=== PATIENT | male | born 1940 | race African-American/Black ===

== ENCOUNTER 2017-12-13 19:56 | Inpatient (IN) | payer OTHER ==
--- NOTE | 2017-12-13 20:29 | PDOC ---
History of Present Illness - General Chief Complaint: Chest Pain Stated Complaint: CHEST PAIN Time Seen by Provider: 12/13/17 20:29 - History of Present Illness Initial Comments: 76 year old male BIBVINNY with PMH of HTN and HLD with very poor medical compliance presenting with substernal chest pressure for the past 18 hours. States that he had sudden onset chest pressure at 4:00 AM today that he describes as a maximum of 9/10, constant, waxing/ waning intensity, worse with exertion, non-pleuritic, and positional. He took two baby aspirin on the way here and EMS gave him an SL nitro tab. He last took his BP and HLD meds one year prior. Denies history of cardiac interventions or cath. He had a stress test in the 1980s. Denies fevers, chills, nausea, vomiting, diarrhea, SOB, constipation, recent illness, travel, extended immobility, or other symptoms. Of note, he admits he had a brain mass removed 12/13/17 21:46 Past History - Past Medical History Allergies/Adverse Reactions: Allergies Allergy/AdvReac Type Severity Reaction Status Date / Time No Known Allergies Allergy Verified 11/17/15 13:03 Home Medications: Ambulatory Orders NK [No Known Home Medication] 12/13/17 HTN: Yes Hypercholesterolemia: Yes - Suicide/Smoking/Psychosocial Hx Smoking History: Former smoker Have you smoked in the past 12 months: No Hx Alcohol Use: No Drug/Substance Use Hx: No Substance Use Type: None Review of Systems - Review of Systems Constitutional: No: Chills, Diaphoresis, Fever, Loss of Appetite HEENTM: No: Blurred Vision, Tearing, Cataracts Respiratory: No: Cough, Orthopnea, Shortness of Breath, SOB with Exertion, SOB at Rest, Wheezing Cardiac (ROS): Yes: Chest Pain, Lightheadedness. No: Edema, Irregular Heart Rate, Syncope, Chest Tightness ABD/GI: No: Diarrhea, Nausea, Vomiting : No: Dysuria, Discharge, Frequency Integumentary: No: Lesions, Lumps, Pallor Neurological: No: Headache, Numbness, Tingling, Tremors, Weakness Psychiatric: No: Anxiety, Depression Hematologic/Lymphatic: No: Anemia, Blood Clots, Easy Bleeding *Physical Exam - Physical Exam General Appearance: Yes: Nourished, Appropriately Dressed. No: Apparent Distress HEENT: positive: EOMI, PRABHU, Normal ENT Inspection, Normal Voice Neck: positive: Trachea midline, Normal Thyroid, Supple. negative: Tender, Rigid Respiratory/Chest: positive: Lungs Clear, Normal Breath Sounds. negative: Chest Tender, Respiratory Distress Cardiovascular: positive: Regular Rhythm, Regular Rate Gastrointestinal/Abdominal: positive: Normal Bowel Sounds, Flat, Soft. negative : Tender Musculoskeletal: positive: Normal Inspection. negative: CVA Tenderness Extremity: positive: Normal Capillary Refill, Normal Inspection, Normal Range of Motion. negative: Tender Integumentary: positive: Normal Color, Dry, Warm Neurologic: positive: Fully Oriented, Alert, Normal Mood/Affect, Normal Response , Motor Strength 10/18 ED Treatment Course - LABORATORY CBC & Chemistry Diagram: 12/13/17 20:44 12/13/17 21:08 Medical Decision Making - Medical Decision Making 76 year old medically non-compliant hypertensive/ hyperlipidemic presenting with chest pressure. Trop + 0.44 with T-wave inversions V1-V6, AVl, !, II and flattening in AVF + III. Also elevation in AVR. Remaing labs WNL. Patient given asa (162 to complete 2x 81 dose given earlier), plavix 600, metop 25, and started on heparin drip. Patient signed out to Dr. Mojica and Maria Alejandra. 12/13/17 22:28 *DC/Admit/Observation/Transfer Diagnosis at time of Disposition: NSTEMI (non-ST elevated myocardial infarction) - Discharge Dispostion Condition at time of disposition: Fair Decision to Admit order: Yes - Referrals Referrals: Mariano Wallace MD [Primary Care Provider] - - Patient Instructions - Post Discharge Activity
--- NOTE | 2017-12-13 20:43 | PDOC ---
Attending Attestation - Resident Resident Name: [email or web address] - ED Attending Attestation I have performed the following: I have examined & evaluated the patient, The case was reviewed & discussed with the resident, I agree w/resident's findings & plan - HPI HPI: 12/13/17 22:41 Pt experienced chest pain yesterday morning as he was eating all the left over BBQ wings from his daughter's BBQ. He decided not to come to the ER yesterday as he hadn't had a pedicure recently. Today the pain continued, so his and daughter forced him to come to the ER. Pt is overweight. PMD Kamla. 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 Pt has minimal MSCP at this time. - Physicial Exam PE: 12/13/17 22:43 Agree with resident exam. - Medical Decision Making 12/13/17 22:43 Pt has a positive troponin; he has flipped Ts on EKG; NSTEMI; he was started on heparin and given beta blockers and nitro. Pt will be admitted to telelmetry unit Heart Score/ECG Review - History History: Highly suspicious - Electrocardiogram EKG: Significant ST-depression - Age Age: >/= 65 - Risk Factors Risk Factors Heart Score: Yes Hx Hypertension, Yes Hx Obesity Based on the list above the patient has:: 1-2 risk factors - Troponin Troponin: 1-3x normal limit - Score Heart Score - Total: 8 - ECG Intrepretation Rhythm: Regular Rhythm - P and AR Delta Wave(s) Present: No WPW: No
[2017-12-13 20:53] LABS: EOS % 1.6 % (0-4.5); HEMATOCRIT 39.5 % (35.4-49); HEMOGLOBIN 13.1 GM/dL (11.7-16.9); LYMPH % 27.9 % (8-40); MCHC 33.2 g/dl (32.0-35.9); MEAN CELL VOLUME 87.4 fl (80-96); MEAN PLT VOLUME 8.6 fl (7.5-11.1); MONO % 5.3 % (3.8-10.2); NEUT % 64.2 % (42.8-82.8); PLATELET COUNT 375 K/MM3 (134-434); RBC 4.51 M/mm3 (4.00-5.60); RDW 14.2 % (11.9-15.9); WHITE BLOOD COUNT 9.8 K/mm3 (4.0-10.0)
[2017-12-13 20:56] LABS: PLATELET ESTIMATE ADEQUATE
[2017-12-13 21:16] LABS: INR 1.05 (0.82-1.09); PROTHROMBIN TIME (PATIENT) 11.9 SEC (9.7-13.0)
[2017-12-13 21:40] LABS: ALBUMIN 3.4 g/dl (3.4-5.0); ALK PHOS 51 U/L (45-117); ANION GAP 6 (8-16); BILIRUBIN,TOTAL 0.3 mg/dL (0.2-1.0); BLOOD UREA NITROGEN 11 mg/dL (7-18); CHLORIDE 109 mmol/L (98-107); CO2 31 mmol/L (21-32); CREATININE 1.1 mg/dL (0.7-1.3); GLUCOSE,RANDOM 92 mg/dL (74-106); POTASSIUM 3.8 mmol/L (3.5-5.1); SGOT/AST 15 U/L (15-37); SGPT/ALT 11 U/L (12-78); SODIUM 146 mmol/L (136-145); TOT PROT 6.9 g/dl (6.4-8.2)
[2017-12-13] MEDS ORDERED: ASPIRIN 81 MG CHEWABLE TABLETS PO ONE (21:49)
[2017-12-13] MEDS ORDERED: CLOPIDOGREL BISULFATE 300 MG TABLET PO ONE ×2 (21:50→22:22)
[2017-12-13] MEDS ORDERED: METOPROLOL TARTRATE 25 MG TABLET (FP) PO ONE (21:57)
[2017-12-13] MEDS ORDERED: HEPARIN NA (PORCINE) 5,000 UNITS/ML 1ML VIAL IVPUSH PRN ×2 (22:01)
[2017-12-13] MEDS ORDERED: HEPARIN INFUSION - 25,000 UNITS/500 ML INFUS.BAG IVPB SCH (22:15)
[2017-12-13] MEDS ORDERED: ASPIRIN 81 MG CHEWABLE TABLETS ONE (22:16)
[2017-12-13] MEDS ORDERED: CLOPIDOGREL BISULFATE 300 MG TABLET ONE ×2 (22:16→22:29)
[2017-12-13] MEDS ORDERED: METOPROLOL TARTRATE 25 MG TABLET (FP) ONE (22:17)
[2017-12-13] MEDS ORDERED: HEPARIN INFUSION - 25,000 UNITS/500 ML INFUS.BAG IVPB ONE (22:17)
[2017-12-13] MEDS ORDERED: HEPARIN NA (PORCINE) 5,000 UNITS/ML 1ML VIAL ONE (22:36)
[2017-12-13] MEDS ORDERED: NITROGLYCERIN 2% OINTMENT - 1GM PACKET TD ONE ×2 (22:38→23:06)
[2017-12-13] MEDS ORDERED: METOPROLOL TARTRATE 5 MG/5 ML VIAL IVPUSH ONE (22:39)
[2017-12-13] MEDS ORDERED: METOPROLOL TARTRATE 5 MG/5 ML VIAL ONE (23:06)
[2017-12-14 00:32] LABS: URINE APPEARANCE CLEAR; URINE BILIRUBIN NEGATIVE (<2.0 mg/dL); URINE COLOR LTYELLOW; URINE GLUCOSE (UA) NEGATIVE (NEGATIVE); URINE KETONE NEGATIVE (NEGATIVE); URINE LEUK ESTERASE NEGATIVE (NEGATIVE); URINE NITRITE NEGATIVE (NEGATIVE); URINE PROTEIN NEGATIVE (NEGATIVE); URINE UROBILINOGEN 4.0 E.U/dl mg/dL (0.2-1.0)
[2017-12-14 04:22] VITALS: BP 157/70; PULSE 59; BMI 38.0
[2017-12-14 04:37] VITALS: TEMP 98.2
[2017-12-14] MEDS ORDERED: METOPROLOL TARTRATE 25 MG TABLET (FP) PO SCH (06:15)
[2017-12-14] MEDS ORDERED: ATORVASTATIN CA 80 MG TABLET (FP) PO ONE (08:07)
--- NOTE | 2017-12-14 08:09 | CON.CARD ---
Cardiology Consult (text) - Consultation Consultation Note: Consult Dictated IMP: NSTEMI REC: Given ASA, Plavix load, Heparin gtts, high dose statin Plan to tx to [facility] for cath.
--- NOTE | 2017-12-14 09:21 | CONS ---
DATE OF CONSULTATION: 11/14/2017 The patient is a 76-year-old male who presented to the emergency department with 1 day of exertional, substernal chest pressure and approximately 2 days of exertional dyspnea. He describes his chest pain as centralized, pressure with some radiation to the left shoulder. He denies nausea, vomiting, or diaphoresis. He denies palpitations, lower extremity edema, syncope, PND, orthopnea. He has no pleuritic chest pain. 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 He has no known drug allergies. HOME MEDICATIONS: These could not be reconciled; he does not know them and they need to be reviewed from his outpatient record. FAMILY HISTORY: Noncontributory for early coronary disease. SOCIAL HISTORY: He lives with his . He is a former smoker. PHYSICAL EXAMINATION: General: He is alert, oriented, in no distress, currently chest pain free. Vital Signs: Temperature 98.2, pulse 59, sinus rhythm, blood pressure 157/70, oxygenating 96% on room air. Neck: No JVD, no carotid bruits. Heart: Regular without murmurs. No aortic stenosis murmur. Chest: Clear. Abdomen: Obese, but soft, nontender. No rebound or guarding. Extremities: Warm with no edema. His ECG showed normal sinus rhythm with T-wave inversions across the precordium. There is no prior for comparison. CBC was normal. INR 1.05, last PTT 115; heparin protocol being followed. Sodium 146, potassium 3.8, BUN 11, creatinine 1.1. CK and troponin trend as follows: 117, 388 CPK; troponin initial 0.44, second set 13.2 with an index of 11 and an MB of 42.2. Urinalysis was negative. Chest x-ray showed no clear infiltrates or effusions. IMPRESSION: A 76-year-old male with 2 days of dyspnea on exertion and 1 day of substernal, exertional chest pressure; EKG changes and cardiac enzyme trend consistent with [id number] elevation myocardial infarction. PLAN: 1. Patient has received full-dose aspirin 325 mg as well as a 600 mg Plavix load in the emergency department. He is currently on an unfractionated heparin drip, which we will continue. High-dose statin, Lipitor 80 mg daily, will be initiated. Given his resting pulse of 55 to 60, beta blockers are ordered, but with hold parameters. 2. His condition was discussed in detail with him and his . I have recommended transfer to a tertiary care center for cardiac catheterization and possible PCI. Patient was agreeable to transfer. Patient is accepted to [facility] for transfer and, at the time of this dictation, ambulance is set to pick him up from [facility] in 1 hour. Thank you for the consultation. MYLES BURGER M.D. JORGE [id number]
--- NOTE | 2017-12-14 09:25 | EKG ---
Test Reason : Blood Pressure : / mmHG Vent. Rate : 089 BPM Atrial Rate : 089 BPM P-R Int : 184 ms QRS Dur : 080 ms QT Int : 400 ms P-R-T Axes : 030 -03 180 degrees QTc Int : 486 ms SINUS RHYTHM WITH OCCASIONAL PREMATURE VENTRICULAR COMPLEXES T WAVE ABNORMALITY, CONSIDER ANTEROLATERAL ISCHEMIA PROLONGED QT ABNORMAL ECG NO PREVIOUS ECGS AVAILABLE Confirmed by MYLES BURGER MD ([id number]) on 12/14/2017 9:25:34 AM Referred By: Confirmed By:MYLES BURGER MD
[2017-12-14] MEDS ORDERED: ASPIRIN COATED 81 MG TABLET.EC PO SCH (10:00)
[2017-12-14] MEDS ORDERED: CLOPIDOGREL BISULFATE 75 MG TABLET (FP) PO SCH (10:00)
--- NOTE | 2017-12-14 15:28 | HP ---
Admitting History and Physical - Smoking History Smoking history: Former smoker Have you smoked in the past 12 months: No - Alcohol/Substance Use Hx Alcohol Use: No Home Medications - Allergies Allergies/Adverse Reactions: Allergies Allergy/AdvReac Type Severity Reaction Status Date / Time No Known Allergies Allergy Verified 11/17/15 13:03 - Home Medications Home Medications: Ambulatory Orders NK [No Known Home Medication] 12/13/17 Physical Examination Vital Signs: Vital Signs Temperature 98.2 F 12/14/17 04:00 Pulse Rate 59 L 12/14/17 04:00 Respiratory Rate 20 12/14/17 04:00 Blood Pressure 157/70 12/14/17 04:00 O2 Sat by Pulse Oximetry (%) 98 12/14/17 09:00 Labs: CBC, BMP 12/13/17 20:44 12/13/17 21:08
--- NOTE | 2017-12-14 15:28 | DS ---
Physical Examination Vital Signs: Vital Signs Temperature 98.2 F 12/14/17 04:00 Pulse Rate 59 L 12/14/17 04:00 Respiratory Rate 20 12/14/17 04:00 Blood Pressure 157/70 12/14/17 04:00 O2 Sat by Pulse Oximetry (%) 98 12/14/17 09:00 Labs: CBC, BMP 12/13/17 20:44 12/13/17 21:08 Discharge Summary Reason For Visit: NON-ST ELEVAYION (NSTEMI) MYOCARDIAL INFARCTION Condition: Fair - Instructions Referrals: Mariano Wallace MD [Primary Care Provider] - Disposition: HOME - Home Medications Comprehensive Discharge Medication List: Ambulatory Orders NK [No Known Home Medication] 12/13/17
== END 2017-12-14 10:45 | disposition home or self-care (01) | DRG 282 ==
LOC: JER 19:56 → JERBED 22:11 → J4W 12-14 02:31
PROVIDERS: ADMIT Internal Medicine; ATTEND Internal Medicine
DX: I21.4 Non-ST elevation (NSTEMI) myocardial infarction (principal); I45.81 Long QT syndrome; I10 Essential (primary) hypertension; E66.9 Obesity, unspecified; Z68.38 Body mass index [BMI] 38.0-38.9, adult; E78.5 Hyperlipidemia, unspecified; Z87.891 Personal history of nicotine dependence; Z91.14 Patient's other noncompliance with medication regimen
CPT/HCPCS: 36415; 71045-TC-FY; 80053; 80061; 81003; 82550; 82553; 83721; 84484; 85025; 85610; 85730; 93005; 93010; 99284-25; J1644

== ENCOUNTER 2019-03-24 15:29 | Inpatient (IN) | payer OTHER ==
--- NOTE | 2019-03-24 16:04 | PDOC ---
History of Present Illness - General Chief Complaint: Blood Pressure Problem Stated Complaint: Chest Pain Time Seen by Provider: 03/24/19 16:03 History Source: Patient, Family, Spouse Exam Limitations: Clinical Condition (Not oriented, inaccurate recall) - History of Present Illness Initial Comments: 03/24/19 16:04 Doug Galindo is a 78M with PMH NSTEMI, HTN, HLD, and distant brain lesion removal presenting with multiple complaints, including one day of chest pain, urinary/fecal incontinence, and lower extremity weakness. Patient is a very poor historian, history given by both patient and family at bedside. Per family, confusion and memory issues is a chronic issue. Has been refusing to see a doctor for a while, but brought in today by for chest pain. Patient himself reports that he was sitting in a chair yesterday and suddenly started having a pain with palpitations in the middle of his chest, describes as pressure that went away eventually but unsure of how long he had it. Comes and goes multiple times over the night into the next day, but unable to describe when or if there was a trigger. Pain was non-radiating and caused some shortness of breath. At this time patient denies chest pain, as it resolved while in the waiting room. Family reports that patient has been having 5 months of lower extremity weakness that has been worsening, formerly able to walk but now cannot get up from seated position, family has to transfer to chair or carry to bathroom, is no longer able to do this anymore. Had an NSTEMI last year but has not had any chest pain complaints since then or other medical problems. Has been having one week of urinary/fecal incontinence that is new. On multiple medications after NSTEMI last year, says she is giving them but is unclear of what they are. Past History - Past Medical History Allergies/Adverse Reactions: Allergies Allergy/AdvReac Type Severity Reaction Status Date / Time No Known Allergies Allergy Verified 03/25/19 03:03 Home Medications: Ambulatory Orders Atorvastatin Ca [Lipitor] 80 mg PO HS 03/25/19 Clopidogrel Bisulfate [Plavix] 75 mg PO DAILY 03/25/19 Furosemide [Lasix -] 20 mg PO TID 03/25/19 Lisinopril 5 mg PO DAILY 03/25/19 Metoprolol Tartrate [Lopressor -] 25 mg PO BID 03/25/19 Sertraline HCl [Zoloft -] 25 mg PO DAILY 03/25/19 Tamsulosin HCl [Flomax] 0.4 mg PO DAILY 03/25/19 COPD: No HTN: Yes Hypercholesterolemia: Yes - Psycho Social/Smoking Cessation Hx Smoking History: Former smoker Have you smoked in the past 12 months: No If you are a former smoker, when did you quit?: 1992 Information on smoking cessation initiated: No Hx Alcohol Use: No Drug/Substance Use Hx: No Substance Use Type: None Review of Systems - Review of Systems Able to Perform ROS?: Yes Comments:: 03/25/19 19:14 conflicting answers for most of his medical history, i.e. has history of NSTEMI and brain surgery but says no when asked about them Constitutional: Yes: Weakness. No: Chills, Fever HEENTM: No: Symptoms Reported Respiratory: Yes: Shortness of Breath, SOB at Rest. No: Cough Cardiac (ROS): Yes: Chest Pain, Palpitations, Chest Tightness. No: Edema, Syncope ABD/GI: Yes: Diarrhea. No: Constipated, Nausea, Vomiting : No: Burning, Dysuria, Discharge, Frequency, Flank Pain, Hematuria Musculoskeletal: Yes: Muscle Weakness. No: Muscle Pain Integumentary: Yes: Lumps (bump to back of head) Neurological: Yes: Headache. No: Numbness, Paresthesia, Tingling, Tremors, Weakness Endocrine: No: Symptoms Reported Hematologic/Lymphatic: No: Symptoms Reported All Other Systems: Reviewed and Negative *Physical Exam - Vital Signs Last Vital Signs Temp Pulse Resp BP Pulse Ox 98.6 F 70 20 79/53 L 100 03/24/19 15:40 03/24/19 15:40 03/24/19 15:40 03/24/19 15:40 03/24/19 15:40 - Physical Exam General Appearance: Yes: Nourished, Appropriately Dressed. No: Apparent Distress, Intoxicated HEENT: positive: EOMI, PRABHU, Normal Voice, Symmetrical, Pharynx Normal, Hearing Grossly Normal, Other (large lump to back of head). negative: Normal ENT Inspection, Scleral Icterus (R), Scleral Icterus (L), Muffled/Hoarse voice, Pharyngeal Erythema, Tonsillar Exudate, Tonsillar Erythema Neck: positive: Normal Thyroid, Supple. negative: Tender, Rigid, Decreased range of motion, Lymphadenopathy (R), Lymphadenopathy (L) Respiratory/Chest: positive: Lungs Clear, Normal Breath Sounds. negative: Respiratory Distress, Accessory Muscle Use, Crackles, Rales, Rhonchi Cardiovascular: positive: Regular Rhythm, Regular Rate Vascular Pulses: Dorsalis-Pedis (R): 2+, Doralis-Pedis (L): 2+ Gastrointestinal/Abdominal: positive: Normal Bowel Sounds, Flat, Soft. negative : Tender, Guarding, Rebound Musculoskeletal: positive: Normal Inspection. negative: CVA Tenderness Extremity: positive: Normal Capillary Refill, Normal Inspection, Normal Range of Motion, Other (Lower extremities 3/5 motor strength at the hips, full ROM, non-tender, pulses present, no evidence of deformity or rash. BUE exam normal.) . negative: Tender Integumentary: positive: Normal Color, Dry, Warm Neurologic: positive: Alert, Normal Mood/Affect, Confused, Disoriented. negative: Fully Oriented (oriented to person, general location as hospital, thinks it is June), Normal Response (short phrase responses, gives answers that directly contradict medical history), Motor Strength 5/5, Facial Droop, Numbness ED Treatment Course - LABORATORY CBC & Chemistry Diagram: 03/25/19 06:50 03/25/19 06:00 - RADIOLOGY Radiology Studies Ordered: Category Date Time Status CHEST X-RAY PORTABLE* [RAD] Stat Radiology 03/24/19 16:04 Ordered Medical Decision Making - Medical Decision Making 03/24/19 16:04 Doug Galindo is a 78M with PMH NSTEMI, HTN, HLD, and distant brain lesion removal presenting with multiple complaints, including one day of chest pain, urinary/fecal incontinence, and lower extremity weakness. Patient is a very poor historian, gives conflicting answers compared with family and known history. Alert, but oriented only to self, location in hospital , and reason for being in hospital, but does not know the date/time and believes he is at [facility]. Altered mental status concerning for electrolyte abnormality, brain injury/lesion given abnormal lump on the back of his head, dementia, drug intoxication. Has multiple issues at this time, including chest pain, weakness, incontinence, unclear how they are related at this time. Will evaluate via: ECG CXR CMP CBC CP UA/UC CT head for abnormal lump to back of head Bedside US shows no evidence of tamponade or pericardial effusions ECG shows sinus bradycardia without ST elevations or ischemic changes, HR 58, SD 184, QTc 390. 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 Mojica service for PMD Dr. Mariano Wallace Called Dr. Mojica's office. 03/24/19 19:[address] Mojica. 03/24/19 19:21 Discussed admission to telemetry under Dr. Mojica. Patient requires inpatient admission for an elevation in creatinine from his baseline and evaluation of kidney injury and underlying etiology as cause of his weakness, in the setting of concerning finding of chest pain in light of his cardiac history and inability to fully articulate his symptoms. The patient needs further inpatient cardiac evaluation including troponin trending, echocardiogram. Patient is known to have poor physician follow-up and is unable to perform ADLs at home, further necessitating inpatient admission. Discharge - Discharge Information Problems reviewed: Yes Clinical Impression/Diagnosis: Chest pain at rest, Palpitations, Acute kidney injury Lower extremity weakness Qualifiers: Laterality: bilateral Qualified Code(s): R29.898 - Other symptoms and signs involving the musculoskeletal system Condition: Stable - Admission Yes - Follow up/Referral - Patient Discharge Instructions - Post Discharge Activity
[2019-03-24] MEDS ORDERED: SODIUM CHLORIDE 1,000 ML IV STA (16:07)
[2019-03-24 16:34] LABS: BASO % 0.8 % (0-2.0); EOS % 1.9 % (0-4.5); HEMATOCRIT 32.4 % (35.4-49); HEMOGLOBIN 10.8 GM/dL (11.7-16.9); LYMPH % 14.6 % (8-40); MCH 29.1 pg (25.7-33.7); MCHC 33.3 g/dl (32.0-35.9); MEAN CELL VOLUME 87.5 fl (80-96); MEAN PLT VOLUME 7.6 fl (7.5-11.1); MONO % 5.9 % (3.8-10.2); NEUT % 76.8 % (42.8-82.8); PLATELET COUNT 392 K/MM3 (134-434); RDW 13.9 % (11.9-15.9); WHITE BLOOD COUNT 9.4 K/mm3 (4.0-10.0)
--- NOTE | 2019-03-24 16:44 | PDOC ---
Attending Attestation - Resident Resident Name: Ajit Funk - ED Attending Attestation I have performed the following: I have examined & evaluated the patient, The case was reviewed & discussed with the resident, I agree w/resident's findings & plan, Exceptions are as noted - HPI HPI: 03/24/19 16:38 Right 78-year-old male with history of hypertension, hyperlipidemia, CAD, questionable dementia, history of brain tumor with possible resection presents to the ER planing of several days of intermittent chest pain and decreased p.o. intake of solids and liquids. Patient is also been noted to develop incontinence of bowel and bladder as per family members. - Physicial Exam PE: 03/24/19 16:39 Patient is awake and alert, oriented to self only. Patient believes that he is at [facility] currently. Patient is well-nourished atraumatic, a palpable ridge and deformity is noted to the calvarium at the occiput EOMI Mucous membranes are dry CTA RRR - Medical Decision Making Patient is a frail-appearing 78-year-old male with multiple comorbidities who presents with atraumatic chest pain, decreased p.o. intake of solids and liquids and failure to thrive with incontinence of bowel and bladder. In the ER , Patient is afebrile; patient with no focal neurological deficits noted initial evaluation. Lungs are clear, bedside ultrasound shows no evidence of pericardial effusion or significant wall motion abnormalities. Intracranial hemorrhage or recurrence of the previously mentioned brain tumor. Will obtain CBC/CMP/UA/cardiac profile/EKG. Will obtain head CT to rule out hemorrhage vs mass. likely admission.
[2019-03-24 17:00] LABS: ALBUMIN 3.2 g/dl (3.4-5.0); BILIRUBIN,TOTAL 0.4 mg/dL (0.2-1); BLOOD UREA NITROGEN 42.9 mg/dL (7-18); CALCIUM 9.3 mg/dL (8.5-10.1); CREATININE 2.3 mg/dL (0.55-1.3); POTASSIUM 4.1 mmol/L (3.5-5.1); TOT PROT 6.3 g/dl (6.4-8.2)
[2019-03-24 19:33] LABS: PH,URINE 5.5 (5.0-8.0); URINE APPEARANCE CLEAR; URINE BILIRUBIN NEGATIVE (NEGATIVE); URINE COLOR YELLOW; URINE GLUCOSE (UA) NEGATIVE (NEGATIVE); URINE KETONE NEGATIVE (NEGATIVE); URINE LEUK ESTERASE NEGATIVE (NEGATIVE); URINE NITRITE NEGATIVE (NEGATIVE); URINE PROTEIN NEGATIVE (NEGATIVE); URINE UROBILINOGEN 0.2 mg/dL (0.2-1.0)
--- NOTE | 2019-03-25 04:36 | HP ---
Admitting History and Physical - Admission History of Present Illness: Pt is a 78 y/o male with PMH significant for NC, HTN, HLD, and distant brain lesion removal presenting with multiple complaints, including one day of chest pain, urinary/fecal incontinence, and lower extremity weakness. Patient is a very poor historian, history was given by both patient and family at bedside. Pt has been having confusion and memory loss. Pt has been having intermittent memory loss over the past few months but as per has been more consistent in the past 48 hrs. Patient complains of sitting in a chair and suddenly started having chest pain with palpitations in the middle of his chest, describes as pressure that went away eventually but unsure of how long he had it. Comes and goes multiple times over the night into the next day. Patient has been few months of lower extremity weakness that has been worsening, formerly able to walk but now cannot get up from seated position, family has to transfer to chair or carry to bathroom, is no longer able to do this anymore. Pt also has been having one week of urinary/fecal incontinence that is new. 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) Cardiovascular: Yes: HTN, Hyperlipdemia, NC - Smoking History Smoking history: Former smoker Have you smoked in the past 12 months: No If you are a former smoker, when did you quit?: 1992 - Alcohol/Substance Use Hx Alcohol Use: No Home Medications - Allergies Allergies/Adverse Reactions: Allergies Allergy/AdvReac Type Severity Reaction Status Date / Time No Known Allergies Allergy Verified 03/25/19 03:03 - Home Medications Home Medications: Ambulatory Orders Atorvastatin Ca [Lipitor] 80 mg PO HS 03/25/19 Clopidogrel Bisulfate [Plavix] 75 mg PO DAILY 03/25/19 Sertraline HCl [Zoloft -] 25 mg PO DAILY 03/25/19 Tamsulosin HCl [Flomax] 0.4 mg PO DAILY 03/25/19 Aspirin [ASA -] 81 mg PO DAILY tab.chew 04/07/19 Cyanocobalamin [Vitamin B12 -] 1,000 mcg PO DAILY tablet 04/07/19 Metoprolol Tartrate [Lopressor -] 12.5 mg PO BID tablet 04/07/19 levoFLOXacin [Levaquin -] 500 mg PO DAILY@0600 tablet 04/07/19 Family Medical History Family History: Unable to Obtain Review of Systems - Review of Systems Constitutional: reports: Weakness, Other (Memory loss) HENT: reports: No Symptoms Neck: reports: No Symptoms Cardiovascular: reports: Chest Pain Gastrointestinal: reports: No Symptoms Genitourinary: reports: Other (Urinary/fecal incontinence) Physical Examination Vital Signs: Vital Signs Temperature 98.1 F 03/24/19 21:50 Pulse Rate 68 03/25/19 03:01 Respiratory Rate 18 03/25/19 03:01 Blood Pressure 110/59 L 03/25/19 03:01 O2 Sat by Pulse Oximetry (%) 96 03/25/19 03:01 Constitutional: Yes: Well Nourished Eyes: Yes: WNL HENT: Yes: WNL Neck: Yes: WNL, Supple Cardiovascular: Yes: WNL, Regular Rate and Rhythm Respiratory: Yes: WNL, Regular, CTA Bilaterally Gastrointestinal: Yes: WNL, Normal Bowel Sounds, Soft Musculoskeletal: Yes: WNL Extremities: Yes: WNL Edema: No ...Motor Strength: WNL Labs: CBC, BMP 03/24/19 16:12 03/24/19 16:12 Problem List - Problems (1) Chest pain at rest Assessment/Plan: Tele monitoring Serial cpk/troponin Code(s): R07.9 - CHEST PAIN, UNSPECIFIED (2) Altered mental status Assessment/Plan: CT scan head showed osteoma Neuro consult Will need MRI brain ?Dementia Check labs Code(s): R41.82 - ALTERED MENTAL STATUS, UNSPECIFIED (3) Weakness Assessment/Plan: Will need PT eval Code(s): R53.1 - WEAKNESS (4) Acute kidney injury Assessment/Plan: Check Renal US Renal consult IV hydration ?Dehydration Code(s): N17.9 - ACUTE KIDNEY FAILURE, UNSPECIFIED (5) HTN (hypertension) Assessment/Plan: Hold antihypertensives and monitor BP IV hydration Code(s): I10 - ESSENTIAL (PRIMARY) HYPERTENSION (6) HLD (hyperlipidemia) Code(s): E78.5 - HYPERLIPIDEMIA, UNSPECIFIED
[2019-03-25] MEDS ORDERED: DEXTROSE 5%-0.45% SALINE 1,000 ML IV SCH (04:45)
[2019-03-25 07:24] LABS: EOS % 2.8 % (0-4.5); HEMOGLOBIN 10.4 GM/dL (11.7-16.9); LYMPH % 23.7 % (8-40); MCH 29.3 pg (25.7-33.7); MCHC 33.7 g/dl (32.0-35.9); MEAN CELL VOLUME 86.9 fl (80-96); MEAN PLT VOLUME 7.5 fl (7.5-11.1); MONO % 6.5 % (3.8-10.2); PLATELET COUNT 381 K/MM3 (134-434); RBC 3.56 M/mm3 (4.00-5.60); RDW 14.3 % (11.9-15.9); WHITE BLOOD COUNT 8.3 K/mm3 (4.0-10.0)
[2019-03-25 07:47] LABS: ALBUMIN 3.1 g/dl (3.4-5.0); BILIRUBIN,TOTAL 0.6 mg/dL (0.2-1); BLOOD UREA NITROGEN 43.1 mg/dL (7-18); CALCIUM 8.7 mg/dL (8.5-10.1); POTASSIUM 3.3 mmol/L (3.5-5.1)
[2019-03-25] MEDS: HEPARIN NA (PORCINE) 5,000 UNITS/ML 1ML VIAL SQ SCH ×2 (10:21→22:58)
--- NOTE | 2019-03-25 10:38 | CONSULT ---
Consult - text type - Consultation Consultation Note: NEUROLOGY CONSULT GREATLY APPRECIATED: This 78 yo LH man is a retired [employer] with memory loss "for a while." His lives with his and requires assistance in all ADL's. Pt.has cane at home, but essentially bed/chair bound for at least the past month. PMHX: NSTEMI, HTN, HLD. Home medications uncertain but may include metoprolol, flomax, furosemide. Here due to persistent B/B incontinence which patient attributes to lower extremity weakness and inability to walk to the bathroom. Also describes "burning" under soles of feet. Head CT (reviewed): moderate diffuse cerebral atrophy with ex vacuo dilation of ventricles. Scattered, diffuse chronic ischemic changes. Posterior osteoma. EKG sinus consuelo BP on admission 79/53. WBC= 8.3 K, BUN/CR 42.9/2.3; UA neg. Low total protein and albumin SILVIA: Cor reg. No bruit. Neck supple. Hard, nontender lump middle occiput. Neg SLR. Unkempt. Scabs to shoulders. Wearing diaper. Neuro: Awake, alert, responsive. Follows most commands. "[facility]" June 1918. Trump. Recalls 1 of 3.. + glabella, snout, suck, palmomentals CNII-CNXII: EOM's full with full stephens. No facial. Gag ok. Motor: No drift or tremor. Rigid tone legs > arms. Normal ankle dorsiflexion, B/L. Min cogwheeling. Decreased EVANGELINA's B/L. Reflexes brisk in arms, present KJ's, but reduced AJ's. Toes downgoing Coordination: No FTN dystaxia. Sensation: Feels vibration in toes. Gait: unable to stand with assist. Impression: Moderately Severe, B/L, cerebral dysfunction (OMS, chronic). Probably Alzheimers disease (possible microvascular contribution) LSSS +/- peripheral neuropathy (small fibre-nutritional?) Admission labs and BP suggest dehydration and that nutritional factors may play a role in recent worsening. Consider Wernicke's Encephalopathy. Suggest: Await further history from family and interview with about home care situation. Check medication list and when patient last had medical care MRI of brain (C-) Check TSH, B12, RPR, Urine Culture Add thiamine 250 mg IVP q8H x 3 days Follow BP Cr/BUN with aggressive hydration. Advance diet. Bedside PT. Mobilize OO Bed to chair. 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 Thank you very much, Edward Garcia MD
--- NOTE | 2019-03-25 12:21 | EKG ---
Test Reason : Blood Pressure : / mmHG Vent. Rate : 058 BPM Atrial Rate : 058 BPM P-R Int : 184 ms QRS Dur : 082 ms QT Int : 398 ms P-R-T Axes : 082 006 026 degrees QTc Int : 390 ms POOR DATA QUALITY, INTERPRETATION MAY BE ADVERSELY AFFECTED SINUS BRADYCARDIA NONSPECIFIC ST ABNORMALITY ABNORMAL ECG WHEN COMPARED WITH ECG OF 13-DEC-2017 21:51, SIGNIFICANT CHANGES HAVE OCCURRED Confirmed by KATE ANDRES, JOCELINE ([id number]) on 03/25/2019 12:21:09 PM Referred By: Confirmed By:JOCELINE LOVE MD
[2019-03-25] MEDS ORDERED: THIAMINE HCL 200 MG/2 ML VIAL ONE (15:31)
--- NOTE | 2019-03-25 15:39 | CONSULT ---
Consult Consult Specialty:: Nephrology Reason for Consultation:: JESSE - History of Present Illness Chief Complaint: chest pain History of Present Illness: Pt is a 78 year old male with pmhx of htn, hld, cad, dementia and brain tumor who presented to the ER with chest pain. He says that he has had chest pain for the last few days. He currently denies chest pain. He is a poor historian. Pa was called to evaluate him for elevated creatinine. He is not sure if he has history of kidney disease. His last creatinine in out computer system was normal. He has also had decreased PO intake. 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 Cardio/Vascular: Yes: HTN, Hyperlipdemia - Alcohol/Substance Use Hx Alcohol Use: No - Smoking History Smoking history: Former smoker Have you smoked in the past 12 months: No If you are a former smoker, when did you quit?: 1992 Home Medications - Allergies Allergies/Adverse Reactions: Allergies Allergy/AdvReac Type Severity Reaction Status Date / Time No Known Allergies Allergy Verified 03/25/19 03:03 - Home Medications Home Medications: Ambulatory Orders Atorvastatin Ca [Lipitor] 80 mg PO HS 03/25/19 Clopidogrel Bisulfate [Plavix] 75 mg PO DAILY 03/25/19 Furosemide [Lasix -] 20 mg PO TID 03/25/19 Lisinopril 5 mg PO DAILY 03/25/19 Metoprolol Tartrate [Lopressor -] 25 mg PO BID 03/25/19 Sertraline HCl [Zoloft -] 25 mg PO DAILY 03/25/19 Tamsulosin HCl [Flomax] 0.4 mg PO DAILY 03/25/19 Family Medical History Family History: Denies Review of Systems - Review of Systems Constitutional: reports: Loss of Appetite, Malaise Eyes: reports: No Symptoms HENT: reports: No Symptoms Neck: reports: No Symptoms Cardiovascular: reports: No Symptoms Respiratory: reports: No Symptoms Gastrointestinal: reports: No Symptoms Genitourinary: reports: Incontinence Musculoskeletal: reports: No Symptoms Integumentary: reports: No Symptoms Neurological: reports: No Symptoms Endocrine: reports: No Symptoms Hematology/Lymphatic: reports: No Symptoms Psychiatric: reports: No Symptoms Physical Exam Vital Signs: Vital Signs Temperature 98.3 F 03/25/19 15:28 Pulse Rate 72 03/25/19 15:28 Respiratory Rate 16 03/25/19 15:28 Blood Pressure 104/55 L 03/25/19 15:28 O2 Sat by Pulse Oximetry (%) 99 03/25/19 15:28 Constitutional: Yes: Calm Eyes: Yes: Conjunctiva Clear HENT: Yes: Atraumatic Cardiovascular: Yes: S1, S2 Respiratory: Yes: CTA Bilaterally Gastrointestinal: Yes: Soft Renal/: Yes: Incontinence Musculoskeletal: Yes: WNL Edema: No Neurological: Yes: Oriented Psychiatric: Yes: Oriented Labs: CBC, BMP 03/25/19 06:50 03/25/19 06:00 Laboratory Tests 12/13/17 03/24/19 03/24/19 21:08 16:12 16:12 WBC 9.4 Hgb 10.8 L Plt Count 392 Sodium Potassium Creatinine 1.1 2.3 H Urine Protein Urine Blood 03/24/19 03/25/19 03/25/19 19:25 06:00 06:50 WBC Hgb 10.4 L Plt Count 381 Sodium 139 Potassium 3.3 L Creatinine 2.0 H Urine Protein Negative Urine Blood Negative Imaging - Results Ultrasound: Report Reviewed Problem List - Problems (1) Acute kidney injury Code(s): N17.9 - ACUTE KIDNEY FAILURE, UNSPECIFIED (2) Chest pain at rest Code(s): R07.9 - CHEST PAIN, UNSPECIFIED (3) HTN (hypertension) Code(s): I10 - ESSENTIAL (PRIMARY) HYPERTENSION Assessment/Plan Current Medications Generic Name Dose Route Start Last Admin Trade Name Freq PRN Reason Stop Dose Admin Heparin Sodium (Porcine) 5,000 unit 03/25/19 10:00 03/25/19 10:21 Heparin - SQ 5,000 unit BID MELA Administration Dextrose/Sodium Chloride 1,000 mls @ 75 mls/hr 03/25/19 04:45 03/25/19 05:50 D5-1/2ns - IV 75 mls/hr ASDIR MELA Administration Thiamine HCl 250 mg 03/25/19 14:00 Vitamin B1 Injection - IVPB 03/28/19 13:59 TID [facility] Impression 1. JESSE 2. chest pain 3. htn 4. hld 5. brain lesion 6. 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
[2019-03-25] MEDS: THIAMINE HCL 200 MG/2 ML VIAL IVPB SCH ×2 (15:40→22:58)
[2019-03-25] MEDS ORDERED: POTASSIUM CHLORIDE TABS 20 MEQ TABLET.ER (FP) PO ONE (15:49)
--- NOTE | 2019-03-25 15:59 | ECHO ---
Name: FRANK GRACE Exam:Adult Echocardiogram Study Date: 03/25/2019 02:18 PM Age: 78 yrs Reason For Study: CHEST PAIN HYPOTENSION Height: 69 in Weight: 240 lb BSA: 2.2 m2 MMode/2D Measurements & Calculations IVSd: 1.2 cm Ao root diam: 3.4 cm LVIDd: 3.5 cm LA dimension: 3.2 cm LVIDs: 2.5 cm LVPWd: 1.3 cm LVPWs: 1.2 cm EDV(Teich): 50.2 ml ESV(Teich): 21.8 ml LVOT diam: 2.5 cm RV S Darrius: 16.6 cm/sec Doppler Measurements & Calculations MV E max darrius: 79.1 cm/sec Ao V2 max: 94.4 cm/sec MV A max darrius: 96.5 cm/sec Ao max P.6 mmHg MV E/A: 0.82 MV dec time: 0.12 sec HILARIO(V,D): 5.5 cm2 LV V1 max P.3 mmHg PA V2 max: 108.6 cm/sec LV V1 max: 103.8 cm/sec PA max P.7 mmHg Lat Peak E' Darrius: 8.4 cm/sec Lat E/e': 9.4 Tech Comments . . Procedure A complete two-dimensional transthoracic echocardiogram was performed (2D, M-mode, Doppler and color flow Doppler). The study was technically difficult with many images being suboptimal in quality. Left Ventricle The left ventricular size, thickness and function are normal. The left ventricular ejection fraction is normal. Ejection Fraction = 60-65%. No regional wall motion abnormalities noted. Right Ventricle The right ventricle is normal in size and function. Atria Normal left and right atrial size and function. Mitral Valve There is no mitral regurgitation noted. Tricuspid Valve There is trace tricuspid regurgitation. There was insufficient TR detected to calculate RV systolic p ressure. Aortic Valve No hemodynamically significant valvular aortic stenosis. No aortic regurgitation is present. Pulmonic Valve The pulmonic valve is not well visualized. Great Vessels The aortic root is normal size. Pericardium/Pleura There is no pericardial effusion. Interpretation Summary The study was technically difficult with many images being suboptimal in quality. The left ventricular size, thickness and function are normal The right ventricle is normal in size and function. There is trace tricuspid regurgitation. MD Kun Daniels 03/25/2019 03:58 PM
[2019-03-25 18:13] VITALS: BMI 30.2
[2019-03-25] MEDS: DEXTROSE 5%-0.45% SALINE 1,000 ML with POTASSIUM CHLORIDE 10 MEQ IVPB SCH (19:54)
--- NOTE | 2019-03-25 23:51 | PN ---
Progress Note, Physician History of Present Illness: Pt hypotensive today - Current Medication List Current Medications: Active Medications Heparin Sodium (Porcine) (Heparin -) 5,000 unit SQ BID [facility] Last Admin: 03/25/19 22:58 Dose: 5,000 unit Potassium Chloride 10 meq/ (Dextrose/Sodium Chloride) 1,005 mls @ 75 mls/hr IVPB ASDIR [facility] Last Admin: 03/25/19 19:54 Dose: 75 mls/hr Thiamine HCl (Vitamin B1 Injection -) 250 mg IVPB TID [facility] Stop: 03/28/19 13:59 Last Admin: 03/25/19 22:58 Dose: 250 mg - Objective Vital Signs: Vital Signs Temperature 98.3 F 03/25/19 17:53 Pulse Rate 76 03/25/19 17:53 Respiratory Rate 18 03/25/19 17:53 Blood Pressure 106/53 L 03/25/19 17:53 O2 Sat by Pulse Oximetry (%) 100 03/25/19 17:53 Neck: Yes: WNL, Supple Cardiovascular: Yes: WNL, Regular Rate and Rhythm Respiratory: Yes: WNL, Regular, CTA Bilaterally Gastrointestinal: Yes: WNL, Normal Bowel Sounds, Soft Labs: CBC, BMP 03/25/19 06:50 03/25/19 06:00 Problem List - Problems (1) Hypotension Assessment/Plan: Pt given IVF Cardio consult Echo noted unremarkable Code(s): I95.9 - HYPOTENSION, UNSPECIFIED (2) Dehydration Assessment/Plan: Cont IVF Code(s): E86.0 - DEHYDRATION (3) Acute kidney injury Assessment/Plan: Renal US showed complex cyst vs mass Check ct scan abd/pelvis Will get uro consult Code(s): N17.9 - ACUTE KIDNEY FAILURE, UNSPECIFIED (4) HTN (hypertension) Assessment/Plan: Hold antihypertensives and monitor BP Code(s): I10 - ESSENTIAL (PRIMARY) HYPERTENSION (5) Dementia Code(s): F03.90 - UNSPECIFIED DEMENTIA WITHOUT BEHAVIORAL DISTURBANCE
[2019-03-26] MEDS: DEXTROSE 5%-0.45% SALINE 1,000 ML with POTASSIUM CHLORIDE 10 MEQ IVPB SCH (02:05)
[2019-03-26] MEDS: THIAMINE HCL 200 MG/2 ML VIAL IVPB SCH ×4 (06:30→21:22)
--- NOTE | 2019-03-26 07:07 | CON.CARD ---
Consult Consult Specialty:: Cardiology Referred by:: Dr. Mojica Reason for Consultation:: Hx CAD - History of Present Illness Chief Complaint: Altered MS History of Present Illness: Right 78-year-old male with history of hypertension, hyperlipidemia, CAD, questionable dementia, history of brain tumor with possible resection presents to the ER planing of several days of intermittent chest pain and decreased p.o. intake of solids and liquids. Patient is also been noted to develop incontinence of bowel and bladder as per family members. He is a poor historian: he states he had chest pain, but is unable to characterize it further, endorses SOB, but appears comfortable. + Chills + abdominal pain + Dizziness + palps He is essentially answering "yes" to almost all questions on ROS. 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 Cardio/Vascular: Yes: CAD (NSTEMI 11/2017 s/p DREAD at [facility]), HTN, Hyperlipdemia Gastrointestinal: No: Ascites, Cancer, Constipation, Crohn's Disease, Diverticulitis, Diverticulosis, Esophageal Varices, Gastritis, GERD, GI Bleed, Hemorrhoids, Hiatal Hernia, Inflamatory Bowel Disease, Irritable Bowel Disease, Pancreatitis, Peptic Ulcer Disease, Ulcerative Colitis, Other Renal/: Yes: Renal Inusuff Heme/Onc: No: Anemia, B12 Deficiency, Bleeding Disorder, Cancer, Current Chemotherapy, Current Radiation Therapy, Hemochromatosis, Hypercoaguable State, Myeloproliferative Synd, Sickle Cell Disease, Sickle Cell Trait, Thrombocytopenia, Other Infectious Disease: No: AIDS, C-Diff, Herpes Zoster, HIV, MRSA, STD's, Tuberculosis, VREF, Other Psych: No: Addictions, Anxiety, Bipolar, Depression, Panic, Psychosis, Schizophrenia, Other Musculoskeletal: No: Bursitis, Chronic low back pain, Hemiparesis, Hemiplegia, Osteoarthritis, Paraplegia, Other Rheumatology: No: Fibromyalgia, Gout, Lupus, Rheumatoid Arthritis, Sarcoidosis, Vasculitis, Other - Alcohol/Substance Use Hx Alcohol Use: No - Smoking History Smoking history: Former smoker Have you smoked in the past 12 months: No If you are a former smoker, when did you quit?: 1992 - Social History Usual Living Arrangement: With Spouse History of Recent Travel: No Home Medications - Allergies Allergies/Adverse Reactions: Allergies Allergy/AdvReac Type Severity Reaction Status Date / Time No Known Allergies Allergy Verified 03/25/19 03:03 - Home Medications Home Medications: Ambulatory Orders Atorvastatin Ca [Lipitor] 80 mg PO HS 03/25/19 Clopidogrel Bisulfate [Plavix] 75 mg PO DAILY 03/25/19 Furosemide [Lasix -] 20 mg PO TID 03/25/19 Lisinopril 5 mg PO DAILY 03/25/19 Metoprolol Tartrate [Lopressor -] 25 mg PO BID 03/25/19 Sertraline HCl [Zoloft -] 25 mg PO DAILY 03/25/19 Tamsulosin HCl [Flomax] 0.4 mg PO DAILY 03/25/19 Family Medical History Family History: Unremarkable Review of Systems - Review of Systems Constitutional: reports: Weakness Neck: reports: No Symptoms Cardiovascular: reports: Chest Pain Respiratory: reports: SOB on Exertion Gastrointestinal: reports: No Symptoms Genitourinary: reports: No Symptoms Musculoskeletal: reports: No Symptoms Integumentary: reports: No Symptoms Neurological: reports: Dizziness Endocrine: denies: No Symptoms, Excessive Sweating, Flushing, Increased Hunger, Increased Thirst, Intolerance to Cold, Intolerance to Heat, Unexplained Weight Gain, Unexplained Weight Loss, Other Hematology/Lymphatic: denies: No Symptoms, Easily Bruised, Excessive Bleeding, Swollen Glands, Other Psychiatric: denies: No Symptoms, Altered Sleep Pattern, Anxiety, Depression, Hallucinations, Panic, Paranoia, Suicidal, Other - Risk Factors Known Risk Factors: Yes: Other (known CAD) Vital Signs: Vital Signs Temperature 98.1 F 03/26/19 02:00 Pulse Rate 78 03/26/19 06:00 Respiratory Rate 18 03/26/19 06:00 Blood Pressure 128/57 L 03/26/19 06:00 O2 Sat by Pulse Oximetry (%) 100 03/25/19 21:00 Constitutional: Yes: No Distress, Calm Eyes: Yes: Conjunctiva Clear Neck: Yes: Trachea Midline Respiratory: Yes: CTA Bilaterally (no wheezing or rales) Gastrointestinal: Yes: Soft Cardiovascular: Yes: Regular Rate and Rhythm JVD: No Carotid Bruit: No Heart Sounds: Yes: S1, S2 Edema: No Neurological: Yes: Alert, Oriented ...Motor Strength: WNL - Other Data Labs, Other Data: CBC, BMP 03/25/19 06:50 03/25/19 06:00 Troponin, BNP 03/25/19 04:45 Troponin I < 0.02 Troponin, BNP 03/25/19 04:45 Troponin I < 0.02 Laboratory Tests 03/24/19 03/25/19 03/25/19 19:25 04:31 04:45 WBC Hgb Plt Count Sodium Potassium BUN Creatinine Calcium Magnesium Total Bilirubin ALT Alkaline Phosphatase Troponin I < 0.02 < 0.02 Urine Color Yellow Urine Appearance Clear Urine pH 5.5 D Ur Specific [place] 1.012 Urine Protein Negative Urine Glucose (UA) Negative Urine Ketones Negative Urine Blood Negative Urine Nitrite Negative Urine Bilirubin Negative Urine Urobilinogen 0.2 Ur Leukocyte Esterase Negative RPR Titer 03/26/19 03/26/19 03/26/19 06:22 06:22 06:22 WBC Hgb Plt Count Sodium 141 Potassium 4.2 BUN 38.5 H Creatinine 1.7 H Calcium 8.9 Magnesium 1.8 Total Bilirubin 0.5 ALT 13 Alkaline Phosphatase 51 Troponin I < 0.02 Urine Color Urine Appearance Urine pH Ur Specific [place] Urine Protein Urine Glucose (UA) Urine Ketones Urine Blood Urine Nitrite Urine Bilirubin Urine Urobilinogen Ur Leukocyte Esterase RPR Titer Pending 03/26/19 06:22 WBC 6.9 Hgb 9.5 L Plt Count 338 Sodium Potassium BUN Creatinine Calcium Magnesium Total Bilirubin ALT Alkaline Phosphatase Troponin I Urine Color Urine Appearance Urine pH Ur Specific [place] Urine Protein Urine Glucose (UA) Urine Ketones Urine Blood Urine Nitrite Urine Bilirubin Urine Urobilinogen Ur Leukocyte Esterase RPR Titer NSR 70bpm; low Voltage QRS, old inferior NC- no acute ST QT 421ms Echo: Pending Prior Cardiac Procedures: PTCA with Stent Imaging - Results Chest X-ray: Image Reviewed (no I/E) Cat Scan: Report Reviewed (osteoma, o/w neg) EKG: Image Reviewed (see above;) Assessment/Plan IMP: 78M w/ h/o NSTEMI 11/2017 with PCI Deyvi Hernandez (report not available) admitted with vague chest pain, altered sensorium, acute on chronic renal failure. Poor historian limits precise symptom characterization. Cardiac enzymes neg x [address] changes/ low voltage noted. REC: 1. Echo to r/o effusion, assess LVEF 2. ARF- renal following. 3. Altered MS, possible dementia; MRI brain pending as per Neuro 4. Resume ASA 81mg daily/ does not require DAPT now > one year post PCI; resume statin. 5. Hold GILLES in setting of elevated creatinine. Will follow.
[2019-03-26 07:23] LABS: BASO % 0.9 % (0-2.0); EOS % 3.6 % (0-4.5); HEMOGLOBIN 9.5 GM/dL (11.7-16.9); LYMPH % 29.7 % (8-40); MCH 29.6 pg (25.7-33.7); MCHC 33.9 g/dl (32.0-35.9); MEAN CELL VOLUME 87.3 fl (80-96); MEAN PLT VOLUME 7.6 fl (7.5-11.1); NEUT % 59.8 % (42.8-82.8); PLATELET COUNT 338 K/MM3 (134-434); RDW 14.2 % (11.9-15.9); WHITE BLOOD COUNT 6.9 K/mm3 (4.0-10.0)
[2019-03-26 08:22] LABS: BILIRUBIN,TOTAL 0.5 mg/dL (0.2-1); BLOOD UREA NITROGEN 38.5 mg/dL (7-18); CALCIUM 8.9 mg/dL (8.5-10.1); CREATININE 1.7 mg/dL (0.55-1.3); MAGNESIUM 1.8 mg/dL (1.8-2.4); POTASSIUM 4.2 mmol/L (3.5-5.1); TOT PROT 5.9 g/dl (6.4-8.2)
[2019-03-26] MEDS ORDERED: CYANOCOBALAMIN (VITAMIN B-12) 1000 MCG/1 ML VIAL IM ONE (09:00)
[2019-03-26] MEDS: ASPIRIN 81 MG CHEWABLE TABLETS PO SCH (10:24)
[2019-03-26] MEDS: HEPARIN NA (PORCINE) 5,000 UNITS/ML 1ML VIAL SQ SCH ×2 (10:24→21:19)
--- NOTE | 2019-03-26 10:50 | PN ---
Progress Note (short form) - Note Progress Note: NEUROLOGY PROGRESS: Events reviewed and discussed with RN. Was assisted in eating breakfast this AM. Remains on thiamine 250 mg IVP q8H. Asking for H20. OMS studies reveal TSH= 1.66 BUT B12= 181 pg% ! NEURO: Awake, alert, responsive. Remembers me. Ox "Radha Hernandez." 1989. Nikos. No recall. + glabella, snout, suck. Tolerating sips of H20 and drank 2 8 oz cups without difficultly. Exam otherwise unchanged. Impression: Mod-Severe B/L Cerebral dysfunction Worsened by Toxic-metabolic encephalopathy Combined systems degeneration (B12 deficiency) Suggest: Assist with feeds and PO hydration. If necessary, add IV fluids. Continue thiamine 250 mg IVP Q8H B12 1,000 mcg IM injection, then transition to PO B12 supplementation (1000 ug daily). Await RPR. Mobilize OOB to chair PT for gait assessment and Rx. Thank you very much, Edward Garcia MD
--- NOTE | 2019-03-26 14:44 | PN ---
Progress Note, Physician History of Present Illness: Pt seen and examined at bedside. He is awake and alert. He denies shortness of breath. - Current Medication List Current Medications: Active Medications Aspirin (Asa -) 81 mg PO DAILY MELA Last Admin: 03/26/19 10:24 Dose: 81 mg Heparin Sodium (Porcine) (Heparin -) 5,000 unit SQ BID [facility] Last Admin: 03/26/19 10:24 Dose: 5,000 unit Potassium Chloride 10 meq/ (Dextrose/Sodium Chloride) 1,005 mls @ 75 mls/hr IVPB ASDIR [facility] Last Admin: 03/25/19 19:54 Dose: 75 mls/hr Thiamine HCl (Vitamin B1 Injection -) 250 mg IVPB TID [facility]ELA Stop: 03/28/19 13:59 Last Admin: 03/26/19 14:33 Dose: 250 mg - Objective Vital Signs: Vital Signs Temperature 98 F 03/26/19 10:00 Pulse Rate 88 03/26/19 10:00 Respiratory Rate 18 03/26/19 10:00 Blood Pressure 112/65 03/26/19 10:00 O2 Sat by Pulse Oximetry (%) 100 03/25/19 21:00 Constitutional: Yes: Calm Eyes: Yes: Conjunctiva Clear HENT: Yes: Atraumatic Neck: Yes: Supple Cardiovascular: Yes: S1, S2 Respiratory: Yes: CTA Bilaterally Gastrointestinal: Yes: Soft Genitourinary: Yes: Incontinence Musculoskeletal: Yes: Muscle Weakness Edema: No Neurological: Yes: Confusion Psychiatric: Yes: Oriented Labs: CBC, BMP 03/26/19 06:22 03/26/19 06:22 Problem List - Problems (1) Acute kidney injury Code(s): N17.9 - ACUTE KIDNEY FAILURE, UNSPECIFIED (2) Chest pain at rest Code(s): R07.9 - CHEST PAIN, UNSPECIFIED (3) HTN (hypertension) Code(s): I10 - ESSENTIAL (PRIMARY) HYPERTENSION Assessment/Plan Current Medications Generic Name Dose Route Start Last Admin Trade Name Freq PRN Reason Stop Dose Admin Aspirin 81 mg 03/26/19 10:00 03/26/19 10:24 Asa - PO 81 mg DAILY MELA Administration Heparin Sodium (Porcine) 5,000 unit 03/25/19 10:00 03/26/19 10:24 Heparin - SQ 5,000 unit BID MELA Administration Potassium Chloride 10 meq/ 1,005 mls @ 75 mls/hr 03/25/19 15:51 03/25/19 19: 54 Dextrose/Sodium Chloride IVPB 75 mls/hr ASDIR MELA Administration Thiamine HCl 250 mg 03/25/19 14:00 03/26/19 14:33 Vitamin B1 Injection - IVPB 03/28/19 13:59 250 mg TID MELA Administration Laboratory Tests 03/24/19 19:25 Urine Protein Negative Urine Blood Negative Impression 1. JESSE 2. chest pain 3. htn 4. hld 5. brain lesion 6. right renal density Plan - renal function is improving - repeat labs in am - urology eval pending - follow ct scan non contrast - ua negative for blood or protein
--- NOTE | 2019-03-26 17:22 | CON.GU ---
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 Cardio/Vascular: Yes: CAD (NSTEMI 11/2017 s/p DREAD at [facility]), HTN, Hyperlipdemia Gastrointestinal: No: Ascites, Cancer, Constipation, Crohn's Disease, Diverticulitis, Diverticulosis, Esophageal Varices, Gastritis, GERD, GI Bleed, Hemorrhoids, Hiatal Hernia, Inflamatory Bowel Disease, Irritable Bowel Disease, Pancreatitis, Peptic Ulcer Disease, Ulcerative Colitis, Other Renal/: Yes: Renal Inusuff Infectious Disease: No: AIDS, C-Diff, Herpes Zoster, HIV, MRSA, STD's, Tuberculosis, VREF, Other Psych: No: Addictions, Anxiety, Bipolar, Depression, Panic, Psychosis, Schizophrenia, Other Musculoskeletal: No: Bursitis, Chronic low back pain, Hemiparesis, Hemiplegia, Osteoarthritis, Paraplegia, Other Rheumatology: No: Fibromyalgia, Gout, Lupus, Rheumatoid Arthritis, Sarcoidosis, Vasculitis, Other - Alcohol/Substance Use Hx Alcohol Use: No - Smoking History Smoking history: Former smoker Have you smoked in the past 12 months: No If you are a former smoker, when did you quit?: 1992 - Social History Usual Living Arrangement: With Spouse History of Recent Travel: No Home Medications - Allergies Allergies/Adverse Reactions: Allergies Allergy/AdvReac Type Severity Reaction Status Date / Time No Known Allergies Allergy Verified 03/25/19 03:03 - Home Medications Home Medications: Ambulatory Orders Atorvastatin Ca [Lipitor] 80 mg PO HS 03/25/19 Clopidogrel Bisulfate [Plavix] 75 mg PO DAILY 03/25/19 Furosemide [Lasix -] 20 mg PO TID 03/25/19 Lisinopril 5 mg PO DAILY 03/25/19 Metoprolol Tartrate [Lopressor -] 25 mg PO BID 03/25/19 Sertraline HCl [Zoloft -] 25 mg PO DAILY 03/25/19 Tamsulosin HCl [Flomax] 0.4 mg PO DAILY 03/25/19 Physical Exam- Vital Signs: Vital Signs Temperature 98.2 F 03/26/19 14:35 Pulse Rate 56 L 03/26/19 14:35 Respiratory Rate 16 03/26/19 14:35 Blood Pressure 97/56 L 03/26/19 14:35 O2 Sat by Pulse Oximetry (%) 96 03/26/19 09:00 Labs: CBC, BMP 03/26/19 06:22 03/26/19 06:22 Assessment/Plan This is a 78 y/o M PMH NSTEMI, HTN, HLD s/p resection of brain tumor. Pt with h/ o prostatism found with incidental complex R mid pole renal mass on U/S. Will get CTAP to assess details of mass. Will follow.
--- NOTE | 2019-03-26 20:17 | PN ---
Progress Note, Physician History of Present Illness: No new complaints - Current Medication List Current Medications: Active Medications Aspirin (Asa -) 81 mg PO DAILY [facility] Last Admin: 03/26/19 10:24 Dose: 81 mg Heparin Sodium (Porcine) (Heparin -) 5,000 unit SQ BID [facility] Last Admin: 03/26/19 10:24 Dose: 5,000 unit Potassium Chloride 10 meq/ (Dextrose/Sodium Chloride) 1,005 mls @ 75 mls/hr IVPB ASDIR [facility] Last Admin: 03/25/19 19:54 Dose: 75 mls/hr Thiamine HCl (Vitamin B1 Injection -) 250 mg IVPB TID [facility] Stop: 03/28/19 13:59 Last Admin: 03/26/19 14:33 Dose: 250 mg - Objective Vital Signs: Vital Signs Temperature 98.2 F 03/26/19 14:35 Pulse Rate 56 L 03/26/19 14:35 Respiratory Rate 16 03/26/19 14:35 Blood Pressure 97/56 L 03/26/19 14:35 O2 Sat by Pulse Oximetry (%) 96 03/26/19 09:00 Neck: Yes: WNL, Supple Cardiovascular: Yes: WNL, Regular Rate and Rhythm Respiratory: Yes: WNL, Regular, CTA Bilaterally Gastrointestinal: Yes: WNL, Normal Bowel Sounds, Soft Extremities: Yes: WNL Labs: CBC, BMP 03/26/19 06:22 03/26/19 06:22 Problem List - Problems (1) Hypotension Assessment/Plan: Now resolved ARB on hold due to CKD Echo noted unremarkable Code(s): I95.9 - HYPOTENSION, UNSPECIFIED (2) Dehydration Assessment/Plan: DC IVF PT eval DC planning to STR Code(s): E86.0 - DEHYDRATION (3) Acute kidney injury Assessment/Plan: Renal US showed ? complex cyst As per renal CT scan abd/pelvis showed renal cyst Code(s): N17.9 - ACUTE KIDNEY FAILURE, UNSPECIFIED (4) HTN (hypertension) Assessment/Plan: Hold antihypertensives and monitor BP IV hydration Code(s): I10 - ESSENTIAL (PRIMARY) HYPERTENSION (5) Dementia Code(s): F03.90 - UNSPECIFIED DEMENTIA WITHOUT BEHAVIORAL DISTURBANCE
[2019-03-27] MEDS: THIAMINE HCL 200 MG/2 ML VIAL IVPB SCH ×3 (05:30→21:02)
[2019-03-27] MEDS: HEPARIN NA (PORCINE) 5,000 UNITS/ML 1ML VIAL SQ SCH ×2 (10:10→21:03)
[2019-03-27] MEDS: ASPIRIN 81 MG CHEWABLE TABLETS PO SCH (10:10)
--- NOTE | 2019-03-27 13:31 | PN ---
Progress Note (short form) - Note Progress Note: s: no chest pain, palps, dizziness, appears comfortable Current Medications Aspirin (Asa -) 81 mg PO DAILY [facility] Last Admin: 03/27/19 10:10 Dose: 81 mg Heparin Sodium (Porcine) (Heparin -) 5,000 unit SQ BID [facility] Last Admin: 03/27/19 10:10 Dose: 5,000 unit Potassium Chloride 10 meq/ (Dextrose/Sodium Chloride) 1,005 mls @ 75 mls/hr IVPB ASDIR [facility] Last Admin: 03/26/19 02:05 Dose: 75 mls/hr Thiamine HCl (Vitamin B1 Injection -) 250 mg IVPB TID [facility] Stop: 03/28/19 13:59 Last Admin: 03/27/19 05:30 Dose: 250 mg Vital Signs Period Temp Pulse Resp BP Sys/Knutson Pulse Ox Last 24 Hr 97.6 F-98.5 F 56-92 16-22 97-127/56-65 96-98 Constitutional: Yes: No Distress, Calm Eyes: Yes: Conjunctiva Clear Neck: Yes: Trachea Midline Respiratory: Yes: CTA Bilaterally (no wheezing or rales) Gastrointestinal: Yes: Soft Cardiovascular: Yes: Regular Rate and Rhythm JVD: No Carotid Bruit: No Heart Sounds: Yes: S1, S2 Edema: No Neurological: Yes: Alert no jaundice, diaphoresis not agitated NSR 70bpm; low Voltage QRS, old inferior NE- no acute ST QT 421ms Prior Cardiac Procedures: PTCA with Stent Imaging - Results Chest X-ray: Image Reviewed (no I/E) Cat Scan: Report Reviewed (osteoma, o/w neg) EKG: Image Reviewed (see above;) tele: sinus Assessment/Plan IMP: 78M w/ h/o NSTEMI 11/2017 with PCI Deyvi Hernandez (report not available) admitted with vague chest pain, altered sensorium, acute on chronic renal failure. Poor historian limits precise symptom characterization. Cardiac enzymes neg x [address] changes/ low voltage noted. REC: 1. Echo nl LV function, no effusion 2. ARF- renal following. 3. Altered MS, possible dementia;manage per neuro 4. Resume ASA 81mg daily/ does not require DAPT now > one year post PCI; resume statin. 5. Hold GILLES in setting of elevated creatinine.
[2019-03-27 14:06] LABS: ALBUMIN 2.8 g/dl (3.4-5.0); ALK PHOS 53 U/L (45-117); ANION GAP 7 MMOL/L (8-16); BILIRUBIN,TOTAL 0.3 mg/dL (0.2-1); BLOOD UREA NITROGEN 24.1 mg/dL (7-18); CALCIUM 8.5 mg/dL (8.5-10.1); CHLORIDE 110 mmol/L (98-107); CO2 24 mmol/L (21-32); CREATININE 1.3 mg/dL (0.55-1.3); GLUCOSE,RANDOM 104 mg/dL (74-106); POTASSIUM 3.9 mmol/L (3.5-5.1); SGOT/AST 13 U/L (15-37); SGPT/ALT 12 U/L (13-61); SODIUM 141 mmol/L (136-145); TOT PROT 5.6 g/dl (6.4-8.2)
--- NOTE | 2019-03-27 19:45 | PN ---
Progress Note (short form) - Note Progress Note: 1. JESSE 2. chest pain 3. htn 4. hld 5. brain lesion 6. right renal density Current Medications Aspirin (Asa -) 81 mg PO DAILY [facility] Last Admin: 03/27/19 10:10 Dose: 81 mg Heparin Sodium (Porcine) (Heparin -) 5,000 unit SQ BID [facility] Last Admin: 03/27/19 10:10 Dose: 5,000 unit Potassium Chloride 10 meq/ (Dextrose/Sodium Chloride) 1,005 mls @ 75 mls/hr IVPB ASDIR [facility] Last Admin: 03/26/19 02:05 Dose: 75 mls/hr Thiamine HCl (Vitamin B1 Injection -) 250 mg IVPB TID [facility] Stop: 03/28/19 13:59 Last Admin: 03/27/19 13:54 Dose: 250 mg Last Vital Signs Temp Pulse Resp BP Pulse Ox 98.5 F 85 22 H 131/61 98 03/27/19 18:00 03/27/19 18:00 03/27/19 18:00 03/27/19 18:00 03/27/19 09:00 CBC, BMP 03/26/19 06:22 03/27/19 13:15 IMP- jesse improved Plan- same rx
--- NOTE | 2019-03-27 23:01 | PN ---
Progress Note, Physician History of Present Illness: No new complaints - Current Medication List Current Medications: Active Medications Aspirin (Asa -) 81 mg PO DAILY [facility] Last Admin: 03/27/19 10:10 Dose: 81 mg Heparin Sodium (Porcine) (Heparin -) 5,000 unit SQ BID [facility] Last Admin: 03/27/19 21:03 Dose: 5,000 unit Potassium Chloride 10 meq/ (Dextrose/Sodium Chloride) 1,005 mls @ 75 mls/hr IVPB ASDIR [facility] Last Admin: 03/26/19 02:05 Dose: 75 mls/hr Thiamine HCl (Vitamin B1 Injection -) 250 mg IVPB TID [facility] Stop: 03/28/19 13:59 Last Admin: 03/27/19 21:02 Dose: 250 mg - Objective Vital Signs: Vital Signs Temperature 99.9 F H 03/27/19 22:00 Pulse Rate 95 H 03/27/19 22:00 Respiratory Rate 20 03/27/19 22:00 Blood Pressure 132/74 03/27/19 22:00 O2 Sat by Pulse Oximetry (%) 98 03/27/19 21:00 Neck: Yes: WNL, Supple Cardiovascular: Yes: WNL, Regular Rate and Rhythm Respiratory: Yes: WNL, Regular, CTA Bilaterally Gastrointestinal: Yes: WNL, Normal Bowel Sounds, Soft Labs: CBC, BMP 03/26/19 06:22 03/27/19 13:15 Problem List - Problems (1) Altered mental status Assessment/Plan: Carotid doppler did not show acute stenosis MRI showed chronic cerebral infarcts Will need PT and probable STR Code(s): R41.82 - ALTERED MENTAL STATUS, UNSPECIFIED (2) Hypotension Assessment/Plan: Now resolved ARB on hold due to CKD Echo noted unremarkable Code(s): I95.9 - HYPOTENSION, UNSPECIFIED (3) Dehydration Assessment/Plan: DC IVF PT eval DC planning to STR Code(s): E86.0 - DEHYDRATION (4) Acute kidney injury Assessment/Plan: Renal US showed ? complex cyst As per renal URO consult noted CT scan abd/pelvis showed renal cyst Code(s): N17.9 - ACUTE KIDNEY FAILURE, UNSPECIFIED (5) HTN (hypertension) Assessment/Plan: Hold antihypertensives and monitor BP IV hydration Code(s): I10 - ESSENTIAL (PRIMARY) HYPERTENSION (6) Dementia Code(s): F03.90 - UNSPECIFIED DEMENTIA WITHOUT BEHAVIORAL DISTURBANCE
[2019-03-28] MEDS: THIAMINE HCL 200 MG/2 ML VIAL IVPB SCH ×2 (08:13→08:30)
[2019-03-28] MEDS: ASPIRIN 81 MG CHEWABLE TABLETS PO SCH (09:42)
[2019-03-28] MEDS: HEPARIN NA (PORCINE) 5,000 UNITS/ML 1ML VIAL SQ SCH ×2 (09:42→21:55)
--- NOTE | 2019-03-28 11:41 | PN ---
Progress Note (short form) - Note Progress Note: s: no chest pain, palps, dizziness, appears comfortable Current Medications Aspirin (Asa -) 81 mg PO DAILY [facility] Last Admin: 03/28/19 09:42 Dose: 81 mg Heparin Sodium (Porcine) (Heparin -) 5,000 unit SQ BID [facility] Last Admin: 03/28/19 09:42 Dose: 5,000 unit Potassium Chloride 10 meq/ (Dextrose/Sodium Chloride) 1,005 mls @ 75 mls/hr IVPB ASDIR [facility] Last Admin: 03/26/19 02:05 Dose: 75 mls/hr Thiamine HCl (Vitamin B1 Injection -) 250 mg IVPB TID [facility] Stop: 03/28/19 13:59 Last Admin: 03/28/19 08:30 Dose: Not Given Vital Signs Period Temp Pulse Resp BP Sys/Knutson Pulse Ox Last 24 Hr 98.2 F-99.9 F 76-95 18-22 102-152/55-75 97-98 Constitutional: Yes: No Distress, Calm Eyes: Yes: Conjunctiva Clear Neck: Yes: Trachea Midline Respiratory: Yes: CTA Bilaterally (no wheezing or rales) Gastrointestinal: Yes: Soft Cardiovascular: Yes: Regular Rate and Rhythm JVD: No Carotid Bruit: No Heart Sounds: Yes: S1, S2 Edema: No Neurological: Yes: Alert no jaundice, diaphoresis not agitated NSR 70bpm; low Voltage QRS, old inferior [place]- no acute ST QT 421ms Prior Cardiac Procedures: PTCA with Stent Imaging - Results Chest X-ray: Image Reviewed (no I/E) Cat Scan: Report Reviewed (osteoma, o/w neg) EKG: Image Reviewed (see above;) tele: sinus Assessment/Plan IMP: 78M w/ h/o NSTEMI 11/2017 with PCI Deyvi Hernandez (report not available) admitted with vague chest pain, altered sensorium, acute on chronic renal failure. Poor historian limits precise symptom characterization. Cardiac enzymes neg x [address] changes/ low voltage noted. REC: 1. Echo nl LV function, no effusion 2. ARF- renal following, Cr improving 3. Altered MS, possible dementia;manage per neuro 4. Resume ASA 81mg daily/ does not require DAPT now > one year post PCI; resume statin. 5. Hold GILLES in setting of elevated creatinine. dc tele
--- NOTE | 2019-03-28 15:53 | PN ---
Progress Note (short form) - Note Progress Note: 1. JESSE 2. chest pain 3. htn 4. hld 5. brain lesion 6. right renal density Current Medications Aspirin (Asa -) 81 mg PO DAILY [facility] Last Admin: 03/28/19 09:42 Dose: 81 mg Heparin Sodium (Porcine) (Heparin -) 5,000 unit SQ BID [facility] Last Admin: 03/28/19 09:42 Dose: 5,000 unit Potassium Chloride 10 meq/ (Dextrose/Sodium Chloride) 1,005 mls @ 75 mls/hr IVPB ASDIR [facility] Last Admin: 03/26/19 02:05 Dose: 75 mls/hr Last Vital Signs Temp Pulse Resp BP Pulse Ox 99.5 F 85 18 137/65 97 03/28/19 14:00 03/28/19 14:00 03/28/19 10:00 03/28/19 14:00 03/28/19 08:57 Lungs clear Heart reg Abd soft Ext no edema CBC, BMP 03/26/19 06:22 03/27/19 13:15 IMP- jesse improved ischemic cardiomyopathy Plan- same rx
--- NOTE | 2019-03-28 19:45 | PN ---
Progress Note, Physician History of Present Illness: No new change - Current Medication List Current Medications: Active Medications Aspirin (Asa -) 81 mg PO DAILY [facility] Last Admin: 03/28/19 09:42 Dose: 81 mg Heparin Sodium (Porcine) (Heparin -) 5,000 unit SQ BID [facility] Last Admin: 03/28/19 09:42 Dose: 5,000 unit Potassium Chloride 10 meq/ (Dextrose/Sodium Chloride) 1,005 mls @ 75 mls/hr IVPB ASDIR [facility] Last Admin: 03/26/19 02:05 Dose: 75 mls/hr - Objective Vital Signs: Vital Signs Temperature 99.5 F 03/28/19 14:00 Pulse Rate 85 03/28/19 14:00 Respiratory Rate 18 03/28/19 10:00 Blood Pressure 137/65 03/28/19 14:00 O2 Sat by Pulse Oximetry (%) 97 03/28/19 08:57 Neck: Yes: WNL, Supple Cardiovascular: Yes: WNL, Regular Rate and Rhythm Respiratory: Yes: WNL, Regular, CTA Bilaterally Gastrointestinal: Yes: WNL, Normal Bowel Sounds, Soft Labs: CBC, BMP 03/26/19 06:22 03/27/19 13:15 Problem List - Problems (1) Acute kidney injury Assessment/Plan: Renal US showed complex cyst vs mass Awiating results of ct scan abd/pelvis Uro consult ntoed Code(s): N17.9 - ACUTE KIDNEY FAILURE, UNSPECIFIED (2) Hypotension Assessment/Plan: No resolved ARB on hold due to CKD Echo noted unremarkable Code(s): I95.9 - HYPOTENSION, UNSPECIFIED (3) Dehydration Assessment/Plan: DC IVF PT eval DC planning to STR Code(s): E86.0 - DEHYDRATION (4) HTN (hypertension) Assessment/Plan: Hold antihypertensives and monitor BP Code(s): I10 - ESSENTIAL (PRIMARY) HYPERTENSION (5) Dementia Code(s): F03.90 - UNSPECIFIED DEMENTIA WITHOUT BEHAVIORAL DISTURBANCE
[2019-03-28] MEDS: DEXTROSE 5%-0.45% SALINE 1,000 ML with POTASSIUM CHLORIDE 10 MEQ IVPB SCH ×2 (20:31→21:55)
[2019-03-28] MEDS ORDERED: ACETAMINOPHEN 325 MG TABLET (FP) PO ONE (22:00)
[2019-03-29 03:02] LABS: EPI CELLS 1.3 /HPF (0-5/HPF); HYALINE CASTS 150 /lpf (0-8); URINE APPEARANCE CLOUDY; URINE BILIRUBIN NEGATIVE (NEGATIVE); URINE COLOR YELLOW; URINE GLUCOSE (UA) NEGATIVE (NEGATIVE); URINE KETONE NEGATIVE (NEGATIVE); URINE LEUK ESTERASE 3+ (NEGATIVE); URINE NITRITE POSITIVE (NEGATIVE); URINE PROTEIN 1+ (NEGATIVE); URINE RBC 20 /hpf (0-4); URINE WBC 164 /hpf (0-5)
[2019-03-29 06:32] LABS: BASO % 0.5 % (0-2.0); EOS % 0.4 % (0-4.5); HEMATOCRIT 29.4 % (35.4-49); HEMOGLOBIN 9.7 GM/dL (11.7-16.9); LYMPH % 12.3 % (8-40); MCH 28.8 pg (25.7-33.7); MEAN CELL VOLUME 87.4 fl (80-96); MEAN PLT VOLUME 8.2 fl (7.5-11.1); MONO % 6.2 % (3.8-10.2); NEUT % 80.6 % (42.8-82.8); PLATELET COUNT 300 K/MM3 (134-434); RBC 3.36 M/mm3 (4.00-5.60); WHITE BLOOD COUNT 13.4 K/mm3 (4.0-10.0)
[2019-03-29 06:47] LABS: ALBUMIN 2.5 g/dl (3.4-5.0); BILIRUBIN,TOTAL 0.5 mg/dL (0.2-1); BLOOD UREA NITROGEN 13.6 mg/dL (7-18); CALCIUM 8.5 mg/dL (8.5-10.1); CREATININE 1.3 mg/dL (0.55-1.3); TOT PROT 5.4 g/dl (6.4-8.2)
[2019-03-29] MEDS: CYANOCOBALAMIN 1,000 MCG TABLET (FP) PO SCH (10:02)
[2019-03-29] MEDS: HEPARIN NA (PORCINE) 5,000 UNITS/ML 1ML VIAL SQ SCH ×2 (10:02→22:32)
[2019-03-29] MEDS: ASPIRIN 81 MG CHEWABLE TABLETS PO SCH (10:02)
--- NOTE | 2019-03-29 11:32 | PN ---
Progress Note (short form) - Note Progress Note: s: no chest pain, palps, dizziness, sob Current Medications Generic Name Dose Route Start Last Admin Trade Name Iza PRN Reason Stop Dose Admin Aspirin 81 mg 03/26/19 10:00 03/29/19 10:02 Asa - PO 81 mg DAILY [facility] Administration Cyanocobalamin 1,000 mcg 03/29/19 10:00 03/29/19 10:02 Vitamin B12 - PO 1,000 mcg DAILY [facility] Administration Heparin Sodium (Porcine) 5,000 unit 03/25/19 10:00 03/29/19 10:02 Heparin - SQ 5,000 unit BID [facility] Administration Potassium Chloride 10 meq/ 1,005 mls @ 75 mls/hr 03/25/19 15:51 03/28/19 21: 55 Dextrose/Sodium Chloride IVPB 75 mls/hr [facility] Administration Vital Signs Period Temp Pulse Resp BP Sys/Knutson Pulse Ox Last 24 Hr 99.5 F-101.6 F 85-106 20-20 119-154/65-87 95 Constitutional: Yes: No Distress, Calm Eyes: Yes: Conjunctiva Clear Neck: Yes: Trachea Midline Respiratory: Yes: CTA Bilaterally (no wheezing or rales) Gastrointestinal: Yes: Soft Cardiovascular: Yes: Regular Rate and Rhythm JVD: No Carotid Bruit: No Heart Sounds: Yes: S1, S2 Edema: No Neurological: Yes: Alert no jaundice, diaphoresis not agitated CBC, BMP 03/29/19 05:40 03/29/19 05:40 NSR 70bpm; low Voltage QRS, old inferior [place]- no acute ST QT 421ms Prior Cardiac Procedures: PTCA with Stent Imaging - Results Chest X-ray: Image Reviewed (no I/E) Cat Scan: Report Reviewed (osteoma, o/w neg) EKG: Image Reviewed (see above;) Assessment/Plan IMP: 78M w/ h/o NSTEMI 11/2017 with PCI Deyvi Hernandez (report not available) admitted with vague chest pain, altered sensorium, acute on chronic renal failure. Poor historian limits precise symptom characterization. Cardiac enzymes neg x [address] changes/ low voltage noted. REC: 1. Echo nl LV function, no effusion 2. ARF- renal following, Cr improved 3. Altered MS, possible dementia;manage per neuro 4. Resume ASA 81mg daily/ does not require DAPT now > one year post PCI; resume statin. 5. Hold GILLES in setting of elevated creatinine.
[2019-03-29] MEDS ORDERED: DEXTROSE 5%-0.45% SALINE 1,000 ML with POTASSIUM CHLORIDE 10 MEQ IVPB SCH (12:26)
--- NOTE | 2019-03-29 12:26 | PN ---
Progress Note, Physician History of Present Illness: Pt seen and examined at bedside. He is awake and alert. He denies shortness of breath. He has poor PO intake. - Current Medication List Current Medications: Active Medications Aspirin (Asa -) 81 mg PO DAILY [facility] Last Admin: 03/29/19 10:02 Dose: 81 mg Cyanocobalamin (Vitamin B12 -) 1,000 mcg PO DAILY [facility] Last Admin: 03/29/19 10:02 Dose: 1,000 mcg Heparin Sodium (Porcine) (Heparin -) 5,000 unit SQ BID [facility] Last Admin: 03/29/19 10:02 Dose: 5,000 unit Potassium Chloride 10 meq/ (Dextrose/Sodium Chloride) 1,005 mls @ 75 mls/hr IVPB [facility] Last Admin: 03/28/19 21:55 Dose: 75 mls/hr - Objective Vital Signs: Vital Signs Temperature 101.4 F H 03/29/19 06:00 Pulse Rate 92 H 03/29/19 08:03 Respiratory Rate 20 03/29/19 08:03 Blood Pressure 143/78 03/29/19 08:03 O2 Sat by Pulse Oximetry (%) 95 03/28/19 21:00 Constitutional: Yes: Calm Eyes: Yes: Conjunctiva Clear HENT: Yes: Atraumatic Neck: Yes: Supple Cardiovascular: Yes: S1, S2 Respiratory: Yes: CTA Bilaterally Gastrointestinal: Yes: Normal Bowel Sounds, Soft Genitourinary: Yes: Incontinence Musculoskeletal: Yes: WNL Edema: No Neurological: Yes: Confusion Labs: CBC, BMP 03/29/19 05:40 03/29/19 05:40 Problem List - Problems (1) Acute kidney injury Code(s): N17.9 - ACUTE KIDNEY FAILURE, UNSPECIFIED (2) Chest pain at rest Code(s): R07.9 - CHEST PAIN, UNSPECIFIED (3) HTN (hypertension) Code(s): I10 - ESSENTIAL (PRIMARY) HYPERTENSION Assessment/Plan Current Medications Generic Name Dose Route Start Last Admin Trade Name Freq PRN Reason Stop Dose Admin Aspirin 81 mg 03/26/19 10:00 03/29/19 10:02 Asa - PO 81 mg DAILY [facility] Administration Cyanocobalamin 1,000 mcg 03/29/19 10:00 03/29/19 10:02 Vitamin B12 - PO 1,000 mcg DAILY [facility] Administration Heparin Sodium (Porcine) 5,000 unit 03/25/19 10:00 03/29/19 10:02 Heparin - SQ 5,000 unit BID [facility] Administration Potassium Chloride 10 meq/ 1,005 mls @ 75 mls/hr 03/25/19 15:51 03/28/19 21: 55 Dextrose/Sodium Chloride IVPB 75 mls/hr [facility] Administration Impression 1. JESSE 2. chest pain 3. htn 4. hld 5. brain lesion 6. right renal density Plan - decrease rate of fluids - repeat labs in am - encourage PO intake - urology input appreciated, will need follow up - ct scan report reviewed - ua negative for blood or protein
--- NOTE | 2019-03-29 12:33 | CON.ID ---
Consult Consult Specialty:: infectious diseases Referred by:: Reason for Consultation:: leukocytosis - History of Present Illness Chief Complaint: burning in urine History of Present Illness: 78 year old male with pmhx of htn, hld, cad, dementia and brain tumor who presented to the ER with chest pain. He currently denies chest pain. He is a poor historian. 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 Cardio/Vascular: Yes: CAD (NSTEMI 11/2017 s/p DREAD at [facility]), HTN, Hyperlipdemia Gastrointestinal: No: Ascites, Cancer, Constipation, Crohn's Disease, Diverticulitis, Diverticulosis, Esophageal Varices, Gastritis, GERD, GI Bleed, Hemorrhoids, Hiatal Hernia, Inflamatory Bowel Disease, Irritable Bowel Disease, Pancreatitis, Peptic Ulcer Disease, Ulcerative Colitis, Other Renal/: Yes: Renal Inusuff Infectious Disease: No: AIDS, C-Diff, Herpes Zoster, HIV, MRSA, STD's, Tuberculosis, VREF, Other Psych: No: Addictions, Anxiety, Bipolar, Depression, Panic, Psychosis, Schizophrenia, Other Musculoskeletal: No: Bursitis, Chronic low back pain, Hemiparesis, Hemiplegia, Osteoarthritis, Paraplegia, Other Rheumatology: No: Fibromyalgia, Gout, Lupus, Rheumatoid Arthritis, Sarcoidosis, Vasculitis, Other - Alcohol/Substance Use Hx Alcohol Use: No - Smoking History Smoking history: Former smoker Have you smoked in the past 12 months: No If you are a former smoker, when did you quit?: 1992 - Social History Usual Living Arrangement: With Spouse History of Recent Travel: No Home Medications - Allergies Allergies/Adverse Reactions: Allergies Allergy/AdvReac Type Severity Reaction Status Date / Time No Known Allergies Allergy Verified 03/25/19 03:03 - Home Medications Home Medications: Ambulatory Orders Atorvastatin Ca [Lipitor] 80 mg PO HS 03/25/19 Clopidogrel Bisulfate [Plavix] 75 mg PO DAILY 03/25/19 Metoprolol Tartrate [Lopressor -] 25 mg PO BID 03/25/19 RX: Furosemide [Lasix -] 20 mg PO TID 03/25/19 RX: Lisinopril 5 mg PO DAILY 03/25/19 Sertraline HCl [Zoloft -] 25 mg PO DAILY 03/25/19 Tamsulosin HCl [Flomax] 0.4 mg PO DAILY 03/25/19 Review of Systems - Review of Systems Constitutional: reports: No Symptoms Eyes: reports: No Symptoms HENT: reports: No Symptoms Neck: reports: No Symptoms Cardiovascular: reports: No Symptoms Respiratory: reports: No Symptoms Gastrointestinal: reports: No Symptoms Genitourinary: reports: Burning, Other Musculoskeletal: reports: No Symptoms Integumentary: reports: No Symptoms Neurological: reports: No Symptoms Endocrine: reports: No Symptoms Hematology/Lymphatic: reports: No Symptoms Psychiatric: reports: No Symptoms Physical Exam Vital Signs: Vital Signs Temperature 101.4 F H 03/29/19 06:00 Pulse Rate 92 H 03/29/19 08:03 Respiratory Rate 20 03/29/19 08:03 Blood Pressure 143/78 03/29/19 08:03 O2 Sat by Pulse Oximetry (%) 95 03/28/19 21:00 Constitutional: Yes: Well Nourished, Calm, Mild Distress Neck: Yes: Supple, Trachea Midline Cardiovascular: Yes: Regular Rate and Rhythm Respiratory: Yes: Regular, CTA Bilaterally Gastrointestinal: Yes: Normal Bowel Sounds, Soft Renal/: Yes: Other Musculoskeletal: Yes: WNL Extremities: Yes: WNL Neurological: Yes: Alert, Oriented Psychiatric: Yes: Alert, Oriented Labs: CBC, BMP 03/29/19 05:40 03/29/19 05:40 Imaging - Results Chest X-ray: Report Reviewed, Image Reviewed Cat Scan: Report Reviewed, Image Reviewed MRI: Report Reviewed, Image Reviewed Assessment/Plan Problem List - Problems (1) Acute kidney injury Code(s): N17.9 - ACUTE KIDNEY FAILURE, UNSPECIFIED (2) Chest pain at rest Code(s): R07.9 - CHEST PAIN, UNSPECIFIED (3) HTN (hypertension) Code(s): I10 - ESSENTIAL (PRIMARY) HYPERTENSION 4 uti chest pain plan will start patient on abx urine cx send await for those results rest as per the team
--- NOTE | 2019-03-29 20:41 | PN ---
Progress Note (short form) - Note Progress Note: hUROLOGY NOTE. PT. FOUND WITH INCIDENTAL RT. RENAL LESION 1.5 CM.. LESION NOT SEEN ON CT. WILL REC. CT. WITH CONTRAST IN 4-6 MONTHS.
[2019-03-29] MEDS: CEFTRIAXONE 1 GM in DEXTROSE 5%-WATER - 50 ML IVPB SCH (22:31)
--- NOTE | 2019-03-29 23:31 | PN ---
Progress Note, Physician History of Present Illness: No new complaints - Current Medication List Current Medications: Active Medications Aspirin (Asa -) 81 mg PO DAILY [facility]S [facility] Last Admin: 03/29/19 10:02 Dose: 81 mg Cyanocobalamin (Vitamin B12 -) 1,000 mcg PO DAILY [facility] Last Admin: 03/29/19 10:02 Dose: 1,000 mcg Heparin Sodium (Porcine) (Heparin -) 5,000 unit SQ BID [facility]S [facility] Last Admin: 03/29/19 22:32 Dose: 5,000 unit Potassium Chloride 10 meq/ (Dextrose/Sodium Chloride) 1,005 mls @ 40 mls/hr IVPB [facility] Last Admin: 03/29/19 22:32 Dose: Not Given Ceftriaxone Sodium 1 gm/ (Dextrose) 50 mls @ 200 mls/hr IVPB DAILY [facility] 234 BEDS [facility]; Protocol Last Admin: 03/29/19 22:31 Dose: 200 mls/hr - Objective Vital Signs: Vital Signs Temperature 101.4 F H 03/29/19 17:00 Pulse Rate 107 H 03/29/19 17:00 Respiratory Rate 20 03/29/19 17:00 Blood Pressure 134/63 03/29/19 17:00 O2 Sat by Pulse Oximetry (%) 95 03/28/19 21:00 Neck: Yes: WNL, Supple Cardiovascular: Yes: WNL, Regular Rate and Rhythm Respiratory: Yes: WNL, Regular, CTA Bilaterally Gastrointestinal: Yes: WNL, Normal Bowel Sounds, Soft Labs: CBC, BMP 03/29/19 05:40 03/29/19 05:40 Problem List - Problems (1) Fever Assessment/Plan: Pt spiking temp to 101 Urine culture negative Cont IV antibxs WBC elevated CXR was normal ID consult noted Code(s): R50.9 - FEVER, UNSPECIFIED (2) Acute kidney injury Assessment/Plan: Renal US showed complex cyst vs mass CT scan abd/pelvis showed rt renal focus Repeat imagining in 3 months as per uro Code(s): N17.9 - ACUTE KIDNEY FAILURE, UNSPECIFIED (3) Hypotension Assessment/Plan: No resolved ARB on hold due to CKD Echo noted unremarkable Code(s): I95.9 - HYPOTENSION, UNSPECIFIED (4) Dehydration Assessment/Plan: DC IVF PT eval DC planning to STR Code(s): E86.0 - DEHYDRATION (5) HTN (hypertension) Assessment/Plan: Hold antihypertensives and monitor BP Code(s): I10 - ESSENTIAL (PRIMARY) HYPERTENSION (6) Dementia Code(s): F03.90 - UNSPECIFIED DEMENTIA WITHOUT BEHAVIORAL DISTURBANCE
[2019-03-30 06:46] LABS: BASO % 0.8 % (0-2.0); HEMATOCRIT 25.7 % (35.4-49); HEMOGLOBIN 8.8 GM/dL (11.7-16.9); LYMPH % 18.2 % (8-40); MCH 29.4 pg (25.7-33.7); MCHC 34.2 g/dl (32.0-35.9); MEAN CELL VOLUME 85.9 fl (80-96); MEAN PLT VOLUME 7.3 fl (7.5-11.1); MONO % 8.6 % (3.8-10.2); NEUT % 70.4 % (42.8-82.8); PLATELET COUNT 300 K/MM3 (134-434); RBC 2.99 M/mm3 (4.00-5.60); RDW 14.2 % (11.9-15.9)
[2019-03-30 07:22] LABS: ALBUMIN 2.2 g/dl (3.4-5.0); BILIRUBIN,TOTAL 0.4 mg/dL (0.2-1); BLOOD UREA NITROGEN 8.8 mg/dL (7-18); CALCIUM 8.2 mg/dL (8.5-10.1); CREATININE 1.1 mg/dL (0.55-1.3); POTASSIUM 3.9 mmol/L (3.5-5.1); TOT PROT 5.2 g/dl (6.4-8.2)
[2019-03-30] MEDS ORDERED: DEXTROSE 5%-WATER - 50 ML IVPB ONE (09:43)
[2019-03-30] MEDS ORDERED: cefTRIAXone SODIUM 1 GM VIAL ONE (09:43)
[2019-03-30] MEDS: ASPIRIN 81 MG CHEWABLE TABLETS PO SCH (09:47)
[2019-03-30] MEDS: CYANOCOBALAMIN 1,000 MCG TABLET (FP) PO SCH (09:47)
[2019-03-30] MEDS: CEFTRIAXONE 1 GM in DEXTROSE 5%-WATER - 50 ML IVPB SCH (09:47)
[2019-03-30] MEDS: HEPARIN NA (PORCINE) 5,000 UNITS/ML 1ML VIAL SQ SCH ×2 (09:47→21:02)
--- NOTE | 2019-03-30 10:50 | PN ---
Progress Note (short form) - Note Progress Note: NEUROLOGY PROGRESS: Events reviewed. Pt examined. S/P thiamine IVP and now on B12 supplementation 1000 ug daily. C/O bladder pain and repeat UA/C/S revealed urine WBC= 164 and + UTI, now on IV rocephin. Has not been assisted out of bed. MRI of brain (C-) reviewed: Diffuse cerebral atrophy. Several chronic scattered ischemic changes in perventricular region. WBC 13.4-> 10 H/H 9.7/29.4-> 8.8/25.7 RPR nonreactive NEURO: Awake, alert, responsive. Flat affect. Remembers me. Ox "Radha Hernandez." . TRUMP. No recall. + glabella, snout, suck. Poor eye contact. Symmetric grasps. Rigid tone legs. Decreased vibration in toes. Impression: Mod-Severe B/L Cerebral dysfunction (OMS) Worsened by Toxic-metabolic encephalopathy - UTI Combined systems degeneration (B12 deficiency) Suggest: Assist with feeds and PO hydration. If necessary, add IV fluids. Continue IV antibiotics. PO B12 supplementation (1000 ug daily). Repeat B12 prior to D/C or transfer. Mobilize OOB to chair PT for gait assessment and Rx. May require SNF level of care. Thank you very much, Edward Garcia MD
--- NOTE | 2019-03-30 11:57 | PN ---
Progress Note (short form) - Note Progress Note: s: no chest pain, palps, dizziness, sob Current Medications Aspirin (Asa -) 81 mg PO DAILY [facility] Last Admin: 03/30/19 09:47 Dose: 81 mg Cyanocobalamin (Vitamin B12 -) 1,000 mcg PO DAILY [facility] Last Admin: 03/30/19 09:47 Dose: 1,000 mcg Heparin Sodium (Porcine) (Heparin -) 5,000 unit SQ BID [facility] Last Admin: 03/30/19 09:47 Dose: 5,000 unit Potassium Chloride 10 meq/ (Dextrose/Sodium Chloride) 1,005 mls @ 40 mls/hr IVPB [facility] Last Admin: 03/29/19 22:32 Dose: Not Given Ceftriaxone Sodium 1 gm/ (Dextrose) 50 mls @ 200 mls/hr IVPB DAILY [facility]; Protocol Last Admin: 03/30/19 09:47 Dose: 200 mls/hr Vital Signs Period Temp Pulse Resp BP Sys/Knutson Pulse Ox Last 24 Hr 99.4 F-101.4 F 92-107 20-20 106-142/63-76 94 Constitutional: Yes: No Distress, Calm Eyes: Yes: Conjunctiva Clear Neck: Yes: Trachea Midline Respiratory: Yes: CTA Bilaterally (no wheezing or rales) Gastrointestinal: Yes: Soft Cardiovascular: Yes: Regular Rate and Rhythm JVD: No Carotid Bruit: No Heart Sounds: Yes: S1, S2 Edema: No Neurological: Yes: Alert no jaundice, diaphoresis not agitated NSR 70bpm; low Voltage QRS, old inferior [place]- no acute ST QT 421ms Prior Cardiac Procedures: PTCA with Stent Imaging - Results Chest X-ray: Image Reviewed (no I/E) Cat Scan: Report Reviewed (osteoma, o/w neg) EKG: Image Reviewed (see above;) Assessment/Plan IMP: 78M w/ h/o NSTEMI 11/2017 with PCI Deyvi Hernandez (report not available) admitted with vague chest pain, altered sensorium, acute on chronic renal failure. Poor historian limits precise symptom characterization. Cardiac enzymes neg x [address] changes/ low voltage noted. REC: 1. Echo nl LV function, no effusion 2. ARF- renal following, Cr improved 3. Altered MS, possible dementia;manage per neuro 4. cont aspirin, statin 5. GILLES held in setting of elevated creatinine, restart when stable
--- NOTE | 2019-03-30 12:46 | PN ---
Progress Note, Physician History of Present Illness: Pt seen and examined at bedside. He is awake and appears comfortable. He denies shortness of breath. - Current Medication List Current Medications: Active Medications Aspirin (Asa -) 81 mg PO DAILY [facility] Last Admin: 03/30/19 09:47 Dose: 81 mg Cyanocobalamin (Vitamin B12 -) 1,000 mcg PO DAILY [facility] Last Admin: 03/30/19 09:47 Dose: 1,000 mcg Heparin Sodium (Porcine) (Heparin -) 5,000 unit SQ BID [facility] Last Admin: 03/30/19 09:47 Dose: 5,000 unit Potassium Chloride 10 meq/ (Dextrose/Sodium Chloride) 1,005 mls @ 40 mls/hr IVPB [facility] Last Admin: 03/29/19 22:32 Dose: Not Given Ceftriaxone Sodium 1 gm/ (Dextrose) 50 mls @ 200 mls/hr IVPB DAILY [facility]; Protocol Last Admin: 03/30/19 09:47 Dose: 200 mls/hr - Objective Vital Signs: Vital Signs Temperature 98.8 F 03/30/19 10:00 Pulse Rate 95 H 03/30/19 10:00 Respiratory Rate 20 03/30/19 10:00 Blood Pressure 125/68 03/30/19 10:00 O2 Sat by Pulse Oximetry (%) 94 L 03/30/19 09:00 Constitutional: Yes: Calm Eyes: Yes: Conjunctiva Clear HENT: Yes: Atraumatic Neck: Yes: Supple Cardiovascular: Yes: S1, S2 Respiratory: Yes: CTA Bilaterally Gastrointestinal: Yes: Normal Bowel Sounds, Soft Genitourinary: Yes: WNL Musculoskeletal: Yes: WNL Edema: No Neurological: Yes: Oriented Psychiatric: Yes: Oriented Labs: CBC, BMP 03/30/19 05:42 03/30/19 05:42 Problem List - Problems (1) Acute kidney injury Code(s): N17.9 - ACUTE KIDNEY FAILURE, UNSPECIFIED (2) Chest pain at rest Code(s): R07.9 - CHEST PAIN, UNSPECIFIED (3) HTN (hypertension) Code(s): I10 - ESSENTIAL (PRIMARY) HYPERTENSION Assessment/Plan Current Medications Generic Name Dose Route Start Last Admin Trade Name Freq PRN Reason Stop Dose Admin Aspirin 81 mg 03/26/19 10:00 03/30/19 09:47 Asa - PO 81 mg DAILY [facility] Administration Cyanocobalamin 1,000 mcg 03/29/19 10:00 03/30/19 09:47 Vitamin B12 - PO 1,000 mcg DAILY [facility] Administration Heparin Sodium (Porcine) 5,000 unit 03/25/19 10:00 03/30/19 09:47 Heparin - SQ 5,000 unit BID [facility] Administration Potassium Chloride 10 meq/ 1,005 mls @ 40 mls/hr 03/29/19 12:26 03/29/19 22: 32 Dextrose/Sodium Chloride IVPB Not Given ASDIR [facility] Ceftriaxone Sodium 1 gm/ 50 mls @ 200 mls/hr 03/29/19 12:45 03/30/19 09:47 Dextrose IVPB 200 mls/hr DAILY [facility] Administration Protocol Impression 1. JESSE 2. chest pain 3. htn 4. hld 5. brain lesion 6. right renal density Plan - can d/c fluids - encourage PO intake - follow cultures - abx per primary team - urology input appreciated, will need follow up as outpt for renal lesion
--- NOTE | 2019-03-30 12:57 | PN ---
Progress Note, Physician History of Present Illness: stable no new issues - Current Medication List Current Medications: Active Medications Aspirin (Asa -) 81 mg PO DAILY [facility] Last Admin: 03/30/19 09:47 Dose: 81 mg Cyanocobalamin (Vitamin B12 -) 1,000 mcg PO DAILY [facility] Last Admin: 03/30/19 09:47 Dose: 1,000 mcg Heparin Sodium (Porcine) (Heparin -) 5,000 unit SQ BID [facility] Last Admin: 03/30/19 09:47 Dose: 5,000 unit Ceftriaxone Sodium 1 gm/ (Dextrose) 50 mls @ 200 mls/hr IVPB DAILY [facility]; Protocol Last Admin: 03/30/19 09:47 Dose: 200 mls/hr - Objective Vital Signs: Vital Signs Temperature 98.8 F 03/30/19 10:00 Pulse Rate 95 H 03/30/19 10:00 Respiratory Rate 20 03/30/19 10:00 Blood Pressure 125/68 03/30/19 10:00 O2 Sat by Pulse Oximetry (%) 94 L 03/30/19 09:00 Constitutional: Yes: No Distress, Calm Cardiovascular: Yes: S1, S2 Respiratory: Yes: Regular, CTA Bilaterally Gastrointestinal: Yes: Normal Bowel Sounds, Soft Musculoskeletal: Yes: WNL Extremities: Yes: WNL Neurological: Yes: Alert, Oriented Psychiatric: Yes: Alert, Oriented Labs: CBC, BMP 03/30/19 05:42 03/30/19 05:42 Assessment/Plan Problem List - Problems (1) Acute kidney injury Code(s): N17.9 - ACUTE KIDNEY FAILURE, UNSPECIFIED (2) Chest pain at rest Code(s): R07.9 - CHEST PAIN, UNSPECIFIED (3) HTN (hypertension) Code(s): I10 - ESSENTIAL (PRIMARY) HYPERTENSION 4 uti chest pain plan continue ceftriaxone await for identification of the organisms might have to change to zosyn rest as per the team
--- NOTE | 2019-03-30 20:31 | PN ---
Progress Note, Physician History of Present Illness: No new complaints - Current Medication List Current Medications: Active Medications Aspirin (Asa -) 81 mg PO DAILY [facility] Last Admin: 03/30/19 09:47 Dose: 81 mg Cyanocobalamin (Vitamin B12 -) 1,000 mcg PO DAILY [facility] Last Admin: 03/30/19 09:47 Dose: 1,000 mcg Heparin Sodium (Porcine) (Heparin -) 5,000 unit SQ BID [facility] Last Admin: 03/30/19 09:47 Dose: 5,000 unit Ceftriaxone Sodium 1 gm/ (Dextrose) 50 mls @ 200 mls/hr IVPB DAILY [facility]; Protocol Last Admin: 03/30/19 09:47 Dose: 200 mls/hr - Objective Vital Signs: Vital Signs Temperature 99.2 F 03/30/19 17:00 Pulse Rate 101 H 03/30/19 17:00 Respiratory Rate 20 03/30/19 17:00 Blood Pressure 132/72 03/30/19 17:00 O2 Sat by Pulse Oximetry (%) 94 L 03/30/19 09:00 Neck: Yes: WNL, Supple Cardiovascular: Yes: WNL, Regular Rate and Rhythm Respiratory: Yes: WNL, Regular, CTA Bilaterally Gastrointestinal: Yes: WNL, Normal Bowel Sounds, Soft Labs: CBC, BMP 03/30/19 05:42 03/30/19 05:42 Problem List - Problems (1) Fever Assessment/Plan: UTI IV levaquin Follow cultures ID consult Code(s): R50.9 - FEVER, UNSPECIFIED (2) Acute kidney injury Assessment/Plan: Renal US showed ? complex cyst As per renal URO consult noted CT scan abd/pelvis showed renal cyst Code(s): N17.9 - ACUTE KIDNEY FAILURE, UNSPECIFIED (3) Hypotension Assessment/Plan: Now resolved ARB on hold due to CKD Echo noted unremarkable Code(s): I95.9 - HYPOTENSION, UNSPECIFIED (4) Dehydration Assessment/Plan: DC IVF PT eval DC planning to STR Code(s): E86.0 - DEHYDRATION (5) HTN (hypertension) Assessment/Plan: Hold antihypertensives and monitor BP IV hydration Code(s): I10 - ESSENTIAL (PRIMARY) HYPERTENSION (6) Dementia Code(s): F03.90 - UNSPECIFIED DEMENTIA WITHOUT BEHAVIORAL DISTURBANCE (7) Altered mental status Assessment/Plan: CT scan head showed osteoma MRI brain showed chronic cerebral infarcts ?Dementia vs dehydration vs UTI ?Metabolic encephalopathy Code(s): R41.82 - ALTERED MENTAL STATUS, UNSPECIFIED
[2019-03-31 07:19] LABS: BASO % 1.3 % (0-2.0); EOS % 4.3 % (0-4.5); HEMATOCRIT 27.1 % (35.4-49); HEMOGLOBIN 9.2 GM/dL (11.7-16.9); LYMPH % 30.4 % (8-40); MCH 29.4 pg (25.7-33.7); MCHC 33.9 g/dl (32.0-35.9); MEAN CELL VOLUME 86.7 fl (80-96); MEAN PLT VOLUME 7.8 fl (7.5-11.1); MONO % 8.5 % (3.8-10.2); NEUT % 55.5 % (42.8-82.8); PLATELET COUNT 333 K/MM3 (134-434); RBC 3.12 M/mm3 (4.00-5.60); RDW 14.2 % (11.9-15.9); WHITE BLOOD COUNT 8.4 K/mm3 (4.0-10.0)
[2019-03-31 07:40] LABS: BLOOD UREA NITROGEN 7.9 mg/dL (7-18); CALCIUM 8.5 mg/dL (8.5-10.1); CREATININE 1.1 mg/dL (0.55-1.3)
[2019-03-31] MEDS ORDERED: cefTRIAXone SODIUM 1 GM VIAL ONE (10:52)
[2019-03-31] MEDS ORDERED: DEXTROSE 5%-WATER - 50 ML IVPB ONE ×3 (10:52→18:16)
[2019-03-31] MEDS: CEFTRIAXONE 1 GM in DEXTROSE 5%-WATER - 50 ML IVPB SCH (10:59)
[2019-03-31] MEDS: ASPIRIN 81 MG CHEWABLE TABLETS PO SCH (10:59)
[2019-03-31] MEDS: CYANOCOBALAMIN 1,000 MCG TABLET (FP) PO SCH (10:59)
[2019-03-31] MEDS: HEPARIN NA (PORCINE) 5,000 UNITS/ML 1ML VIAL SQ SCH ×2 (10:59→21:37)
--- NOTE | 2019-03-31 12:06 | PN ---
Progress Note (short form) - Note Progress Note: s: no chest pain, palps, dizziness, sob Current Medications Aspirin (Asa -) 81 mg PO DAILY [facility] Last Admin: 03/31/19 10:59 Dose: 81 mg Cyanocobalamin (Vitamin B12 -) 1,000 mcg PO DAILY [facility] Last Admin: 03/31/19 10:59 Dose: 1,000 mcg Heparin Sodium (Porcine) (Heparin -) 5,000 unit SQ BID [facility] Last Admin: 03/31/19 10:59 Dose: 5,000 unit Ceftriaxone Sodium 1 gm/ (Dextrose) 50 mls @ 200 mls/hr IVPB DAILY [facility]; Protocol Last Admin: 03/31/19 10:59 Dose: 200 mls/hr Vital Signs Period Temp Pulse Resp BP Sys/Knutson Pulse Ox Last 24 Hr 98 F-99.6 F 74-101 20-20 115-133/65-75 95-95 Constitutional: Yes: No Distress, Calm Eyes: Yes: Conjunctiva Clear Neck: Yes: Trachea Midline Respiratory: Yes: CTA Bilaterally (no wheezing or rales) Gastrointestinal: Yes: Soft Cardiovascular: Yes: Regular Rate and Rhythm JVD: No Carotid Bruit: No Heart Sounds: Yes: S1, S2 Edema: No Neurological: Yes: Alert no jaundice, diaphoresis not agitated NSR 70bpm; low Voltage QRS, old inferior [place]- no acute ST QT 421ms Prior Cardiac Procedures: PTCA with Stent Imaging - Results Chest X-ray: Image Reviewed (no I/E) Cat Scan: Report Reviewed (osteoma, o/w neg) EKG: Image Reviewed (see above;) Assessment/Plan IMP: 78M w/ h/o NSTEMI 11/2017 with PCI Deyvi Hernandez (report not available) admitted with vague chest pain, altered sensorium, acute on chronic renal failure. Poor historian limits precise symptom characterization. Cardiac enzymes neg x [address] changes/ low voltage noted. REC: 1. Echo nl LV function, no effusion 2. ARF- renal following, Cr improved 3. Altered MS, possible dementia;manage per neuro 4. cont aspirin, statin 5. GILLES held in setting of elevated creatinine, restart when stable
--- NOTE | 2019-03-31 12:42 | PN ---
Progress Note, Physician History of Present Illness: improving no new issues - Current Medication List Current Medications: Active Medications Aspirin (Asa -) 81 mg PO DAILY [facility] Last Admin: 03/31/19 10:59 Dose: 81 mg Cyanocobalamin (Vitamin B12 -) 1,000 mcg PO DAILY [facility] Last Admin: 03/31/19 10:59 Dose: 1,000 mcg Heparin Sodium (Porcine) (Heparin -) 5,000 unit SQ BID [facility] Last Admin: 03/31/19 10:59 Dose: 5,000 unit - Objective Vital Signs: Vital Signs Temperature 98.3 F 03/31/19 09:00 Pulse Rate 83 03/31/19 09:00 Respiratory Rate 20 03/31/19 09:00 Blood Pressure 133/75 03/31/19 09:00 O2 Sat by Pulse Oximetry (%) 95 03/31/19 09:00 Constitutional: Yes: No Distress, Calm Cardiovascular: Yes: S1, S2 Respiratory: Yes: Regular, CTA Bilaterally Gastrointestinal: Yes: Normal Bowel Sounds, Soft Musculoskeletal: Yes: WNL Extremities: Yes: WNL Neurological: Yes: Alert, Oriented Psychiatric: Yes: Alert, Oriented Labs: CBC, BMP 03/31/19 06:19 03/31/19 06:19 Assessment/Plan Problem List - Problems (1) Acute kidney injury Code(s): N17.9 - ACUTE KIDNEY FAILURE, UNSPECIFIED (2) Chest pain at rest Code(s): R07.9 - CHEST PAIN, UNSPECIFIED (3) HTN (hypertension) Code(s): I10 - ESSENTIAL (PRIMARY) HYPERTENSION 4 uti chest pain plan cx results noted will change abx to zosyn rest as per the team
--- NOTE | 2019-03-31 13:03 | PN ---
Progress Note, Physician History of Present Illness: Pt seen and examined at bedside. He is awake and alert. He denies shortness of breath. - Current Medication List Current Medications: Active Medications Aspirin (Asa -) 81 mg PO DAILY [facility] Last Admin: 03/31/19 10:59 Dose: 81 mg Cyanocobalamin (Vitamin B12 -) 1,000 mcg PO DAILY [facility] Last Admin: 03/31/19 10:59 Dose: 1,000 mcg Heparin Sodium (Porcine) (Heparin -) 5,000 unit SQ BID [facility] Last Admin: 03/31/19 10:59 Dose: 5,000 unit Piperacillin Sod/Tazobactam (Sod 3.375 gm/ Dextrose) 50 mls @ 100 mls/hr IVPB Q8H-IV [facility]; Protocol - Objective Vital Signs: Vital Signs Temperature 98.3 F 03/31/19 09:00 Pulse Rate 83 03/31/19 09:00 Respiratory Rate 20 03/31/19 09:00 Blood Pressure 133/75 03/31/19 09:00 O2 Sat by Pulse Oximetry (%) 95 03/31/19 09:00 Constitutional: Yes: Calm Eyes: Yes: Conjunctiva Clear HENT: Yes: Atraumatic Neck: Yes: Supple Cardiovascular: Yes: S1, S2 Respiratory: Yes: CTA Bilaterally Gastrointestinal: Yes: Soft Genitourinary: Yes: WNL Musculoskeletal: Yes: WNL Extremities: Yes: WNL Edema: No Neurological: Yes: Oriented Psychiatric: Yes: Oriented Labs: CBC, BMP 03/31/19 06:19 03/31/19 06:19 Problem List - Problems (1) Acute kidney injury Code(s): N17.9 - ACUTE KIDNEY FAILURE, UNSPECIFIED (2) Chest pain at rest Code(s): R07.9 - CHEST PAIN, UNSPECIFIED (3) HTN (hypertension) Code(s): I10 - ESSENTIAL (PRIMARY) HYPERTENSION Assessment/Plan Current Medications Generic Name Dose Route Start Last Admin Trade Name Freq PRN Reason Stop Dose Admin Aspirin 81 mg 03/26/19 10:00 03/31/19 10:59 Asa - PO 81 mg DAILY [facility] Administration Cyanocobalamin 1,000 mcg 03/29/19 10:00 03/31/19 10:59 Vitamin B12 - PO 1,000 mcg DAILY [facility] Administration Heparin Sodium (Porcine) 5,000 unit 03/25/19 10:00 03/31/19 10:59 Heparin - SQ 5,000 unit BID [facility] Administration Piperacillin Sod/Tazobactam 50 mls @ 100 mls/hr 03/31/19 12:45 Sod 3.375 gm/ Dextrose IVPB Q8H-IV [facility] Protocol Impression 1. JESSE 2. chest pain 3. htn 4. hld 5. brain lesion 6. right renal density Plan - monitor renal function - encourage po intake - abx per primary team - will need follow up for renal lesion
[2019-03-31] MEDS ORDERED: PIPERACILLIN/TAZOBACTAM 3.375 GM VIAL IVPB ONE ×2 (14:26→18:16)
[2019-03-31] MEDS: PIPERACILLIN/TAZOB 3.375 GM 3.375 GM in DEXTROSE 5%-WATER - 50 ML IVPB SCH ×2 (14:34→18:22)
--- NOTE | 2019-04-01 00:28 | PN ---
Progress Note, Physician History of Present Illness: No new complaints Pt seen and examined 03/31/19 however note is being entered now - Current Medication List Current Medications: Active Medications Aspirin (Asa -) 81 mg PO DAILY [facility] Last Admin: 03/31/19 10:59 Dose: 81 mg Cyanocobalamin (Vitamin B12 -) 1,000 mcg PO DAILY [facility] Last Admin: 03/31/19 10:59 Dose: 1,000 mcg Heparin Sodium (Porcine) (Heparin -) 5,000 unit SQ BID [facility] Last Admin: 03/31/19 21:37 Dose: 5,000 unit Piperacillin Sod/Tazobactam (Sod 3.375 gm/ Dextrose) 50 mls @ 100 mls/hr IVPB Q8H-IV [facility]; Protocol Last Admin: 03/31/19 18:22 Dose: 100 mls/hr - Objective Vital Signs: Vital Signs Temperature 98.8 F 03/31/19 17:10 Pulse Rate 89 03/31/19 17:10 Respiratory Rate 20 03/31/19 17:10 Blood Pressure 141/84 03/31/19 17:10 O2 Sat by Pulse Oximetry (%) 95 03/31/19 21:00 Cardiovascular: Yes: WNL, Regular Rate and Rhythm Respiratory: Yes: WNL, Regular, CTA Bilaterally Gastrointestinal: Yes: WNL, Normal Bowel Sounds, Soft Labs: CBC, BMP 03/31/19 06:19 03/31/19 06:19 Problem List - Problems (1) Fever Assessment/Plan: Pt afebrile Urine culture (+) for pseudomonas/proteus BC remain negative Cont IV antibxs WBC normal CXR was normal Code(s): R50.9 - FEVER, UNSPECIFIED (2) Acute kidney injury Assessment/Plan: Renal US showed complex cyst vs mass CT scan abd/pelvis showed rt renal focus Repeat imagining in 3 months as per uro Code(s): N17.9 - ACUTE KIDNEY FAILURE, UNSPECIFIED (3) Hypotension Assessment/Plan: No resolved ARB on hold due to CKD Echo noted unremarkable Code(s): I95.9 - HYPOTENSION, UNSPECIFIED (4) Dehydration Assessment/Plan: DC IVF PT eval DC planning to STR Code(s): E86.0 - DEHYDRATION (5) HTN (hypertension) Assessment/Plan: Hold antihypertensives and monitor BP Code(s): I10 - ESSENTIAL (PRIMARY) HYPERTENSION (6) Dementia Code(s): F03.90 - UNSPECIFIED DEMENTIA WITHOUT BEHAVIORAL DISTURBANCE
[2019-04-01] MEDS ORDERED: PIPERACILLIN/TAZOBACTAM 3.375 GM VIAL IVPB ONE ×3 (01:37→17:45)
[2019-04-01] MEDS ORDERED: DEXTROSE 5%-WATER - 50 ML IVPB ONE ×3 (01:37→17:46)
[2019-04-01] MEDS: PIPERACILLIN/TAZOB 3.375 GM 3.375 GM in DEXTROSE 5%-WATER - 50 ML IVPB SCH ×3 (01:39→17:47)
[2019-04-01] MEDS ORDERED: PT OWN MED DRAWER 7, Y5N ONE (09:51)
[2019-04-01] MEDS: ASPIRIN 81 MG CHEWABLE TABLETS PO SCH (09:53)
[2019-04-01] MEDS: CYANOCOBALAMIN 1,000 MCG TABLET (FP) PO SCH (09:53)
--- NOTE | 2019-04-01 12:30 | PN ---
Progress Note, Physician History of Present Illness: patient stable no new issues - Current Medication List Current Medications: Active Medications Aspirin (Asa -) 81 mg PO DAILY [facility] Last Admin: 04/01/19 09:53 Dose: 81 mg Cyanocobalamin (Vitamin B12 -) 1,000 mcg PO DAILY [facility] Last Admin: 04/01/19 09:53 Dose: 1,000 mcg Piperacillin Sod/Tazobactam (Sod 3.375 gm/ Dextrose) 50 mls @ 100 mls/hr IVPB Q8H-IV [facility]; Protocol Last Admin: 04/01/19 09:53 Dose: 100 mls/hr - Objective Vital Signs: Vital Signs Temperature 97.9 F 04/01/19 05:56 Pulse Rate 80 04/01/19 05:56 Respiratory Rate 20 04/01/19 05:56 Blood Pressure 131/72 04/01/19 05:56 O2 Sat by Pulse Oximetry (%) 95 03/31/19 21:00 Constitutional: Yes: No Distress, Calm Cardiovascular: Yes: S1, S2 Respiratory: Yes: Regular, CTA Bilaterally Gastrointestinal: Yes: Normal Bowel Sounds, Soft Musculoskeletal: Yes: WNL Extremities: Yes: WNL Neurological: Yes: Alert, Oriented Psychiatric: Yes: Alert, Oriented Labs: CBC, BMP 03/31/19 06:19 03/31/19 06:19 Assessment/Plan Problem List - Problems (1) Acute kidney injury Code(s): N17.9 - ACUTE KIDNEY FAILURE, UNSPECIFIED (2) Chest pain at rest Code(s): R07.9 - CHEST PAIN, UNSPECIFIED (3) HTN (hypertension) Code(s): I10 - ESSENTIAL (PRIMARY) HYPERTENSION 4 uti chest pain plan continue current abx rest as per the team
--- NOTE | 2019-04-01 14:43 | PN ---
Progress Note, Physician History of Present Illness: Pt seen and examined at bedside. He has no complaints. - Current Medication List Current Medications: Active Medications Aspirin (Asa -) 81 mg PO DAILY [facility] Last Admin: 04/01/19 09:53 Dose: 81 mg Cyanocobalamin (Vitamin B12 -) 1,000 mcg PO DAILY [facility] Last Admin: 04/01/19 09:53 Dose: 1,000 mcg Piperacillin Sod/Tazobactam (Sod 3.375 gm/ Dextrose) 50 mls @ 100 mls/hr IVPB Q8H-IV [facility]; Protocol Last Admin: 04/01/19 09:53 Dose: 100 mls/hr - Objective Vital Signs: Vital Signs Temperature 97.6 F 04/01/19 08:35 Pulse Rate 71 04/01/19 08:35 Respiratory Rate 20 04/01/19 08:35 Blood Pressure 137/76 04/01/19 08:35 O2 Sat by Pulse Oximetry (%) 95 03/31/19 21:00 Constitutional: Yes: Calm Eyes: Yes: Conjunctiva Clear HENT: Yes: Atraumatic Neck: Yes: Supple Cardiovascular: Yes: S1, S2 Respiratory: Yes: CTA Bilaterally Gastrointestinal: Yes: Normal Bowel Sounds, Soft Genitourinary: Yes: Incontinence Musculoskeletal: Yes: WNL Edema: No Neurological: Yes: Confusion Labs: CBC, BMP 03/31/19 06:19 03/31/19 06:19 Problem List - Problems (1) Acute kidney injury Code(s): N17.9 - ACUTE KIDNEY FAILURE, UNSPECIFIED (2) Chest pain at rest Code(s): R07.9 - CHEST PAIN, UNSPECIFIED (3) HTN (hypertension) Code(s): I10 - ESSENTIAL (PRIMARY) HYPERTENSION Assessment/Plan Current Medications Generic Name Dose Route Start Last Admin Trade Name Freq PRN Reason Stop Dose Admin Aspirin 81 mg 03/26/19 10:00 04/01/19 09:53 Asa - PO 81 mg DAILY [facility] Administration Cyanocobalamin 1,000 mcg 03/29/19 10:00 04/01/19 09:53 Vitamin B12 - PO 1,000 mcg DAILY [facility] Administration Piperacillin Sod/Tazobactam 50 mls @ 100 mls/hr 03/31/19 12:45 04/01/19 09:53 Sod 3.375 gm/ Dextrose IVPB 100 mls/hr Q8H-IV [facility] Administration Protocol Impression 1. JESSE 2. chest pain 3. htn 4. hld 5. brain lesion 6. right renal density Plan - renal function stabilizes - repeat labs in am - encourage po intake - abx per primary team - will need follow up for renal lesion
--- NOTE | 2019-04-01 16:46 | PN ---
Progress Note (short form) - Note Progress Note: s: no chest pain, palps, dizziness, sob Current Medications Aspirin (Asa -) 81 mg PO DAILY [facility] Last Admin: 04/01/19 09:53 Dose: 81 mg Cyanocobalamin (Vitamin B12 -) 1,000 mcg PO DAILY [facility] Last Admin: 04/01/19 09:53 Dose: 1,000 mcg Piperacillin Sod/Tazobactam (Sod 3.375 gm/ Dextrose) 50 mls @ 100 mls/hr IVPB Q8H-IV [facility]; Protocol Last Admin: 04/01/19 09:53 Dose: 100 mls/hr Vital Signs Period Temp Pulse Resp BP Sys/Knutson Pulse Ox Last 24 Hr 97.6 F-98.8 F 71-89 20-20 131-150/72-84 95 Constitutional: Yes: No Distress, Calm Eyes: Yes: Conjunctiva Clear Neck: Yes: Trachea Midline Respiratory: Yes: CTA Bilaterally (no wheezing or rales) Gastrointestinal: Yes: Soft Cardiovascular: Yes: Regular Rate and Rhythm JVD: No Carotid Bruit: No Heart Sounds: Yes: S1, S2 Edema: No Neurological: Yes: Alert no jaundice, diaphoresis not agitated NSR 70bpm; low Voltage QRS, old inferior [place]- no acute ST QT 421ms Prior Cardiac Procedures: PTCA with Stent Imaging - Results Chest X-ray: Image Reviewed (no I/E) Cat Scan: Report Reviewed (osteoma, o/w neg) EKG: Image Reviewed (see above;) Assessment/Plan IMP: 78M w/ h/o NSTEMI 11/2017 with PCI Deyvi Hernandez (report not available) admitted with vague chest pain, altered sensorium, acute on chronic renal failure. Poor historian limits precise symptom characterization. Cardiac enzymes neg x [address] changes/ low voltage noted. REC: 1. Echo nl LV function, no effusion 2. ARF- renal following, Cr improved 3. Altered MS, possible dementia;manage per neuro 4. cont aspirin, statin 5. GILLES held in setting of elevated creatinine, restart when stable
--- NOTE | 2019-04-01 22:08 | PN ---
Progress Note, Physician - Current Medication List Current Medications: Active Medications Aspirin (Asa -) 81 mg PO DAILY [facility] Last Admin: 04/01/19 09:53 Dose: 81 mg Cyanocobalamin (Vitamin B12 -) 1,000 mcg PO DAILY [facility] Last Admin: 04/01/19 09:53 Dose: 1,000 mcg Piperacillin Sod/Tazobactam (Sod 3.375 gm/ Dextrose) 50 mls @ 100 mls/hr IVPB Q8H-IV [facility]; Protocol Last Admin: 04/01/19 17:47 Dose: 100 mls/hr - Objective Vital Signs: Vital Signs Temperature 98.1 F 04/01/19 16:50 Pulse Rate 79 04/01/19 16:50 Respiratory Rate 20 04/01/19 16:50 Blood Pressure 139/79 04/01/19 16:50 O2 Sat by Pulse Oximetry (%) 95 03/31/19 21:00 HENT: Yes: WNL Neck: Yes: WNL, Supple Cardiovascular: Yes: WNL, Regular Rate and Rhythm Respiratory: Yes: WNL, Regular, CTA Bilaterally Gastrointestinal: Yes: WNL, Normal Bowel Sounds, Soft Labs: CBC, BMP 03/31/19 06:19 03/31/19 06:19 Problem List - Problems (1) Fever Assessment/Plan: Pt afebrile Urine culture (+) for pseudomonas/proteus BC remain negative Cont IV antibxs WBC normal CXR was normal Code(s): R50.9 - FEVER, UNSPECIFIED (2) Acute kidney injury Assessment/Plan: Renal US showed complex cyst vs mass CT scan abd/pelvis showed rt renal focus Repeat imagining in 3 months as per uro Code(s): N17.9 - ACUTE KIDNEY FAILURE, UNSPECIFIED (3) Hypotension Assessment/Plan: No resolved ARB on hold due to CKD Echo noted unremarkable Code(s): I95.9 - HYPOTENSION, UNSPECIFIED (4) Dehydration Assessment/Plan: DC IVF PT eval DC planning to STR Code(s): E86.0 - DEHYDRATION (5) HTN (hypertension) Assessment/Plan: Hold antihypertensives and monitor BP Code(s): I10 - ESSENTIAL (PRIMARY) HYPERTENSION (6) Dementia Code(s): F03.90 - UNSPECIFIED DEMENTIA WITHOUT BEHAVIORAL DISTURBANCE
[2019-04-02] MEDS ORDERED: PIPERACILLIN/TAZOBACTAM 3.375 GM VIAL IVPB ONE ×3 (01:58→17:22)
[2019-04-02] MEDS ORDERED: DEXTROSE 5%-WATER - 50 ML IVPB ONE ×3 (01:59→17:22)
[2019-04-02] MEDS: PIPERACILLIN/TAZOB 3.375 GM 3.375 GM in DEXTROSE 5%-WATER - 50 ML IVPB SCH ×3 (02:17→17:49)
[2019-04-02 07:53] LABS: ALBUMIN 2.6 g/dl (3.4-5.0); BILIRUBIN,TOTAL 0.5 mg/dL (0.2-1); BLOOD UREA NITROGEN 6.8 mg/dL (7-18); CALCIUM 8.9 mg/dL (8.5-10.1); POTASSIUM 3.8 mmol/L (3.5-5.1); TOT PROT 5.6 g/dl (6.4-8.2)
[2019-04-02 08:16] LABS: CREATININE 1.3 mg/dL (0.55-1.3)
[2019-04-02] MEDS: CYANOCOBALAMIN 1,000 MCG TABLET (FP) PO SCH (09:37)
[2019-04-02] MEDS: ASPIRIN 81 MG CHEWABLE TABLETS PO SCH (09:37)
--- NOTE | 2019-04-02 11:12 | PN ---
Progress Note, Physician History of Present Illness: stable no new issues - Current Medication List Current Medications: Active Medications Aspirin (Asa -) 81 mg PO DAILY [facility] Last Admin: 04/02/19 09:37 Dose: 81 mg Cyanocobalamin (Vitamin B12 -) 1,000 mcg PO DAILY [facility] Last Admin: 04/02/19 09:37 Dose: 1,000 mcg Piperacillin Sod/Tazobactam (Sod 3.375 gm/ Dextrose) 50 mls @ 100 mls/hr IVPB Q8H-IV [facility]; Protocol Last Admin: 04/02/19 09:37 Dose: 100 mls/hr - Objective Vital Signs: Vital Signs Temperature 98.1 F 04/02/19 06:00 Pulse Rate 83 04/02/19 06:00 Respiratory Rate 18 04/01/19 22:00 Blood Pressure 140/74 04/02/19 06:00 O2 Sat by Pulse Oximetry (%) 98 04/01/19 21:00 Constitutional: Yes: No Distress, Calm Cardiovascular: Yes: Regular Rate and Rhythm Respiratory: Yes: Regular, CTA Bilaterally Gastrointestinal: Yes: Normal Bowel Sounds, Soft Musculoskeletal: Yes: WNL Extremities: Yes: WNL Neurological: Yes: Alert, Oriented Psychiatric: Yes: Alert, Oriented Labs: CBC, BMP 03/31/19 06:19 04/02/19 06:27 Assessment/Plan Problem List - Problems (1) Acute kidney injury Code(s): N17.9 - ACUTE KIDNEY FAILURE, UNSPECIFIED (2) Chest pain at rest Code(s): R07.9 - CHEST PAIN, UNSPECIFIED (3) HTN (hypertension) Code(s): I10 - ESSENTIAL (PRIMARY) HYPERTENSION 4 uti chest pain plan continue abx monitor rest as per the team
--- NOTE | 2019-04-02 15:53 | PN ---
Progress Note (short form) - Note Progress Note: s: no chest pain, palps, dizziness, sob Current Medications Generic Name Dose Route Start Last Admin Trade Name Iza PRN Reason Stop Dose Admin Aspirin 81 mg 03/26/19 10:00 04/02/19 09:37 Asa - PO 81 mg DAILY MELA Administration Cyanocobalamin 1,000 mcg 03/29/19 10:00 04/02/19 09:37 Vitamin B12 - PO 1,000 mcg DAILY MELA Administration Piperacillin Sod/Tazobactam 50 mls @ 100 mls/hr 03/31/19 12:45 04/02/19 09:37 Sod 3.375 gm/ Dextrose IVPB 100 mls/hr Q8H-IV MELA Administration Protocol Vital Signs Period Temp Pulse Resp BP Sys/Knutson Pulse Ox Last 24 Hr 98.1 F-98.4 F 79-95 18-20 124-143/57-79 97-98 Constitutional: Yes: No Distress, Calm Eyes: Yes: Conjunctiva Clear Neck: Yes: Trachea Midline Respiratory: Yes: CTA Bilaterally (no wheezing or rales) Gastrointestinal: Yes: Soft Cardiovascular: Yes: Regular Rate and Rhythm JVD: No Carotid Bruit: No Heart Sounds: Yes: S1, S2 Edema: No Neurological: Yes: Alert no jaundice, diaphoresis not agitated CBC, BMP 03/31/19 06:19 04/02/19 06:27 NSR 70bpm; low Voltage QRS, old inferior IA- no acute ST QT 421ms Prior Cardiac Procedures: PTCA with Stent Imaging - Results Chest X-ray: Image Reviewed (no I/E) Cat Scan: Report Reviewed (osteoma, o/w neg) EKG: Image Reviewed (see above;) Assessment/Plan IMP: 78M w/ h/o NSTEMI 11/2017 with PCI Deyvi Hernandez (report not available) admitted with vague chest pain, altered sensorium, acute on chronic renal failure. Poor historian limits precise symptom characterization. Cardiac enzymes neg x [address] changes/ low voltage noted. REC: 1. Echo nl LV function, no effusion 2. ARF- renal following, Cr improved 3. Altered MS, possible dementia;manage per neuro 4. Resumed ASA 81mg daily/ does not require DAPT now > one year post PCI; resume statin. 5. Held GILLES in setting of elevated creatinine.
--- NOTE | 2019-04-02 16:23 | PN ---
Progress Note, Physician History of Present Illness: Pt seen and examined at bedside. He is awake and appears comfortable. He denies shortness of breath. His is at bedside and care was discussed with her. - Current Medication List Current Medications: Active Medications Aspirin (Asa -) 81 mg PO DAILY MELA Last Admin: 04/02/19 09:37 Dose: 81 mg Cyanocobalamin (Vitamin B12 -) 1,000 mcg PO DAILY M[facility] Last Admin: 04/02/19 09:37 Dose: 1,000 mcg Piperacillin Sod/Tazobactam (Sod 3.375 gm/ Dextrose) 50 mls @ 100 mls/hr IVPB Q8H-IV MELA; Protocol Last Admin: 04/02/19 09:37 Dose: 100 mls/hr - Objective Vital Signs: Vital Signs Temperature 98.4 F 04/02/19 10:00 Pulse Rate 86 04/02/19 10:00 Respiratory Rate 18 04/02/19 10:00 Blood Pressure 124/57 L 04/02/19 10:00 O2 Sat by Pulse Oximetry (%) 97 04/02/19 09:00 Constitutional: Yes: Calm Eyes: Yes: Conjunctiva Clear HENT: Yes: Atraumatic Neck: Yes: Supple Cardiovascular: Yes: S1, S2 Respiratory: Yes: CTA Bilaterally Gastrointestinal: Yes: Normal Bowel Sounds, Soft Genitourinary: Yes: WNL Musculoskeletal: Yes: WNL Edema: No Integumentary: Yes: WNL Neurological: Yes: Oriented Labs: CBC, BMP 03/31/19 06:19 04/02/19 06:27 Problem List - Problems (1) Acute kidney injury Code(s): N17.9 - ACUTE KIDNEY FAILURE, UNSPECIFIED (2) Chest pain at rest Code(s): R07.9 - CHEST PAIN, UNSPECIFIED (3) HTN (hypertension) Code(s): I10 - ESSENTIAL (PRIMARY) HYPERTENSION Assessment/Plan Current Medications Generic Name Dose Route Start Last Admin Trade Name Freq PRN Reason Stop Dose Admin Aspirin 81 mg 03/26/19 10:00 04/02/19 09:37 Asa - PO 81 mg DAILY MELA Administration Cyanocobalamin 1,000 mcg 03/29/19 10:00 04/02/19 09:37 Vitamin B12 - PO 1,000 mcg DAILY MELA Administration Piperacillin Sod/Tazobactam 50 mls @ 100 mls/hr 03/31/19 12:45 04/02/19 09:37 Sod 3.375 gm/ Dextrose IVPB 100 mls/hr Q8H-IV MELA Administration Protocol Impression 1. JESSE 2. chest pain 3. htn 4. hld 5. brain lesion 6. right renal density Plan - encourage PO intake - renal function stable - discussed with family - will need follow up for renal lesion - will follow PRN
--- NOTE | 2019-04-02 23:12 | PN ---
Progress Note, Physician History of Present Illness: No new complaints - Current Medication List Current Medications: Active Medications Aspirin (Asa -) 81 mg PO DAILY [facility] Last Admin: 04/02/19 09:37 Dose: 81 mg Cyanocobalamin (Vitamin B12 -) 1,000 mcg PO DAILY [facility] Last Admin: 04/02/19 09:37 Dose: 1,000 mcg Piperacillin Sod/Tazobactam (Sod 3.375 gm/ Dextrose) 50 mls @ 100 mls/hr IVPB Q8H-IV MELA; Protocol Last Admin: 04/02/19 17:49 Dose: 100 mls/hr - Objective Vital Signs: Vital Signs Temperature 98.2 F 04/02/19 19:40 Pulse Rate 88 04/02/19 19:40 Respiratory Rate 20 04/02/19 19:40 Blood Pressure 124/74 04/02/19 19:40 O2 Sat by Pulse Oximetry (%) 97 04/02/19 09:00 Neck: Yes: WNL, Supple Cardiovascular: Yes: WNL, Regular Rate and Rhythm Respiratory: Yes: WNL, Regular, CTA Bilaterally Gastrointestinal: Yes: WNL, Normal Bowel Sounds, Soft Labs: CBC, BMP 03/31/19 06:19 04/02/19 06:27 Problem List - Problems (1) Fever Code(s): R50.9 - FEVER, UNSPECIFIED (2) Acute kidney injury Code(s): N17.9 - ACUTE KIDNEY FAILURE, UNSPECIFIED (3) Hypotension Code(s): I95.9 - HYPOTENSION, UNSPECIFIED (4) Dehydration Code(s): E86.0 - DEHYDRATION (5) HTN (hypertension) Code(s): I10 - ESSENTIAL (PRIMARY) HYPERTENSION (6) Dementia Code(s): F03.90 - UNSPECIFIED DEMENTIA WITHOUT BEHAVIORAL DISTURBANCE
[2019-04-03] MEDS ORDERED: PIPERACILLIN/TAZOBACTAM 3.375 GM VIAL IVPB ONE (01:37)
[2019-04-03] MEDS ORDERED: DEXTROSE 5%-WATER - 50 ML IVPB ONE (01:37)
[2019-04-03] MEDS: PIPERACILLIN/TAZOB 3.375 GM 3.375 GM in DEXTROSE 5%-WATER - 50 ML IVPB SCH (01:43)
--- NOTE | 2019-04-03 09:48 | PN ---
Progress Note, Physician History of Present Illness: stable doing well no new issues - Current Medication List Current Medications: Active Medications Aspirin (Asa -) 81 mg PO DAILY MELA Last Admin: 04/02/19 09:37 Dose: 81 mg Cyanocobalamin (Vitamin B12 -) 1,000 mcg PO DAILY [facility] Last Admin: 04/02/19 09:37 Dose: 1,000 mcg Piperacillin Sod/Tazobactam (Sod 3.375 gm/ Dextrose) 50 mls @ 100 mls/hr IVPB Q8H-IV MELA; Protocol Last Admin: 04/03/19 01:43 Dose: 100 mls/hr - Objective Vital Signs: Vital Signs Temperature 98.2 F 04/02/19 19:40 Pulse Rate 88 04/02/19 19:40 Respiratory Rate 20 04/02/19 21:00 Blood Pressure 124/74 04/02/19 19:40 O2 Sat by Pulse Oximetry (%) 97 04/02/19 21:00 Constitutional: Yes: No Distress, Calm Cardiovascular: Yes: S1, S2 Respiratory: Yes: Regular, CTA Bilaterally Gastrointestinal: Yes: Normal Bowel Sounds, Soft Musculoskeletal: Yes: WNL Extremities: Yes: WNL Neurological: Yes: Alert, Oriented Psychiatric: Yes: Alert, Oriented Labs: CBC, BMP 03/31/19 06:19 04/02/19 06:27 Assessment/Plan Problem List - Problems (1) Acute kidney injury Code(s): N17.9 - ACUTE KIDNEY FAILURE, UNSPECIFIED (2) Chest pain at rest Code(s): R07.9 - CHEST PAIN, UNSPECIFIED (3) HTN (hypertension) Code(s): I10 - ESSENTIAL (PRIMARY) HYPERTENSION 4 uti chest pain plan will change to levaquin orally rest as per the team
[2019-04-03] MEDS: CYANOCOBALAMIN 1,000 MCG TABLET (FP) PO SCH (11:46)
[2019-04-03] MEDS: ASPIRIN 81 MG CHEWABLE TABLETS PO SCH (11:46)
--- NOTE | 2019-04-03 12:14 | PN ---
Progress Note (short form) - Note Progress Note: s: no chest pain, palps, dizziness, sob Current Medications Generic Name Dose Route Start Last Admin Trade Name Iza PRN Reason Stop Dose Admin Aspirin 81 mg 03/26/19 10:00 04/03/19 11:46 Asa - PO 81 mg DAILY MELA Administration Cyanocobalamin 1,000 mcg 03/29/19 10:00 04/03/19 11:46 Vitamin B12 - PO 1,000 mcg DAILY MELA Administration Levofloxacin 500 mg 04/03/19 10:00 04/03/19 11:46 Levaquin - PO 500 mg DAILY@0600 MELA Administration Vital Signs Period Temp Pulse Resp BP Sys/Knutson Pulse Ox Last 24 Hr 97.9 F-98.2 F 88-90 18-20 124-135/74-78 97 Constitutional: Yes: No Distress, Calm Eyes: Yes: Conjunctiva Clear Neck: Yes: Trachea Midline Respiratory: Yes: CTA Bilaterally (no wheezing or rales) Gastrointestinal: Yes: Soft Cardiovascular: Yes: Regular Rate and Rhythm JVD: No Carotid Bruit: No Heart Sounds: Yes: S1, S2 Edema: No Neurological: Yes: Alert no jaundice, diaphoresis not agitated CBC, BMP 03/31/19 06:19 04/02/19 06:27 NSR 70bpm; low Voltage QRS, old inferior AR- no acute ST QT 421ms Prior Cardiac Procedures: PTCA with Stent Imaging - Results Chest X-ray: Image Reviewed (no I/E) Cat Scan: Report Reviewed (osteoma, o/w neg) EKG: Image Reviewed (see above;) Assessment/Plan IMP: 78M w/ h/o NSTEMI 11/2017 with PCI Deyvi Hernandez (report not available) admitted with vague chest pain, altered sensorium, acute on chronic renal failure. Poor historian limits precise symptom characterization. Cardiac enzymes neg x [address] changes/ low voltage noted. REC: 1. Echo nl LV function, no effusion 2. ARF- renal following, Cr improved 3. Altered MS, possible dementia;manage per neuro 4. Resumed ASA 81mg daily/ does not require DAPT now > one year post PCI; resume statin. 5. Held GILLES in setting of elevated creatinine.
[2019-04-03] MEDS ORDERED: INSULIN (NOVOLOG) ASPART 100 UNITS/ML 10ML VIAL ONE (21:18)
--- NOTE | 2019-04-03 22:27 | PN ---
Progress Note, Physician History of Present Illness: No new complaints - Current Medication List Current Medications: Active Medications Aspirin (Asa -) 81 mg PO DAILY [facility] Last Admin: 04/03/19 11:46 Dose: 81 mg Cyanocobalamin (Vitamin B12 -) 1,000 mcg PO DAILY [facility] Last Admin: 04/03/19 11:46 Dose: 1,000 mcg Levofloxacin (Levaquin -) 500 mg PO DAILY@0600 [facility] Last Admin: 04/03/19 11:46 Dose: 500 mg - Objective Vital Signs: Vital Signs Temperature 98.0 F 04/03/19 19:46 Pulse Rate 101 H 04/03/19 19:46 Respiratory Rate 22 H 04/03/19 21:00 Blood Pressure 152/89 04/03/19 19:46 O2 Sat by Pulse Oximetry (%) 98 04/03/19 21:00 Neck: Yes: WNL, Supple Cardiovascular: Yes: WNL, Regular Rate and Rhythm Respiratory: Yes: WNL, Regular, CTA Bilaterally Gastrointestinal: Yes: WNL, Normal Bowel Sounds, Soft Edema: No Labs: CBC, BMP 03/31/19 06:19 04/02/19 06:27 Problem List - Problems (1) Fever Assessment/Plan: Pt afebrile Urine culture (+) for pseudomonas/proteus BC remain negative Cont IV antibxs WBC normal CXR was normal Change to PO antibxs in am] DC planning to SNF for rehab Code(s): R50.9 - FEVER, UNSPECIFIED (2) Acute kidney injury Assessment/Plan: Renal US showed complex cyst vs mass CT scan abd/pelvis showed rt renal focus Repeat imagining in 3 months as per uro Code(s): N17.9 - ACUTE KIDNEY FAILURE, UNSPECIFIED (3) Hypotension Assessment/Plan: No resolved ARB on hold due to CKD Echo noted unremarkable Code(s): I95.9 - HYPOTENSION, UNSPECIFIED (4) Dehydration Assessment/Plan: DC IVF PT eval DC planning to STR Code(s): E86.0 - DEHYDRATION (5) HTN (hypertension) Assessment/Plan: Hold antihypertensives and monitor BP Code(s): I10 - ESSENTIAL (PRIMARY) HYPERTENSION (6) Dementia Code(s): F03.90 - UNSPECIFIED DEMENTIA WITHOUT BEHAVIORAL DISTURBANCE
[2019-04-04] MEDS: ASPIRIN 81 MG CHEWABLE TABLETS PO SCH (09:55)
[2019-04-04] MEDS: CYANOCOBALAMIN 1,000 MCG TABLET (FP) PO SCH (09:56)
--- NOTE | 2019-04-04 10:09 | PN ---
Progress Note, Physician History of Present Illness: stable no new issues - Current Medication List Current Medications: Active Medications Aspirin (Asa -) 81 mg PO DAILY [facility] Last Admin: 04/04/19 09:55 Dose: 81 mg Cyanocobalamin (Vitamin B12 -) 1,000 mcg PO DAILY [facility] Last Admin: 04/04/19 09:56 Dose: 1,000 mcg Levofloxacin (Levaquin -) 500 mg PO DAILY@0600 [facility] Last Admin: 04/04/19 05:52 Dose: 500 mg - Objective Vital Signs: Vital Signs Temperature 98.0 F 04/03/19 19:46 Pulse Rate 101 H 04/03/19 19:46 Respiratory Rate 22 H 04/03/19 21:00 Blood Pressure 152/89 04/03/19 19:46 O2 Sat by Pulse Oximetry (%) 98 04/03/19 21:00 Constitutional: Yes: No Distress, Calm Respiratory: Yes: Regular, CTA Bilaterally Gastrointestinal: Yes: Normal Bowel Sounds, Soft Musculoskeletal: Yes: WNL Extremities: Yes: WNL Wound/Incision: Yes: Clean/Dry Neurological: Yes: Alert, Oriented Psychiatric: Yes: Alert, Oriented Labs: CBC, BMP 03/31/19 06:19 04/02/19 06:27 Assessment/Plan Problem List - Problems (1) Acute kidney injury Code(s): N17.9 - ACUTE KIDNEY FAILURE, UNSPECIFIED (2) Chest pain at rest Code(s): R07.9 - CHEST PAIN, UNSPECIFIED (3) HTN (hypertension) Code(s): I10 - ESSENTIAL (PRIMARY) HYPERTENSION 4 uti chest pain plan continue levaquin rest as per the team
--- NOTE | 2019-04-04 10:53 | PN ---
Progress Note (short form) - Note Progress Note: s: no chest pain, palps, dizziness, sob Current Medications Generic Name Dose Route Start Last Admin Trade Name Iza PRN Reason Stop Dose Admin Aspirin 81 mg 03/26/19 10:00 04/04/19 09:55 Asa - PO 81 mg DAILY MELA Administration Cyanocobalamin 1,000 mcg 03/29/19 10:00 04/04/19 09:56 Vitamin B12 - PO 1,000 mcg DAILY MELA Administration Levofloxacin 500 mg 04/03/19 10:00 04/04/19 05:52 Levaquin - PO 500 mg DAILY@0600 MELA Administration Vital Signs Period Temp Pulse Resp BP Sys/Knutson Pulse Ox Last 24 Hr 97.7 F-98.1 F 92-115 20-22 111-152/62-89 98 Constitutional: Yes: No Distress, Calm Eyes: Yes: Conjunctiva Clear Neck: Yes: Trachea Midline Respiratory: Yes: CTA Bilaterally (no wheezing or rales) Gastrointestinal: Yes: Soft Cardiovascular: Yes: Regular Rate and Rhythm JVD: No Carotid Bruit: No Heart Sounds: Yes: S1, S2 Edema: No Neurological: Yes: Alert no jaundice, diaphoresis not agitated CBC, BMP 03/31/19 06:19 04/02/19 06:27 NSR 70bpm; low Voltage QRS, old inferior CO- no acute ST QT 421ms Prior Cardiac Procedures: PTCA with Stent Imaging - Results Chest X-ray: Image Reviewed (no I/E) Cat Scan: Report Reviewed (osteoma, o/w neg) EKG: Image Reviewed (see above;) Assessment/Plan IMP: 78M w/ h/o NSTEMI 11/2017 with PCI Deyvi Hernandez (report not available) admitted with vague chest pain, altered sensorium, acute on chronic renal failure. Poor historian limits precise symptom characterization. Cardiac enzymes neg x [address] changes/ low voltage noted. REC: 1. Echo nl LV function, no effusion 2. ARF- renal following, Cr improved 3. Altered MS, possible dementia;manage per neuro 4. Resumed ASA 81mg daily/ does not require DAPT now > one year post PCI; resume statin. 5. Held GILLES in setting of elevated creatinine.
--- NOTE | 2019-04-04 22:03 | PN ---
Progress Note, Physician History of Present Illness: No new complaints - Current Medication List Current Medications: Active Medications Aspirin (Asa -) [address] [facility] Last Admin: 04/04/19 09:55 Dose: 81 mg Cyanocobalamin (Vitamin B12 -) 1,[address] [facility] Last Admin: 04/04/19 09:56 Dose: 1,000 mcg Levofloxacin (Levaquin -) 500 mg PO DAILY@0600 [facility] Last Admin: 04/04/19 05:52 Dose: 500 mg - Objective Vital Signs: Vital Signs Temperature 98.1 F 04/04/19 19:34 Pulse Rate 129 H 04/04/19 19:34 Respiratory Rate 22 H 04/04/19 19:34 Blood Pressure 155/94 04/04/19 19:34 O2 Sat by Pulse Oximetry (%) 98 04/04/19 09:00 Neck: Yes: WNL, Supple Cardiovascular: Yes: WNL, Regular Rate and Rhythm Respiratory: Yes: WNL, Regular, CTA Bilaterally Gastrointestinal: Yes: WNL, Normal Bowel Sounds, Soft Labs: CBC, BMP 03/31/19 06:19 04/02/19 06:27 Problem List - Problems (1) Fever Assessment/Plan: Pt afebrile Urine culture (+) for pseudomonas/proteus BC remain negative Cont IV antibxs WBC normal CXR was normal Change to PO antibxs in am] DC planning to SNF for rehab Code(s): R50.9 - FEVER, UNSPECIFIED (2) Acute kidney injury Assessment/Plan: Renal US showed complex cyst vs mass CT scan abd/pelvis showed rt renal focus Repeat imagining in 3 months as per uro Spoke w/ pt's who is aware pt needs repeat imagining in 3 months Code(s): N17.9 - ACUTE KIDNEY FAILURE, UNSPECIFIED (3) Hypotension Assessment/Plan: Now resolved ARB on hold due to CKD Echo noted unremarkable Code(s): I95.9 - HYPOTENSION, UNSPECIFIED (4) Dehydration Assessment/Plan: DC IVF PT eval DC planning to STR Code(s): E86.0 - DEHYDRATION (5) HTN (hypertension) Assessment/Plan: Hold antihypertensives and monitor BP Code(s): I10 - ESSENTIAL (PRIMARY) HYPERTENSION (6) Dementia Code(s): F03.90 - UNSPECIFIED DEMENTIA WITHOUT BEHAVIORAL DISTURBANCE
--- NOTE | 2019-04-05 09:04 | PN ---
Progress Note, Physician History of Present Illness: stable no new issues - Current Medication List Current Medications: Active Medications Aspirin (Asa -) 81 mg PO DAILY [facility] Last Admin: 04/04/19 09:55 Dose: 81 mg Cyanocobalamin (Vitamin B12 -) 1,000 mcg PO DAILY [facility] Last Admin: 04/04/19 09:56 Dose: 1,000 mcg Levofloxacin (Levaquin -) 500 mg PO DAILY@0600 [facility] Last Admin: 04/05/19 06:01 Dose: 500 mg - Objective Vital Signs: Vital Signs Temperature 98.2 F 04/05/19 07:01 Pulse Rate 96 H 04/05/19 07:01 Respiratory Rate 20 04/05/19 07:01 Blood Pressure 154/84 04/05/19 07:01 O2 Sat by Pulse Oximetry (%) 98 04/04/19 21:00 Constitutional: Yes: No Distress, Calm Cardiovascular: Yes: S1, S2 Respiratory: Yes: Regular, CTA Bilaterally Gastrointestinal: Yes: Normal Bowel Sounds, Soft Musculoskeletal: Yes: WNL Extremities: Yes: WNL Neurological: Yes: Alert, Oriented Psychiatric: Yes: Alert, Oriented Labs: CBC, BMP 03/31/19 06:19 04/02/19 06:27 Assessment/Plan Problem List - Problems (1) Acute kidney injury Code(s): N17.9 - ACUTE KIDNEY FAILURE, UNSPECIFIED (2) Chest pain at rest Code(s): R07.9 - CHEST PAIN, UNSPECIFIED (3) HTN (hypertension) Code(s): I10 - ESSENTIAL (PRIMARY) HYPERTENSION 4 uti chest pain plan continue levaquin rest as per the team
[2019-04-05] MEDS: ASPIRIN 81 MG CHEWABLE TABLETS PO SCH (09:46)
[2019-04-05] MEDS: CYANOCOBALAMIN 1,000 MCG TABLET (FP) PO SCH (09:46)
--- NOTE | 2019-04-05 11:30 | PN ---
Progress Note, Physician Chief Complaint: sitting in chair Denies CP or SOB Heart rate elevated - Current Medication List Current Medications: Active Medications Aspirin (Asa -) 81 mg PO DAILY [facility] Last Admin: 04/05/19 09:46 Dose: 81 mg Cyanocobalamin (Vitamin B12 -) 1,000 mcg PO DAILY [facility] Last Admin: 04/05/19 09:46 Dose: 1,000 mcg Levofloxacin (Levaquin -) 500 mg PO DAILY@0600 [facility] Last Admin: 04/05/19 06:01 Dose: 500 mg - Objective Vital Signs: Vital Signs Temperature 98.2 F 04/05/19 07:01 Pulse Rate 96 H 04/05/19 07:01 Respiratory Rate 20 04/05/19 07:01 Blood Pressure 154/84 04/05/19 07:01 O2 Sat by Pulse Oximetry (%) 98 04/04/19 21:00 Constitutional: Yes: No Distress, Calm Eyes: Yes: Conjunctiva Clear Cardiovascular: Yes: Tachycardia Respiratory: Yes: CTA Bilaterally Gastrointestinal: Yes: Soft Edema: No Peripheral Pulses WNL: Yes Neurological: Yes: Alert, Oriented Labs: CBC, BMP 03/31/19 06:19 04/02/19 06:27 Laboratory Tests 03/26/19 03/31/19 04/02/19 06:22 06:19 06:27 WBC 8.4 Hgb 9.2 L Plt Count 333 Creatinine 1.3 TSH 2.66 - ....Imaging EKG: Pending Assessment/Plan IMP: 78M w/ h/o NSTEMI 11/2017 with PCI Deyvi Hill (report not available) admitted with vague chest pain, altered sensorium, acute on chronic renal failure. Poor historian limits precise symptom characterization. Cardiac enzymes neg x [address] changes/ low voltage noted. REC: 1. Echo nl LV function, no effusion 2. ARF- renal following, Cr improved 3. Altered MS, possible dementia;manage per neuro 4. Resumed ASA 81mg daily/ does not require DAPT now > one year post PCI; resume statin. 5. Held GILLES in setting of elevated creatinine. 6. Sinus tach. Has been off Beta jennifer this admission- ?rebound tachycardia Resume beta jennifer
--- NOTE | 2019-04-05 13:39 | PN ---
Progress Note, Physician History of Present Illness: Pt seen and examined. He appears comfortable. - Current Medication List Current Medications: Active Medications Aspirin (Asa -) 81 mg PO DAILY [facility] Last Admin: 04/05/19 09:46 Dose: 81 mg Cyanocobalamin (Vitamin B12 -) 1,000 mcg PO DAILY [facility] Last Admin: 04/05/19 09:46 Dose: 1,000 mcg Levofloxacin (Levaquin -) 500 mg PO DAILY@0600 [facility] Last Admin: 04/05/19 06:01 Dose: 500 mg Metoprolol Tartrate (Lopressor -) 12.5 mg PO BID [facility] - Objective Vital Signs: Vital Signs Temperature 98.2 F 04/05/19 07:01 Pulse Rate 96 H 04/05/19 07:01 Respiratory Rate 20 04/05/19 07:01 Blood Pressure 154/84 04/05/19 07:01 O2 Sat by Pulse Oximetry (%) 98 04/04/19 21:00 Constitutional: Yes: Calm Eyes: Yes: Conjunctiva Clear HENT: Yes: Atraumatic Neck: Yes: Supple Cardiovascular: Yes: S1, S2 Respiratory: Yes: CTA Bilaterally Gastrointestinal: Yes: Normal Bowel Sounds, Soft, Abdomen, Obese Genitourinary: Yes: WNL Musculoskeletal: Yes: WNL Edema: No Integumentary: Yes: WNL Neurological: Yes: [employer] Labs: CBC, BMP 03/31/19 06:19 04/02/19 06:27 Problem List - Problems (1) Acute kidney injury Code(s): N17.9 - ACUTE KIDNEY FAILURE, UNSPECIFIED (2) Chest pain at rest Code(s): R07.9 - CHEST PAIN, UNSPECIFIED (3) HTN (hypertension) Code(s): I10 - ESSENTIAL (PRIMARY) HYPERTENSION Assessment/Plan Current Medications Generic Name Dose Route Start Last Admin Trade Name Freq PRN Reason Stop Dose Admin Aspirin 81 mg 03/26/19 10:00 04/05/19 09:46 Asa - PO 81 mg DAILY [facility] Administration Cyanocobalamin 1,000 mcg 03/29/19 10:00 04/05/19 09:46 Vitamin B12 - PO 1,000 mcg DAILY [facility]ELA Administration Levofloxacin 500 mg 04/03/19 10:00 04/05/19 06:01 Levaquin - PO 500 mg DAILY@0600 [facility] Administration Metoprolol Tartrate 12.5 mg 04/05/19 11:45 Lopressor - PO BID MELA Impression 1. JESSE 2. chest pain 3. htn 4. hld 5. brain lesion 6. right renal density Plan - check bmp - encourage PO intake - renal function stable - will need follow up for renal lesion with urology
[2019-04-05] MEDS: METOPROLOL TARTRATE 25 MG TABLET (FP) PO SCH ×2 (14:56→21:30)
--- NOTE | 2019-04-05 15:52 | EKG ---
Test Reason : Blood Pressure : / mmHG Vent. Rate : 124 BPM Atrial Rate : 124 BPM P-R Int : 152 ms QRS Dur : 080 ms QT Int : 430 ms P-R-T Axes : 023 -24 041 degrees QTc Int : 617 ms SINUS TACHYCARDIA OTHERWISE NORMAL ECG WHEN COMPARED WITH ECG OF 24-MAR-2019 16:27, VENT. RATE HAS INCREASED BY 66 BPM T WAVE VARIATION Confirmed by NUNU ALEXANDER MD ([id number]) on 04/05/2019 3:52:18 PM Referred By: MYLES PROCTOR Confirmed By:NUNU ALEXANDER MD
--- NOTE | 2019-04-05 22:16 | PN ---
Progress Note, Physician History of Present Illness: Pt tachy today - Current Medication List Current Medications: Active Medications Aspirin (Asa -) 81 mg PO DAILY [facility] Last Admin: 04/05/19 09:46 Dose: 81 mg Cyanocobalamin (Vitamin B12 -) 1,000 mcg PO DAILY [facility] Last Admin: 04/05/19 09:46 Dose: 1,000 mcg Levofloxacin (Levaquin -) 500 mg PO DAILY@0600 [facility] Last Admin: 04/05/19 06:01 Dose: 500 mg Metoprolol Tartrate (Lopressor -) 12.5 mg PO BID [facility] Last Admin: 04/05/19 21:30 Dose: 12.5 mg - Objective Vital Signs: Vital Signs Temperature 98.7 F 04/05/19 18:07 Pulse Rate 73 04/05/19 18:07 Respiratory Rate 18 04/05/19 18:07 Blood Pressure 128/61 04/05/19 18:07 O2 Sat by Pulse Oximetry (%) 98 04/04/19 21:00 HENT: Yes: WNL Neck: Yes: WNL, Supple Respiratory: Yes: WNL, Regular, CTA Bilaterally Gastrointestinal: Yes: WNL, Normal Bowel Sounds, Soft Labs: CBC, BMP 03/31/19 06:19 04/02/19 06:27 Problem List - Problems (1) Tachycardia Assessment/Plan: Sinus Tach Metoprolol restarted Cont to monitor Code(s): R00.0 - TACHYCARDIA, UNSPECIFIED (2) Fever Assessment/Plan: Pt afebrile Urine culture (+) for pseudomonas/proteus BC remain negative Cont IV antibxs WBC normal CXR was normal Change to PO antibxs in am] DC planning to SNF for rehab Code(s): R50.9 - FEVER, UNSPECIFIED (3) Acute kidney injury Assessment/Plan: Renal US showed complex cyst vs mass CT scan abd/pelvis showed rt renal focus Repeat imagining in 3 months as per uro Spoke w/ pt's who is aware pt needs repeat imagining in 3 months Code(s): N17.9 - ACUTE KIDNEY FAILURE, UNSPECIFIED (4) Hypotension Assessment/Plan: Now resolved ARB on hold due to CKD Echo noted unremarkable Code(s): I95.9 - HYPOTENSION, UNSPECIFIED (5) Dehydration Assessment/Plan: DC IVF PT eval DC planning to STR Code(s): E86.0 - DEHYDRATION (6) HTN (hypertension) Assessment/Plan: Hold antihypertensives and monitor BP Code(s): I10 - ESSENTIAL (PRIMARY) HYPERTENSION (7) Dementia Code(s): F03.90 - UNSPECIFIED DEMENTIA WITHOUT BEHAVIORAL DISTURBANCE
[2019-04-06 09:39] LABS: ALBUMIN 2.7 g/dl (3.4-5.0); BILIRUBIN,TOTAL 0.4 mg/dL (0.2-1); BLOOD UREA NITROGEN 5.9 mg/dL (7-18); CREATININE 1.3 mg/dL (0.55-1.3); POTASSIUM 4.5 mmol/L (3.5-5.1); TOT PROT 5.8 g/dl (6.4-8.2)
[2019-04-06] MEDS: METOPROLOL TARTRATE 25 MG TABLET (FP) PO SCH ×2 (09:54→21:58)
[2019-04-06] MEDS: ASPIRIN 81 MG CHEWABLE TABLETS PO SCH (09:54)
[2019-04-06] MEDS: CYANOCOBALAMIN 1,000 MCG TABLET (FP) PO SCH (09:54)
--- NOTE | 2019-04-06 11:36 | PN ---
Progress Note, Physician History of Present Illness: patient stable no new issues - Current Medication List Current Medications: Active Medications Aspirin (Asa -) 81 mg PO DAILY [facility] Last Admin: 04/06/19 09:54 Dose: 81 mg Cyanocobalamin (Vitamin B12 -) 1,000 mcg PO DAILY [facility] Last Admin: 04/06/19 09:54 Dose: 1,000 mcg Metoprolol Tartrate (Lopressor -) 12.5 mg PO BID [facility] Last Admin: 04/06/19 09:54 Dose: 12.5 mg - Objective Vital Signs: Vital Signs Temperature 98.6 F 04/06/19 10:00 Pulse Rate 75 04/06/19 10:00 Respiratory Rate 20 04/06/19 10:00 Blood Pressure 116/60 04/06/19 10:00 O2 Sat by Pulse Oximetry (%) 97 04/05/19 21:00 Constitutional: Yes: No Distress, Calm Cardiovascular: Yes: S1, S2 Respiratory: Yes: Regular, CTA Bilaterally Gastrointestinal: Yes: Normal Bowel Sounds, Soft Musculoskeletal: Yes: WNL Extremities: Yes: WNL Neurological: Yes: Alert, Oriented Psychiatric: Yes: Alert, Oriented Labs: CBC, BMP 03/31/19 06:19 04/06/19 07:30 Assessment/Plan Problem List - Problems (1) Acute kidney injury Code(s): N17.9 - ACUTE KIDNEY FAILURE, UNSPECIFIED (2) Chest pain at rest Code(s): R07.9 - CHEST PAIN, UNSPECIFIED (3) HTN (hypertension) Code(s): I10 - ESSENTIAL (PRIMARY) HYPERTENSION 4 uti chest pain plan will stop abx rest as per the team
--- NOTE | 2019-04-06 14:18 | PN ---
Progress Note, Physician Chief Complaint: sleeping comfortably No CP or SOB Tachycardia resolved w/ resumption beta jennifer - Current Medication List Current Medications: Active Medications Aspirin (Asa -) 81 mg PO DAILY [facility] Last Admin: 04/06/19 09:54 Dose: 81 mg Cyanocobalamin (Vitamin B12 -) 1,000 mcg PO DAILY [facility] Last Admin: 04/06/19 09:54 Dose: 1,000 mcg Metoprolol Tartrate (Lopressor -) 12.5 mg PO BID [facility] Last Admin: 04/06/19 09:54 Dose: 12.5 mg - Objective Vital Signs: Vital Signs Temperature 98.6 F 04/06/19 10:00 Pulse Rate 75 04/06/19 10:00 Respiratory Rate 20 04/06/19 10:00 Blood Pressure 116/60 04/06/19 10:00 O2 Sat by Pulse Oximetry (%) 97 04/06/19 09:00 Constitutional: Yes: No Distress Eyes: Yes: Conjunctiva Clear Cardiovascular: Yes: Regular Rate and Rhythm Respiratory: Yes: CTA Bilaterally Gastrointestinal: Yes: Soft Edema: No Neurological: Yes: Alert, Oriented ...Motor Strength: WNL Labs: CBC, BMP 03/31/19 06:19 04/06/19 07:30 Assessment/Plan IMP: 78M w/ h/o NSTEMI 11/2017 with PCI Deyvi Hernandez (report not available) admitted with vague chest pain, altered sensorium, acute on chronic renal failure. Poor historian limits precise symptom characterization. Cardiac enzymes neg x [address] changes/ low voltage noted. REC: 1. Echo nl LV function, no effusion 2. ARF- renal following, Cr improved 3. Altered MS, possible dementia;manage per neuro 4. Resumed ASA 81mg daily/ does not require DAPT now > one year post PCI; resume statin. 5. Held GILLES in setting of elevated creatinine. 6. Sinus tach. Has been off Beta jennifer this admission- likely rebound tachycardia Resolved w/ resumption low dose beta jennifer.
--- NOTE | 2019-04-06 15:29 | PN ---
Progress Note, Physician History of Present Illness: Pt seen and examined at bedside. He is awake and appears comfortable. - Current Medication List Current Medications: Active Medications Aspirin (Asa -) 81 mg PO DAILY [facility] Last Admin: 04/06/19 09:54 Dose: 81 mg Cyanocobalamin (Vitamin B12 -) 1,000 mcg PO DAILY [facility] Last Admin: 04/06/19 09:54 Dose: 1,000 mcg Metoprolol Tartrate (Lopressor -) 12.5 mg PO BID [facility] Last Admin: 04/06/19 09:54 Dose: 12.5 mg - Objective Vital Signs: Vital Signs Temperature 97.9 F 04/06/19 14:00 Pulse Rate 64 04/06/19 14:00 Respiratory Rate 20 04/06/19 14:00 Blood Pressure 106/56 L 04/06/19 14:00 O2 Sat by Pulse Oximetry (%) 97 04/06/19 09:00 Constitutional: Yes: Calm Eyes: Yes: Conjunctiva Clear HENT: Yes: Atraumatic Neck: Yes: Supple Cardiovascular: Yes: S1, S2 Respiratory: Yes: CTA Bilaterally Gastrointestinal: Yes: Normal Bowel Sounds, Soft Genitourinary: Yes: WNL Musculoskeletal: Yes: WNL Edema: No Neurological: Yes: Confusion Psychiatric: Yes: Oriented Labs: CBC, BMP 03/31/19 06:19 04/06/19 07:30 Problem List - Problems (1) Acute kidney injury Code(s): N17.9 - ACUTE KIDNEY FAILURE, UNSPECIFIED (2) Chest pain at rest Code(s): R07.9 - CHEST PAIN, UNSPECIFIED (3) HTN (hypertension) Code(s): I10 - ESSENTIAL (PRIMARY) HYPERTENSION Assessment/Plan Current Medications Generic Name Dose Route Start Last Admin Trade Name Iza PRN Reason Stop Dose Admin Aspirin 81 mg 03/26/19 10:00 04/06/19 09:54 Asa - PO 81 mg DAILY [facility] Administration Cyanocobalamin 1,000 mcg 03/29/19 10:00 04/06/19 09:54 Vitamin B12 - PO 1,000 mcg DAILY [facility] Administration Metoprolol Tartrate 12.5 mg 04/05/19 11:45 04/06/19 09:54 Lopressor - PO 12.5 mg BID [facility] Administration Impression 1. JESSE 2. chest pain 3. htn 4. hld 5. brain lesion 6. right renal density Plan - renal function is stable - can resume ozzy if bp permits, pt was on 5 mg of lisinopril - cardio input appreciated - encourage PO intake - will need follow up for renal lesion with urology
[2019-04-06] MEDS ORDERED: PT OWN MED DRAWER 7, Y5N ONE (18:28)
--- NOTE | 2019-04-06 20:28 | PN ---
Progress Note, Physician History of Present Illness: No further tachycardia - Current Medication List Current Medications: Active Medications Aspirin (Asa -) 81 mg PO DAILY [facility] Last Admin: 04/06/19 09:54 Dose: 81 mg Cyanocobalamin (Vitamin B12 -) 1,000 mcg PO DAILY [facility] Last Admin: 04/06/19 09:54 Dose: 1,000 mcg Metoprolol Tartrate (Lopressor -) 12.5 mg PO BID [facility] Last Admin: 04/06/19 09:54 Dose: 12.5 mg - Objective Vital Signs: Vital Signs Temperature 98.3 F 04/06/19 16:30 Pulse Rate 65 04/06/19 16:30 Respiratory Rate 18 04/06/19 16:30 Blood Pressure 117/59 L 04/06/19 16:30 O2 Sat by Pulse Oximetry (%) 97 04/06/19 09:00 Cardiovascular: Yes: WNL, Regular Rate and Rhythm Respiratory: Yes: WNL, Regular, CTA Bilaterally Gastrointestinal: Yes: WNL, Normal Bowel Sounds, Soft Edema: No Labs: CBC, BMP 03/31/19 06:19 04/06/19 07:30 Problem List - Problems (1) Tachycardia Assessment/Plan: Sinus Tach resolved Cont Metoprolol DC planning for am Code(s): R00.0 - TACHYCARDIA, UNSPECIFIED (2) Fever Assessment/Plan: Pt afebrile Urine culture (+) for pseudomonas/proteus BC remain negative WBC normal CXR was normal Cont po levaquin DC planning to SNF for rehab Code(s): R50.9 - FEVER, UNSPECIFIED (3) Acute kidney injury Assessment/Plan: Renal US showed complex cyst vs mass CT scan abd/pelvis showed rt renal focus Repeat imagining in 3 months as per uro Spoke w/ pt's who is aware pt needs repeat imagining in 3 months Code(s): N17.9 - ACUTE KIDNEY FAILURE, UNSPECIFIED (4) Hypotension Assessment/Plan: Now resolved ARB on hold due to CKD Echo noted unremarkable Code(s): I95.9 - HYPOTENSION, UNSPECIFIED (5) Dehydration Assessment/Plan: DC IVF PT eval DC planning to STR Code(s): E86.0 - DEHYDRATION (6) HTN (hypertension) Assessment/Plan: Hold antihypertensives and monitor BP Code(s): I10 - ESSENTIAL (PRIMARY) HYPERTENSION (7) Dementia Code(s): F03.90 - UNSPECIFIED DEMENTIA WITHOUT BEHAVIORAL DISTURBANCE
[2019-04-07] MEDS ORDERED: PT OWN MED DRAWER 7, Y5N ONE (10:17)
[2019-04-07] MEDS: ASPIRIN 81 MG CHEWABLE TABLETS PO SCH (10:20)
[2019-04-07] MEDS: METOPROLOL TARTRATE 25 MG TABLET (FP) PO SCH (10:21)
[2019-04-07] MEDS: CYANOCOBALAMIN 1,000 MCG TABLET (FP) PO SCH (10:21)
--- NOTE | 2019-04-07 10:37 | PN ---
Progress Note, Physician History of Present Illness: stable no new issues - Current Medication List Current Medications: Active Medications Aspirin (Asa -) 81 mg PO DAILY [facility] Last Admin: 04/07/19 10:20 Dose: 81 mg Cyanocobalamin (Vitamin B12 -) 1,000 mcg PO DAILY [facility] Last Admin: 04/07/19 10:21 Dose: 1,000 mcg Metoprolol Tartrate (Lopressor -) 12.5 mg PO BID [facility] Last Admin: 04/07/19 10:21 Dose: 12.5 mg - Objective Vital Signs: Vital Signs Temperature 98.5 F 04/07/19 06:42 Pulse Rate 79 04/07/19 06:42 Respiratory Rate 18 04/07/19 06:42 Blood Pressure 142/77 04/07/19 06:42 O2 Sat by Pulse Oximetry (%) 97 04/06/19 21:00 Constitutional: Yes: No Distress, Calm Cardiovascular: Yes: S1, S2 Respiratory: Yes: Regular, CTA Bilaterally Gastrointestinal: Yes: Normal Bowel Sounds, Soft Musculoskeletal: Yes: WNL Extremities: Yes: WNL Neurological: Yes: Alert Psychiatric: Yes: Alert Labs: CBC, BMP 03/31/19 06:19 04/06/19 07:30 Assessment/Plan Problem List - Problems (1) Acute kidney injury Code(s): N17.9 - ACUTE KIDNEY FAILURE, UNSPECIFIED (2) Chest pain at rest Code(s): R07.9 - CHEST PAIN, UNSPECIFIED (3) HTN (hypertension) Code(s): I10 - ESSENTIAL (PRIMARY) HYPERTENSION 4 uti chest pain plan continue current mgmt stable
--- NOTE | 2019-04-07 11:59 | PN ---
Progress Note (short form) - Note Progress Note: s: no chest pain, palps, dizziness, dyspnea Current Medications Aspirin (Asa -) 81 mg PO DAILY [facility] Last Admin: 04/07/19 10:20 Dose: 81 mg Cyanocobalamin (Vitamin B12 -) 1,000 mcg PO DAILY [facility] Last Admin: 04/07/19 10:21 Dose: 1,000 mcg Metoprolol Tartrate (Lopressor -) 12.5 mg PO BID [facility] Last Admin: 04/07/19 10:21 Dose: 12.5 mg Vital Signs Period Temp Pulse Resp BP Sys/Knutson Pulse Ox Last 24 Hr 97.9 F-98.5 F 64-90 18-20 106-142/56-77 97 Constitutional: Yes: No Distress Eyes: Yes: Conjunctiva Clear Cardiovascular: Yes: Regular Rate and Rhythm Respiratory: Yes: CTA Bilaterally Gastrointestinal: Yes: Soft Edema: No Neurological: Yes: Alert, Oriented no jaundice, diaphoresis not agitated Assessment/Plan IMP: 78M w/ h/o NSTEMI 11/2017 with PCI Deyvi Hill (report not available) admitted with vague chest pain, altered sensorium, acute on chronic renal failure. Poor historian limits precise symptom characterization. Cardiac enzymes neg x [address] changes/ low voltage noted. REC: 1. Echo nl LV function, no effusion 2. ARF- renal following, Cr improved 3. Altered MS, possible dementia;manage per neuro 4. Resumed ASA 81mg daily/ does not require DAPT now > one year post PCI; resume statin. 5. Held GILLES in setting of elevated creatinine. 6. Sinus tach. Has been off Beta jennifer this admission- likely rebound tachycardia, now improved with bb restarted, continue
--- NOTE | 2019-04-07 12:26 | PN ---
Progress Note, Physician History of Present Illness: Pt seen and examined at bedside. He is awake and appears comfortable. He is going to rehab today. - Current Medication List Current Medications: Active Medications Aspirin (Asa -) 81 mg PO DAILY [facility] Last Admin: 04/07/19 10:20 Dose: 81 mg Cyanocobalamin (Vitamin B12 -) 1,000 mcg PO DAILY [facility] Last Admin: 04/07/19 10:21 Dose: 1,000 mcg Metoprolol Tartrate (Lopressor -) 12.5 mg PO BID [facility] Last Admin: 04/07/19 10:21 Dose: 12.5 mg - Objective Vital Signs: Vital Signs Temperature 98.5 F 04/07/19 06:42 Pulse Rate 79 04/07/19 06:42 Respiratory Rate 18 04/07/19 06:42 Blood Pressure 142/77 04/07/19 06:42 O2 Sat by Pulse Oximetry (%) 97 04/06/19 21:00 Constitutional: Yes: Calm Eyes: Yes: Conjunctiva Clear HENT: Yes: Atraumatic Neck: Yes: Supple Cardiovascular: Yes: S1, S2 Respiratory: Yes: CTA Bilaterally Gastrointestinal: Yes: Soft Genitourinary: Yes: WNL Musculoskeletal: Yes: WNL Edema: No Neurological: Yes: Oriented Psychiatric: Yes: Oriented Labs: CBC, BMP 03/31/19 06:19 04/06/19 07:30 Problem List - Problems (1) Acute kidney injury Code(s): N17.9 - ACUTE KIDNEY FAILURE, UNSPECIFIED (2) Chest pain at rest Code(s): R07.9 - CHEST PAIN, UNSPECIFIED (3) HTN (hypertension) Code(s): I10 - ESSENTIAL (PRIMARY) HYPERTENSION Assessment/Plan Current Medications Generic Name Dose Route Start Last Admin Trade Name Iza PRN Reason Stop Dose Admin Aspirin 81 mg 03/26/19 10:00 04/07/19 10:20 Asa - PO 81 mg DAILY [facility] Administration Cyanocobalamin 1,000 mcg 03/29/19 10:00 04/07/19 10:21 Vitamin B12 - PO 1,000 mcg DAILY [facility] Administration Metoprolol Tartrate 12.5 mg 04/05/19 11:45 04/07/19 10:21 Lopressor - PO 12.5 mg BID [facility] Administration Impression 1. JESSE 2. chest pain 3. htn 4. hld 5. brain lesion 6. right renal density Plan - renal funciton has stabilized - will need to follow as outpt - can restart lisinopril at 2.5 mg daily - encourage PO intake - will need follow up for renal lesion with urology
[2019-04-07] MEDS ORDERED: LISINOPRIL 5 MG TABLET (FP) PO SCH (12:30)
[2019-04-07 14:03] VITALS: BP 141/73; PULSE 80; TEMP 98.1
--- NOTE | 2019-04-14 00:48 | DS ---
Physical Examination Vital Signs: Vital Signs Temperature 98.1 F 04/07/19 08:40 Pulse Rate 80 04/07/19 08:40 Respiratory Rate 20 04/07/19 08:40 Blood Pressure 141/73 04/07/19 08:40 O2 Sat by Pulse Oximetry (%) 97 04/06/19 21:00 Cardiovascular: Yes: WNL, Regular Rate and Rhythm Respiratory: Yes: WNL, Regular, CTA Bilaterally Gastrointestinal: Yes: WNL, Normal Bowel Sounds, Soft Labs: CBC, BMP 03/31/19 06:19 04/06/19 07:30 Discharge Summary Problems reviewed: Yes Reason For Visit: Altered mental status Altered mental status Alzheimer's Dementia CVA Weakness ARF HTN Hypotension UTI HLD Renal cyst Hospital Course: Pt is a 78 y/o male with PMH significant for MA, HTN, HLD, and distant brain lesion removal presenting with multiple complaints, including one day of chest pain, urinary/fecal incontinence, and lower extremity weakness and memory loss. Pt was seen by neuro who felt this was due to Alzheimer's dementia and ct scan head wc showed osteoma and MRI brain wc showed chronic cerebral infarcts. Pt had physical therapy. Pt also seen by cardio for hypotension/chest pain. CPK /troponin were negative. Echo/carotid dopplers were unremarkable. Pt also seen by uro/nephrology and renal US showed cystic mass? and c t scan abd/pelvis showed renal cysts. Pt also treated for UTI due to pseudomonas. Condition: Good - Instructions Diet, Activity, Other Instructions: 2 gram sodium diet Complete 3 more days of antibiotic Levaquin Referrals: Mariano Wallace MD [Primary Care Provider] - Disposition: INTERMEDIATE FACILITY - Home Medications Comprehensive Discharge Medication List: Ambulatory Orders Atorvastatin Ca [Lipitor] 80 mg PO HS 03/25/19 Clopidogrel Bisulfate [Plavix] 75 mg PO DAILY 03/25/19 Sertraline HCl [Zoloft -] 25 mg PO DAILY 03/25/19 Tamsulosin HCl [Flomax] 0.4 mg PO DAILY 03/25/19 Aspirin [ASA -] 81 mg PO DAILY tab.chew 04/07/19 Cyanocobalamin [Vitamin B12 -] 1,000 mcg PO DAILY tablet 04/07/19 Metoprolol Tartrate [Lopressor -] 12.5 mg PO BID tablet 04/07/19 levoFLOXacin [Levaquin -] 500 mg PO DAILY@0600 tablet 04/07/19
== END 2019-04-07 13:57 | DRG 56 ==
LOC: JER 15:29 → JERBED 19:28 → J4W 03-25 16:12 → J8W 03-31 11:53
PROVIDERS: ADMIT Internal Medicine; ATTEND Internal Medicine
DX: G30.9 Alzheimer's disease, unspecified (principal); G93.41 Metabolic encephalopathy; N17.9 Acute kidney failure, unspecified; N39.0 Urinary tract infection, site not specified; Z87.891 Personal history of nicotine dependence; R15.9 Full incontinence of feces; R32 Unspecified urinary incontinence; E53.9 Vitamin B deficiency, unspecified; I95.9 Hypotension, unspecified; E86.0 Dehydration; B96.5 Pseudomonas (aeruginosa) (mallei) (pseudomallei) as the cause of diseases classified elsewhere; N28.89 Other specified disorders of kidney and ureter; F02.80 Dementia in other diseases classified elsewhere, unspecified severity, without behavioral disturbance, psychotic disturbance, mood disturbance, and anxiety; E66.9 Obesity, unspecified; Z68.30 Body mass index [BMI] 30.0-30.9, adult
CPT/HCPCS: 36415; 70450-TC; 70551-TC; 71045-TC-FY; 74176-TC; 76775-TC; 76856-TC; 80048; 80053; 81003; 82436; 82550; 82553; 82565; 82607; 82962; 83605; 83735; 84133; 84300; 84443; 84484; 85025; 86593; 87040; 87086; 87186; 87324; 87449; 93005; 93010; 93306-TC; 93880-TC; 97116-GP; 97161-GP; 99284-25; J1644; J7030; Q9967

== ENCOUNTER 2019-07-20 14:23 | Inpatient (IN) | payer OTHER ==
[2019-07-20] MEDS ORDERED: SODIUM CHLORIDE 1,769 ML IV ONE (15:33)
--- NOTE | 2019-07-20 15:49 | PDOC ---
History of Present Illness - General Chief Complaint: Lethargy Stated Complaint: UTI Time Seen by Provider: 07/20/19 15:49 History Source: Patient Exam Limitations: Clinical Condition - History of Present Illness Initial Comments: 07/20/19 15:49 HPI: 78yo M PMH NE, HTN, HLD, and distant brain lesion removal presenting with lethargy, hypotension. Patient poor historian, cannot provide history himself. Does not know how he got here today. Unable to verbalize his complaints. According to , patient cannot walk. Was discharged from here to rehab, acutely worsened in May - requiring significant assistance to ambulate. Discharged home 4 days ago. reports being unable to help him get around ( elderly herself) and that patient has barely eaten or drank since getting home. She was concerned given his increased difficulty walking / caring for himself. Occupational therapy came to the house today and told them it was impossible for him to improve in an outpatient setting and had the call EMS for ED evaluation. All: NKDA Meds: Per chart PMH: As above PSH: Per chart Past History - Past Medical History Allergies/Adverse Reactions: Allergies Allergy/AdvReac Type Severity Reaction Status Date / Time No Known Allergies Allergy Verified 03/25/19 03:03 Home Medications: Ambulatory Orders Ascorbic Acid [Vitamin C] 500 mg PO DAILY 07/20/19 Aspirin 81 mg PO DAILY 07/20/19 Atorvastatin Ca [Lipitor] 80 mg PO HS 07/20/19 Clopidogrel Bisulfate [Plavix] 75 mg PO DAILY 07/20/19 Metoprolol Tartrate 25 mg PO DAILY 07/20/19 Mirtazapine [Remeron -] 15 mg PO DAILY 07/20/19 Tamsulosin HCl [Flomax] 0.4 mg PO DAILY 07/20/19 COPD: No HTN: Yes Hypercholesterolemia: Yes - Surgical History Neurologic Surgery: Yes - Psycho Social/Smoking Cessation Hx Smoking History: Unknown if ever smoked Have you smoked in the past 12 months: No If you are a former smoker, when did you quit?: 1992 Information on smoking cessation initiated: No Hx Alcohol Use: No Drug/Substance Use Hx: No Substance Use Type: None Hx Substance Use Treatment: No Review of Systems - Review of Systems Able to Perform ROS?: No (Limited by condition) Is the patient limited Yi proficient: Yes *Physical Exam - Vital Signs Last Vital Signs Temp Pulse Resp BP Pulse Ox 86 20 81/51 L 94 L 07/20/19 14:55 07/20/19 14:55 07/20/19 14:55 07/20/19 14:55 - Physical Exam 07/20/19 16:09 Vitals reviewed, AF, hypotensive to 81/51 on arrival GEN: Lethargic, disoriented, NAD. HEENT: NCAT, EOMI, PERRL. Sclera anicteric, non-injected. No facial asymmetry. Moist mucous membranes. Trachea midline. CV: RRR, S1/S2, no murmurs / rubs / gallops appreciated. LUNG: CTAB, normal work of breathing. No wheezes, rales, rhonchi. No cough. GI: Soft, NTND, +BS, no guarding, no rebound. No masses. EXTREMITIES: 2+ distal pulses. No LE edema. No obvious deformities of all extremities. SKIN: Warm, dry, no rashes appreciated, non-jaundiced. PSYCH: Unable to assess. NEURO: Unable to assess, lethargic, disoriented ED Treatment Course - LABORATORY CBC & Chemistry Diagram: 07/20/19 15:50 07/20/19 16:20 Medical Decision Making - Medical Decision Making 07/20/19 16:16 78yo M PMH NE (NSTEMI), HTN, HLD, and distant brain lesion removal presenting with lethargy, hypotension. Patient poor historian, cannot provide history himself. Does not know how he got here today. Unable to verbalize his complaints. No one with patient at bedside, no documentation present. Vitals concerning for hypotension, poor O2Sat. DDX: UTI, PNA, other infection, bacteremia, dehydration. - Full sepsis work-up 07/20/19 19:17 - Labs hemoconcentrated - CMP pending (initially hemolyzed, reordered) - Lact 2.2 - Patient BP and HR responded well to IVF - CT Abd Pelvis ordered to evaluate abdomen / hips in light of new inability to ambulate, evaluate for fracture Dispo: Admit Med/Surg - Failure to thrive - Inability to ambulate - Dehydration - Additional 1L IVF ordered 07/20/19 19:45 - Sign-out given to Dr. Mojica 02/04/20 19:55 - Lab called, Lactate 3.1 Discharge - Discharge Information Problems reviewed: Yes Clinical Impression/Diagnosis: Failure to thrive in adult, Dehydration Lower extremity weakness Qualifiers: Laterality: bilateral Qualified Code(s): R29.898 - Other symptoms and signs involving the musculoskeletal system Condition: Guarded - Admission Yes - Follow up/Referral Referrals: Mariano Wallace MD [Primary Care Provider] - - Patient Discharge Instructions - Post Discharge Activity
[2019-07-20 16:52] LABS: BASO % 0.3 % (0-2.0); EOS % 0.2 % (0-4.5); HEMATOCRIT 35.7 % (35.4-49); HEMOGLOBIN 11.5 GM/dL (11.7-16.9); LYMPH % 7.3 % (8-40); MCH 27.1 pg (25.7-33.7); MCHC 32.1 g/dl (32.0-35.9); MEAN CELL VOLUME 84.4 fl (80-96); MEAN PLT VOLUME 8.4 fl (7.5-11.1); MONO % 5.3 % (3.8-10.2); NEUT % 86.9 % (42.8-82.8); PLATELET COUNT 590 K/MM3 (134-434); RBC 4.23 M/mm3 (4.00-5.60); WHITE BLOOD COUNT 18.7 K/mm3 (4.0-10.0)
[2019-07-20 17:01] LABS: INR 1.1 (0.83-1.09)
--- NOTE | 2019-07-20 17:01 | PDOC ---
Attending Attestation - Resident Resident Name: Mathew Kwong - ED Attending Attestation I have performed the following: I have examined & evaluated the patient, The case was reviewed & discussed with the resident, I agree w/resident's findings & plan, Exceptions are as noted - HPI HPI: 07/20/19 18:00 78y M h of [place], HTN, HLD, sp brain lesion removal presents with AMS. EMS was called by the pts as recommended by their home OT - per the , the patient was admitted back in Mar for AMS/weakness, was discharged to [facility] for rehab in late Mar, and was dc from rehab Jul 15. Per the , the pt was doing well in rehab, walking up stairs but one weekened, sometime in may, started to have significant difficulty ambulating - only ambulating with significant asistance. 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 The prosper any other new complaints, including fevers, vomiting, abd pain, cp. Pt has had very poor PO intake for the past month at rehab as well as at home. 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), will move his R toes but not his L toes, unable to move his leg otherwise Eyes: EOMI ddx - failure to thrive - deyhydration pts vitals noted for hypotension - sespsis orderset obtained unclear cause - will ro toxic/metabolic/infectious cause fluid resusitation will obtain CT - pts weakness may be due to deconditioning vs cva vs neurodegenertative condition anticipate admission for further management and placement once medically stable - Physicial Exam PE: 07/23/19 10:02 see above - Medical Decision Making 07/20/19 18:32 pts labs reviewed noted for leukocytosis - but all lines also elevated consider possible hemoconcentration - UA clean CMP hemolyzed - awaiting repeat sined out to evening team to fu with results Heart Score/ECG Review - ECG Impressions Comment:: 07/20/19 18:31 Rate of [address] changes suggesive of acute ischemia
[2019-07-20 17:04] LABS: ACTIVATED PTT 25.7 SECONDS (25.2-36.5)
[2019-07-20 17:07] LABS: URINE APPEARANCE CLEAR; URINE BILIRUBIN NEGATIVE (NEGATIVE); URINE COLOR YELLOW; URINE GLUCOSE (UA) NEGATIVE (NEGATIVE); URINE KETONE TRACE (NEGATIVE); URINE LEUK ESTERASE NEGATIVE (NEGATIVE); URINE NITRITE NEGATIVE (NEGATIVE); URINE PROTEIN NEGATIVE (NEGATIVE)
[2019-07-20 17:07] LABS: VENOUS PO2 < 49 mmHg (28-48)
[2019-07-20 20:02] LABS: ALBUMIN 2.2 g/dl (3.4-5.0); BILIRUBIN,TOTAL 0.5 mg/dL (0.2-1); BLOOD UREA NITROGEN 28.8 mg/dL (7-18); CALCIUM 8.4 mg/dL (8.5-10.1); CREATININE 1.5 mg/dL (0.55-1.3); POTASSIUM 5.5 mmol/L (3.5-5.1); TOT PROT 5.7 g/dl (6.4-8.2)
--- NOTE | 2019-07-21 02:32 | HP ---
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: Other (Brain tumor) Cardiovascular: Yes: HTN, Hyperlipdemia, [place] Renal/: Yes: Renal Inusuff - Smoking History Smoking history: Unknown if ever smoked Have you smoked in the past 12 months: No If you are a former smoker, when did you quit?: 1992 - Alcohol/Substance Use Hx Alcohol Use: No - Social History History of Recent Travel: No Home Medications - Allergies Allergies/Adverse Reactions: Allergies Allergy/AdvReac Type Severity Reaction Status Date / Time No Known Allergies Allergy Verified 03/25/19 03:03 - Home Medications Home Medications: Ambulatory Orders Ascorbic Acid [Vitamin C] 500 mg PO DAILY 07/20/19 Aspirin 81 mg PO DAILY 07/20/19 Atorvastatin Ca [Lipitor] 80 mg PO HS 07/20/19 Clopidogrel Bisulfate [Plavix] 75 mg PO DAILY 07/20/19 Metoprolol Tartrate 25 mg PO DAILY 07/20/19 Mirtazapine [Remeron -] 15 mg PO DAILY 07/20/19 Tamsulosin HCl [Flomax] 0.4 mg PO DAILY 07/20/19 Physical Examination Vital Signs: Vital Signs Temperature 98.0 F 07/21/19 02:18 Pulse Rate 78 07/21/19 02:18 Respiratory Rate 19 07/21/19 02:18 Blood Pressure 110/67 07/21/19 02:18 O2 Sat by Pulse Oximetry (%) 100 07/21/19 02:18 Labs: CBC, BMP 07/20/19 15:50 07/20/19 18:49
[2019-07-21] MEDS ORDERED: VANCOMYCIN 1 GRAM (PRE-DOCKED) 1,000 MG/250 ML BAG IVPB SCH (03:15)
[2019-07-21] MEDS ORDERED: PIPERACILLIN/TAZOBACTAM 3.375 GM VIAL IVPB ONE ×3 (04:01→17:15)
[2019-07-21] MEDS ORDERED: DEXTROSE 5%-WATER - 50 ML IVPB ONE ×3 (04:01→17:15)
[2019-07-21] MEDS: PIPERACILLIN/TAZOB 3.375 GM 3.375 GM in DEXTROSE 5%-WATER - 50 ML IVPB SCH ×3 (04:05→17:21)
[2019-07-21] MEDS: DEXTROSE 5%-0.45% SALINE 1,000 ML IV SCH ×2 (04:06→21:39)
[2019-07-21] MEDS: HEPARIN NA (PORCINE) 5,000 UNITS/ML 1ML VIAL SQ SCH ×2 (09:13→21:40)
[2019-07-21] MEDS: TAMSULOSIN HCL 0.4 MG CAP PO SCH (09:13)
[2019-07-21] MEDS: METOPROLOL TARTRATE 25 MG TABLET (FP) PO SCH (09:13)
[2019-07-21] MEDS: ASPIRIN 81 MG CHEWABLE TABLETS PO SCH (09:13)
[2019-07-21] MEDS: CLOPIDOGREL BISULFATE 75 MG TABLET (FP) PO SCH (09:14)
[2019-07-21 09:39] LABS: BASO % 0.2 % (0-2.0); EOS % 0.5 % (0-4.5); HEMATOCRIT 31.4 % (35.4-49); HEMOGLOBIN 10.3 GM/dL (11.7-16.9); LYMPH % 8.4 % (8-40); MCH 27.5 pg (25.7-33.7); MCHC 32.8 g/dl (32.0-35.9); MEAN CELL VOLUME 83.8 fl (80-96); MEAN PLT VOLUME 7.6 fl (7.5-11.1); MONO % 4.6 % (3.8-10.2); NEUT % 86.3 % (42.8-82.8); PLATELET COUNT 463 K/MM3 (134-434); RBC 3.75 M/mm3 (4.00-5.60); RDW 15.6 % (11.9-15.9); WHITE BLOOD COUNT 14.9 K/mm3 (4.0-10.0)
[2019-07-21 10:18] LABS: ALBUMIN 1.9 g/dl (3.4-5.0); BILIRUBIN,TOTAL 0.4 mg/dL (0.2-1); BLOOD UREA NITROGEN 21.3 mg/dL (7-18); CALCIUM 7.8 mg/dL (8.5-10.1); CREATININE 1.2 mg/dL (0.55-1.3); TOT PROT 5.2 g/dl (6.4-8.2)
--- NOTE | 2019-07-21 11:38 | EKG ---
Test Reason : Blood Pressure : / mmHG Vent. Rate : 098 BPM Atrial Rate : 098 BPM P-R Int : 142 ms QRS Dur : 082 ms QT Int : 362 ms P-R-T Axes : 025 016 069 degrees QTc Int : 462 ms NORMAL SINUS RHYTHM LOW VOLTAGE QRS BORDERLINE ECG WHEN COMPARED WITH ECG OF 05-APR-2019 11:44, NO SIGNIFICANT CHANGE WAS FOUND Confirmed by Anthony Riggs MD ([id number]) on 07/21/2019 11:38:03 AM Referred By: Confirmed By:Anthony Riggs MD
--- NOTE | 2019-07-21 12:29 | CON.ID ---
Consult Consult Specialty:: infectious diseases Referred by:: Reason for Consultation:: rash and wound on the rt side - History of Present Illness Chief Complaint: weakness History of Present Illness: 78y M h of MA, HTN, HLD, sp brain lesion removal presents with AMS. EMS was called by the pts as recommended by their home OT - per the , the patient was admitted back in Mar for AMS/weakness, was discharged to [facility] for rehab in late Mar, and was dc from rehab Jul 15. Per the , the pt was doing well in rehab, walking up stairs but one weekened, sometime in may, started to have significant difficulty ambulating - only ambulating with significant asistance. 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 The prosper any other new complaints, including fevers, vomiting, abd pain, cp. Pt has had very poor PO intake for the past month at rehab as well as at home. 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: Other (Brain tumor) Cardio/Vascular: Yes: HTN, Hyperlipdemia, MA Renal/: Yes: Renal Inusuff - Alcohol/Substance Use Hx Alcohol Use: No - Smoking History Smoking history: Former smoker Have you smoked in the past 12 months: No If you are a former smoker, when did you quit?: 1992 - Social History Usual Living Arrangement: With Spouse History of Recent Travel: No Home Medications - Allergies Allergies/Adverse Reactions: Allergies Allergy/AdvReac Type Severity Reaction Status Date / Time No Known Allergies Allergy Verified 03/25/19 03:03 - Home Medications Home Medications: Ambulatory Orders Ascorbic Acid [Vitamin C] 500 mg PO DAILY 07/20/19 Aspirin 81 mg PO DAILY 07/20/19 Atorvastatin Ca [Lipitor] 80 mg PO HS 07/20/19 Clopidogrel Bisulfate [Plavix] 75 mg PO DAILY 07/20/19 Metoprolol Tartrate 25 mg PO DAILY 07/20/19 Mirtazapine [Remeron -] 15 mg PO DAILY 07/20/19 Tamsulosin HCl [Flomax] 0.4 mg PO DAILY 07/20/19 Review of Systems Unable to obtain ROS, reason: unable to obtain Physical Exam Vital Signs: Vital Signs Temperature 97.9 F 07/21/19 09:03 Pulse Rate 99 H 07/21/19 09:03 Respiratory Rate 07/21/19 09:03 Blood Pressure 127/68 07/21/19 09:03 O2 Sat by Pulse Oximetry (%) 96 07/21/19 04:46 Constitutional: Yes: Calm, Mild Distress Eyes: Yes: Conjunctiva Clear HENT: Yes: Atraumatic, Normocephalic Cardiovascular: Yes: Regular Rate and Rhythm Respiratory: Yes: Regular, CTA Bilaterally Gastrointestinal: Yes: Normal Bowel Sounds, Soft Musculoskeletal: Yes: WNL Extremities: Yes: WNL Integumentary: Yes: Rash (on the rt side of the body with associated superficial wounds) Wound/Incision: Yes: Other Neurological: Yes: Confusion, Other Labs: CBC, BMP 07/21/19 07:46 07/21/19 07:46 Imaging - Results Chest X-ray: Report Reviewed, Image Reviewed Cat Scan: Report Reviewed, Image Reviewed Assessment/Plan Problem List - Problems (1) Hyperkalemia Code(s): E87.5 - HYPERKALEMIA (2) Dehydration Code(s): E86.0 - DEHYDRATION (3) Failure to thrive in adult Code(s): R62.7 - ADULT FAILURE TO THRIVE (4) Acute kidney injury Code(s): N17.9 - ACUTE KIDNEY FAILURE, UNSPECIFIED mrsa bactremia plan await for all reports will start on abx avoid pressure on the side of the wounds wound care rest as per the team
--- NOTE | 2019-07-21 13:18 | CONSULT ---
Consult Consult Specialty:: Nephrology Reason for Consultation:: jesse and hyperkalemia - History of Present Illness Chief Complaint: change in mental status History of Present Illness: Pt is a 78 year old male with pmhx of cad, jesse, htn, hld, brain lesion who presented with change in mental status. 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 He was recently discharged from rehab. He is a poor historian. Chart was reviewed. He has had poor PO intake. He denies shortness of breath. He denies dysuria or hematuria. 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: Other (Brain tumor) Cardio/Vascular: Yes: HTN, Hyperlipdemia, PR Renal/: Yes: Renal Inusuff - Alcohol/Substance Use Hx Alcohol Use: No - Smoking History Smoking history: Former smoker Have you smoked in the past 12 months: No If you are a former smoker, when did you quit?: 1992 - Social History Usual Living Arrangement: With Spouse History of Recent Travel: No Home Medications - Allergies Allergies/Adverse Reactions: Allergies Allergy/AdvReac Type Severity Reaction Status Date / Time No Known Allergies Allergy Verified 03/25/19 03:03 - Home Medications Home Medications: Ambulatory Orders Ascorbic Acid [Vitamin C] 500 mg PO DAILY 07/20/19 Aspirin 81 mg PO DAILY 07/20/19 Atorvastatin Ca [Lipitor] 80 mg PO HS 07/20/19 Clopidogrel Bisulfate [Plavix] 75 mg PO DAILY 07/20/19 Metoprolol Tartrate 25 mg PO DAILY 07/20/19 Mirtazapine [Remeron -] 15 mg PO DAILY 07/20/19 Tamsulosin HCl [Flomax] 0.4 mg PO DAILY 07/20/19 Family Medical History Family History: Denies Review of Systems - Review of Systems Constitutional: reports: Malaise. denies: Chills Eyes: reports: No Symptoms HENT: reports: No Symptoms Neck: reports: No Symptoms Cardiovascular: reports: No Symptoms Respiratory: reports: No Symptoms Gastrointestinal: reports: No Symptoms Genitourinary: reports: No Symptoms Musculoskeletal: reports: No Symptoms Neurological: reports: Confusion Endocrine: reports: No Symptoms Hematology/Lymphatic: reports: No Symptoms Physical Exam Vital Signs: Vital Signs Temperature 97.9 F 07/21/19 09:03 Pulse Rate 99 H 07/21/19 09:03 Respiratory Rate 20 07/21/19 09:03 Blood Pressure 127/68 07/21/19 09:03 O2 Sat by Pulse Oximetry (%) 96 07/21/19 04:46 Constitutional: Yes: Calm Eyes: Yes: Conjunctiva Clear HENT: Yes: Atraumatic Cardiovascular: Yes: S1, S2 Respiratory: Yes: CTA Bilaterally Gastrointestinal: Yes: Soft Renal/: Yes: Dasilva Present Musculoskeletal: Yes: Muscle Weakness Edema: No Neurological: Yes: Confusion Labs: CBC, BMP 07/21/19 07:46 07/21/19 07:46 Imaging - Results Chest X-ray: Report Reviewed Cat Scan: Report Reviewed Problem List - Problems (1) Hyperkalemia Code(s): E87.5 - HYPERKALEMIA (2) Dehydration Code(s): E86.0 - DEHYDRATION (3) Failure to thrive in adult Code(s): R62.7 - ADULT FAILURE TO THRIVE (4) Acute kidney injury Code(s): N17.9 - ACUTE KIDNEY FAILURE, UNSPECIFIED Assessment/Plan Current Medications Generic Name Dose Route Start Last Admin Trade Name Freq PRN Reason Stop Dose Admin Aspirin 81 mg 07/21/19 10:00 07/21/19 09:13 Asa - PO 81 mg DAILY MELA Administration Atorvastatin Calcium 80 mg 07/21/19 22:00 Lipitor - PO HS MELA Clopidogrel Bisulfate 75 mg 07/21/19 10:00 07/21/19 09:14 Plavix - PO 75 mg DAILY MELA Administration Heparin Sodium (Porcine) 5,000 unit 07/21/19 10:00 07/21/19 09:13 Heparin - SQ 5,000 unit BID MELA Administration Dextrose/Sodium Chloride 1,000 mls @ 75 mls/hr 07/21/19 02:45 07/21/19 04:06 D5-1/2ns - IV 75 mls/hr ASDIR MELA Administration Piperacillin Sod/Tazobactam 50 mls @ 100 mls/hr 07/22/19 02:00 Sod 3.375 gm/ Dextrose IVPB Q8H-IV MELA Protocol Vancomycin HCl 1,000 mg in 250 mls @ 166.667 mls/hr 07/22/19 03:30 Vancomycin (Pre-Docked) IVPB Q12H MELA Piperacillin Sod/Tazobactam 50 mls @ 100 mls/hr 07/21/19 18:00 Sod 3.375 gm/ Dextrose IVPB Q8H-IV MELA Protocol Metoprolol Tartrate 25 mg 07/21/19 10:00 07/21/19 09:13 Lopressor - PO 25 mg DAILY MELA Administration Mirtazapine 15 mg 07/21/19 22:00 Remeron - PO HS MELA Tamsulosin HCl 0.4 mg 07/21/19 08:30 07/21/19 09:13 Flomax - PO 0.4 mg DAILY@0830 MELA Administration Impression 1. JESSE 2. hyperkalemia 3. htn 4. hld 5. brain lesion 6. right renal density 7. rhabdo Plan - cont fluis - potassium improved - repeat cpk in am - follow cultures - unclear if he followed with urology for renal lesion
[2019-07-21] MEDS: MIRTAZAPINE 15 MG TABLET (FP) PO SCH (21:40)
[2019-07-21] MEDS: ATORVASTATIN CA 80 MG TABLET (FP) PO SCH (21:40)
[2019-07-21] MEDS: MUPIROCIN 2% TOPICAL OINTMENT 22 GM TUBE TP SCH (22:25)
[2019-07-22] MEDS ORDERED: PIPERACILLIN/TAZOBACTAM 3.375 GM VIAL IVPB ONE ×3 (00:30→17:20)
[2019-07-22] MEDS ORDERED: DEXTROSE 5%-WATER - 50 ML IVPB ONE ×3 (00:31→17:20)
[2019-07-22] MEDS: PIPERACILLIN/TAZOB 3.375 GM 3.375 GM in DEXTROSE 5%-WATER - 50 ML IVPB SCH ×3 (01:30→17:38)
[2019-07-22] MEDS ORDERED: PIPERACILLIN/TAZOB 3.375 GM 3.375 GM in DEXTROSE 5%-WATER - 50 ML IVPB SCH (02:00)
[2019-07-22] MEDS: DEXTROSE 5%-0.45% SALINE 1,000 ML IV SCH (06:08)
[2019-07-22] MEDS: MUPIROCIN 2% TOPICAL OINTMENT 22 GM TUBE TP SCH ×2 (09:49→21:30)
[2019-07-22] MEDS: CLOPIDOGREL BISULFATE 75 MG TABLET (FP) PO SCH (09:49)
[2019-07-22] MEDS: METOPROLOL TARTRATE 25 MG TABLET (FP) PO SCH (09:50)
[2019-07-22] MEDS: ASPIRIN 81 MG CHEWABLE TABLETS PO SCH (09:50)
[2019-07-22] MEDS: HEPARIN NA (PORCINE) 5,000 UNITS/ML 1ML VIAL SQ SCH ×2 (09:50→21:30)
[2019-07-22] MEDS: TAMSULOSIN HCL 0.4 MG CAP PO SCH (09:50)
--- NOTE | 2019-07-22 12:18 | PN ---
Progress Note, Physician History of Present Illness: stable no new issues - Current Medication List Current Medications: Active Medications Aspirin (Asa -) 81 mg PO DAILY [facility] Last Admin: 07/22/19 09:50 Dose: 81 mg Atorvastatin Calcium (Lipitor -) 80 mg PO HS [facility] Last Admin: 07/21/19 21:40 Dose: 80 mg Clopidogrel Bisulfate (Plavix -) 75 mg PO DAILY [facility] Last Admin: 07/22/19 09:49 Dose: 75 mg Heparin Sodium (Porcine) (Heparin -) 5,000 unit SQ BID [facility] Last Admin: 07/22/19 09:50 Dose: 5,000 unit Dextrose/Sodium Chloride (D5-1/2ns -) 1,000 mls @ 75 mls/hr IV ASDIR [facility] Last Admin: 07/22/19 06:08 Dose: Not Given Vancomycin HCl (Vancomycin (Pre-Docked)) 1,000 mg in 250 mls @ 166.667 mls/hr IVPB Q12H MELA Piperacillin Sod/Tazobactam (Sod 3.375 gm/ Dextrose) 50 mls @ 100 mls/hr IVPB Q8H-IV MELA; Protocol Last Admin: 07/22/19 09:49 Dose: 100 mls/hr Metoprolol Tartrate (Lopressor -) 25 mg PO DAILY [facility] Last Admin: 07/22/19 09:50 Dose: 25 mg Mirtazapine (Remeron -) 15 mg PO HS [facility] Last Admin: 07/21/19 21:40 Dose: 15 mg Mupirocin (Bactroban 2% Ointment -) 1 applic TP BID [facility] Last Admin: 07/22/19 09:49 Dose: 1 applic Tamsulosin HCl (Flomax -) 0.4 mg PO DAILY@0830 [facility] Last Admin: 07/22/19 09:50 Dose: 0.4 mg - Objective Vital Signs: Vital Signs Temperature 97.5 F L 07/22/19 05:50 Pulse Rate 83 07/22/19 05:50 Respiratory Rate 20 07/22/19 05:50 Blood Pressure 119/60 07/22/19 05:50 O2 Sat by Pulse Oximetry (%) 95 07/21/19 21:00 Constitutional: Yes: No Distress, Calm Cardiovascular: Yes: S1, S2 Respiratory: Yes: Regular, CTA Bilaterally Gastrointestinal: Yes: Normal Bowel Sounds, Soft Musculoskeletal: Yes: WNL Extremities: Yes: Other Neurological: Yes: Alert, Other Psychiatric: Yes: Other Labs: CBC, BMP 07/21/19 07:46 INR, PTT INR 1.10 (0.83-1.09) H 07/20/19 15:50 Assessment/Plan Problem List - Problems (1) Hyperkalemia Code(s): E87.5 - HYPERKALEMIA (2) Dehydration Code(s): E86.0 - DEHYDRATION (3) Failure to thrive in adult Code(s): R62.7 - ADULT FAILURE TO THRIVE (4) Acute kidney injury Code(s): N17.9 - ACUTE KIDNEY FAILURE, UNSPECIFIED plan awaiting for blood cx continue zosyn once we have cx will decide nutrition rest as per the team
[2019-07-22 12:41] LABS: ALBUMIN 1.6 g/dl (3.4-5.0); BILIRUBIN,TOTAL 0.5 mg/dL (0.2-1); BLOOD UREA NITROGEN 16.2 mg/dL (7-18); CALCIUM 8.2 mg/dL (8.5-10.1); CREATININE 1.1 mg/dL (0.55-1.3); POTASSIUM 3.6 mmol/L (3.5-5.1)
--- NOTE | 2019-07-22 15:03 | ECHO ---
Name: FRANK GRACE Exam:Adult Echocardiogram Study Date: 07/22/2019 11:03 AM Age: 78 yrs Reason For Study: chf Height: 68 in Weight: 180 lb BSA: 2.0 m2 MMode/2D Measurements & Calculations Ao root diam: 3.5 cm LA dimension: 3.2 cm Doppler Measurements & Calculations MV E max darrius: 48.6 cm/sec Ao V2 max: 90.8 cm/sec MV A max darrius: 55.8 cm/sec Ao max P.3 mmHg MV E/A: 0.87 Ao V2 mean: 67.2 cm/sec Ao mean P.9 mmHg Ao V2 VTI: 17.7 cm TR max darrius: 226.0 cm/sec Med Peak E' Darrius: 5.7 cm/sec TR max P.4 mmHg Med E/e': 8.5 Lat Peak E' Darrius: 7.8 cm/sec Lat E/e': 6.2 Procedure A complete two-dimensional transthoracic echocardiogram was performed (2D, M-mode, Doppler and color flow Doppler). The study was technically difficult with many images being suboptimal in quality. Left Ventricle The left ventricular size, thickness and function are normal. The left ventricular ejection fraction is normal. Ejection Fraction = 60-65%. Regional wall motion abnormalities cannot be excluded due to limi merle visualization. Right Ventricle The right ventricle is normal in size and function. Atria Normal left and right atrial size and function. Mitral Valve There is no mitral regurgitation noted. Tricuspid Valve There is trace tricuspid regurgitation. Right ventricular systolic pressure is normal. Aortic Valve No hemodynamically significant valvular aortic stenosis. No aortic regurgitation is present. Pulmonic Valve The pulmonic valve is not well visualized. Great Vessels The aortic root is normal size. Pericardium/Pleura There is no pericardial effusion. Interpretation Summary The study was technically difficult with many images being suboptimal in quality. The left ventricular size, thickness and function are normal The right ventricle is normal in size and function. There is trace tricuspid regurgitation. MD Kun Daniels 07/22/2019 03:02 PM
--- NOTE | 2019-07-22 15:49 | PN ---
Progress Note, Physician History of Present Illness: Pt seen and examined at bedside. He is awake and alert. He denies shortness of breath. - Current Medication List Current Medications: Active Medications Aspirin (Asa -) 81 mg PO DAILY [facility] Last Admin: 07/22/19 09:50 Dose: 81 mg Atorvastatin Calcium (Lipitor -) 80 mg PO HS [facility] Last Admin: 07/21/19 21:40 Dose: 80 mg Clopidogrel Bisulfate (Plavix -) 75 mg PO DAILY [facility] Last Admin: 07/22/19 09:49 Dose: 75 mg Heparin Sodium (Porcine) (Heparin -) 5,000 unit SQ BID [facility] Last Admin: 07/22/19 09:50 Dose: 5,000 unit Dextrose/Sodium Chloride (D5-1/2ns -) 1,000 mls @ 75 mls/hr IV ASDIR [facility] Last Admin: 07/22/19 06:08 Dose: Not Given Vancomycin HCl (Vancomycin (Pre-Docked)) 1,000 mg in 250 mls @ 166.667 mls/hr IVPB Q12H [facility] Piperacillin Sod/Tazobactam (Sod 3.375 gm/ Dextrose) 50 mls @ 100 mls/hr IVPB Q8H-IV MELA; Protocol Last Admin: 07/22/19 09:49 Dose: 100 mls/hr Metoprolol Tartrate (Lopressor -) 25 mg PO DAILY [facility] Last Admin: 07/22/19 09:50 Dose: 25 mg Mirtazapine (Remeron -) 15 mg PO [facility] Last Admin: 07/21/19 21:40 Dose: 15 mg Mupirocin (Bactroban 2% Ointment -) 1 applic TP BID [facility] Last Admin: 07/22/19 09:49 Dose: 1 applic Tamsulosin HCl (Flomax -) 0.4 mg PO DAILY@0830 [facility] Last Admin: 07/22/19 09:50 Dose: 0.4 mg - Objective Vital Signs: Vital Signs Temperature 97.5 F L 07/22/19 05:50 Pulse Rate 83 07/22/19 05:50 Respiratory Rate 20 07/22/19 05:50 Blood Pressure 119/60 07/22/19 05:50 O2 Sat by Pulse Oximetry (%) 95 07/21/19 21:00 Constitutional: Yes: Calm Eyes: Yes: Conjunctiva Clear HENT: Yes: Atraumatic Neck: Yes: Supple Cardiovascular: Yes: S1, S2 Respiratory: Yes: CTA Bilaterally Gastrointestinal: Yes: Soft Genitourinary: Yes: Incontinence Musculoskeletal: Yes: WNL Edema: LLE: Trace, RLE: Trace Neurological: Yes: Oriented Psychiatric: Yes: Oriented Labs: CBC, BMP 07/21/19 07:46 07/22/19 10:56 INR, PTT INR 1.10 (0.83-1.09) H 07/20/19 15:50 Problem List - Problems (1) Hyperkalemia Code(s): E87.5 - HYPERKALEMIA (2) Dehydration Code(s): E86.0 - DEHYDRATION (3) Failure to thrive in adult Code(s): R62.7 - ADULT FAILURE TO THRIVE (4) Acute kidney injury Code(s): N17.9 - ACUTE KIDNEY FAILURE, UNSPECIFIED Assessment/Plan Current Medications Generic Name Dose Route Start Last Admin Trade Name Freq PRN Reason Stop Dose Admin Aspirin 81 mg 07/21/19 10:00 07/22/19 09:50 Asa - PO 81 mg DAILY MELA Administration Atorvastatin Calcium 80 mg 07/21/19 22:00 07/21/19 21:40 Lipitor - PO 80 mg HS MELA Administration Clopidogrel Bisulfate 75 mg 07/21/19 10:00 07/22/19 09:49 Plavix - PO 75 mg DAILY MELA Administration Heparin Sodium (Porcine) 5,000 unit 07/21/19 10:00 07/22/19 09:50 Heparin - SQ 5,000 unit BID MELA Administration Dextrose/Sodium Chloride 1,000 mls @ 75 mls/hr 07/21/19 02:45 07/22/19 06:08 D5-1/2ns - IV Not Given ASDIR MELA Vancomycin HCl 1,000 mg in 250 mls @ 166.667 mls/hr 07/22/19 03:30 Vancomycin (Pre-Docked) IVPB Q12H [facility]ELA Piperacillin Sod/Tazobactam 50 mls @ 100 mls/hr 07/21/19 18:00 07/22/19 09:49 Sod 3.375 gm/ Dextrose IVPB 100 mls/hr Q8H-IV MELA Administration Protocol Metoprolol Tartrate 25 mg 07/21/19 10:00 07/22/19 09:50 Lopressor - PO 25 mg DAILY MELA Administration Mirtazapine 15 mg 07/21/19 22:00 07/21/19 21:40 Remeron - PO 15 mg HS MELA Administration Mupirocin 1 applic 07/21/19 22:00 07/22/19 09:49 Bactroban 2% Ointment - TP 1 applic BID MELA Administration Tamsulosin HCl 0.4 mg 07/21/19 08:30 07/22/19 09:50 Flomax - PO 0.4 mg DAILY@0830 MELA Administration Impression 1. JESSE 2. hyperkalemia 3. htn 4. hld 5. brain lesion 6. right renal density 7. rhabdo Plan - change fluids to 1/2 ns - repeat labs in am - cpk improving - bilateral renal cysts on ct scan - lasix as needed - repeat cpk in am - follow cultures - unclear if he followed with urology for renal lesion
[2019-07-22] MEDS: SODIUM CHLORIDE 0.45% 1,000 ML IV SCH (17:35)
[2019-07-22] MEDS: ATORVASTATIN CA 80 MG TABLET (FP) PO SCH (21:30)
[2019-07-22] MEDS: MIRTAZAPINE 15 MG TABLET (FP) PO SCH (21:30)
--- NOTE | 2019-07-22 23:29 | PN ---
Progress Note, Physician - Current Medication List Current Medications: Active Medications Aspirin (Asa -) 81 mg PO DAILY [facility] Last Admin: 07/22/19 09:50 Dose: 81 mg Atorvastatin Calcium (Lipitor -) 80 mg PO HS [facility] Last Admin: 07/22/19 21:30 Dose: 80 mg Clopidogrel Bisulfate (Plavix -) 75 mg PO DAILY [facility] Last Admin: 07/22/19 09:49 Dose: 75 mg Heparin Sodium (Porcine) (Heparin -) 5,000 unit SQ BID [facility] Last Admin: 07/22/19 21:30 Dose: 5,000 unit Vancomycin HCl (Vancomycin (Pre-Docked)) 1,000 mg in 250 mls @ 166.667 mls/hr IVPB Q12H [facility]ELA Piperacillin Sod/Tazobactam (Sod 3.375 gm/ Dextrose) 50 mls @ 100 mls/hr IVPB Q8H-IV MELA; Protocol Last Admin: 07/22/19 17:38 Dose: 100 mls/hr Sodium Chloride (1/2 Normal Saline) 1,000 mls @ 60 mls/hr IV ASDIR [facility] Last Admin: 07/22/19 17:35 Dose: 60 mls/hr Metoprolol Tartrate (Lopressor -) 25 mg PO DAILY [facility] Last Admin: 07/22/19 09:50 Dose: 25 mg Mirtazapine (Remeron -) 15 mg PO HS [facility] Last Admin: 07/22/19 21:30 Dose: 15 mg Mupirocin (Bactroban 2% Ointment -) 1 applic TP BID [facility] Last Admin: 07/22/19 21:30 Dose: 1 applic Tamsulosin HCl (Flomax -) 0.4 mg PO DAILY@0830 [facility] Last Admin: 07/22/19 09:50 Dose: 0.4 mg - Objective Vital Signs: Vital Signs Temperature 98.4 F 07/22/19 17:00 Pulse Rate 74 07/22/19 17:00 Respiratory Rate 18 07/22/19 17:00 Blood Pressure 116/61 07/22/19 17:00 O2 Sat by Pulse Oximetry (%) 95 07/22/19 09:00 Labs: CBC, BMP 07/21/19 07:46 07/22/19 10:56 INR, PTT INR 1.10 (0.83-1.09) H 07/20/19 15:50
[2019-07-23] MEDS ORDERED: DEXTROSE 5%-WATER - 50 ML IVPB ONE ×2 (02:08→09:28)
[2019-07-23] MEDS ORDERED: PIPERACILLIN/TAZOBACTAM 3.375 GM VIAL IVPB ONE ×2 (02:08→09:27)
[2019-07-23] MEDS: PIPERACILLIN/TAZOB 3.375 GM 3.375 GM in DEXTROSE 5%-WATER - 50 ML IVPB SCH ×2 (03:00→09:53)
[2019-07-23] MEDS: HEPARIN NA (PORCINE) 5,000 UNITS/ML 1ML VIAL SQ SCH ×2 (09:53→21:43)
[2019-07-23] MEDS: ASPIRIN 81 MG CHEWABLE TABLETS PO SCH (09:54)
[2019-07-23] MEDS: CLOPIDOGREL BISULFATE 75 MG TABLET (FP) PO SCH (09:54)
[2019-07-23] MEDS: MUPIROCIN 2% TOPICAL OINTMENT 22 GM TUBE TP SCH ×2 (09:54→21:43)
[2019-07-23] MEDS: METOPROLOL TARTRATE 25 MG TABLET (FP) PO SCH (09:54)
[2019-07-23] MEDS: TAMSULOSIN HCL 0.4 MG CAP PO SCH (09:54)
--- NOTE | 2019-07-23 12:45 | PN ---
Progress Note, Physician History of Present Illness: patient stable no new issues dementia - Current Medication List Current Medications: Active Medications Aspirin (Asa -) 81 mg PO DAILY [facility] Last Admin: 07/23/19 09:54 Dose: 81 mg Atorvastatin Calcium (Lipitor -) 80 mg PO HS [facility] Last Admin: 07/22/19 21:30 Dose: 80 mg Clopidogrel Bisulfate (Plavix -) 75 mg PO DAILY [facility] Last Admin: 07/23/19 09:54 Dose: 75 mg Heparin Sodium (Porcine) (Heparin -) 5,000 unit SQ BID [facility] Last Admin: 07/23/19 09:53 Dose: 5,000 unit Vancomycin HCl (Vancomycin (Pre-Docked)) 1,000 mg in 250 mls @ 166.667 mls/hr IVPB Q12H [facility] Sodium Chloride (1/2 Normal Saline) 1,000 mls @ 60 mls/hr IV ASDIR [facility] Last Admin: 07/22/19 17:35 Dose: 60 mls/hr Vancomycin HCl 1,250 mg/ (Dextrose) 250 mls @ 166.667 mls/hr IVPB Q12H [facility]; Protocol Metoprolol Tartrate (Lopressor -) 25 mg PO DAILY [facility] Last Admin: 07/23/19 09:54 Dose: 25 mg Mirtazapine (Remeron -) 15 mg PO HS [facility] Last Admin: 07/22/19 21:30 Dose: 15 mg Mupirocin (Bactroban 2% Ointment -) 1 applic TP BID [facility] Last Admin: 07/23/19 09:54 Dose: 1 applic Tamsulosin HCl (Flomax -) 0.4 mg PO DAILY@0830 [facility] Last Admin: 07/23/19 09:54 Dose: 0.4 mg - Objective Vital Signs: Vital Signs Temperature 98.1 F 07/23/19 09:51 Pulse Rate 109 H 07/23/19 09:51 Respiratory Rate 19 07/23/19 09:51 Blood Pressure 121/76 07/23/19 09:51 O2 Sat by Pulse Oximetry (%) 95 07/22/19 09:00 Constitutional: Yes: No Distress, Calm Cardiovascular: Yes: S1, S2 Respiratory: Yes: Regular, CTA Bilaterally Gastrointestinal: Yes: Normal Bowel Sounds, Soft Musculoskeletal: Yes: WNL Extremities: Yes: Other Integumentary: Yes: Rash Wound/Incision: Yes: Dressing Dry and Intact Neurological: Yes: Alert, Oriented Labs: CBC, BMP 07/21/19 07:46 07/22/19 10:56 INR, PTT INR 1.10 (0.83-1.09) H 07/20/19 15:50 Assessment/Plan Problem List - Problems (1) Hyperkalemia Code(s): E87.5 - HYPERKALEMIA (2) Dehydration Code(s): E86.0 - DEHYDRATION (3) Failure to thrive in adult Code(s): R62.7 - ADULT FAILURE TO THRIVE (4) Acute kidney injury Code(s): N17.9 - ACUTE KIDNEY FAILURE, UNSPECIFIED mrsa bactremia plan awaiting for repeat blood cx will stop [facility] wound care
[2019-07-23] MEDS: VANCOMYCIN 1,250 MG in DEXTROSE 5%-WATER - 250 ML IVPB SCH ×2 (16:31→17:03)
[2019-07-23] MEDS: VANCOMYCIN 1 GRAM (PRE-DOCKED) 1,000 MG/250 ML BAG IVPB SCH (16:41)
[2019-07-23] MEDS: SODIUM CHLORIDE 0.45% 1,000 ML IV SCH (17:05)
--- NOTE | 2019-07-23 17:28 | PN ---
Progress Note, Physician History of Present Illness: Pt seen and examined at bedside. He is awake and appears comfortable. - Current Medication List Current Medications: Active Medications Aspirin (Asa -) 81 mg PO DAILY [facility] Last Admin: 07/23/19 09:54 Dose: 81 mg Atorvastatin Calcium (Lipitor -) 80 mg PO HS [facility] Last Admin: 07/22/19 21:30 Dose: 80 mg Clopidogrel Bisulfate (Plavix -) 75 mg PO DAILY [facility] Last Admin: 07/23/19 09:54 Dose: 75 mg Heparin Sodium (Porcine) (Heparin -) 5,000 unit SQ BID [facility] Last Admin: 07/23/19 09:53 Dose: 5,000 unit Sodium Chloride (1/2 Normal Saline) 1,000 mls @ 60 mls/hr IV ASDIR [facility] Last Admin: 07/23/19 17:05 Dose: 60 mls/hr Vancomycin HCl 1,250 mg/ (Dextrose) 250 mls @ 166.667 mls/hr IVPB Q12H [facility]; Protocol Last Admin: 07/23/19 16:31 Dose: Not Given Vancomycin HCl 1,250 mg/ (Dextrose) 250 mls @ 166.667 mls/hr IVPB Q12H [facility]; Protocol Last Admin: 07/23/19 17:03 Dose: 166.667 mls/hr Metoprolol Tartrate (Lopressor -) 25 mg PO DAILY [facility] Last Admin: 07/23/19 09:54 Dose: 25 mg Mirtazapine (Remeron -) 15 mg PO HS [facility] Last Admin: 07/22/19 21:30 Dose: 15 mg Mupirocin (Bactroban 2% Ointment -) 1 applic TP BID [facility] Last Admin: 07/23/19 09:54 Dose: 1 applic Tamsulosin HCl (Flomax -) 0.4 mg PO DAILY@0830 [facility] Last Admin: 07/23/19 09:54 Dose: 0.4 mg - Objective Vital Signs: Vital Signs Temperature 97.8 F 07/23/19 15:02 Pulse Rate 84 07/23/19 15:02 Respiratory Rate 20 07/23/19 15:02 Blood Pressure 124/59 L 07/23/19 15:02 O2 Sat by Pulse Oximetry (%) 95 07/22/19 09:00 Constitutional: Yes: Calm Eyes: Yes: Conjunctiva Clear HENT: Yes: Atraumatic Neck: Yes: Supple Cardiovascular: Yes: S1, S2 Respiratory: Yes: CTA Bilaterally Gastrointestinal: Yes: Soft Genitourinary: Yes: Incontinence Musculoskeletal: Yes: Muscle Weakness Edema: No Neurological: Yes: Oriented Psychiatric: Yes: Oriented Labs: CBC, BMP 07/21/19 07:46 07/22/19 10:56 INR, PTT INR 1.10 (0.83-1.09) H 07/20/19 15:50 Problem List - Problems (1) Hyperkalemia Code(s): E87.5 - HYPERKALEMIA (2) Dehydration Code(s): E86.0 - DEHYDRATION (3) Failure to thrive in adult Code(s): R62.7 - ADULT FAILURE TO THRIVE (4) Acute kidney injury Code(s): N17.9 - ACUTE KIDNEY FAILURE, UNSPECIFIED Assessment/Plan Current Medications Generic Name Dose Route Start Last Admin Trade Name Freq PRN Reason Stop Dose Admin Aspirin 81 mg 07/21/19 10:00 07/23/19 09:54 Asa - PO 81 mg DAILY [facility] Administration Atorvastatin Calcium 80 mg 07/21/19 22:00 07/22/19 21:30 Lipitor - PO 80 mg HS [facility] Administration Clopidogrel Bisulfate 75 mg 07/21/19 10:00 07/23/19 09:54 Plavix - PO 75 mg DAILY [facility] Administration Heparin Sodium (Porcine) 5,000 unit 07/21/19 10:00 07/23/19 09:53 Heparin - SQ 5,000 unit BID [facility] Administration Sodium Chloride 1,000 mls @ 60 mls/hr 07/22/19 16:00 07/23/19 17:05 1/2 Normal Saline IV 60 mls/hr ASDIR [facility] Administration Vancomycin HCl 1,250 mg/ 250 mls @ 166.667 mls/hr 07/23/19 12:45 07/23/19 16: 31 Dextrose IVPB Not Given Q12H [facility] Protocol Vancomycin HCl 1,250 mg/ 250 mls @ 166.667 mls/hr 07/23/19 16:30 07/23/19 17: 03 Dextrose IVPB 166.667 mls/hr Q12H [facility] Administration Protocol Metoprolol Tartrate 25 mg 07/21/19 10:00 07/23/19 09:54 Lopressor - PO 25 mg DAILY [facility] Administration Mirtazapine 15 mg 07/21/19 22:00 07/22/19 21:30 Remeron - PO 15 mg HS [facility] Administration Mupirocin 1 applic 07/21/19 22:00 07/23/19 09:54 Bactroban 2% Ointment - TP 1 applic BID [facility] Administration Tamsulosin HCl 0.4 mg 07/21/19 08:30 07/23/19 09:54 Flomax - PO 0.4 mg DAILY@0830 [facility] Administration Impression 1. JESSE 2. hyperkalemia 3. htn 4. hld 5. brain lesion 6. right renal density 7. rhabdo Plan - renal function stable - cont fluids - repeat labs in am - check cpk in am - cpk improving - bilateral renal cysts on ct scan
--- NOTE | 2019-07-23 21:13 | PN ---
Progress Note, Physician - Current Medication List Current Medications: Active Medications Aspirin (Asa -) 81 mg PO DAILY [facility] Last Admin: 07/23/19 09:54 Dose: 81 mg Atorvastatin Calcium (Lipitor -) 80 mg PO HS [facility] Last Admin: 07/22/19 21:30 Dose: 80 mg Clopidogrel Bisulfate (Plavix -) 75 mg PO DAILY [facility] Last Admin: 07/23/19 09:54 Dose: 75 mg Heparin Sodium (Porcine) (Heparin -) 5,000 unit SQ BID [facility] Last Admin: 07/23/19 09:53 Dose: 5,000 unit Sodium Chloride (1/2 Normal Saline) 1,000 mls @ 60 mls/hr IV ASDIR [facility] Last Admin: 07/23/19 17:05 Dose: 60 mls/hr Vancomycin HCl 1,250 mg/ (Dextrose) 250 mls @ 166.667 mls/hr IVPB Q12H [facility]; Protocol Last Admin: 07/23/19 16:31 Dose: Not Given Vancomycin HCl 1,250 mg/ (Dextrose) 250 mls @ 166.667 mls/hr IVPB Q12H [facility]; Protocol Last Admin: 07/23/19 17:03 Dose: 166.667 mls/hr Metoprolol Tartrate (Lopressor -) 25 mg PO DAILY [facility] Last Admin: 07/23/19 09:54 Dose: 25 mg Mirtazapine (Remeron -) 15 mg PO HS [facility] Last Admin: 07/22/19 21:30 Dose: 15 mg Mupirocin (Bactroban 2% Ointment -) 1 applic TP BID [facility] Last Admin: 07/23/19 09:54 Dose: 1 applic Tamsulosin HCl (Flomax -) 0.4 mg PO DAILY@0830 [facility] Last Admin: 07/23/19 09:54 Dose: 0.4 mg - Objective Vital Signs: Vital Signs Temperature 97.5 F L 07/23/19 18:33 Pulse Rate 86 07/23/19 18:33 Respiratory Rate 20 07/23/19 18:33 Blood Pressure 109/57 L 07/23/19 18:33 O2 Sat by Pulse Oximetry (%) 95 07/22/19 09:00 Labs: CBC, BMP 07/21/19 07:46 07/22/19 10:56 INR, PTT INR 1.10 (0.83-1.09) H 07/20/19 15:50
[2019-07-23] MEDS: ATORVASTATIN CA 80 MG TABLET (FP) PO SCH (21:42)
[2019-07-23] MEDS: MIRTAZAPINE 15 MG TABLET (FP) PO SCH (21:42)
[2019-07-24] MEDS: VANCOMYCIN 1,250 MG in DEXTROSE 5%-WATER - 250 ML IVPB SCH ×2 (00:24→11:29)
[2019-07-24] MEDS: TAMSULOSIN HCL 0.4 MG CAP PO SCH (08:24)
[2019-07-24 09:49] LABS: BASO % 0.5 % (0-2.0); EOS % 1.1 % (0-4.5); HEMATOCRIT 30.7 % (35.4-49); HEMOGLOBIN 10.2 GM/dL (11.7-16.9); LYMPH % 17.2 % (8-40); MCH 27.2 pg (25.7-33.7); MCHC 33.1 g/dl (32.0-35.9); MEAN CELL VOLUME 82.2 fl (80-96); MEAN PLT VOLUME 7.5 fl (7.5-11.1); MONO % 6.9 % (3.8-10.2); NEUT % 74.3 % (42.8-82.8); PLATELET COUNT 512 K/MM3 (134-434); RBC 3.73 M/mm3 (4.00-5.60); RDW 15.7 % (11.9-15.9); WHITE BLOOD COUNT 11.4 K/mm3 (4.0-10.0)
[2019-07-24 10:23] LABS: ALBUMIN 1.6 g/dl (3.4-5.0); BILIRUBIN,TOTAL 0.6 mg/dL (0.2-1); CALCIUM 8.5 mg/dL (8.5-10.1); CREATININE 0.7 mg/dL (0.55-1.3); POTASSIUM 3.9 mmol/L (3.5-5.1); TOT PROT 5.3 g/dl (6.4-8.2)
[2019-07-24] MEDS: ASPIRIN 81 MG CHEWABLE TABLETS PO SCH (10:49)
[2019-07-24] MEDS: METOPROLOL TARTRATE 25 MG TABLET (FP) PO SCH (10:49)
[2019-07-24] MEDS: HEPARIN NA (PORCINE) 5,000 UNITS/ML 1ML VIAL SQ SCH ×2 (10:49→21:58)
[2019-07-24] MEDS: CLOPIDOGREL BISULFATE 75 MG TABLET (FP) PO SCH (10:49)
--- NOTE | 2019-07-24 10:52 | PN ---
Progress Note, Physician History of Present Illness: stable no new issues - Current Medication List Current Medications: Active Medications Aspirin (Asa -) 81 mg PO DAILY [facility] Last Admin: 07/23/19 09:54 Dose: 81 mg Atorvastatin Calcium (Lipitor -) 80 mg PO HS [facility] Last Admin: 07/23/19 21:42 Dose: 80 mg Clopidogrel Bisulfate (Plavix -) 75 mg PO DAILY [facility] Last Admin: 07/23/19 09:54 Dose: 75 mg Heparin Sodium (Porcine) (Heparin -) 5,000 unit SQ BID [facility] Last Admin: 07/23/19 21:43 Dose: 5,000 unit Sodium Chloride (1/2 Normal Saline) 1,000 mls @ 60 mls/hr IV ASDIR [facility] Last Admin: 07/23/19 17:05 Dose: 60 mls/hr Vancomycin HCl 1,250 mg/ (Dextrose) 250 mls @ 166.667 mls/hr IVPB Q12H [facility]; Protocol Last Admin: 07/24/19 00:24 Dose: Not Given Vancomycin HCl 1,250 mg/ (Dextrose) 250 mls @ 166.667 mls/hr IVPB Q12H [facility]; Protocol Last Admin: 07/23/19 17:03 Dose: 166.667 mls/hr Metoprolol Tartrate (Lopressor -) 25 mg PO DAILY [facility] Last Admin: 07/23/19 09:54 Dose: 25 mg Mirtazapine (Remeron -) 15 mg PO HS [facility] Last Admin: 07/23/19 21:42 Dose: 15 mg Mupirocin (Bactroban 2% Ointment -) 1 applic TP BID [facility] Last Admin: 07/23/19 21:43 Dose: 1 applic Tamsulosin HCl (Flomax -) 0.4 mg PO DAILY@0830 [facility] Last Admin: 07/24/19 08:24 Dose: 0.4 mg - Objective Vital Signs: Vital Signs Temperature 99.6 F 07/24/19 05:38 Pulse Rate 111 H 07/24/19 05:38 Respiratory Rate 20 07/24/19 05:38 Blood Pressure 127/60 07/24/19 05:38 O2 Sat by Pulse Oximetry (%) 95 07/22/19 09:00 Constitutional: Yes: No Distress, Calm Cardiovascular: Yes: S1, S2 Respiratory: Yes: Regular, CTA Bilaterally Gastrointestinal: Yes: Normal Bowel Sounds, Soft Musculoskeletal: Yes: WNL Extremities: Yes: Other Integumentary: Yes: Rash, Skin Tear, Other (wounds) Wound/Incision: Yes: Dressing Dry and Intact Neurological: Yes: Alert, Oriented Labs: CBC, BMP 07/24/19 08:52 07/24/19 08:52 INR, PTT INR 1.10 (0.83-1.09) H 07/20/19 15:50 Assessment/Plan Problem List - Problems (1) Hyperkalemia Code(s): E87.5 - HYPERKALEMIA (2) Dehydration Code(s): E86.0 - DEHYDRATION (3) Failure to thrive in adult Code(s): R62.7 - ADULT FAILURE TO THRIVE (4) Acute kidney injury Code(s): N17.9 - ACUTE KIDNEY FAILURE, UNSPECIFIED mrsa bactremia plan await for repeat blood cx wound care rest as per the team
[2019-07-24] MEDS: SODIUM CHLORIDE 0.45% 1,000 ML IV SCH (10:57)
[2019-07-24] MEDS: MUPIROCIN 2% TOPICAL OINTMENT 22 GM TUBE TP SCH ×2 (10:57→21:58)
[2019-07-24] MEDS ORDERED: VANCOMYCIN 1,250 MG in DEXTROSE 5%-WATER - 250 ML IVPB SCH (12:00)
--- NOTE | 2019-07-24 16:55 | PN ---
Progress Note, Physician History of Present Illness: Pt seen and examined at bedside. He is awake and appears comfortable. - Current Medication List Current Medications: Active Medications Aspirin (Asa -) 81 mg PO DAILY [facility] Last Admin: 07/24/19 10:49 Dose: 81 mg Atorvastatin Calcium (Lipitor -) 80 mg PO HS [facility] Last Admin: 07/23/19 21:42 Dose: 80 mg Clopidogrel Bisulfate (Plavix -) 75 mg PO DAILY [facility] Last Admin: 07/24/19 10:49 Dose: 75 mg Heparin Sodium (Porcine) (Heparin -) 5,000 unit SQ BID [facility] Last Admin: 07/24/19 10:49 Dose: 5,000 unit Sodium Chloride (1/2 Normal Saline) 1,000 mls @ 60 mls/hr IV ASDIR [facility] Last Admin: 07/24/19 10:57 Dose: 60 mls/hr Vancomycin HCl 1,250 mg/ (Dextrose) 250 mls @ 166.667 mls/hr IVPB Q12H [facility]; Protocol Metoprolol Tartrate (Lopressor -) 25 mg PO DAILY [facility] Last Admin: 07/24/19 10:49 Dose: 25 mg Mirtazapine (Remeron -) 15 mg PO HS [facility] Last Admin: 07/23/19 21:42 Dose: 15 mg Mupirocin (Bactroban 2% Ointment -) 1 applic TP BID [facility] Last Admin: 07/24/19 10:57 Dose: 1 applic Tamsulosin HCl (Flomax -) 0.4 mg PO DAILY@0830 [facility] Last Admin: 07/24/19 08:24 Dose: 0.4 mg - Objective Vital Signs: Vital Signs Temperature 97.3 F L 07/24/19 14:51 Pulse Rate 78 07/24/19 14:51 Respiratory Rate 20 07/24/19 14:51 Blood Pressure 105/46 L 07/24/19 14:51 O2 Sat by Pulse Oximetry (%) 95 07/22/19 09:00 Constitutional: Yes: Calm Eyes: Yes: Conjunctiva Clear HENT: Yes: Atraumatic Neck: Yes: Supple Cardiovascular: Yes: S1, S2 Respiratory: Yes: CTA Bilaterally Gastrointestinal: Yes: Soft Genitourinary: Yes: Dasilva Present Musculoskeletal: Yes: Muscle Weakness Edema: No Neurological: Yes: Oriented Labs: CBC, BMP 07/24/19 08:52 07/24/19 08:52 INR, PTT INR 1.10 (0.83-1.09) H 07/20/19 15:50 Problem List - Problems (1) Hyperkalemia Code(s): E87.5 - HYPERKALEMIA (2) Dehydration Code(s): E86.0 - DEHYDRATION (3) Failure to thrive in adult Code(s): R62.7 - ADULT FAILURE TO THRIVE (4) Acute kidney injury Code(s): N17.9 - ACUTE KIDNEY FAILURE, UNSPECIFIED Assessment/Plan Current Medications Generic Name Dose Route Start Last Admin Trade Name Freq PRN Reason Stop Dose Admin Aspirin 81 mg 07/21/19 10:00 07/24/19 10:49 Asa - PO 81 mg DAILY [facility] Administration Atorvastatin Calcium 80 mg 07/21/19 22:00 07/23/19 21:42 Lipitor - PO 80 mg HS [facility] Administration Clopidogrel Bisulfate 75 mg 07/21/19 10:00 07/24/19 10:49 Plavix - PO 75 mg DAILY [facility] Administration Heparin Sodium (Porcine) 5,000 unit 07/21/19 10:00 07/24/19 10:49 Heparin - SQ 5,000 unit BID [facility] Administration Sodium Chloride 1,000 mls @ 60 mls/hr 07/22/19 16:00 07/24/19 10:57 1/2 Normal Saline IV 60 mls/hr ASDIR [facility] Administration Vancomycin HCl 1,250 mg/ 250 mls @ 166.667 mls/hr 07/25/19 00:00 Dextrose IVPB Q12H [facility] Protocol Metoprolol Tartrate 25 mg 07/21/19 10:00 07/24/19 10:49 Lopressor - PO 25 mg DAILY [facility] Administration Mirtazapine 15 mg 07/21/19 22:00 07/23/19 21:42 Remeron - PO 15 mg HS [facility] Administration Mupirocin 1 applic 07/21/19 22:00 07/24/19 10:57 Bactroban 2% Ointment - TP 1 applic BID [facility] Administration Tamsulosin HCl 0.4 mg 07/21/19 08:30 07/24/19 08:24 Flomax - PO 0.4 mg DAILY@0830 [facility] Administration Impression 1. JESSE 2. hyperkalemia 3. htn 4. hld 5. brain lesion 6. right renal density 7. rhabdo Plan - repeat labs in am - cpk improving - cont gentle hydration - bilateral renal cysts on ct scan
[2019-07-24] MEDS: MIRTAZAPINE 15 MG TABLET (FP) PO SCH (21:58)
[2019-07-24] MEDS: ATORVASTATIN CA 80 MG TABLET (FP) PO SCH (21:58)
--- NOTE | 2019-07-24 22:22 | PN ---
Progress Note, Physician - Current Medication List Current Medications: Active Medications Aspirin (Asa -) 81 mg PO DAILY [facility] Last Admin: 07/24/19 10:49 Dose: 81 mg Atorvastatin Calcium (Lipitor -) 80 mg PO HS [facility] Last Admin: 07/24/19 21:58 Dose: 80 mg Clopidogrel Bisulfate (Plavix -) 75 mg PO DAILY [facility] Last Admin: 07/24/19 10:49 Dose: 75 mg Heparin Sodium (Porcine) (Heparin -) 5,000 unit SQ BID [facility] Last Admin: 07/24/19 21:58 Dose: 5,000 unit Sodium Chloride (1/2 Normal Saline) 1,000 mls @ 60 mls/hr IV ASDIR [facility] Last Admin: 07/24/19 10:57 Dose: 60 mls/hr Vancomycin HCl 1,250 mg/ (Dextrose) 250 mls @ 166.667 mls/hr IVPB Q12H [facility]; Protocol Metoprolol Tartrate (Lopressor -) 25 mg PO DAILY [facility] Last Admin: 07/24/19 10:49 Dose: 25 mg Mirtazapine (Remeron -) 15 mg PO HS [facility] Last Admin: 07/24/19 21:58 Dose: 15 mg Mupirocin (Bactroban 2% Ointment -) 1 applic TP BID [facility] Last Admin: 07/24/19 21:58 Dose: 1 applic Tamsulosin HCl (Flomax -) 0.4 mg PO DAILY@0830 [facility] Last Admin: 07/24/19 08:24 Dose: 0.4 mg - Objective Vital Signs: Vital Signs Temperature 97.7 F 07/24/19 19:00 Pulse Rate 92 H 07/24/19 19:00 Respiratory Rate 18 07/24/19 19:00 Blood Pressure 122/67 07/24/19 19:00 O2 Sat by Pulse Oximetry (%) 95 07/22/19 09:00 Labs: CBC, BMP 07/24/19 08:52 07/24/19 08:52 INR, PTT INR 1.10 (0.83-1.09) H 07/20/19 15:50
[2019-07-25] MEDS: VANCOMYCIN 1,250 MG in DEXTROSE 5%-WATER - 250 ML IVPB SCH ×3 (00:48→23:31)
[2019-07-25] MEDS: TAMSULOSIN HCL 0.4 MG CAP PO SCH (08:48)
[2019-07-25 08:51] LABS: ALBUMIN 1.4 g/dl (3.4-5.0); BILIRUBIN,TOTAL 0.4 mg/dL (0.2-1); BLOOD UREA NITROGEN 11.5 mg/dL (7-18); CALCIUM 8.3 mg/dL (8.5-10.1); CREATININE 0.8 mg/dL (0.55-1.3); POTASSIUM 4.9 mmol/L (3.5-5.1); TOT PROT 5.2 g/dl (6.4-8.2)
[2019-07-25] MEDS ORDERED: PT OWN MED DRAWER 7, Y5N ONE ×2 (10:23→23:21)
[2019-07-25] MEDS: SODIUM CHLORIDE 0.45% 1,000 ML IV SCH (10:30)
[2019-07-25] MEDS: ASPIRIN 81 MG CHEWABLE TABLETS PO SCH (10:31)
[2019-07-25] MEDS: HEPARIN NA (PORCINE) 5,000 UNITS/ML 1ML VIAL SQ SCH ×2 (10:31→21:58)
[2019-07-25] MEDS: METOPROLOL TARTRATE 25 MG TABLET (FP) PO SCH (10:31)
[2019-07-25] MEDS: CLOPIDOGREL BISULFATE 75 MG TABLET (FP) PO SCH (10:31)
[2019-07-25] MEDS: MUPIROCIN 2% TOPICAL OINTMENT 22 GM TUBE TP SCH ×2 (10:35→22:00)
--- NOTE | 2019-07-25 18:22 | PN ---
Progress Note, Physician History of Present Illness: Pt seen and examined at bedside. He has no complaints. - Current Medication List Current Medications: Active Medications Aspirin (Asa -) 81 mg PO DAILY [facility] Last Admin: 07/25/19 10:31 Dose: 81 mg Atorvastatin Calcium (Lipitor -) 80 mg PO HS [facility] Last Admin: 07/24/19 21:58 Dose: 80 mg Clopidogrel Bisulfate (Plavix -) 75 mg PO DAILY [facility] Last Admin: 07/25/19 10:31 Dose: 75 mg Heparin Sodium (Porcine) (Heparin -) 5,000 unit SQ BID [facility] Last Admin: 07/25/19 10:31 Dose: 5,000 unit Sodium Chloride (1/2 Normal Saline) 1,000 mls @ 60 mls/hr IV ASDIR [facility] Last Admin: 07/25/19 10:30 Dose: 60 mls/hr Vancomycin HCl 1,250 mg/ (Dextrose) 250 mls @ 166.667 mls/hr IVPB Q12H [facility]; Protocol Last Admin: 07/25/19 12:12 Dose: 166.667 mls/hr Metoprolol Tartrate (Lopressor -) 25 mg PO DAILY [facility] Last Admin: 07/25/19 10:31 Dose: 25 mg Mirtazapine (Remeron -) 15 mg PO HS [facility] Last Admin: 07/24/19 21:58 Dose: 15 mg Mupirocin (Bactroban 2% Ointment -) 1 applic TP BID [facility] Last Admin: 07/25/19 10:35 Dose: 1 applic Tamsulosin HCl (Flomax -) 0.4 mg PO DAILY@0830 [facility] Last Admin: 07/25/19 08:48 Dose: 0.4 mg - Objective Vital Signs: Vital Signs Temperature 98.0 F 07/25/19 13:29 Pulse Rate 84 07/25/19 13:29 Respiratory Rate 18 07/25/19 13:29 Blood Pressure 134/71 07/25/19 13:29 O2 Sat by Pulse Oximetry (%) 95 07/22/19 09:00 Constitutional: Yes: Calm Eyes: Yes: Conjunctiva Clear HENT: Yes: Atraumatic Neck: Yes: Supple Cardiovascular: Yes: S1, S2 Respiratory: Yes: CTA Bilaterally Gastrointestinal: Yes: WNL Genitourinary: Yes: Incontinence Edema: LUE: Trace, RUE: Trace, LLE: Trace, RLE: Trace Neurological: Yes: Confusion Labs: CBC, BMP 07/25/19 07:13 07/25/19 07:13 INR, PTT INR 1.10 (0.83-1.09) H 07/20/19 15:50 Problem List - Problems (1) Hyperkalemia Code(s): E87.5 - HYPERKALEMIA (2) Dehydration Code(s): E86.0 - DEHYDRATION (3) Failure to thrive in adult Code(s): R62.7 - ADULT FAILURE TO THRIVE (4) Acute kidney injury Code(s): N17.9 - ACUTE KIDNEY FAILURE, UNSPECIFIED Assessment/Plan Current Medications Generic Name Dose Route Start Last Admin Trade Name Freq PRN Reason Stop Dose Admin Aspirin 81 mg 07/21/19 10:00 07/25/19 10:31 Asa - PO 81 mg DAILY [facility] Administration Atorvastatin Calcium 80 mg 07/21/19 22:00 07/24/19 21:58 Lipitor - PO 80 mg HS [facility] Administration Clopidogrel Bisulfate 75 mg 07/21/19 10:00 07/25/19 10:31 Plavix - PO 75 mg DAILY [facility] Administration Heparin Sodium (Porcine) 5,000 unit 07/21/19 10:00 07/25/19 10:31 Heparin - SQ 5,000 unit BID [facility] Administration Sodium Chloride 1,000 mls @ 60 mls/hr 07/22/19 16:00 07/25/19 10:30 1/2 Normal Saline IV 60 mls/hr ASDIR [facility] Administration Vancomycin HCl 1,250 mg/ 250 mls @ 166.667 mls/hr 07/25/19 00:00 07/25/19 12: 12 Dextrose IVPB 166.667 mls/hr Q12H [facility] Administration Protocol Metoprolol Tartrate 25 mg 07/21/19 10:00 07/25/19 10:31 Lopressor - PO 25 mg DAILY [facility] Administration Mirtazapine 15 mg 07/21/19 22:00 07/24/19 21:58 Remeron - PO 15 mg HS [facility] Administration Mupirocin 1 applic 07/21/19 22:00 07/25/19 10:35 Bactroban 2% Ointment - TP 1 applic BID [facility] Administration Tamsulosin HCl 0.4 mg 07/21/19 08:30 07/25/19 08:48 Flomax - PO 0.4 mg DAILY@0830 [facility] Administration Impression 1. JESSE 2. hyperkalemia 3. htn 4. hld 5. brain lesion 6. right renal density 7. rhabdo Plan - can stop fluids - check cpk in am - encourage po intake - bilateral renal cysts on ct scan
[2019-07-25] MEDS ORDERED: FUROSEMIDE 20 MG TABLET (FP) PO ONE (18:23)
[2019-07-25] MEDS: ATORVASTATIN CA 80 MG TABLET (FP) PO SCH (21:58)
[2019-07-25] MEDS: MIRTAZAPINE 15 MG TABLET (FP) PO SCH (21:58)
--- NOTE | 2019-07-25 23:31 | PN ---
Progress Note, Physician History of Present Illness: No new complaints - Current Medication List Current Medications: Active Medications Aspirin (Asa -) 81 mg PO DAILY [facility] Last Admin: 07/25/19 10:31 Dose: 81 mg Atorvastatin Calcium (Lipitor -) 80 mg PO HS [facility] Last Admin: 07/25/19 21:58 Dose: 80 mg Clopidogrel Bisulfate (Plavix -) 75 mg PO DAILY [facility] Last Admin: 07/25/19 10:31 Dose: 75 mg Heparin Sodium (Porcine) (Heparin -) 5,000 unit SQ BID [facility] Last Admin: 07/25/19 21:58 Dose: 5,000 unit Vancomycin HCl 1,250 mg/ (Dextrose) 250 mls @ 166.667 mls/hr IVPB Q12H [facility]; Protocol Last Admin: 07/25/19 23:31 Dose: 166.667 mls/hr Metoprolol Tartrate (Lopressor -) 25 mg PO DAILY [facility] Last Admin: 07/25/19 10:31 Dose: 25 mg Mirtazapine (Remeron -) 15 mg PO HS [facility] Last Admin: 07/25/19 21:58 Dose: 15 mg Mupirocin (Bactroban 2% Ointment -) 1 applic TP BID [facility] Last Admin: 07/25/19 22:00 Dose: 1 applic Tamsulosin HCl (Flomax -) 0.4 mg PO DAILY@0830 [facility] Last Admin: 07/25/19 08:48 Dose: 0.4 mg - Objective Vital Signs: Vital Signs Temperature 98.5 F 07/25/19 18:00 Pulse Rate 97 H 07/25/19 18:00 Respiratory Rate 18 07/25/19 18:00 Blood Pressure 115/66 07/25/19 18:00 O2 Sat by Pulse Oximetry (%) 95 07/22/19 09:00 Cardiovascular: Yes: WNL, Regular Rate and Rhythm Respiratory: Yes: WNL, Regular, CTA Bilaterally Gastrointestinal: Yes: WNL, Normal Bowel Sounds, Soft Labs: CBC, BMP 07/25/19 07:13 07/25/19 07:13 INR, PTT INR 1.10 (0.83-1.09) H 07/20/19 15:50 Problem List - Problems (1) Bacteremia Assessment/Plan: BC (+) for MRSA Cont IV vanco Repeat blood cultures pending Code(s): R78.81 - BACTEREMIA (2) Rhabdomyolysis Assessment/Plan: Cont to trend CPK Given IVF Code(s): M62.82 - RHABDOMYOLYSIS (3) HTN (hypertension) Assessment/Plan: BP stable Code(s): I10 - ESSENTIAL (PRIMARY) HYPERTENSION (4) Failure to thrive in adult Code(s): R62.7 - ADULT FAILURE TO THRIVE (5) Altered mental status Code(s): R41.82 - ALTERED MENTAL STATUS, UNSPECIFIED (6) Dementia Code(s): F03.90 - UNSPECIFIED DEMENTIA WITHOUT BEHAVIORAL DISTURBANCE (7) HLD (hyperlipidemia) Assessment/Plan: Cont lipitor Code(s): E78.5 - HYPERLIPIDEMIA, UNSPECIFIED
[2019-07-26] MEDS: TAMSULOSIN HCL 0.4 MG CAP PO SCH (09:20)
[2019-07-26] MEDS: METOPROLOL TARTRATE 25 MG TABLET (FP) PO SCH (09:20)
[2019-07-26] MEDS: ASPIRIN 81 MG CHEWABLE TABLETS PO SCH (09:20)
[2019-07-26] MEDS: CLOPIDOGREL BISULFATE 75 MG TABLET (FP) PO SCH (09:20)
[2019-07-26] MEDS: HEPARIN NA (PORCINE) 5,000 UNITS/ML 1ML VIAL SQ SCH ×2 (09:20→22:10)
[2019-07-26] MEDS: MUPIROCIN 2% TOPICAL OINTMENT 22 GM TUBE TP SCH ×2 (09:24→22:11)
--- NOTE | 2019-07-26 11:33 | PN ---
Progress Note, Physician History of Present Illness: stable no new issues - Current Medication List Current Medications: Active Medications Aspirin (Asa -) 81 mg PO DAILY [facility] Last Admin: 07/26/19 09:20 Dose: 81 mg Atorvastatin Calcium (Lipitor -) 80 mg PO HS [facility] Last Admin: 07/25/19 21:58 Dose: 80 mg Clopidogrel Bisulfate (Plavix -) 75 mg PO DAILY [facility] Last Admin: 07/26/19 09:20 Dose: 75 mg Heparin Sodium (Porcine) (Heparin -) 5,000 unit SQ BID [facility] Last Admin: 07/26/19 09:20 Dose: 5,000 unit Vancomycin HCl 1,250 mg/ (Dextrose) 250 mls @ 166.667 mls/hr IVPB Q12H [facility]; Protocol Last Admin: 07/25/19 23:31 Dose: 166.667 mls/hr Metoprolol Tartrate (Lopressor -) 25 mg PO DAILY [facility] Last Admin: 07/26/19 09:20 Dose: 25 mg Mirtazapine (Remeron -) 15 mg PO HS [facility] Last Admin: 07/25/19 21:58 Dose: 15 mg Mupirocin (Bactroban 2% Ointment -) 1 applic TP BID [facility] Last Admin: 07/26/19 09:24 Dose: 1 applic Tamsulosin HCl (Flomax -) 0.4 mg PO DAILY@0830 [facility] Last Admin: 07/26/19 09:20 Dose: 0.4 mg - Objective Vital Signs: Vital Signs Temperature 99.2 F 07/26/19 06:00 Pulse Rate 114 H 07/26/19 06:00 Respiratory Rate 22 H 07/26/19 06:00 Blood Pressure 124/72 07/26/19 06:00 O2 Sat by Pulse Oximetry (%) 95 07/22/19 09:00 Constitutional: Yes: No Distress, Calm Cardiovascular: Yes: S1, S2 Respiratory: Yes: Regular, CTA Bilaterally Gastrointestinal: Yes: Normal Bowel Sounds, Soft Musculoskeletal: Yes: Other Extremities: Yes: Other Neurological: Yes: Alert, Other Labs: CBC, BMP 07/25/19 07:13 07/25/19 07:13 INR, PTT INR 1.10 (0.83-1.09) H 07/20/19 15:50 Assessment/Plan Problem List - Problems (1) Hyperkalemia Code(s): E87.5 - HYPERKALEMIA (2) Dehydration Code(s): E86.0 - DEHYDRATION (3) Failure to thrive in adult Code(s): R62.7 - ADULT FAILURE TO THRIVE (4) Acute kidney injury Code(s): N17.9 - ACUTE KIDNEY FAILURE, UNSPECIFIED mrsa bactremia plan await for repeat blood cx wound care rest as per the team wound care
--- NOTE | 2019-07-26 11:35 | PN ---
Progress Note, Physician History of Present Illness: stable no new issues - Current Medication List Current Medications: Active Medications Aspirin (Asa -) 81 mg PO DAILY [facility] Last Admin: 07/26/19 09:20 Dose: 81 mg Atorvastatin Calcium (Lipitor -) 80 mg PO HS [facility] Last Admin: 07/25/19 21:58 Dose: 80 mg Clopidogrel Bisulfate (Plavix -) 75 mg PO DAILY [facility] Last Admin: 07/26/19 09:20 Dose: 75 mg Heparin Sodium (Porcine) (Heparin -) 5,000 unit SQ BID [facility] Last Admin: 07/26/19 09:20 Dose: 5,000 unit Vancomycin HCl 1,250 mg/ (Dextrose) 250 mls @ 166.667 mls/hr IVPB Q12H [facility]; Protocol Last Admin: 07/25/19 23:31 Dose: 166.667 mls/hr Metoprolol Tartrate (Lopressor -) 25 mg PO DAILY [facility] Last Admin: 07/26/19 09:20 Dose: 25 mg Mirtazapine (Remeron -) 15 mg PO HS [facility] Last Admin: 07/25/19 21:58 Dose: 15 mg Mupirocin (Bactroban 2% Ointment -) 1 applic TP BID [facility] Last Admin: 07/26/19 09:24 Dose: 1 applic Tamsulosin HCl (Flomax -) 0.4 mg PO DAILY@0830 [facility] Last Admin: 07/26/19 09:20 Dose: 0.4 mg - Objective Vital Signs: Vital Signs Temperature 99.2 F 07/26/19 06:00 Pulse Rate 114 H 07/26/19 06:00 Respiratory Rate 22 H 07/26/19 06:00 Blood Pressure 124/72 07/26/19 06:00 O2 Sat by Pulse Oximetry (%) 95 07/22/19 09:00 Constitutional: Yes: No Distress, Calm Cardiovascular: Yes: S1, S2 Respiratory: Yes: Regular, CTA Bilaterally Gastrointestinal: Yes: Normal Bowel Sounds, Soft Musculoskeletal: Yes: WNL Extremities: Yes: Other Neurological: Yes: Alert, Confusion Psychiatric: Yes: Alert Labs: CBC, BMP 07/25/19 07:13 07/25/19 07:13 INR, PTT INR 1.10 (0.83-1.09) H 07/20/19 15:50 Assessment/Plan Problem List - Problems (1) Hyperkalemia Code(s): E87.5 - HYPERKALEMIA (2) Dehydration Code(s): E86.0 - DEHYDRATION (3) Failure to thrive in adult Code(s): R62.7 - ADULT FAILURE TO THRIVE (4) Acute kidney injury Code(s): N17.9 - ACUTE KIDNEY FAILURE, UNSPECIFIED mrsa bactremia plan repeat blood cx negative for 2 weeks abx rest as per the team wound care
[2019-07-26] MEDS: VANCOMYCIN 1,250 MG in DEXTROSE 5%-WATER - 250 ML IVPB SCH (15:03)
--- NOTE | 2019-07-26 16:07 | PN ---
Progress Note, Physician History of Present Illness: Pt seen and examined at bedside. He appears comfortable. - Current Medication List Current Medications: Active Medications Aspirin (Asa -) 81 mg PO DAILY [facility] Last Admin: 07/26/19 09:20 Dose: 81 mg Atorvastatin Calcium (Lipitor -) 80 mg PO HS [facility] Last Admin: 07/25/19 21:58 Dose: 80 mg Clopidogrel Bisulfate (Plavix -) 75 mg PO DAILY [facility] Last Admin: 07/26/19 09:20 Dose: 75 mg Heparin Sodium (Porcine) (Heparin -) 5,000 unit SQ BID [facility] Last Admin: 07/26/19 09:20 Dose: 5,000 unit Vancomycin HCl 1,250 mg/ (Dextrose) 250 mls @ 166.667 mls/hr IVPB Q12H [facility]; Protocol Last Admin: 07/26/19 15:03 Dose: Not Given Metoprolol Tartrate (Lopressor -) 25 mg PO DAILY [facility] Last Admin: 07/26/19 09:20 Dose: 25 mg Mirtazapine (Remeron -) 15 mg PO [facility] Last Admin: 07/25/19 21:58 Dose: 15 mg Mupirocin (Bactroban 2% Ointment -) 1 applic TP BID [facility] Last Admin: 07/26/19 09:24 Dose: 1 applic Tamsulosin HCl (Flomax -) 0.4 mg PO DAILY@0830 [facility] Last Admin: 07/26/19 09:20 Dose: 0.4 mg - Objective Vital Signs: Vital Signs Temperature 99 F 07/26/19 14:42 Pulse Rate 117 H 07/26/19 14:42 Respiratory Rate 80 H 07/26/19 14:42 Blood Pressure 141/81 07/26/19 14:42 O2 Sat by Pulse Oximetry (%) 95 07/22/19 09:00 Constitutional: Yes: Calm Eyes: Yes: Conjunctiva Clear HENT: Yes: Atraumatic Cardiovascular: Yes: S1, S2 Respiratory: Yes: CTA Bilaterally Gastrointestinal: Yes: Soft Genitourinary: Yes: WNL Musculoskeletal: Yes: WNL Edema: No Neurological: Yes: Oriented Psychiatric: Yes: Oriented Labs: CBC, BMP 07/25/19 07:13 07/25/19 07:13 INR, PTT INR 1.10 (0.83-1.09) H 02/04/20 15:50 Problem List - Problems (1) Hyperkalemia Code(s): E87.5 - HYPERKALEMIA (2) Dehydration Code(s): E86.0 - DEHYDRATION (3) Failure to thrive in adult Code(s): R62.7 - ADULT FAILURE TO THRIVE (4) Acute kidney injury Code(s): N17.9 - ACUTE KIDNEY FAILURE, UNSPECIFIED Assessment/Plan Current Medications Generic Name Dose Route Start Last Admin Trade Name Iza PRN Reason Stop Dose Admin Aspirin 81 mg 07/21/19 10:00 07/26/19 09:20 Asa - PO 81 mg DAILY MELA Administration Atorvastatin Calcium 80 mg 07/21/19 22:00 07/25/19 21:58 Lipitor - PO 80 mg HS MELA Administration Clopidogrel Bisulfate 75 mg 07/21/19 10:00 07/26/19 09:20 Plavix - PO 75 mg DAILY MELA Administration Heparin Sodium (Porcine) 5,000 unit 07/21/19 10:00 07/26/19 09:20 Heparin - SQ 5,000 unit BID [facility] Administration Vancomycin HCl 1,250 mg/ 250 mls @ 166.667 mls/hr 07/25/19 00:00 07/26/19 15: 03 Dextrose IVPB Not Given Q12H [facility] Protocol Metoprolol Tartrate 25 mg 07/21/19 10:00 07/26/19 09:20 Lopressor - PO 25 mg DAILY [facility]A Administration Mirtazapine 15 mg 07/21/19 22:00 07/25/19 21:58 Remeron - PO 15 mg HS MELA Administration Mupirocin 1 applic 07/21/19 22:00 07/26/19 09:24 Bactroban 2% Ointment - TP 1 applic BID MELA Administration Tamsulosin HCl 0.4 mg 07/21/19 08:30 07/26/19 09:20 Flomax - PO 0.4 mg DAILY@0830 MELA Administration Impression 1. JESSE 2. hyperkalemia 3. htn 4. hld 5. brain lesion 6. right renal density 7. rhabdo Plan - volume status stable off of fluids - repeat labs in am - check cpk - encourage po intake - bilateral renal cysts on ct scan
--- NOTE | 2019-07-26 17:37 | PN ---
Progress Note, Physician - Current Medication List Current Medications: Active Medications Aspirin (Asa -) 81 mg PO DAILY [facility] Last Admin: 07/26/19 09:20 Dose: 81 mg Atorvastatin Calcium (Lipitor -) 80 mg PO HS [facility] Last Admin: 07/25/19 21:58 Dose: 80 mg Clopidogrel Bisulfate (Plavix -) 75 mg PO DAILY [facility] Last Admin: 07/26/19 09:20 Dose: 75 mg Heparin Sodium (Porcine) (Heparin -) 5,000 unit SQ BID [facility] Last Admin: 07/26/19 09:20 Dose: 5,000 unit Metoprolol Tartrate (Lopressor -) 25 mg PO DAILY [facility] Last Admin: 07/26/19 09:20 Dose: 25 mg Mirtazapine (Remeron -) 15 mg PO HS [facility] Last Admin: 07/25/19 21:58 Dose: 15 mg Mupirocin (Bactroban 2% Ointment -) 1 applic TP BID [facility] Last Admin: 07/26/19 09:24 Dose: 1 applic Tamsulosin HCl (Flomax -) 0.4 mg PO DAILY@0830 [facility] Last Admin: 07/26/19 09:20 Dose: 0.4 mg - Objective Vital Signs: Vital Signs Temperature 99 F 07/26/19 14:42 Pulse Rate 117 H 07/26/19 14:42 Respiratory Rate 80 H 07/26/19 14:42 Blood Pressure 141/81 07/26/19 14:42 O2 Sat by Pulse Oximetry (%) 95 07/22/19 09:00 Constitutional: Yes: No Distress HENT: Yes: Atraumatic Neck: Yes: Supple Cardiovascular: Yes: Regular Rate and Rhythm Respiratory: Yes: Rhonchi Gastrointestinal: Yes: Normal Bowel Sounds Extremities: Yes: WNL Edema: No Neurological: Yes: Alert Labs: CBC, BMP 07/25/19 07:13 07/25/19 07:13 INR, PTT INR 1.10 (0.83-1.09) H 07/20/19 15:50 Problem List - Problems (1) Bacteremia Assessment/Plan: COMPLETED ABX COURSE ID ON BOARD Code(s): R78.81 - BACTEREMIA (2) Failure to thrive in adult Code(s): R62.7 - ADULT FAILURE TO THRIVE (3) Rhabdomyolysis Assessment/Plan: MONITOR IMPROVING Code(s): M62.82 - RHABDOMYOLYSIS (4) HLD (hyperlipidemia) Assessment/Plan: ON MEDS Code(s): E78.5 - HYPERLIPIDEMIA, UNSPECIFIED (5) HTN (hypertension) Assessment/Plan: ON MEDS Code(s): I10 - ESSENTIAL (PRIMARY) HYPERTENSION Assessment/Plan COVERING FOR DR ZAYAS TODAY
[2019-07-26] MEDS: MIRTAZAPINE 15 MG TABLET (FP) PO SCH (22:11)
[2019-07-26] MEDS: ATORVASTATIN CA 80 MG TABLET (FP) PO SCH (22:11)
[2019-07-27] MEDS: TAMSULOSIN HCL 0.4 MG CAP PO SCH (08:13)
[2019-07-27 08:48] LABS: ALBUMIN 1.2 g/dl (3.4-5.0); BILIRUBIN,TOTAL 0.5 mg/dL (0.2-1); BLOOD UREA NITROGEN 14.8 mg/dL (7-18); CALCIUM 8.3 mg/dL (8.5-10.1); POTASSIUM 5.6 mmol/L (3.5-5.1); TOT PROT 4.7 g/dl (6.4-8.2)
[2019-07-27] MEDS: CLOPIDOGREL BISULFATE 75 MG TABLET (FP) PO SCH (10:52)
[2019-07-27] MEDS: METOPROLOL TARTRATE 25 MG TABLET (FP) PO SCH (10:52)
[2019-07-27] MEDS: HEPARIN NA (PORCINE) 5,000 UNITS/ML 1ML VIAL SQ SCH (10:52)
[2019-07-27] MEDS: ASPIRIN 81 MG CHEWABLE TABLETS PO SCH (10:52)
[2019-07-27] MEDS: MUPIROCIN 2% TOPICAL OINTMENT 22 GM TUBE TP SCH (10:52)
--- NOTE | 2019-07-27 15:01 | PN ---
Progress Note, Physician History of Present Illness: Pt seen and examined at bedside. He is awake and appears comfortable. - Current Medication List Current Medications: Active Medications Aspirin (Asa -) 81 mg PO DAILY [facility] Last Admin: 07/27/19 10:52 Dose: 81 mg Atorvastatin Calcium (Lipitor -) 80 mg PO HS [facility] Last Admin: 07/26/19 22:11 Dose: 80 mg Clopidogrel Bisulfate (Plavix -) 75 mg PO DAILY [facility] Last Admin: 07/27/19 10:52 Dose: 75 mg Heparin Sodium (Porcine) (Heparin -) 5,000 unit SQ BID [facility] Last Admin: 07/27/19 10:52 Dose: 5,000 unit Metoprolol Tartrate (Lopressor -) 25 mg PO DAILY [facility] Last Admin: 07/27/19 10:52 Dose: 25 mg Mirtazapine (Remeron -) 15 mg PO HS [facility] Last Admin: 07/26/19 22:11 Dose: 15 mg Mupirocin (Bactroban 2% Ointment -) 1 applic TP BID [facility] Last Admin: 07/27/19 10:52 Dose: 1 applic Sodium Zirconium Cyclosilicate (Lokelma) 10 gm PO DAILY [facility] Tamsulosin HCl (Flomax -) 0.4 mg PO DAILY@0830 [facility] Last Admin: 07/27/19 08:13 Dose: 0.4 mg - Objective Vital Signs: Vital Signs Temperature 98.4 F 07/27/19 10:00 Pulse Rate 102 H 07/27/19 10:00 Respiratory Rate 20 07/27/19 10:00 Blood Pressure 136/70 07/27/19 10:00 O2 Sat by Pulse Oximetry (%) 95 07/22/19 09:00 Constitutional: Yes: Calm Eyes: Yes: Conjunctiva Clear HENT: Yes: Atraumatic Neck: Yes: Supple Cardiovascular: Yes: S1, S2 Respiratory: Yes: CTA Bilaterally Gastrointestinal: Yes: Soft Genitourinary: Yes: Incontinence Musculoskeletal: Yes: Muscle Weakness Edema: No Neurological: Yes: Confusion Labs: CBC, BMP 07/25/19 07:13 07/27/19 07:35 INR, PTT INR 1.10 (0.83-1.09) H 07/20/19 15:50 Problem List - Problems (1) Hyperkalemia Code(s): E87.5 - HYPERKALEMIA (2) Dehydration Code(s): E86.0 - DEHYDRATION (3) Failure to thrive in adult Code(s): R62.7 - ADULT FAILURE TO THRIVE (4) Acute kidney injury Code(s): N17.9 - ACUTE KIDNEY FAILURE, UNSPECIFIED Assessment/Plan Current Medications Generic Name Dose Route Start Last Admin Trade Name Ollieq PRN Reason Stop Dose Admin Aspirin 81 mg 07/21/19 10:00 07/27/19 10:52 Asa - PO 81 mg DAILY [facility] Administration Atorvastatin Calcium 80 mg 07/21/19 22:00 07/26/19 22:11 Lipitor - PO 80 mg HS [facility] Administration Clopidogrel Bisulfate 75 mg 07/21/19 10:00 07/27/19 10:52 Plavix - PO 75 mg DAILY [facility] Administration Heparin Sodium (Porcine) 5,000 unit 07/21/19 10:00 07/27/19 10:52 Heparin - SQ 5,000 unit BID [facility]A Administration Metoprolol Tartrate 25 mg 07/21/19 10:00 07/27/19 10:52 Lopressor - PO 25 mg DAILY [facility] Administration Mirtazapine 15 mg 07/21/19 22:00 07/26/19 22:11 Remeron - PO 15 mg HS [facility] Administration Mupirocin 1 applic 07/21/19 22:00 07/27/19 10:52 Bactroban 2% Ointment - TP 1 applic BID [facility]A Administration Sodium Zirconium Cyclosilicate 10 gm 07/27/19 15:00 Lokelma PO DAILY [facility] Tamsulosin HCl 0.4 mg 07/21/19 08:30 07/27/19 08:13 Flomax - PO 0.4 mg DAILY@0830 [facility] Administration Impression 1. JESSE 2. hyperkalemia 3. htn 4. hld 5. brain lesion 6. right renal density 7. rhabdo Plan - will treat potassium medically - repeat labs in am - resume gentle hydration - cpk improving - bilateral renal cysts on ct scan
[2019-07-27] MEDS ORDERED: FUROSEMIDE 20 MG TABLET (FP) PO ONE (15:15)
[2019-07-27] MEDS ORDERED: SODIUM CHLORIDE 0.45% 1,000 ML IV SCH (15:15)
--- NOTE | 2019-07-27 16:37 | PN ---
Progress Note, Physician History of Present Illness: clinically stable no issues - Current Medication List Current Medications: Active Medications Aspirin (Asa -) 81 mg PO DAILY [facility] Last Admin: 07/27/19 10:52 Dose: 81 mg Atorvastatin Calcium (Lipitor -) 80 mg PO HS [facility] Last Admin: 07/26/19 22:11 Dose: 80 mg Clopidogrel Bisulfate (Plavix -) 75 mg PO DAILY [facility] Last Admin: 07/27/19 10:52 Dose: 75 mg Heparin Sodium (Porcine) (Heparin -) 5,000 unit SQ BID [facility] Last Admin: 07/27/19 10:52 Dose: 5,000 unit Sodium Chloride (1/2 Normal Saline) 1,000 mls @ 50 mls/hr IV ASDIR [facility] Stop: 07/28/19 15:02 Metoprolol Tartrate (Lopressor -) 25 mg PO DAILY [facility] Last Admin: 07/27/19 10:52 Dose: 25 mg Mirtazapine (Remeron -) 15 mg PO HS [facility] Last Admin: 07/26/19 22:11 Dose: 15 mg Mupirocin (Bactroban 2% Ointment -) 1 applic TP BID [facility] Last Admin: 07/27/19 10:52 Dose: 1 applic Sodium Zirconium Cyclosilicate (Lokelma) 10 gm PO DAILY [facility] Tamsulosin HCl (Flomax -) 0.4 mg PO DAILY@0830 [facility] Last Admin: 07/27/19 08:13 Dose: 0.4 mg - Objective Vital Signs: Vital Signs Temperature 98.4 F 07/27/19 10:00 Pulse Rate 102 H 07/27/19 10:00 Respiratory Rate 20 07/27/19 10:00 Blood Pressure 136/70 07/27/19 10:00 O2 Sat by Pulse Oximetry (%) 95 07/22/19 09:00 Constitutional: Yes: No Distress, Calm Cardiovascular: Yes: S1, S2 Respiratory: Yes: Regular, CTA Bilaterally Gastrointestinal: Yes: Normal Bowel Sounds, Soft Musculoskeletal: Yes: WNL Extremities: Yes: Other Integumentary: Yes: Rash Wound/Incision: Yes: Dressing Dry and Intact Neurological: Yes: Alert Labs: CBC, BMP 07/25/19 07:13 07/27/19 07:35 INR, PTT INR 1.10 (0.83-1.09) H 07/20/19 15:50 Assessment/Plan Problem List - Problems (1) Hyperkalemia Code(s): E87.5 - HYPERKALEMIA (2) Dehydration Code(s): E86.0 - DEHYDRATION (3) Failure to thrive in adult Code(s): R62.7 - ADULT FAILURE TO THRIVE (4) Acute kidney injury Code(s): N17.9 - ACUTE KIDNEY FAILURE, UNSPECIFIED mrsa bactremia plan continue current mgmt wound care monitor wbc rest as per the team
[2019-07-27] MEDS: SODIUM ZIRCONIUM CYCLOSILICATE (LOKELMA) 5 GM PACKET PO SCH (18:44)
--- NOTE | 2019-07-27 23:16 | PN ---
Progress Note, Physician History of Present Illness: No new complaints - Current Medication List Current Medications: Active Medications Aspirin (Asa -) 81 mg PO DAILY [facility] Last Admin: 07/27/19 10:52 Dose: 81 mg Atorvastatin Calcium (Lipitor -) 80 mg PO HS [facility] Last Admin: 07/26/19 22:11 Dose: 80 mg Clopidogrel Bisulfate (Plavix -) 75 mg PO DAILY [facility] Last Admin: 07/27/19 10:52 Dose: 75 mg Heparin Sodium (Porcine) (Heparin -) 5,000 unit SQ BID [facility] Last Admin: 07/27/19 10:52 Dose: 5,000 unit Sodium Chloride (1/2 Normal Saline) 1,000 mls @ 50 mls/hr IV ASDIR [facility] Stop: 07/28/19 15:02 Last Admin: 07/27/19 18:43 Dose: 50 mls/hr Metoprolol Tartrate (Lopressor -) 25 mg PO DAILY [facility] Last Admin: 07/27/19 10:52 Dose: 25 mg Mirtazapine (Remeron -) 15 mg PO HS [facility] Last Admin: 07/26/19 22:11 Dose: 15 mg Mupirocin (Bactroban 2% Ointment -) 1 applic TP BID [facility] Last Admin: 07/27/19 10:52 Dose: 1 applic Sodium Zirconium Cyclosilicate (Lokelma) 10 gm PO DAILY [facility] Last Admin: 07/27/19 18:44 Dose: 10 gm Tamsulosin HCl (Flomax -) 0.4 mg PO DAILY@0830 [facility] Last Admin: 07/27/19 08:13 Dose: 0.4 mg - Objective Vital Signs: Vital Signs Temperature 98.4 F 07/27/19 10:00 Pulse Rate 102 H 07/27/19 10:00 Respiratory Rate 20 07/27/19 10:00 Blood Pressure 136/70 07/27/19 10:00 O2 Sat by Pulse Oximetry (%) 95 07/22/19 09:00 Neck: Yes: WNL, Supple Cardiovascular: Yes: WNL, Regular Rate and Rhythm Respiratory: Yes: WNL, Regular, CTA Bilaterally Gastrointestinal: Yes: WNL, Normal Bowel Sounds, Soft Labs: CBC, BMP 07/25/19 07:13 07/27/19 07:35 INR, PTT INR 1.10 (0.83-1.09) H 07/20/19 15:50 Problem List - Problems (1) Bacteremia Assessment/Plan: BC (+) for MRSA Cont IV vanco Repeat blood cultures pending Pt will need 2 more weeks of IV vanco DC planning Code(s): R78.81 - BACTEREMIA (2) Rhabdomyolysis Assessment/Plan: Cont to trend CPK Given IVF Code(s): M62.82 - RHABDOMYOLYSIS (3) HTN (hypertension) Assessment/Plan: BP stable Code(s): I10 - ESSENTIAL (PRIMARY) HYPERTENSION (4) Failure to thrive in adult Code(s): R62.7 - ADULT FAILURE TO THRIVE (5) Altered mental status Code(s): R41.82 - ALTERED MENTAL STATUS, UNSPECIFIED (6) Dementia Code(s): F03.90 - UNSPECIFIED DEMENTIA WITHOUT BEHAVIORAL DISTURBANCE (7) HLD (hyperlipidemia) Assessment/Plan: Cont lipitor Code(s): E78.5 - HYPERLIPIDEMIA, UNSPECIFIED
[2019-07-28] MEDS: MIRTAZAPINE 15 MG TABLET (FP) PO SCH ×2 (00:23→22:51)
[2019-07-28] MEDS: HEPARIN NA (PORCINE) 5,000 UNITS/ML 1ML VIAL SQ SCH (00:24)
[2019-07-28] MEDS: ATORVASTATIN CA 80 MG TABLET (FP) PO SCH ×2 (00:24→22:51)
[2019-07-28] MEDS: MUPIROCIN 2% TOPICAL OINTMENT 22 GM TUBE TP SCH ×2 (06:11→11:00)
[2019-07-28 12:08] LABS: BLOOD UREA NITROGEN 17.1 mg/dL (7-18); CALCIUM 8.7 mg/dL (8.5-10.1); POTASSIUM 4.6 mmol/L (3.5-5.1)
--- NOTE | 2019-07-28 12:27 | PN ---
Progress Note, Physician History of Present Illness: awake comfortable - Current Medication List Current Medications: Active Medications Aspirin (Asa -) 81 mg PO DAILY [facility] Last Admin: 07/27/19 10:52 Dose: 81 mg Atorvastatin Calcium (Lipitor -) 80 mg PO [facility] Last Admin: 07/28/19 00:24 Dose: Not Given Clopidogrel Bisulfate (Plavix -) 75 mg PO DAILY [facility] Last Admin: 07/27/19 10:52 Dose: 75 mg Sodium Chloride (1/2 Normal Saline) 1,000 mls @ 50 mls/hr IV ASDIR [facility] Stop: 07/28/19 15:02 Last Admin: 07/27/19 18:43 Dose: 50 mls/hr Metoprolol Tartrate (Lopressor -) 25 mg PO DAILY [facility] Last Admin: 07/27/19 10:52 Dose: 25 mg Mirtazapine (Remeron -) 15 mg PO HS [facility] Last Admin: 07/28/19 00:23 Dose: Not Given Mupirocin (Bactroban 2% Ointment -) 1 applic TP BID [facility] Last Admin: 07/28/19 11:00 Dose: 1 applic Sodium Zirconium Cyclosilicate (Lokelma) 10 gm PO DAILY [facility] Last Admin: 07/27/19 18:44 Dose: 10 gm Tamsulosin HCl (Flomax -) 0.4 mg PO DAILY@0830 [facility] Last Admin: 07/27/19 08:13 Dose: 0.4 mg - Objective Vital Signs: Vital Signs Temperature 98.8 F 07/28/19 10:00 Pulse Rate 105 H 07/28/19 10:00 Respiratory Rate 20 07/28/19 10:00 Blood Pressure 127/68 07/28/19 10:00 O2 Sat by Pulse Oximetry (%) 95 07/22/19 09:00 Constitutional: Yes: No Distress, Calm Cardiovascular: Yes: S1, S2 Respiratory: Yes: Regular, CTA Bilaterally Gastrointestinal: Yes: Normal Bowel Sounds, Soft Musculoskeletal: Yes: Other Integumentary: Yes: Other Wound/Incision: Yes: Dressing Dry and Intact Neurological: Yes: Alert, Oriented Psychiatric: Yes: Alert, Oriented Labs: CBC, BMP 07/25/19 07:13 07/28/19 09:00 INR, PTT INR 1.10 (0.83-1.09) H 02/04/20 15:50 Assessment/Plan Problem List - Problems (1) Hyperkalemia Code(s): E87.5 - HYPERKALEMIA (2) Dehydration Code(s): E86.0 - DEHYDRATION (3) Failure to thrive in adult Code(s): R62.7 - ADULT FAILURE TO THRIVE (4) Acute kidney injury Code(s): N17.9 - ACUTE KIDNEY FAILURE, UNSPECIFIED mrsa bactremia plan continue current mgmt wound care monitor rest as per the team
[2019-07-28] MEDS: ASPIRIN 81 MG CHEWABLE TABLETS PO SCH (13:01)
[2019-07-28] MEDS: CLOPIDOGREL BISULFATE 75 MG TABLET (FP) PO SCH (13:01)
[2019-07-28] MEDS: METOPROLOL TARTRATE 25 MG TABLET (FP) PO SCH (13:01)
[2019-07-28] MEDS: SODIUM ZIRCONIUM CYCLOSILICATE (LOKELMA) 5 GM PACKET PO SCH (13:02)
--- NOTE | 2019-07-28 13:07 | PN ---
Progress Note, Physician History of Present Illness: Pt seen and examined at bedside. He is awake and appears comfortable. - Current Medication List Current Medications: Active Medications Aspirin (Asa -) 81 mg PO DAILY [facility] Last Admin: 07/28/19 13:01 Dose: 81 mg Atorvastatin Calcium (Lipitor -) 80 mg PO HS [facility] Last Admin: 07/28/19 00:24 Dose: Not Given Clopidogrel Bisulfate (Plavix -) 75 mg PO DAILY [facility] Last Admin: 07/28/19 13:01 Dose: 75 mg Sodium Chloride (1/2 Normal Saline) 1,000 mls @ 50 mls/hr IV ASDIR [facility] Stop: 07/28/19 15:02 Last Admin: 07/27/19 18:43 Dose: 50 mls/hr Metoprolol Tartrate (Lopressor -) 25 mg PO DAILY [facility] Last Admin: 07/28/19 13:01 Dose: 25 mg Mirtazapine (Remeron -) 15 mg PO [facility] Last Admin: 07/28/19 00:23 Dose: Not Given Mupirocin (Bactroban 2% Ointment -) 1 applic TP BID [facility] Last Admin: 07/28/19 11:00 Dose: 1 applic Sodium Zirconium Cyclosilicate (Lokelma) 10 gm PO DAILY [facility] Last Admin: 07/28/19 13:02 Dose: 10 gm Tamsulosin HCl (Flomax -) 0.4 mg PO DAILY@0830 [facility] Last Admin: 07/27/19 08:13 Dose: 0.4 mg - Objective Vital Signs: Vital Signs Temperature 98.8 F 07/28/19 10:00 Pulse Rate 105 H 07/28/19 10:00 Respiratory Rate 20 07/28/19 10:00 Blood Pressure 127/68 07/28/19 10:00 O2 Sat by Pulse Oximetry (%) 98 07/28/19 09:00 Constitutional: Yes: Calm Eyes: Yes: Conjunctiva Clear HENT: Yes: Atraumatic Neck: Yes: Supple Cardiovascular: Yes: S1, S2 Respiratory: Yes: CTA Bilaterally Gastrointestinal: Yes: Soft Musculoskeletal: Yes: Muscle Weakness Edema: No Neurological: Yes: Oriented Labs: CBC, BMP 07/25/19 07:13 07/28/19 09:00 INR, PTT INR 1.10 (0.83-1.09) H 02/04/20 15:50 Problem List - Problems (1) Hyperkalemia Code(s): E87.5 - HYPERKALEMIA (2) Dehydration Code(s): E86.0 - DEHYDRATION (3) Failure to thrive in adult Code(s): R62.7 - ADULT FAILURE TO THRIVE (4) Acute kidney injury Code(s): N17.9 - ACUTE KIDNEY FAILURE, UNSPECIFIED Assessment/Plan Current Medications Generic Name Dose Route Start Last Admin Trade Name Iza PRN Reason Stop Dose Admin Aspirin 81 mg 07/21/19 10:00 07/28/19 13:01 Asa - PO 81 mg DAILY [facility]ELA Administration Atorvastatin Calcium 80 mg 07/21/19 22:00 07/28/19 00:24 Lipitor - PO Not Given HS MELA Clopidogrel Bisulfate 75 mg 07/21/19 10:00 07/28/19 13:01 Plavix - PO 75 mg DAILY [facility]ELA Administration Sodium Chloride 1,000 mls @ 50 mls/hr 07/27/19 15:15 07/27/19 18:43 1/2 Normal Saline IV 07/28/19 15:02 50 mls/hr ASDIR [facility]ELA Administration Metoprolol Tartrate 25 mg 07/21/19 10:00 07/28/19 13:01 Lopressor - PO 25 mg DAILY [facility]ELA Administration Mirtazapine 15 mg 07/21/19 22:00 07/28/19 00:23 Remeron - PO Not Given HS [facility]A Mupirocin 1 applic 07/21/19 22:00 07/28/19 11:00 Bactroban 2% Ointment - TP 1 applic BID [facility]A Administration Sodium Zirconium Cyclosilicate 10 gm 07/27/19 15:15 07/28/19 13:02 Lokelma PO 10 gm DAILY [facility]A Administration Tamsulosin HCl 0.4 mg 07/21/19 08:30 07/27/19 08:13 Flomax - PO 0.4 mg DAILY@0830 [facility]ELA Administration Impression 1. JESSE 2. hyperkalemia 3. htn 4. hld 5. brain lesion 6. right renal density 7. rhabdo Plan - potassium improved - renal function stable - repeat labs in am - will decrease rate of fluids - cpk improving - bilateral renal cysts on ct scan
[2019-07-28] MEDS: TAMSULOSIN HCL 0.4 MG CAP PO SCH (13:14)
--- NOTE | 2019-07-28 15:59 | CONSULT ---
Admitting History and Physical - Past Medical History PARTS ROOM ASSISTANT: Yes: Other (Brain tumor) Cardiovascular: Yes: HTN, Hyperlipdemia, AR Renal/: Yes: Renal Inusuff - Smoking History Smoking history: Former smoker Have you smoked in the past 12 months: No If you are a former smoker, when did you quit?: 1992 - Alcohol/Substance Use Hx Alcohol Use: No - Social History History of Recent Travel: No History - Admission Reason For Visit: ACUTE KIDNEY INJURY, WEAKNESS OF LOWER EXTREMITY - Hearing Hearing: Normal Hearing Aide: No With Patient: No Speech Evaluation - Communication Primary Language: SAMI Communication: Yes: Simple Responses, Dysarthria, Hearing Deficit Oral Expression Ability: Yes: Moderate Impairment - Speech Production Apraxia: No Able to Make Needs Known: Yes: WNL Intelligibility: Yes: WNL - Speech Characteristics Voice Loudness: Moderately Loud Voice Pitch: Yes: Limited Variation Voice Phonatory-based Quality: Yes: Normal Speech Pattern: Normal Nasal Resonance: Normal Articulation: Yes: Precise Dysfluency: Yes: Tonic Voice, Other Observations: Yes: Mouth Breathing Voice Comment: Vocal quality is functional for the environment with speech parameters WNL. - Language/Auditory Comprehension Follows: Yes: 1 Stage Simple Commands (WFL), 2 Stage Simple Commands (unable) Observation: Able to respond to yes/no queries: Yes, Yes/No Confusion: No, Comprehends Conversational Speech: Yes, Benefits from Slow Speech: Yes, Benefits from Repetiton: Yes, Benefits from Increased Volume of Speech: Yes - Language/Verbal Expression Able to Respond to Simple Queries: Yes: Mildly Impaired Able to Communicate Wants and Needs: Yes: WNL Functional Communication Status: Yes: WNL Aware of Errors: No Attempts to Correct Errors: No Use of Gestures: Yes Written Expression: Not examined Reading Comprehension: Not examined Calculations: Not examined Attention: Yes: Intact - 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 appears WFL Lips, Comment: pt refused. appears WFL Lingual Comment: pt refused. appears WFL Laryngeal Elevation: WFL Laryngeal Movement: Able to Palpate Needs Assistance: Yes Rate of Intake: Impulsive Other Findings/Remarks: 78 yo male seen at bedside for swallow eval to r/o dysphagia. Pt is verbal, A& Ox2 resistive to directives. Pt pesents Bacteremia, Rhabdomyolysis, HTN FTT, dementia, with AMS. 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 Pt was lying on his left side and apparently unable (or unwilling) to turn onto his back. Edentulous (fair condition). Pt has been verbally refusing to eat or drink. Chart review indicated that pt was consuming Na controlled solids with thin liquids. SEED CLEANING MANAGER attempted po trials of pureed at bedside. Pt refused. Pt unwilling to participate in swallow trials. Pt given PO trials of ice chips via spoon, thin liquids via straw with total assistance revealed good acceptance, adequate labial containment / bolus control and, A P transport with a timely pharyngeal swallow (1-2 second average). No change in voicing or respiration after the swallow. Recommendations - Speech Evaluation, Impression/Plan Impression: 78 yo male presents with moderate oral phase dysphagia secondary to AMS. Pt refused all attempts for solids po trial. Thin liquid intake via straw was WNL with no s/s of aspiration-like behaviors. Vice Investigator Goals: Tolerate the least restrictive solid and liquid consistencies without s/s of penetration / aspiration. Short Term Goals: Tolerate the least restrictive solid and liquid consistencies without s/s of penetration / aspiration. - Disposition Discharge to: To be Determined - Dysphagia Impressions/Plan Swallowing Skills: Impaired Dysphagia Impressions: Moderate Impairment, Risk of Aspiration, Refused PO Trials (solids only) *Silent aspiration: cannot be R/O at bedside Dysphagia Treatment Plan: Small Bites, Safe Rate, 1/2 tsp. at a time (trial), Elevate HOB during feed Dysphagia Evaluation Summary: Trial po intake of pureed with thin liquids at tolerated. Observe standard aspiration precautions. Verbal prompts may be needed to coax pt to eat. Provide oral care before and after meal meals. Results given verbally to gas charger and PCP via chart. SEED CLEANING MANAGER to follow up for diet tolerance. - Recommendations Diet Consistency: Dysphagia Pureed Medication Administration: Crushed with applesauce Liquids: Thin Liquids
--- NOTE | 2019-07-28 21:16 | PN ---
Progress Note, Physician History of Present Illness: Pt pulled out PIC line Swallow eval: pureed dysphagia diet - Current Medication List Current Medications: Active Medications Aspirin (Asa -) 81 mg PO DAILY [facility] Last Admin: 07/28/19 13:01 Dose: 81 mg Atorvastatin Calcium (Lipitor -) 80 mg PO HS [facility] Last Admin: 07/28/19 00:24 Dose: Not Given Clopidogrel Bisulfate (Plavix -) 75 mg PO DAILY [facility] Last Admin: 07/28/19 13:01 Dose: 75 mg Dextrose/Sodium Chloride (D5-1/2ns -) 1,000 mls @ 50 mls/hr IV ASDIR [facility] Metoprolol Tartrate (Lopressor -) 25 mg PO DAILY [facility] Last Admin: 07/28/19 13:01 Dose: 25 mg Mirtazapine (Remeron -) 15 mg PO HS [facility] Last Admin: 07/28/19 00:23 Dose: Not Given Mupirocin (Bactroban 2% Ointment -) 1 applic TP BID [facility] Last Admin: 07/28/19 11:00 Dose: 1 applic Sodium Zirconium Cyclosilicate (Lokelma) 10 gm PO DAILY [facility] Last Admin: 07/28/19 13:02 Dose: 10 gm Tamsulosin HCl (Flomax -) 0.4 mg PO DAILY@0830 [facility] Last Admin: 07/28/19 13:14 Dose: Not Given - Objective Vital Signs: Vital Signs Temperature 98.5 F 07/28/19 18:00 Pulse Rate 127 H 07/28/19 18:00 Respiratory Rate 20 07/28/19 18:00 Blood Pressure 104/66 07/28/19 18:00 O2 Sat by Pulse Oximetry (%) 98 07/28/19 09:00 Cardiovascular: Yes: Tachycardia Respiratory: Yes: WNL, Regular, CTA Bilaterally Gastrointestinal: Yes: WNL, Normal Bowel Sounds, Soft Labs: CBC, BMP 07/25/19 07:13 07/28/19 09:00 INR, PTT INR 1.10 (0.83-1.09) H 07/20/19 15:50 Problem List - Problems (1) Bacteremia Assessment/Plan: BC (+) for MRSA Cont IV vanco Repeat blood cultures pending Pt will need 2 more weeks of IV vanco Will need to replace PIC line DC planning Code(s): R78.81 - BACTEREMIA (2) Rhabdomyolysis Assessment/Plan: Cont to trend CPK Given IVF Code(s): M62.82 - RHABDOMYOLYSIS (3) HTN (hypertension) Assessment/Plan: BP stable Code(s): I10 - ESSENTIAL (PRIMARY) HYPERTENSION (4) Failure to thrive in adult Assessment/Plan: Encourage PO intake Code(s): R62.7 - ADULT FAILURE TO THRIVE (5) Altered mental status Code(s): R41.82 - ALTERED MENTAL STATUS, UNSPECIFIED (6) Dementia Code(s): F03.90 - UNSPECIFIED DEMENTIA WITHOUT BEHAVIORAL DISTURBANCE (7) HLD (hyperlipidemia) Code(s): E78.5 - HYPERLIPIDEMIA, UNSPECIFIED
[2019-07-29] MEDS: MUPIROCIN 2% TOPICAL OINTMENT 22 GM TUBE TP SCH ×2 (00:34→11:32)
[2019-07-29] MEDS: DEXTROSE 5%-0.45% SALINE 1,000 ML IV SCH (08:06)
[2019-07-29 09:10] LABS: BASO % 0.9 % (0-2.0); EOS % 0.9 % (0-4.5); HEMATOCRIT 25.1 % (35.4-49); HEMOGLOBIN 8.3 GM/dL (11.7-16.9); LYMPH % 12.2 % (8-40); MCH 27.1 pg (25.7-33.7); MCHC 33.2 g/dl (32.0-35.9); MEAN CELL VOLUME 81.6 fl (80-96); MEAN PLT VOLUME 7.1 fl (7.5-11.1); MONO % 10.1 % (3.8-10.2); NEUT % 75.9 % (42.8-82.8); PLATELET COUNT 503 K/MM3 (134-434); RBC 3.08 M/mm3 (4.00-5.60); RDW 15.5 % (11.9-15.9); WHITE BLOOD COUNT 15.5 K/mm3 (4.0-10.0)
[2019-07-29 09:37] LABS: ALBUMIN 1.3 g/dl (3.4-5.0); BILIRUBIN,TOTAL 0.8 mg/dL (0.2-1); BLOOD UREA NITROGEN 19.9 mg/dL (7-18); CALCIUM 8.9 mg/dL (8.5-10.1); CREATININE 1.2 mg/dL (0.55-1.3); POTASSIUM 4.6 mmol/L (3.5-5.1); TOT PROT 5.1 g/dl (6.4-8.2)
[2019-07-29] MEDS: CLOPIDOGREL BISULFATE 75 MG TABLET (FP) PO SCH (11:30)
[2019-07-29] MEDS: METOPROLOL TARTRATE 25 MG TABLET (FP) PO SCH (11:30)
[2019-07-29] MEDS: ASPIRIN 81 MG CHEWABLE TABLETS PO SCH (11:30)
[2019-07-29] MEDS: SODIUM ZIRCONIUM CYCLOSILICATE (LOKELMA) 5 GM PACKET PO SCH (11:31)
[2019-07-29] MEDS: TAMSULOSIN HCL 0.4 MG CAP PO SCH (11:32)
--- NOTE | 2019-07-29 12:06 | PN ---
Progress Note, Physician History of Present Illness: stable wbc has increased - Current Medication List Current Medications: Active Medications Aspirin (Asa -) 81 mg PO DAILY [facility] Last Admin: 07/29/19 11:30 Dose: 81 mg Atorvastatin Calcium (Lipitor -) 80 mg PO HS [facility] Last Admin: 07/28/19 22:51 Dose: Not Given Clopidogrel Bisulfate (Plavix -) 75 mg PO DAILY [facility] Last Admin: 07/29/19 11:30 Dose: 75 mg Dextrose/Sodium Chloride (D5-1/2ns -) 1,000 mls @ 50 mls/hr IV ASDIR [facility] Last Admin: 07/29/19 08:06 Dose: Not Given Metoprolol Tartrate (Lopressor -) 25 mg PO DAILY [facility] Last Admin: 07/29/19 11:30 Dose: 25 mg Mirtazapine (Remeron -) 15 mg PO HS [facility] Last Admin: 07/28/19 22:51 Dose: Not Given Mupirocin (Bactroban 2% Ointment -) 1 applic TP BID [facility] Last Admin: 07/29/19 11:32 Dose: 1 applic Sodium Zirconium Cyclosilicate (Lokelma) 10 gm PO DAILY [facility] Last Admin: 07/29/19 11:31 Dose: 10 gm Tamsulosin HCl (Flomax -) 0.4 mg PO DAILY@0830 [facility] Last Admin: 07/29/19 11:32 Dose: 0.4 mg - Objective Vital Signs: Vital Signs Temperature 99.0 F 07/29/19 06:00 Pulse Rate 121 H 07/29/19 06:00 Respiratory Rate 20 07/29/19 06:00 Blood Pressure 110/64 07/29/19 06:00 O2 Sat by Pulse Oximetry (%) 98 07/28/19 21:00 Constitutional: Yes: No Distress, Calm Cardiovascular: Yes: S1, S2 Respiratory: Yes: Regular, CTA Bilaterally Gastrointestinal: Yes: Normal Bowel Sounds, Soft Musculoskeletal: Yes: WNL Extremities: Yes: Other Neurological: Yes: Alert, Oriented Psychiatric: Yes: Alert, Oriented Labs: CBC, BMP 07/29/19 08:30 07/29/19 08:30 INR, PTT INR 1.10 (0.83-1.09) H 07/20/19 15:50 Assessment/Plan Problem List - Problems (1) Hyperkalemia Code(s): E87.5 - HYPERKALEMIA (2) Dehydration Code(s): E86.0 - DEHYDRATION (3) Failure to thrive in adult Code(s): R62.7 - ADULT FAILURE TO THRIVE (4) Acute kidney injury Code(s): N17.9 - ACUTE KIDNEY FAILURE, UNSPECIFIED mrsa bactremia plan will order cx again rest as per the team
--- NOTE | 2019-07-29 15:45 | PN ---
Progress Note, Physician History of Present Illness: Pt seen and examined at bedside. He is awake and appears comfortable. - Current Medication List Current Medications: Active Medications Aspirin (Asa -) 81 mg PO DAILY [facility] Last Admin: 07/29/19 11:30 Dose: 81 mg Atorvastatin Calcium (Lipitor -) 80 mg PO HS [facility] Last Admin: 07/28/19 22:51 Dose: Not Given Clopidogrel Bisulfate (Plavix -) 75 mg PO DAILY [facility] Last Admin: 07/29/19 11:30 Dose: 75 mg Dextrose/Sodium Chloride (D5-1/2ns -) 1,000 mls @ 50 mls/hr IV ASDIR [facility] Last Admin: 07/29/19 08:06 Dose: Not Given Metoprolol Tartrate (Lopressor -) 25 mg PO DAILY [facility] Last Admin: 07/29/19 11:30 Dose: 25 mg Mirtazapine (Remeron -) 15 mg PO HS [facility] Last Admin: 07/28/19 22:51 Dose: Not Given Mupirocin (Bactroban 2% Ointment -) 1 applic TP BID [facility] Last Admin: 07/29/19 11:32 Dose: 1 applic Sodium Zirconium Cyclosilicate (Lokelma) 10 gm PO DAILY [facility] Last Admin: 07/29/19 11:31 Dose: 10 gm Tamsulosin HCl (Flomax -) 0.4 mg PO DAILY@0830 [facility] Last Admin: 07/29/19 11:32 Dose: 0.4 mg - Objective Vital Signs: Vital Signs Temperature 99.1 F 07/29/19 14:00 Pulse Rate 98 H 07/29/19 14:00 Respiratory Rate 07/29/19 14:00 Blood Pressure 106/57 L 07/29/19 14:00 O2 Sat by Pulse Oximetry (%) 98 07/28/19 21:00 Constitutional: Yes: Calm Eyes: Yes: Conjunctiva Clear HENT: Yes: Atraumatic Neck: Yes: Supple Cardiovascular: Yes: S1, S2 Respiratory: Yes: CTA Bilaterally Gastrointestinal: Yes: Soft Genitourinary: Yes: Incontinence Musculoskeletal: Yes: Muscle Weakness Edema: No Neurological: Yes: Oriented Labs: CBC, BMP 07/29/19 08:30 07/29/19 08:30 INR, PTT INR 1.10 (0.83-1.09) H 02/04/20 15:50 Problem List - Problems (1) Hyperkalemia Code(s): E87.5 - HYPERKALEMIA (2) Dehydration Code(s): E86.0 - DEHYDRATION (3) Failure to thrive in adult Code(s): R62.7 - ADULT FAILURE TO THRIVE (4) Acute kidney injury Code(s): N17.9 - ACUTE KIDNEY FAILURE, UNSPECIFIED Assessment/Plan Current Medications Generic Name Dose Route Start Last Admin Trade Name Iza PRN Reason Stop Dose Admin Aspirin 81 mg 07/21/19 10:00 07/29/19 11:30 Asa - PO 81 mg DAILY [facility] Administration Atorvastatin Calcium 80 mg 07/21/19 22:00 07/28/19 22:51 Lipitor - PO Not Given HS [facility] Clopidogrel Bisulfate 75 mg 07/21/19 10:00 07/29/19 11:30 Plavix - PO 75 mg DAILY [facility] Administration Dextrose/Sodium Chloride 1,000 mls @ 50 mls/hr 07/28/19 14:45 07/29/19 08:06 D5-1/2ns - IV Not Given ASDIR [facility] Metoprolol Tartrate 25 mg 07/21/19 10:00 07/29/19 11:30 Lopressor - PO 25 mg DAILY [facility] Administration Mirtazapine 15 mg 07/21/19 22:00 07/28/19 22:51 Remeron - PO Not Given HS [facility] Mupirocin 1 applic 07/21/19 22:00 07/29/19 11:32 Bactroban 2% Ointment - TP 1 applic BID [facility] Administration Sodium Zirconium Cyclosilicate 10 gm 07/27/19 15:15 07/29/19 11:31 Lokelma PO 10 gm DAILY [facility] Administration Tamsulosin HCl 0.4 mg 07/21/19 08:30 07/29/19 11:32 Flomax - PO 0.4 mg DAILY@0830 [facility] Administration Impression 1. JESSE 2. hyperkalemia 3. htn 4. hld 5. brain lesion 6. right renal density 7. rhabdo Plan - potassium stable - d/c lokelma - check mag - repeat labs in am - renal cysts will need outpt follow up
--- NOTE | 2019-07-29 16:29 | PN ---
Progress Note, MASS COMMUNICATIONS INSTRUCTOR - Note Progress Note: 78 yo male seen at bedside for follow up to swallow eval with recommendations for pureed solids with thin liquids . Chart review indicate pt is consuming 25 % of meals without s/s of aspiration-like behaviors. service center specialist reports poor intake of solids but he will drink his liquids via straw at this time. Re: continue current diet as tolerated with standard aspiration precautions. Provide oral care after meals. Crush meds in pureed. Results given verbally to tank charger and to PCP via chart. MASS COMMUNICATIONS INSTRUCTOR to follow up for nutritional intake.
--- NOTE | 2019-07-29 22:44 | PN ---
Progress Note, Physician History of Present Illness: Poor PO intake - Current Medication List Current Medications: Active Medications Aspirin (Asa -) 81 mg PO DAILY [facility] Last Admin: 07/29/19 11:30 Dose: 81 mg Atorvastatin Calcium (Lipitor -) 80 mg PO HS [facility] Last Admin: 07/28/19 22:51 Dose: Not Given Clopidogrel Bisulfate (Plavix -) 75 mg PO DAILY [facility] Last Admin: 07/29/19 11:30 Dose: 75 mg Dextrose/Sodium Chloride (D5-1/2ns -) 1,000 mls @ 50 mls/hr IV ASDIR [facility] Last Admin: 07/29/19 08:06 Dose: Not Given Metoprolol Tartrate (Lopressor -) 25 mg PO DAILY [facility] Last Admin: 07/29/19 11:30 Dose: 25 mg Mirtazapine (Remeron -) 15 mg PO HS [facility] Last Admin: 07/28/19 22:51 Dose: Not Given Mupirocin (Bactroban 2% Ointment -) 1 applic TP BID [facility] Last Admin: 07/29/19 11:32 Dose: 1 applic Sodium Zirconium Cyclosilicate (Lokelma) 10 gm PO DAILY [facility] Last Admin: 07/29/19 11:31 Dose: 10 gm Tamsulosin HCl (Flomax -) 0.4 mg PO DAILY@0830 [facility] Last Admin: 07/29/19 11:32 Dose: 0.4 mg - Objective Vital Signs: Vital Signs Temperature 99.2 F 07/29/19 17:16 Pulse Rate 108 H 07/29/19 22:39 Respiratory Rate 22 H 07/29/19 22:39 Blood Pressure 95/53 L 07/29/19 22:39 O2 Sat by Pulse Oximetry (%) 98 07/29/19 09:00 Neck: Yes: WNL, Supple Cardiovascular: Yes: WNL, Regular Rate and Rhythm Respiratory: Yes: WNL, Regular, CTA Bilaterally Gastrointestinal: Yes: WNL, Normal Bowel Sounds, Soft Labs: CBC, BMP 07/29/19 08:30 07/29/19 08:30 INR, PTT INR 1.10 (0.83-1.09) H 07/20/19 15:50 Problem List - Problems (1) Bacteremia Assessment/Plan: BC (+) for MRSA Cont IV vanco WBC increased so repeat BC ordered Code(s): R78.81 - BACTEREMIA (2) Rhabdomyolysis Assessment/Plan: Cont to trend CPK Given IVF Code(s): M62.82 - RHABDOMYOLYSIS (3) HTN (hypertension) Assessment/Plan: BP stable Code(s): I10 - ESSENTIAL (PRIMARY) HYPERTENSION (4) Failure to thrive in adult Assessment/Plan: Encourage PO intake Code(s): R62.7 - ADULT FAILURE TO THRIVE (5) Altered mental status Code(s): R41.82 - ALTERED MENTAL STATUS, UNSPECIFIED (6) Dementia Code(s): F03.90 - UNSPECIFIED DEMENTIA WITHOUT BEHAVIORAL DISTURBANCE (7) HLD (hyperlipidemia) Assessment/Plan: Cont lipitor Code(s): E78.5 - HYPERLIPIDEMIA, UNSPECIFIED
[2019-07-29] MEDS: ATORVASTATIN CA 80 MG TABLET (FP) PO SCH (22:49)
[2019-07-29] MEDS: MIRTAZAPINE 15 MG TABLET (FP) PO SCH (22:49)
[2019-07-30] MEDS: MUPIROCIN 2% TOPICAL OINTMENT 22 GM TUBE TP SCH ×2 (04:38→12:38)
[2019-07-30] MEDS: DEXTROSE 5%-0.45% SALINE 1,000 ML IV SCH ×2 (04:38→14:21)
[2019-07-30 09:12] LABS: HEMATOCRIT 25.3 % (35.4-49); HEMOGLOBIN 8.4 GM/dL (11.7-16.9); MCH 27.4 pg (25.7-33.7); MCHC 33.4 g/dl (32.0-35.9); MEAN CELL VOLUME 82.3 fl (80-96); PLATELET COUNT 513 K/MM3 (134-434); RBC 3.07 M/mm3 (4.00-5.60); RDW 15.7 % (11.9-15.9); WHITE BLOOD COUNT 18.5 K/mm3 (4.0-10.0)
[2019-07-30 09:47] LABS: ALBUMIN 1.3 g/dl (3.4-5.0); BILIRUBIN,TOTAL 0.4 mg/dL (0.2-1); BLOOD UREA NITROGEN 21.8 mg/dL (7-18); CALCIUM 8.9 mg/dL (8.5-10.1); CREATININE 1.2 mg/dL (0.55-1.3); MAGNESIUM 2.2 mg/dL (1.8-2.4); POTASSIUM 4.2 mmol/L (3.5-5.1); TOT PROT 5.2 g/dl (6.4-8.2)
[2019-07-30] MEDS ORDERED: PT OWN MED DRAWER 7, Y5N ONE (10:36)
[2019-07-30] MEDS: METOPROLOL TARTRATE 25 MG TABLET (FP) PO SCH (12:21)
[2019-07-30] MEDS: TAMSULOSIN HCL 0.4 MG CAP PO SCH (12:21)
[2019-07-30] MEDS: SODIUM ZIRCONIUM CYCLOSILICATE (LOKELMA) 5 GM PACKET PO SCH (12:22)
[2019-07-30] MEDS: ASPIRIN 81 MG CHEWABLE TABLETS PO SCH (12:22)
[2019-07-30] MEDS: CLOPIDOGREL BISULFATE 75 MG TABLET (FP) PO SCH (12:22)
--- NOTE | 2019-07-30 13:15 | PN ---
Progress Note, CLINICAL EDUCATION ASSISTANT - Note Progress Note: Selected Entries 07/29/19 07/29/19 07/29/19 02:00 06:00 11:00 Breakfast Lunch Supper Temperature 100.8 F H 99.0 F 99.5 F 07/29/19 07/29/19 07/29/19 14:00 17:16 22:57 Breakfast 25% Lunch 25% Supper 0 Temperature 99.1 F 99.2 F 07/30/19 07/30/19 02:00 06:52 Breakfast Lunch Supper Temperature 99.4 F 97.8 F Laboratory Tests 07/29/19 07/30/19 08:30 07:40 WBC 15.5 H 18.5 H Drinking mnore than eating. Accepted Ensure plus. Suggest mixing puree into soup to drink for increased PO acceptance. Increase liquid supplements- Receiving Ensure compact BID. f/u by CHEO
--- NOTE | 2019-07-30 13:35 | PN ---
Progress Note (short form) - Note Progress Note: Called by patients RN for IV placement after multiple unsuccessful attempts made at peripheral line placement by multiple RNs. Patient in need of IV for _IV abx/fluids . Patient prepped using typical sterile fashion. ___22__ gauge peripheral IV placed into ___left FA . Line flushes easily with venous blood return and was irrigated with _20 mls NS. Line secured in place. Pt. tolerated procedure well. RN aware.
--- NOTE | 2019-07-30 14:22 | PN ---
Progress Note, Physician History of Present Illness: patients wbc going up clinically does not look in any distress worry is if he is aspirating - Current Medication List Current Medications: Active Medications Aspirin (Asa -) 81 mg PO DAILY [facility] Last Admin: 07/30/19 12:22 Dose: 81 mg Atorvastatin Calcium (Lipitor -) 80 mg PO HS [facility] Last Admin: 07/29/19 22:49 Dose: Not Given Clopidogrel Bisulfate (Plavix -) 75 mg PO DAILY [facility] Last Admin: 07/30/19 12:22 Dose: 75 mg Dextrose/Sodium Chloride (D5-1/2ns -) 1,000 mls @ 50 mls/hr IV ASDIR [facility] Last Admin: 07/30/19 04:38 Dose: Not Given Vancomycin HCl 1,000 mg/ (Dextrose) 250 mls @ 200 mls/hr IVPB Q24H [facility]; Protocol Piperacillin Sod/Tazobactam (Sod 3.375 gm/ Dextrose) 50 mls @ 100 mls/hr IVPB Q8H-IV [facility]; Protocol Metoprolol Tartrate (Lopressor -) 25 mg PO DAILY [facility] Last Admin: 07/30/19 12:21 Dose: 25 mg Mirtazapine (Remeron -) 15 mg PO [facility] Last Admin: 07/29/19 22:49 Dose: Not Given Mupirocin (Bactroban 2% Ointment -) 1 applic TP BID [facility] Last Admin: 07/30/19 12:38 Dose: 1 applic Tamsulosin HCl (Flomax -) 0.4 mg PO DAILY@0830 [facility] Last Admin: 07/30/19 12:21 Dose: 0.4 mg - Objective Vital Signs: Vital Signs Temperature 100.1 F H 07/30/19 11:45 Pulse Rate 130 H 07/30/19 11:45 Respiratory Rate 07/30/19 11:45 Blood Pressure 97/51 L 07/30/19 11:45 O2 Sat by Pulse Oximetry (%) 98 07/29/19 21:00 Constitutional: Yes: No Distress, Calm Cardiovascular: Yes: S1, S2 Respiratory: Yes: Regular, CTA Bilaterally Gastrointestinal: Yes: Normal Bowel Sounds, Soft Musculoskeletal: Yes: WNL Extremities: Yes: Other Neurological: Yes: Alert, Other Psychiatric: Yes: Other Labs: CBC, BMP 07/30/19 07:40 07/30/19 07:40 INR, PTT INR 1.10 (0.83-1.09) H 07/20/19 15:50 Assessment/Plan Problem List - Problems (1) Hyperkalemia Code(s): E87.5 - HYPERKALEMIA (2) Dehydration Code(s): E86.0 - DEHYDRATION (3) Failure to thrive in adult Code(s): R62.7 - ADULT FAILURE TO THRIVE (4) Acute kidney injury Code(s): N17.9 - ACUTE KIDNEY FAILURE, UNSPECIFIED mrsa bactremia plan await for blood cx will start abx check vanco level tomorrow monitor wbc aspiration precautions rest as per the team
--- NOTE | 2019-07-30 15:40 | PN ---
Progress Note, Physician History of Present Illness: Pt seen and examined at bedside. He is awake and alert. He denies shortness of breath. - Current Medication List Current Medications: Active Medications Aspirin (Asa -) 81 mg PO DAILY [facility] Last Admin: 07/30/19 12:22 Dose: 81 mg Atorvastatin Calcium (Lipitor -) 80 mg PO HS [facility] Last Admin: 07/29/19 22:49 Dose: Not Given Clopidogrel Bisulfate (Plavix -) 75 mg PO DAILY [facility] Last Admin: 07/30/19 12:22 Dose: 75 mg Dextrose/Sodium Chloride (D5-1/2ns -) 1,000 mls @ 50 mls/hr IV ASDIR [facility] Last Admin: 07/30/19 14:21 Dose: 50 mls/hr Vancomycin HCl (Vancomycin (Pre-Docked)) 1,000 mg in 250 mls @ 200 mls/hr IVPB Q24H [facility]; Protocol Piperacillin Sod/Tazobactam (Sod 3.375 gm/ Dextrose) 50 mls @ 100 mls/hr IVPB Q8H-IV [facility]; Protocol Metoprolol Tartrate (Lopressor -) 25 mg PO DAILY [facility] Last Admin: 07/30/19 12:21 Dose: 25 mg Mirtazapine (Remeron -) 15 mg PO HS [facility] Last Admin: 07/29/19 22:49 Dose: Not Given Mupirocin (Bactroban 2% Ointment -) 1 applic TP BID [facility] Last Admin: 07/30/19 12:38 Dose: 1 applic Tamsulosin HCl (Flomax -) 0.4 mg PO DAILY@0830 [facility] Last Admin: 07/30/19 12:21 Dose: 0.4 mg - Objective Vital Signs: Vital Signs Temperature 100.1 F H 07/30/19 11:45 Pulse Rate 130 H 07/30/19 11:45 Respiratory Rate 20 07/30/19 11:45 Blood Pressure 97/51 L 07/30/19 11:45 O2 Sat by Pulse Oximetry (%) 98 07/29/19 21:00 Constitutional: Yes: Calm Eyes: Yes: Conjunctiva Clear HENT: Yes: Atraumatic Neck: Yes: Supple Cardiovascular: Yes: S1, S2 Respiratory: Yes: CTA Bilaterally Gastrointestinal: Yes: Soft Genitourinary: Yes: WNL Musculoskeletal: Yes: WNL Edema: No Neurological: Yes: Oriented Psychiatric: Yes: Oriented Labs: CBC, BMP 07/30/19 07:40 07/30/19 07:40 INR, PTT INR 1.10 (0.83-1.09) H 07/20/19 15:50 Problem List - Problems (1) Hyperkalemia Code(s): E87.5 - HYPERKALEMIA (2) Dehydration Code(s): E86.0 - DEHYDRATION (3) Failure to thrive in adult Code(s): R62.7 - ADULT FAILURE TO THRIVE (4) Acute kidney injury Code(s): N17.9 - ACUTE KIDNEY FAILURE, UNSPECIFIED Assessment/Plan Current Medications Generic Name Dose Route Start Last Admin Trade Name Freq PRN Reason Stop Dose Admin Aspirin 81 mg 07/21/19 10:00 07/30/19 12:22 Asa - PO 81 mg DAILY [facility] Administration Atorvastatin Calcium 80 mg 07/21/19 22:00 07/29/19 22:49 Lipitor - PO Not Given HS [facility] Clopidogrel Bisulfate 75 mg 07/21/19 10:00 07/30/19 12:22 Plavix - PO 75 mg DAILY [facility] Administration Dextrose/Sodium Chloride 1,000 mls @ 50 mls/hr 07/28/19 14:45 07/30/19 14:21 D5-1/2ns - IV 50 mls/hr ASDIR [facility] Administration Vancomycin HCl 1,000 mg in 250 mls @ 200 mls/hr 07/30/19 14:30 Vancomycin (Pre-Docked) IVPB Q24H [facility] Protocol Piperacillin Sod/Tazobactam 50 mls @ 100 mls/hr 07/30/19 14:30 Sod 3.375 gm/ Dextrose IVPB Q8H-IV [facility] Protocol Metoprolol Tartrate 25 mg 07/21/19 10:00 07/30/19 12:21 Lopressor - PO 25 mg DAILY [facility] Administration Mirtazapine 15 mg 07/21/19 22:00 07/29/19 22:49 Remeron - PO Not Given HS [facility] Mupirocin 1 applic 07/21/19 22:00 07/30/19 12:38 Bactroban 2% Ointment - TP 1 applic BID [facility] Administration Tamsulosin HCl 0.4 mg 07/21/19 08:30 07/30/19 12:21 Flomax - PO 0.4 mg DAILY@0830 [facility] Administration Impression 1. JESSE 2. hyperkalemia 3. htn 4. hld 5. brain lesion 6. right renal density 7. rhabdo Plan - renal function stable - lytes stable - can d/c fluids - monitor lytes - encourage po intake - will follow prn
[2019-07-30] MEDS ORDERED: PIPERACILLIN/TAZOBACTAM 3.375 GM VIAL IVPB ONE ×2 (16:16→19:49)
[2019-07-30] MEDS ORDERED: DEXTROSE 5%-WATER - 50 ML IVPB ONE ×2 (16:16→19:49)
[2019-07-30] MEDS: PIPERACILLIN/TAZOB 3.375 GM 3.375 GM in DEXTROSE 5%-WATER - 50 ML IVPB SCH ×2 (16:49→20:00)
[2019-07-30] MEDS: VANCOMYCIN 1 GRAM (PRE-DOCKED) 1,000 MG/250 ML BAG IVPB SCH (16:49)
[2019-07-30] MEDS: ATORVASTATIN CA 80 MG TABLET (FP) PO SCH ×2 (22:02→23:31)
[2019-07-30] MEDS: MIRTAZAPINE 15 MG TABLET (FP) PO SCH (22:02)
--- NOTE | 2019-07-30 22:33 | PN ---
Progress Note, Physician - Current Medication List Current Medications: Active Medications Aspirin (Asa -) 81 mg PO DAILY [facility] Last Admin: 07/30/19 12:22 Dose: 81 mg Atorvastatin Calcium (Lipitor -) 80 mg PO HS [facility] Last Admin: 07/30/19 22:02 Dose: 80 mg Clopidogrel Bisulfate (Plavix -) 75 mg PO DAILY [facility] Last Admin: 07/30/19 12:22 Dose: 75 mg Dextrose/Sodium Chloride (D5-1/2ns -) 1,000 mls @ 50 mls/hr IV ASDIR [facility] Last Admin: 07/30/19 14:21 Dose: 50 mls/hr Vancomycin HCl (Vancomycin (Pre-Docked)) 1,000 mg in 250 mls @ 200 mls/hr IVPB Q24H [facility]; Protocol Last Admin: 07/30/19 16:49 Dose: 200 mls/hr Piperacillin Sod/Tazobactam (Sod 3.375 gm/ Dextrose) 50 mls @ 100 mls/hr IVPB Q8H-IV [facility]; Protocol Last Admin: 07/30/19 20:00 Dose: 100 mls/hr Metoprolol Tartrate (Lopressor -) 25 mg PO DAILY [facility] Last Admin: 07/30/19 12:21 Dose: 25 mg Mirtazapine (Remeron -) 15 mg PO HS [facility] Last Admin: 07/30/19 22:02 Dose: 15 mg Mupirocin (Bactroban 2% Ointment -) 1 applic TP BID [facility] Last Admin: 07/30/19 12:38 Dose: 1 applic Tamsulosin HCl (Flomax -) 0.4 mg PO DAILY@0830 [facility] Last Admin: 07/30/19 12:21 Dose: 0.4 mg - Objective Vital Signs: Vital Signs Temperature 100.2 F H 07/30/19 19:30 Pulse Rate 115 H 07/30/19 19:30 Respiratory Rate 18 07/30/19 19:30 Blood Pressure 109/50 L 07/30/19 19:30 O2 Sat by Pulse Oximetry (%) 96 07/30/19 09:00 Labs: CBC, BMP 07/30/19 07:40 07/30/19 07:40 INR, PTT INR 1.10 (0.83-1.09) H 07/20/19 15:50 Problem List - Problems (1) Bacteremia Code(s): R78.81 - BACTEREMIA (2) Rhabdomyolysis Code(s): M62.82 - RHABDOMYOLYSIS (3) HTN (hypertension) Code(s): I10 - ESSENTIAL (PRIMARY) HYPERTENSION (4) Failure to thrive in adult Code(s): R62.7 - ADULT FAILURE TO THRIVE (5) Altered mental status Code(s): R41.82 - ALTERED MENTAL STATUS, UNSPECIFIED (6) Dementia Code(s): F03.90 - UNSPECIFIED DEMENTIA WITHOUT BEHAVIORAL DISTURBANCE (7) HLD (hyperlipidemia) Code(s): E78.5 - HYPERLIPIDEMIA, UNSPECIFIED
[2019-07-30] MEDS ORDERED: ACETAMINOPHEN 1000 MG/100 ML VIAL (NON FORMULARY) IVPB PRN (22:58)
[2019-07-31] MEDS ORDERED: DEXTROSE 5%-WATER - 50 ML IVPB ONE ×2 (00:40→10:23)
[2019-07-31] MEDS ORDERED: PIPERACILLIN/TAZOBACTAM 3.375 GM VIAL IVPB ONE ×2 (00:40→10:23)
[2019-07-31] MEDS: PIPERACILLIN/TAZOB 3.375 GM 3.375 GM in DEXTROSE 5%-WATER - 50 ML IVPB SCH ×3 (01:40→17:24)
[2019-07-31 09:21] LABS: BASO % 0.7 % (0-2.0); EOS % 1.6 % (0-4.5); HEMATOCRIT 23.1 % (35.4-49); HEMOGLOBIN 7.7 GM/dL (11.7-16.9); LYMPH % 9.1 % (8-40); MCH 27.6 pg (25.7-33.7); MCHC 33.4 g/dl (32.0-35.9); MEAN CELL VOLUME 82.8 fl (80-96); MEAN PLT VOLUME 6.8 fl (7.5-11.1); MONO % 5.4 % (3.8-10.2); NEUT % 83.2 % (42.8-82.8); PLATELET COUNT 479 K/MM3 (134-434); RBC 2.79 M/mm3 (4.00-5.60); RDW 15.6 % (11.9-15.9); WHITE BLOOD COUNT 21.4 K/mm3 (4.0-10.0)
[2019-07-31] MEDS: TAMSULOSIN HCL 0.4 MG CAP PO SCH (09:30)
[2019-07-31] MEDS: ASPIRIN 81 MG CHEWABLE TABLETS PO SCH (10:58)
[2019-07-31] MEDS: CLOPIDOGREL BISULFATE 75 MG TABLET (FP) PO SCH (10:58)
[2019-07-31] MEDS: METOPROLOL TARTRATE 25 MG TABLET (FP) PO SCH (10:58)
[2019-07-31] MEDS: MUPIROCIN 2% TOPICAL OINTMENT 22 GM TUBE TP SCH (10:59)
[2019-07-31 11:27] LABS: ANISOCYTOSIS 2+; MACROCYTOSIS 1+; OVALOCYTE 1+; PLATELET ESTIMATE NORMAL; TARGET CELLS 1+; TEAR DROP CELLS 1+
--- NOTE | 2019-07-31 13:17 | PN ---
Progress Note, Physician History of Present Illness: Pt is alert and responsive although weak. Denies SOB, pain. Currently afebrile but recent temp 100.6 with wbc trending upwards. Restarted on IV antibiotics yesterday. No diarrhea reported. - Current Medication List Current Medications: Active Medications Acetaminophen (Ofirmev Injection -) 1,000 mg IVPB Q6H PRN PRN Reason: FEVER Stop: 07/31/19 22:59 Last Admin: 07/30/19 23:31 Dose: 1,000 mg Aspirin (Asa -) 81 mg PO DAILY [facility] Last Admin: 07/31/19 10:58 Dose: 81 mg Atorvastatin Calcium (Lipitor -) 80 mg PO HS [facility] Last Admin: 07/30/19 23:31 Dose: Not Given Clopidogrel Bisulfate (Plavix -) 75 mg PO DAILY [facility] Last Admin: 07/31/19 10:58 Dose: 75 mg Dextrose/Sodium Chloride (D5-1/2ns -) 1,000 mls @ 50 mls/hr IV ASDIR [facility] Last Admin: 07/30/19 14:21 Dose: 50 mls/hr Vancomycin HCl (Vancomycin (Pre-Docked)) 1,000 mg in 250 mls @ 200 mls/hr IVPB Q24H [facility]; Protocol Last Admin: 07/30/19 16:49 Dose: 200 mls/hr Piperacillin Sod/Tazobactam (Sod 3.375 gm/ Dextrose) 50 mls @ 100 mls/hr IVPB Q8H-IV [facility]; Protocol Last Admin: 07/31/19 10:57 Dose: 100 mls/hr Metoprolol Tartrate (Lopressor -) 25 mg PO DAILY [facility] Last Admin: 07/31/19 10:58 Dose: 25 mg Mirtazapine (Remeron -) 15 mg PO HS [facility] Last Admin: 07/30/19 22:02 Dose: 15 mg Mupirocin (Bactroban 2% Ointment -) 1 applic TP BID [facility] Last Admin: 07/31/19 10:59 Dose: 1 applic Tamsulosin HCl (Flomax -) 0.4 mg PO DAILY@0830 [facility] Last Admin: 07/31/19 09:30 Dose: 0.4 mg - Objective Vital Signs: Vital Signs Temperature 97.5 F L 07/31/19 10:00 Pulse Rate 110 H 07/31/19 10:00 Respiratory Rate 18 07/31/19 10:00 Blood Pressure 109/60 07/31/19 10:00 O2 Sat by Pulse Oximetry (%) 96 07/30/19 09:00 Constitutional: Yes: No Distress, Calm Cardiovascular: Yes: Tachycardia Respiratory: Yes: CTA Bilaterally (poor inspiratory effort) Gastrointestinal: Yes: Normal Bowel Sounds, Soft Genitourinary: Yes: WNL Musculoskeletal: Yes: Other (contracted LE b/l) Neurological: Yes: Alert, Weakness Labs: CBC, BMP 07/31/19 09:00 07/30/19 07:40 INR, PTT INR 1.10 (0.83-1.09) H 07/20/19 15:50 Microbiology 07/30/19 07:35 Blood - Peripheral Venous Blood Culture - Preliminary NO GROWTH OBTAINED AFTER 24 HOURS, INCUBATION TO CONTINUE FOR 4 DAYS. 07/30/19 07:40 Blood - Peripheral Venous Blood Culture - Preliminary NO GROWTH OBTAINED AFTER 24 HOURS, INCUBATION TO CONTINUE FOR 4 DAYS. 07/24/19 08:52 Blood - Peripheral Venous Blood Culture - Final NO GROWTH AFTER 5 DAYS INCUBATION 07/24/19 08:45 Blood - Peripheral Venous Blood Culture - Final NO GROWTH AFTER 5 DAYS INCUBATION 07/20/19 15:54 Blood - Peripheral Venous Blood Culture - Final NO GROWTH AFTER 5 DAYS INCUBATION 07/20/19 15:54 Blood - Peripheral Venous Blood Culture - Final S Aureus Staphylococcus Capitis 07/20/19 16:44 Urine - Urine Daislva Urine Culture - Final NO GROWTH OBTAINED - ....Imaging Chest X-ray: Report Reviewed Cat Scan: Report Reviewed Problem List - Problems (1) Bacteremia Code(s): R78.81 - BACTEREMIA (2) Failure to thrive in adult Code(s): R62.7 - ADULT FAILURE TO THRIVE (3) Fever Code(s): R50.9 - FEVER, UNSPECIFIED (4) HLD (hyperlipidemia) Code(s): E78.5 - HYPERLIPIDEMIA, UNSPECIFIED (5) HTN (hypertension) Code(s): I10 - ESSENTIAL (PRIMARY) HYPERTENSION (6) Weakness Code(s): R53.1 - WEAKNESS (7) Acute kidney injury Code(s): N17.9 - ACUTE KIDNEY FAILURE, UNSPECIFIED Assessment/Plan MRSA bacteremia Fever Leukocytosis Failure to thrive JESSE -- low grade fevers recently, wbc trending up - ? aspiration -- antibiotics restarted, monitor renal function/Vancomycin levels -- latest blood cultures neg, previous Urine Cx neg, Echo without obvious vegetations -- repeat CXR -- continue monitor wbc/temp trend, monitor vitals closely Pt without distress at this time
[2019-07-31] MEDS: VANCOMYCIN 1 GRAM (PRE-DOCKED) 1,000 MG/250 ML BAG IVPB SCH (13:45)
[2019-07-31] MEDS: MIRTAZAPINE 15 MG TABLET (FP) PO SCH (22:04)
[2019-07-31] MEDS: ATORVASTATIN CA 80 MG TABLET (FP) PO SCH (22:04)
--- NOTE | 2019-07-31 22:34 | PN ---
Progress Note, Physician - Current Medication List Current Medications: Active Medications Acetaminophen (Ofirmev Injection -) 1,000 mg IVPB Q6H PRN PRN Reason: FEVER Stop: 07/31/19 22:59 Last Admin: 07/30/19 23:31 Dose: 1,000 mg Aspirin (Asa -) 81 mg PO DAILY [facility] Last Admin: 07/31/19 10:58 Dose: 81 mg Atorvastatin Calcium (Lipitor -) 80 mg PO HS [facility] Last Admin: 07/31/19 22:04 Dose: 80 mg Clopidogrel Bisulfate (Plavix -) 75 mg PO DAILY [facility] Last Admin: 07/31/19 10:58 Dose: 75 mg Dextrose/Sodium Chloride (D5-1/2ns -) 1,000 mls @ 50 mls/hr IV ASDIR [facility] Last Admin: 07/30/19 14:21 Dose: 50 mls/hr Vancomycin HCl (Vancomycin (Pre-Docked)) 1,000 mg in 250 mls @ 200 mls/hr IVPB Q24H [facility]; Protocol Last Admin: 07/31/19 13:45 Dose: 200 mls/hr Piperacillin Sod/Tazobactam (Sod 3.375 gm/ Dextrose) 50 mls @ 100 mls/hr IVPB Q8H-IV [facility]; Protocol Last Admin: 07/31/19 17:24 Dose: 100 mls/hr Metoprolol Tartrate (Lopressor -) 25 mg PO DAILY [facility] Last Admin: 07/31/19 10:58 Dose: 25 mg Mirtazapine (Remeron -) 15 mg PO HS [facility] Last Admin: 07/31/19 22:04 Dose: 15 mg Mupirocin (Bactroban 2% Ointment -) 1 applic TP BID [facility] Last Admin: 07/31/19 10:59 Dose: 1 applic Tamsulosin HCl (Flomax -) 0.4 mg PO DAILY@0830 [facility] Last Admin: 07/31/19 09:30 Dose: 0.4 mg - Objective Vital Signs: Vital Signs Temperature 99.4 F 07/31/19 16:00 Pulse Rate 93 H 07/31/19 16:00 Respiratory Rate 18 07/31/19 16:00 Blood Pressure 88/46 L 07/31/19 16:00 O2 Sat by Pulse Oximetry (%) 100 07/31/19 09:00 Labs: CBC, BMP 07/31/19 09:00 07/30/19 07:40 INR, PTT INR 1.10 (0.83-1.09) H 07/20/19 15:50 Problem List - Problems (1) Bacteremia Code(s): R78.81 - BACTEREMIA (2) Rhabdomyolysis Code(s): M62.82 - RHABDOMYOLYSIS (3) HTN (hypertension) Code(s): I10 - ESSENTIAL (PRIMARY) HYPERTENSION (4) Failure to thrive in adult Code(s): R62.7 - ADULT FAILURE TO THRIVE (5) Altered mental status Code(s): R41.82 - ALTERED MENTAL STATUS, UNSPECIFIED (6) Dementia Code(s): F03.90 - UNSPECIFIED DEMENTIA WITHOUT BEHAVIORAL DISTURBANCE (7) HLD (hyperlipidemia) Code(s): E78.5 - HYPERLIPIDEMIA, UNSPECIFIED
[2019-08-01] MEDS ORDERED: PIPERACILLIN/TAZOBACTAM 3.375 GM VIAL IVPB ONE ×3 (02:12→17:16)
[2019-08-01] MEDS ORDERED: DEXTROSE 5%-WATER - 50 ML IVPB ONE ×3 (02:12→17:17)
[2019-08-01] MEDS: PIPERACILLIN/TAZOB 3.375 GM 3.375 GM in DEXTROSE 5%-WATER - 50 ML IVPB SCH ×3 (02:28→17:19)
[2019-08-01] MEDS: MUPIROCIN 2% TOPICAL OINTMENT 22 GM TUBE TP SCH ×3 (02:42→22:56)
[2019-08-01] MEDS: TAMSULOSIN HCL 0.4 MG CAP PO SCH (09:25)
[2019-08-01] MEDS: DEXTROSE 5%-0.45% SALINE 1,000 ML IV SCH ×2 (10:51→17:20)
[2019-08-01] MEDS: METOPROLOL TARTRATE 25 MG TABLET (FP) PO SCH (10:53)
[2019-08-01] MEDS: ASPIRIN 81 MG CHEWABLE TABLETS PO SCH (10:53)
[2019-08-01] MEDS: CLOPIDOGREL BISULFATE 75 MG TABLET (FP) PO SCH (10:53)
[2019-08-01] MEDS: VANCOMYCIN 1 GRAM (PRE-DOCKED) 1,000 MG/250 ML BAG IVPB SCH ×2 (14:38→15:06)
--- NOTE | 2019-08-01 14:56 | PN ---
Progress Note, Physician History of Present Illness: Pt afebrile since last night. Arousable but weak, in no distress. Vancomycin level noted, dose held for today. - Current Medication List Current Medications: Active Medications Aspirin (Asa -) 81 mg PO DAILY [facility] Last Admin: 08/01/19 10:53 Dose: 81 mg Atorvastatin Calcium (Lipitor -) 80 mg PO HS [facility] Last Admin: 07/31/19 22:04 Dose: 80 mg Clopidogrel Bisulfate (Plavix -) 75 mg PO DAILY [facility] Last Admin: 08/01/19 10:53 Dose: 75 mg Dextrose/Sodium Chloride (D5-1/2ns -) 1,000 mls @ 50 mls/hr IV ASDIR [facility] Last Admin: 08/01/19 10:51 Dose: 50 mls/hr Vancomycin HCl (Vancomycin (Pre-Docked)) 1,000 mg in 250 mls @ 200 mls/hr IVPB Q24H [facility]; Protocol Last Admin: 08/01/19 14:38 Dose: 200 mls/hr Piperacillin Sod/Tazobactam (Sod 3.375 gm/ Dextrose) 50 mls @ 100 mls/hr IVPB Q8H-IV [facility]; Protocol Last Admin: 08/01/19 10:51 Dose: 100 mls/hr Metoprolol Tartrate (Lopressor -) 25 mg PO DAILY [facility] Last Admin: 08/01/19 10:53 Dose: 25 mg Mirtazapine (Remeron -) 15 mg PO HS [facility] Last Admin: 07/31/19 22:04 Dose: 15 mg Mupirocin (Bactroban 2% Ointment -) 1 applic TP BID [facility] Last Admin: 08/01/19 10:53 Dose: 1 applic Tamsulosin HCl (Flomax -) 0.4 mg PO DAILY@0830 [facility] Last Admin: 08/01/19 09:25 Dose: 0.4 mg - Objective Vital Signs: Vital Signs Temperature 98.7 F 08/01/19 10:00 Pulse Rate 121 H 08/01/19 10:00 Respiratory Rate 20 08/01/19 10:00 Blood Pressure 154/106 H 08/01/19 10:00 O2 Sat by Pulse Oximetry (%) 98 08/01/19 09:00 Constitutional: Yes: No Distress Eyes: Yes: Conjunctiva Clear Cardiovascular: Yes: Tachycardia Respiratory: Yes: CTA Bilaterally Gastrointestinal: Yes: Normal Bowel Sounds, Soft Genitourinary: Yes: Other (condom catheter) Musculoskeletal: Yes: Other (contracted lower extremities) Integumentary: Yes: Other (Rt hip eschar, no drainage /fluctuance/erythema/malodor) Neurological: Yes: Weakness Labs: CBC, BMP 07/31/19 09:00 07/30/19 07:40 INR, PTT INR 1.10 (0.83-1.09) H 07/20/19 15:50 Microbiology 07/30/19 07:40 Blood - Peripheral Venous Blood Culture - Preliminary NO GROWTH OBTAINED AFTER 48 HOURS, INCUBATION TO CONTINUE FOR 3 DAYS. 07/30/19 07:35 Blood - Peripheral Venous Blood Culture - Preliminary NO GROWTH OBTAINED AFTER 48 HOURS, INCUBATION TO CONTINUE FOR 3 DAYS. 07/24/19 08:52 Blood - Peripheral Venous Blood Culture - Final NO GROWTH AFTER 5 DAYS INCUBATION 07/24/19 08:45 Blood - Peripheral Venous Blood Culture - Final NO GROWTH AFTER 5 DAYS INCUBATION 07/20/19 15:54 Blood - Peripheral Venous Blood Culture - Final NO GROWTH AFTER 5 DAYS INCUBATION 07/20/19 15:54 Blood - Peripheral Venous Blood Culture - Final S Aureus Staphylococcus Capitis 07/20/19 16:44 Urine - Urine Dasilva Urine Culture - Final NO GROWTH OBTAINED - ....Imaging Chest X-ray: Report Reviewed (no acute findings) Problem List - Problems (1) Bacteremia Code(s): R78.81 - BACTEREMIA (2) Failure to thrive in adult Code(s): R62.7 - ADULT FAILURE TO THRIVE (3) Fever Code(s): R50.9 - FEVER, UNSPECIFIED (4) HLD (hyperlipidemia) Code(s): E78.5 - HYPERLIPIDEMIA, UNSPECIFIED (5) HTN (hypertension) Code(s): I10 - ESSENTIAL (PRIMARY) HYPERTENSION (6) Weakness Code(s): R53.1 - WEAKNESS (7) Acute kidney injury Code(s): N17.9 - ACUTE KIDNEY FAILURE, UNSPECIFIED Assessment/Plan MRSA bacteremia Fever Leukocytosis Failure to thrive JESSE -- afebrile since last night -- source of fever/leukocytosis unclear -- cbc wasnt done, ordered for a.m. - monitor wbc trend -- continue Zosyn -- Vancomycin level high, dose held, level ordered for tomorrow -- latest blood cultures neg 48hr, CXR without infiltrates, pt without diarrhea -- continue monitor wbc/temp trend, monitor vitals closely Pt without distress at this time
--- NOTE | 2019-08-01 19:57 | PN ---
Progress Note, Physician History of Present Illness: No new changes - Current Medication List Current Medications: Active Medications Aspirin (Asa -) 81 mg PO DAILY [facility] Last Admin: 08/01/19 10:53 Dose: 81 mg Atorvastatin Calcium (Lipitor -) 80 mg PO HS [facility] Last Admin: 07/31/19 22:04 Dose: 80 mg Clopidogrel Bisulfate (Plavix -) 75 mg PO DAILY [facility] Last Admin: 08/01/19 10:53 Dose: 75 mg Dextrose/Sodium Chloride (D5-1/2ns -) 1,000 mls @ 50 mls/hr IV ASDIR [facility] Last Admin: 08/01/19 17:20 Dose: 50 mls/hr Vancomycin HCl (Vancomycin (Pre-Docked)) 1,000 mg in 250 mls @ 200 mls/hr IVPB Q24H [facility]; Protocol Last Admin: 08/01/19 15:06 Dose: Not Given Piperacillin Sod/Tazobactam (Sod 3.375 gm/ Dextrose) 50 mls @ 100 mls/hr IVPB Q8H-IV [facility]; Protocol Last Admin: 08/01/19 17:19 Dose: 100 mls/hr Metoprolol Tartrate (Lopressor -) 25 mg PO DAILY [facility] Last Admin: 08/01/19 10:53 Dose: 25 mg Mirtazapine (Remeron -) 15 mg PO HS [facility] Last Admin: 07/31/19 22:04 Dose: 15 mg Mupirocin (Bactroban 2% Ointment -) 1 applic TP BID [facility] Last Admin: 08/01/19 10:53 Dose: 1 applic Tamsulosin HCl (Flomax -) 0.4 mg PO DAILY@0830 [facility] Last Admin: 08/01/19 09:25 Dose: 0.4 mg - Objective Vital Signs: Vital Signs Temperature 98.3 F 08/01/19 15:13 Pulse Rate 105 H 08/01/19 18:00 Respiratory Rate 20 08/01/19 18:00 Blood Pressure 102/52 L 08/01/19 18:00 O2 Sat by Pulse Oximetry (%) 98 08/01/19 09:00 Cardiovascular: Yes: WNL, Regular Rate and Rhythm Respiratory: Yes: WNL, Regular, CTA Bilaterally Gastrointestinal: Yes: WNL, Normal Bowel Sounds, Soft Labs: CBC, BMP 07/31/19 09:00 07/30/19 07:40 INR, PTT INR 1.10 (0.83-1.09) H 07/20/19 15:50 Problem List - Problems (1) Bacteremia Assessment/Plan: BC (+) for MRSA Vanco dose held today due to elevated vanco level Cont to monitor vanco level and adjust dose Repeat BC remain negaative Code(s): R78.81 - BACTEREMIA (2) Rhabdomyolysis Assessment/Plan: Cont to trend CPK Given IVF Code(s): M62.82 - RHABDOMYOLYSIS (3) HTN (hypertension) Assessment/Plan: BP stable Code(s): I10 - ESSENTIAL (PRIMARY) HYPERTENSION (4) Failure to thrive in adult Assessment/Plan: Encourage PO intake Code(s): R62.7 - ADULT FAILURE TO THRIVE (5) Altered mental status Code(s): R41.82 - ALTERED MENTAL STATUS, UNSPECIFIED (6) Dementia Code(s): F03.90 - UNSPECIFIED DEMENTIA WITHOUT BEHAVIORAL DISTURBANCE (7) HLD (hyperlipidemia) Assessment/Plan: Cont lipitor Code(s): E78.5 - HYPERLIPIDEMIA, UNSPECIFIED
[2019-08-01] MEDS: ATORVASTATIN CA 80 MG TABLET (FP) PO SCH (22:55)
[2019-08-01] MEDS: MIRTAZAPINE 15 MG TABLET (FP) PO SCH (22:55)
[2019-08-02] MEDS ORDERED: DEXTROSE 5%-WATER - 50 ML IVPB ONE ×3 (01:53→18:00)
[2019-08-02] MEDS ORDERED: PIPERACILLIN/TAZOBACTAM 3.375 GM VIAL IVPB ONE ×3 (01:53→18:00)
[2019-08-02] MEDS: PIPERACILLIN/TAZOB 3.375 GM 3.375 GM in DEXTROSE 5%-WATER - 50 ML IVPB SCH ×3 (02:04→18:33)
[2019-08-02 08:07] LABS: BLOOD UREA NITROGEN 29.1 mg/dL (7-18); CALCIUM 8.7 mg/dL (8.5-10.1); CREATININE 1.7 mg/dL (0.55-1.3); POTASSIUM 4.4 mmol/L (3.5-5.1)
[2019-08-02 08:09] LABS: BASO % 0.6 % (0-2.0); EOS % 2.3 % (0-4.5); HEMATOCRIT 22.4 % (35.4-49); HEMOGLOBIN 7.4 GM/dL (11.7-16.9); LYMPH % 9.3 % (8-40); MCH 27.2 pg (25.7-33.7); MCHC 33.2 g/dl (32.0-35.9); MONO % 5.6 % (3.8-10.2); NEUT % 82.2 % (42.8-82.8); PLATELET COUNT 578 K/MM3 (134-434); RBC 2.74 M/mm3 (4.00-5.60); RDW 15.6 % (11.9-15.9); WHITE BLOOD COUNT 17.8 K/mm3 (4.0-10.0)
[2019-08-02] MEDS: METOPROLOL TARTRATE 25 MG TABLET (FP) PO SCH (10:33)
[2019-08-02] MEDS: CLOPIDOGREL BISULFATE 75 MG TABLET (FP) PO SCH (10:33)
[2019-08-02] MEDS: ASPIRIN 81 MG CHEWABLE TABLETS PO SCH (10:33)
[2019-08-02] MEDS: TAMSULOSIN HCL 0.4 MG CAP PO SCH ×2 (10:40→10:46)
[2019-08-02] MEDS: DEXTROSE 5%-0.45% SALINE 1,000 ML IV SCH (12:40)
--- NOTE | 2019-08-02 13:44 | PN ---
Progress Note, Physician History of Present Illness: stable wbc trending down - Current Medication List Current Medications: Active Medications Aspirin (Asa -) 81 mg PO DAILY [facility] Last Admin: 08/02/19 10:33 Dose: 81 mg Atorvastatin Calcium (Lipitor -) 80 mg PO HS [facility] Last Admin: 08/01/19 22:55 Dose: 80 mg Clopidogrel Bisulfate (Plavix -) 75 mg PO DAILY [facility] Last Admin: 08/02/19 10:33 Dose: 75 mg Dextrose/Sodium Chloride (D5-1/2ns -) 1,000 mls @ 50 mls/hr IV ASDIR [facility] Last Admin: 08/02/19 12:40 Dose: 50 mls/hr Vancomycin HCl (Vancomycin (Pre-Docked)) 1,000 mg in 250 mls @ 200 mls/hr IVPB Q24H [facility]; Protocol Last Admin: 08/01/19 15:06 Dose: Not Given Piperacillin Sod/Tazobactam (Sod 3.375 gm/ Dextrose) 50 mls @ 100 mls/hr IVPB Q8H-IV [facility]; Protocol Last Admin: 08/02/19 10:33 Dose: 100 mls/hr Metoprolol Tartrate (Lopressor -) 25 mg PO DAILY [facility] Last Admin: 08/02/19 10:33 Dose: 25 mg Mirtazapine (Remeron -) 15 mg PO HS [facility] Last Admin: 08/01/19 22:55 Dose: 15 mg Mupirocin (Bactroban 2% Ointment -) 1 applic TP BID [facility] Last Admin: 08/01/19 22:56 Dose: 1 applic Tamsulosin HCl (Flomax -) 0.4 mg PO DAILY@0830 [facility] Last Admin: 08/02/19 10:46 Dose: Not Given - Objective Vital Signs: Vital Signs Temperature 97.9 F 08/02/19 06:00 Pulse Rate 120 H 08/02/19 06:00 Respiratory Rate 20 08/02/19 06:00 Blood Pressure 90/54 L 08/02/19 06:00 O2 Sat by Pulse Oximetry (%) 98 08/01/19 21:00 Constitutional: Yes: No Distress, Calm Cardiovascular: Yes: S1, S2 Respiratory: Yes: Regular, CTA Bilaterally Gastrointestinal: Yes: Normal Bowel Sounds, Soft Musculoskeletal: Yes: WNL Extremities: Yes: Other Wound/Incision: Yes: Dressing Dry and Intact Neurological: Yes: Alert, Other Psychiatric: Yes: Alert Labs: CBC, BMP 08/02/19 06:48 08/02/19 06:48 INR, PTT INR 1.10 (0.83-1.09) H 07/20/19 15:50 Assessment/Plan Problem List - Problems (1) Hyperkalemia Code(s): E87.5 - HYPERKALEMIA (2) Dehydration Code(s): E86.0 - DEHYDRATION (3) Failure to thrive in adult Code(s): R62.7 - ADULT FAILURE TO THRIVE (4) Acute kidney injury Code(s): N17.9 - ACUTE KIDNEY FAILURE, UNSPECIFIED mrsa bactremia plan continue current mgmt wound care will hold of vanco await urine cx monitor wbc rest as per the team
[2019-08-02] MEDS: MUPIROCIN 2% TOPICAL OINTMENT 22 GM TUBE TP SCH ×2 (14:00→22:08)
--- NOTE | 2019-08-02 14:21 | PN ---
Progress Note, Physician History of Present Illness: Pt seen and examined at bedside. He appears comfortable. he denies shortness of breath. - Current Medication List Current Medications: Active Medications Aspirin (Asa -) 81 mg PO DAILY [facility] Last Admin: 08/02/19 10:33 Dose: 81 mg Atorvastatin Calcium (Lipitor -) 80 mg PO HS [facility] Last Admin: 08/01/19 22:55 Dose: 80 mg Clopidogrel Bisulfate (Plavix -) 75 mg PO DAILY [facility] Last Admin: 08/02/19 10:33 Dose: 75 mg Dextrose/Sodium Chloride (D5-1/2ns -) 1,000 mls @ 50 mls/hr IV ASDIR [facility] Last Admin: 08/02/19 12:40 Dose: 50 mls/hr Piperacillin Sod/Tazobactam (Sod 3.375 gm/ Dextrose) 50 mls @ 100 mls/hr IVPB Q8H-IV [facility]; Protocol Last Admin: 08/02/19 10:33 Dose: 100 mls/hr Metoprolol Tartrate (Lopressor -) 25 mg PO DAILY [facility] Last Admin: 08/02/19 10:33 Dose: 25 mg Mirtazapine (Remeron -) 15 mg PO HS [facility] Last Admin: 08/01/19 22:55 Dose: 15 mg Mupirocin (Bactroban 2% Ointment -) 1 applic TP BID [facility] Last Admin: 08/01/19 22:56 Dose: 1 applic Tamsulosin HCl (Flomax -) 0.4 mg PO DAILY@0830 [facility] Last Admin: 08/02/19 10:46 Dose: Not Given - Objective Vital Signs: Vital Signs Temperature 97.9 F 08/02/19 06:00 Pulse Rate 120 H 08/02/19 06:00 Respiratory Rate 20 08/02/19 06:00 Blood Pressure 90/54 L 08/02/19 06:00 O2 Sat by Pulse Oximetry (%) 98 08/01/19 21:00 Constitutional: Yes: Calm Eyes: Yes: Conjunctiva Clear HENT: Yes: Atraumatic Neck: Yes: Supple Cardiovascular: Yes: S1, S2 Respiratory: Yes: CTA Bilaterally Gastrointestinal: Yes: Normal Bowel Sounds, Soft Genitourinary: Yes: Incontinence Musculoskeletal: Yes: WNL Edema: No Neurological: Yes: Oriented Psychiatric: Yes: Oriented Labs: CBC, BMP 08/02/19 06:48 08/02/19 06:48 INR, PTT INR 1.10 (0.83-1.09) H 07/20/19 15:50 Problem List - Problems (1) Hyperkalemia Code(s): E87.5 - HYPERKALEMIA (2) Dehydration Code(s): E86.0 - DEHYDRATION (3) Failure to thrive in adult Code(s): R62.7 - ADULT FAILURE TO THRIVE (4) Acute kidney injury Code(s): N17.9 - ACUTE KIDNEY FAILURE, UNSPECIFIED Assessment/Plan Current Medications Generic Name Dose Route Start Last Admin Trade Name Freq PRN Reason Stop Dose Admin Aspirin 81 mg 07/21/19 10:00 08/02/19 10:33 Asa - PO 81 mg DAILY [facility] Administration Atorvastatin Calcium 80 mg 07/21/19 22:00 08/01/19 22:55 Lipitor - PO 80 mg HS [facility] Administration Clopidogrel Bisulfate 75 mg 07/21/19 10:00 08/02/19 10:33 Plavix - PO 75 mg DAILY [facility] Administration Dextrose/Sodium Chloride 1,000 mls @ 50 mls/hr 07/28/19 14:45 08/02/19 12:40 D5-1/2ns - IV 50 mls/hr ASDIR [facility] Administration Piperacillin Sod/Tazobactam 50 mls @ 100 mls/hr 07/30/19 14:30 08/02/19 10:33 Sod 3.375 gm/ Dextrose IVPB 100 mls/hr Q8H-IV [facility] Administration Protocol Metoprolol Tartrate 25 mg 07/21/19 10:00 08/02/19 10:33 Lopressor - PO 25 mg DAILY [facility] Administration Mirtazapine 15 mg 07/21/19 22:00 08/01/19 22:55 Remeron - PO 15 mg HS [facility] Administration Mupirocin 1 applic 07/21/19 22:00 08/01/19 22:56 Bactroban 2% Ointment - TP 1 applic BID [facility] Administration Tamsulosin HCl 0.4 mg 07/21/19 08:30 08/02/19 10:46 Flomax - PO Not Given DAILY@0830 [facility] Impression 1. JESSE 2. hyperkalemia 3. htn 4. hld 5. brain lesion 6. right renal density 7. 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
[2019-08-02 15:33] LABS: EPI CELLS 1.9 /HPF (0-5/HPF); HYALINE CASTS 15 /lpf (0-8); URINE APPEARANCE CLOUDY; URINE BACTERIA 2.7 /hpf (NEGATIVE); URINE BILIRUBIN NEGATIVE (NEGATIVE); URINE COLOR YELLOW; URINE GLUCOSE (UA) NEGATIVE (NEGATIVE); URINE KETONE NEGATIVE (NEGATIVE); URINE LEUK ESTERASE NEGATIVE (NEGATIVE); URINE NITRITE NEGATIVE (NEGATIVE); URINE PROTEIN TRACE (NEGATIVE); URINE WBC 9 /hpf (0-5)
[2019-08-02] MEDS: SODIUM CHLORIDE 0.45% 1,000 ML IV SCH (16:04)
[2019-08-02 16:48] LABS: URINE RBC 54.5 /hpf (0-4)
[2019-08-02] MEDS: ATORVASTATIN CA 80 MG TABLET (FP) PO SCH (22:08)
[2019-08-02] MEDS: MIRTAZAPINE 15 MG TABLET (FP) PO SCH (22:08)
--- NOTE | 2019-08-02 23:27 | PN ---
Progress Note, Physician History of Present Illness: No new changes - Current Medication List Current Medications: Active Medications Aspirin (Asa -) 81 mg PO DAILY [facility] Last Admin: 08/02/19 10:33 Dose: 81 mg Atorvastatin Calcium (Lipitor -) 80 mg PO HS [facility] Last Admin: 08/02/19 22:08 Dose: 80 mg Clopidogrel Bisulfate (Plavix -) 75 mg PO DAILY [facility] Last Admin: 08/02/19 10:33 Dose: 75 mg Piperacillin Sod/Tazobactam (Sod 3.375 gm/ Dextrose) 50 mls @ 100 mls/hr IVPB Q8H-IV MELA; Protocol Last Admin: 08/02/19 18:33 Dose: 100 mls/hr Sodium Chloride (1/2 Normal Saline) 1,000 mls @ 42 mls/hr IV ASDIR [facility] Last Admin: 08/02/19 16:04 Dose: 42 mls/hr Metoprolol Tartrate (Lopressor -) 25 mg PO DAILY [facility] Last Admin: 08/02/19 10:33 Dose: 25 mg Mirtazapine (Remeron -) 15 mg PO HS [facility] Last Admin: 08/02/19 22:08 Dose: 15 mg Mupirocin (Bactroban 2% Ointment -) 1 applic TP BID [facility] Last Admin: 08/02/19 22:08 Dose: 1 applic Tamsulosin HCl (Flomax -) 0.4 mg PO DAILY@0830 [facility] Last Admin: 08/02/19 10:46 Dose: Not Given - Objective Vital Signs: Vital Signs Temperature 98.5 F 08/02/19 18:00 Pulse Rate 94 H 08/02/19 18:00 Respiratory Rate 20 08/02/19 18:00 Blood Pressure 100/52 L 08/02/19 18:00 O2 Sat by Pulse Oximetry (%) 98 08/02/19 09:00 Cardiovascular: Yes: WNL, Regular Rate and Rhythm Respiratory: Yes: WNL, Regular, CTA Bilaterally Gastrointestinal: Yes: WNL, Normal Bowel Sounds, Soft Labs: CBC, BMP 08/02/19 06:48 08/02/19 06:48 INR, PTT INR 1.10 (0.83-1.09) H 07/20/19 15:50 Problem List - Problems (1) Bacteremia Assessment/Plan: BC (+) for MRSA Vanco dose held today due to elevated vanco level Cont to monitor vanco level and adjust dose Repeat BC remain negative Urine culture pending Code(s): R78.81 - BACTEREMIA (2) Rhabdomyolysis Assessment/Plan: Cont to trend CPK Given IVF Code(s): M62.82 - RHABDOMYOLYSIS (3) HTN (hypertension) Assessment/Plan: BP stable Code(s): I10 - ESSENTIAL (PRIMARY) HYPERTENSION (4) Failure to thrive in adult Assessment/Plan: Encourage PO intake Code(s): R62.7 - ADULT FAILURE TO THRIVE (5) Altered mental status Code(s): R41.82 - ALTERED MENTAL STATUS, UNSPECIFIED (6) Dementia Code(s): F03.90 - UNSPECIFIED DEMENTIA WITHOUT BEHAVIORAL DISTURBANCE (7) HLD (hyperlipidemia) Assessment/Plan: Cont lipitor Code(s): E78.5 - HYPERLIPIDEMIA, UNSPECIFIED
[2019-08-03] MEDS ORDERED: DEXTROSE 5%-WATER - 50 ML IVPB ONE ×3 (01:40→17:26)
[2019-08-03] MEDS ORDERED: PIPERACILLIN/TAZOBACTAM 3.375 GM VIAL IVPB ONE ×3 (01:40→17:26)
[2019-08-03] MEDS: PIPERACILLIN/TAZOB 3.375 GM 3.375 GM in DEXTROSE 5%-WATER - 50 ML IVPB SCH ×3 (01:59→17:56)
[2019-08-03] MEDS: ASPIRIN 81 MG CHEWABLE TABLETS PO SCH (11:00)
[2019-08-03] MEDS: CLOPIDOGREL BISULFATE 75 MG TABLET (FP) PO SCH (11:00)
[2019-08-03] MEDS: MUPIROCIN 2% TOPICAL OINTMENT 22 GM TUBE TP SCH ×2 (11:00→21:42)
[2019-08-03] MEDS: METOPROLOL TARTRATE 25 MG TABLET (FP) PO SCH (11:00)
[2019-08-03 11:42] LABS: ALBUMIN 1.2 g/dl (3.4-5.0); BILIRUBIN,TOTAL 0.4 mg/dL (0.2-1); BLOOD UREA NITROGEN 32.2 mg/dL (7-18); CALCIUM 9.3 mg/dL (8.5-10.1); CREATININE 1.8 mg/dL (0.55-1.3); POTASSIUM 4.9 mmol/L (3.5-5.1); TOT PROT 5.6 g/dl (6.4-8.2)
[2019-08-03] MEDS: TAMSULOSIN HCL 0.4 MG CAP PO SCH (12:13)
[2019-08-03 12:39] LABS: BASO % 0.8 % (0-2.0); EOS % 2.1 % (0-4.5); HEMATOCRIT 22.7 % (35.4-49); HEMOGLOBIN 7.4 GM/dL (11.7-16.9); LYMPH % 9.4 % (8-40); MCHC 32.7 g/dl (32.0-35.9); MEAN CELL VOLUME 82.6 fl (80-96); MEAN PLT VOLUME 6.5 fl (7.5-11.1); NEUT % 81.7 % (42.8-82.8); PLATELET COUNT 658 K/MM3 (134-434); RBC 2.75 M/mm3 (4.00-5.60); RDW 15.8 % (11.9-15.9); WHITE BLOOD COUNT 18.1 K/mm3 (4.0-10.0)
--- NOTE | 2019-08-03 13:06 | PN ---
Progress Note, Physician History of Present Illness: stable no new issues - Current Medication List Current Medications: Active Medications Aspirin (Asa -) 81 mg PO DAILY [facility] Last Admin: 08/03/19 11:00 Dose: 81 mg Atorvastatin Calcium (Lipitor -) 80 mg PO HS [facility] Last Admin: 08/02/19 22:08 Dose: 80 mg Clopidogrel Bisulfate (Plavix -) 75 mg PO DAILY [facility] Last Admin: 08/03/19 11:00 Dose: 75 mg Piperacillin Sod/Tazobactam (Sod 3.375 gm/ Dextrose) 50 mls @ 100 mls/hr IVPB Q8H-IV MELA; Protocol Last Admin: 08/03/19 11:00 Dose: 100 mls/hr Sodium Chloride (1/2 Normal Saline) 1,000 mls @ 42 mls/hr IV ASDIR [facility] Last Admin: 08/02/19 16:04 Dose: 42 mls/hr Metoprolol Tartrate (Lopressor -) 25 mg PO DAILY [facility] Last Admin: 08/03/19 11:00 Dose: 25 mg Mirtazapine (Remeron -) 15 mg PO HS [facility] Last Admin: 08/02/19 22:08 Dose: 15 mg Mupirocin (Bactroban 2% Ointment -) 1 applic TP BID [facility] Last Admin: 08/03/19 11:00 Dose: 1 applic Tamsulosin HCl (Flomax -) 0.4 mg PO DAILY@0830 [facility] Last Admin: 08/03/19 12:13 Dose: Not Given - Objective Vital Signs: Vital Signs Temperature 98.2 F 08/03/19 07:26 Pulse Rate 110 H 08/03/19 07:26 Respiratory Rate 20 08/03/19 07:26 Blood Pressure 100/52 L 08/03/19 07:26 O2 Sat by Pulse Oximetry (%) 100 08/02/19 21:00 Constitutional: Yes: No Distress, Calm Cardiovascular: Yes: S1, S2 Respiratory: Yes: Regular, CTA Bilaterally Gastrointestinal: Yes: Normal Bowel Sounds, Soft Musculoskeletal: Yes: WNL Extremities: Yes: Other Neurological: Yes: Other Psychiatric: Yes: Other Labs: CBC, BMP 08/03/19 12:30 08/03/19 10:21 INR, PTT INR 1.10 (0.83-1.09) H 07/20/19 15:50 Assessment/Plan Problem List - Problems (1) Hyperkalemia Code(s): E87.5 - HYPERKALEMIA (2) Dehydration Code(s): E86.0 - DEHYDRATION (3) Failure to thrive in adult Code(s): R62.7 - ADULT FAILURE TO THRIVE (4) Acute kidney injury Code(s): N17.9 - ACUTE KIDNEY FAILURE, UNSPECIFIED mrsa bactremia plan continue current mgmt wound care abx monitor wbc
--- NOTE | 2019-08-03 16:17 | PN ---
Progress Note, Physician History of Present Illness: Pt seen and examined at bedside. He appears comfortable. - Current Medication List Current Medications: Active Medications Aspirin (Asa -) 81 mg PO DAILY [facility] Last Admin: 08/03/19 11:00 Dose: 81 mg Atorvastatin Calcium (Lipitor -) 80 mg PO HS [facility] Last Admin: 08/02/19 22:08 Dose: 80 mg Clopidogrel Bisulfate (Plavix -) 75 mg PO DAILY [facility] Last Admin: 08/03/19 11:00 Dose: 75 mg Piperacillin Sod/Tazobactam (Sod 3.375 gm/ Dextrose) 50 mls @ 100 mls/hr IVPB Q8H-IV [facility]; Protocol Last Admin: 08/03/19 11:00 Dose: 100 mls/hr Sodium Chloride (1/2 Normal Saline) 1,000 mls @ 42 mls/hr IV ASDIR [facility] Last Admin: 08/02/19 16:04 Dose: 42 mls/hr Metoprolol Tartrate (Lopressor -) 25 mg PO DAILY [facility] Last Admin: 08/03/19 11:00 Dose: 25 mg Mirtazapine (Remeron -) 15 mg PO HS [facility] Last Admin: 08/02/19 22:08 Dose: 15 mg Mupirocin (Bactroban 2% Ointment -) 1 applic TP BID [facility] Last Admin: 08/03/19 11:00 Dose: 1 applic Tamsulosin HCl (Flomax -) 0.4 mg PO DAILY@0830 [facility] Last Admin: 08/03/19 12:13 Dose: Not Given - Objective Vital Signs: Vital Signs Temperature 98.9 F 08/03/19 15:00 Pulse Rate 91 H 08/03/19 15:00 Respiratory Rate 18 08/03/19 15:00 Blood Pressure 119/72 08/03/19 15:00 O2 Sat by Pulse Oximetry (%) 100 08/02/19 21:00 Constitutional: Yes: Calm Cardiovascular: Yes: S1, S2 Respiratory: Yes: CTA Bilaterally Gastrointestinal: Yes: Soft Genitourinary: Yes: WNL Musculoskeletal: Yes: WNL Edema: Yes Edema: LLE: Trace, RLE: Trace Neurological: Yes: Oriented Labs: CBC, BMP 08/03/19 12:30 08/03/19 10:21 INR, PTT INR 1.10 (0.83-1.09) H 07/20/19 15:50 Problem List - Problems (1) Hyperkalemia Code(s): E87.5 - HYPERKALEMIA (2) Dehydration Code(s): E86.0 - DEHYDRATION (3) Failure to thrive in adult Code(s): R62.7 - ADULT FAILURE TO THRIVE (4) Acute kidney injury Code(s): N17.9 - ACUTE KIDNEY FAILURE, UNSPECIFIED Assessment/Plan Current Medications Generic Name Dose Route Start Last Admin Trade Name Freq PRN Reason Stop Dose Admin Aspirin 81 mg 07/21/19 10:00 08/03/19 11:00 Asa - PO 81 mg DAILY [facility] Administration Atorvastatin Calcium 80 mg 07/21/19 22:00 08/02/19 22:08 Lipitor - PO 80 mg HS [facility]A Administration Clopidogrel Bisulfate 75 mg 07/21/19 10:00 08/03/19 11:00 Plavix - PO 75 mg DAILY [facility] Administration Piperacillin Sod/Tazobactam 50 mls @ 100 mls/hr 07/30/19 14:30 08/03/19 11:00 Sod 3.375 gm/ Dextrose IVPB 100 mls/hr Q8H-IV [facility]ELA Administration Protocol Sodium Chloride 1,000 mls @ 42 mls/hr 08/02/19 14:30 08/02/19 16:04 1/2 Normal Saline IV 42 mls/hr ASDIR [facility] Administration Metoprolol Tartrate 25 mg 07/21/19 10:00 08/03/19 11:00 Lopressor - PO 25 mg DAILY [facility] Administration Mirtazapine 15 mg 07/21/19 22:00 08/02/19 22:08 Remeron - PO 15 mg HS [facility] Administration Mupirocin 1 applic 07/21/19 22:00 08/03/19 11:00 Bactroban 2% Ointment - TP 1 applic BID [facility] Administration Tamsulosin HCl 0.4 mg 07/21/19 08:30 08/03/19 12:13 Flomax - PO Not Given DAILY@0830 [facility] Laboratory Tests 07/20/19 07/20/19 07/20/19 15:50 18:49 18:49 WBC 18.7 H Potassium 5.5 H Creatinine 1.5 H Lactic Acid 3.1 H* Creatine Kinase Urine Eosinophils 07/21/19 07/21/19 07/21/19 02:44 07:46 07:46 WBC 14.9 H Potassium 4.0 Creatinine 1.2 Lactic Acid 1.9 Creatine Kinase Urine Eosinophils 07/21/19 08/02/19 07:46 14:30 WBC Potassium Creatinine Lactic Acid Creatine Kinase 2318 H Urine Eosinophils Pending Impression 1. EJSSE 2. hyperkalemia 3. htn 4. hld 5. brain lesion 6. right renal density 7. 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
--- NOTE | 2019-08-03 19:37 | PN ---
Progress Note, Physician - Current Medication List Current Medications: Active Medications Aspirin (Asa -) 81 mg PO DAILY [facility] Last Admin: 08/03/19 11:00 Dose: 81 mg Atorvastatin Calcium (Lipitor -) 80 mg PO HS [facility] Last Admin: 08/02/19 22:08 Dose: 80 mg Clopidogrel Bisulfate (Plavix -) 75 mg PO DAILY [facility] Last Admin: 08/03/19 11:00 Dose: 75 mg Piperacillin Sod/Tazobactam (Sod 3.375 gm/ Dextrose) 50 mls @ 100 mls/hr IVPB Q8H-IV [facility]; Protocol Last Admin: 08/03/19 17:56 Dose: 100 mls/hr Sodium Chloride (1/2 Normal Saline) 1,000 mls @ 42 mls/hr IV ASDIR [facility] Last Admin: 08/02/19 16:04 Dose: 42 mls/hr Metoprolol Tartrate (Lopressor -) 25 mg PO DAILY [facility] Last Admin: 08/03/19 11:00 Dose: 25 mg Mirtazapine (Remeron -) 15 mg PO HS [facility] Last Admin: 08/02/19 22:08 Dose: 15 mg Mupirocin (Bactroban 2% Ointment -) 1 applic TP BID [facility] Last Admin: 08/03/19 11:00 Dose: 1 applic Tamsulosin HCl (Flomax -) 0.4 mg PO DAILY@0830 [facility] Last Admin: 08/03/19 12:13 Dose: Not Given - Objective Vital Signs: Vital Signs Temperature 99.8 F H 08/03/19 18:00 Pulse Rate 86 08/03/19 18:00 Respiratory Rate 18 08/03/19 18:00 Blood Pressure 102/44 L 08/03/19 18:00 O2 Sat by Pulse Oximetry (%) 100 08/02/19 21:00 Labs: CBC, BMP 08/03/19 12:30 08/03/19 10:21 INR, PTT INR 1.10 (0.83-1.09) H 07/20/19 15:50 Problem List - Problems (1) Bacteremia Code(s): R78.81 - BACTEREMIA (2) Rhabdomyolysis Code(s): M62.82 - RHABDOMYOLYSIS (3) HTN (hypertension) Code(s): I10 - ESSENTIAL (PRIMARY) HYPERTENSION (4) Failure to thrive in adult Code(s): R62.7 - ADULT FAILURE TO THRIVE (5) Altered mental status Code(s): R41.82 - ALTERED MENTAL STATUS, UNSPECIFIED (6) Dementia Code(s): F03.90 - UNSPECIFIED DEMENTIA WITHOUT BEHAVIORAL DISTURBANCE (7) HLD (hyperlipidemia) Code(s): E78.5 - HYPERLIPIDEMIA, UNSPECIFIED
[2019-08-03] MEDS: SODIUM CHLORIDE 0.45% 1,000 ML IV SCH (20:17)
[2019-08-03] MEDS: MIRTAZAPINE 15 MG TABLET (FP) PO SCH (21:41)
[2019-08-03] MEDS: ATORVASTATIN CA 80 MG TABLET (FP) PO SCH (21:42)
[2019-08-04] MEDS ORDERED: PIPERACILLIN/TAZOBACTAM 3.375 GM VIAL IVPB ONE ×2 (01:36→09:12)
[2019-08-04] MEDS ORDERED: DEXTROSE 5%-WATER - 50 ML IVPB ONE ×2 (01:37→09:12)
[2019-08-04] MEDS: PIPERACILLIN/TAZOB 3.375 GM 3.375 GM in DEXTROSE 5%-WATER - 50 ML IVPB SCH ×2 (01:44→10:41)
[2019-08-04] MEDS: CLOPIDOGREL BISULFATE 75 MG TABLET (FP) PO SCH (10:40)
[2019-08-04] MEDS: ASPIRIN 81 MG CHEWABLE TABLETS PO SCH (10:40)
[2019-08-04] MEDS: MUPIROCIN 2% TOPICAL OINTMENT 22 GM TUBE TP SCH ×2 (10:41→22:43)
[2019-08-04] MEDS: TAMSULOSIN HCL 0.4 MG CAP PO SCH (10:41)
[2019-08-04] MEDS: METOPROLOL TARTRATE 25 MG TABLET (FP) PO SCH (10:41)
--- NOTE | 2019-08-04 12:15 | PN ---
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 Staff focusing on liquid supplements to increase nutritional density. Consider palliative care consult regarding end of life wishes. PEG insertion?
--- NOTE | 2019-08-04 12:45 | PN ---
Progress Note, Physician History of Present Illness: stable no new issues - Current Medication List Current Medications: Active Medications Aspirin (Asa -) 81 mg PO DAILY [facility] Last Admin: 08/04/19 10:40 Dose: 81 mg Atorvastatin Calcium (Lipitor -) 80 mg PO HS [facility] Last Admin: 08/03/19 21:42 Dose: 80 mg Clopidogrel Bisulfate (Plavix -) 75 mg PO DAILY [facility] Last Admin: 08/04/19 10:40 Dose: 75 mg Sodium Chloride (1/2 Normal Saline) 1,000 mls @ 42 mls/hr IV ASDIR [facility] Last Admin: 08/03/19 20:17 Dose: 42 mls/hr Amino Acids (Clinimix -) 1,000 mls @ 42 mls/hr IV Q24H [facility] Metoprolol Tartrate (Lopressor -) 25 mg PO DAILY [facility] Last Admin: 08/04/19 10:41 Dose: 25 mg Mirtazapine (Remeron -) 15 mg PO HS [facility] Last Admin: 08/03/19 21:41 Dose: 15 mg Mupirocin (Bactroban 2% Ointment -) 1 applic TP BID [facility] Last Admin: 08/04/19 10:41 Dose: 1 applic Tamsulosin HCl (Flomax -) 0.4 mg PO DAILY@0830 [facility] Last Admin: 08/04/19 10:41 Dose: 0.4 mg - Objective Vital Signs: Vital Signs Temperature 98.7 F 08/04/19 07:42 Pulse Rate 111 H 08/04/19 10:53 Respiratory Rate 20 08/04/19 10:53 Blood Pressure 104/54 L 08/04/19 10:53 O2 Sat by Pulse Oximetry (%) 100 08/03/19 21:00 Constitutional: Yes: No Distress, Calm Cardiovascular: Yes: S1, S2 Respiratory: Yes: Regular, CTA Bilaterally Gastrointestinal: Yes: Normal Bowel Sounds, Soft Musculoskeletal: Yes: WNL Extremities: Yes: WNL Neurological: Yes: Alert Psychiatric: Yes: Alert Labs: CBC, BMP 08/03/19 12:30 08/03/19 10:21 INR, PTT INR 1.10 (0.83-1.09) H 07/20/19 15:50 Assessment/Plan Problem List - Problems (1) Hyperkalemia Code(s): E87.5 - HYPERKALEMIA (2) Dehydration Code(s): E86.0 - DEHYDRATION (3) Failure to thrive in adult Code(s): R62.7 - ADULT FAILURE TO THRIVE (4) Acute kidney injury Code(s): N17.9 - ACUTE KIDNEY FAILURE, UNSPECIFIED mrsa bactremia plan continue current mgmt wound care will stop abx and monitor nutrition asp precautions
[2019-08-04] MEDS: AMINO ACIDS 4.25%/D5W 1,000 ML IV SCH (13:32)
[2019-08-04 13:41] LABS: ALBUMIN 0.8 g/dl (3.4-5.0); BILIRUBIN,TOTAL 0.4 mg/dL (0.2-1); BLOOD UREA NITROGEN 30.8 mg/dL (7-18); CALCIUM 7.8 mg/dL (8.5-10.1); CREATININE 1.6 mg/dL (0.55-1.3); POTASSIUM 5.1 mmol/L (3.5-5.1); TOT PROT 4.3 g/dl (6.4-8.2)
[2019-08-04 14:32] LABS: BASO % 1.2 % (0-2.0); EOS % 2.8 % (0-4.5); HEMATOCRIT 14.1 % (35.4-49); LYMPH % 10.1 % (8-40); MCH 28.9 pg (25.7-33.7); MCHC 34.3 g/dl (32.0-35.9); MEAN CELL VOLUME 84.1 fl (80-96); MEAN PLT VOLUME 8.1 fl (7.5-11.1); MONO % 6.3 % (3.8-10.2); NEUT % 79.6 % (42.8-82.8); PLATELET COUNT 78 K/MM3 (134-434); RBC 1.68 M/mm3 (4.00-5.60); RDW 15.8 % (11.9-15.9); WHITE BLOOD COUNT 10.5 K/mm3 (4.0-10.0)
[2019-08-04 15:11] LABS: HEMOGLOBIN 4.9 GM/dL (11.7-16.9)
[2019-08-04 15:49] LABS: HEMATOCRIT 19.7 % (35.4-49); MCH 26.8 pg (25.7-33.7); MCHC 32.3 g/dl (32.0-35.9); MEAN PLT VOLUME 6.9 fl (7.5-11.1); PLATELET COUNT 678 K/MM3 (134-434); RBC 2.38 M/mm3 (4.00-5.60); RDW 15.8 % (11.9-15.9); WHITE BLOOD COUNT 14.3 K/mm3 (4.0-10.0)
[2019-08-04 15:53] LABS: HEMOGLOBIN 6.4 GM/dL (11.7-16.9)
--- NOTE | 2019-08-04 17:27 | PN ---
Progress Note, Physician History of Present Illness: Pt seen and examined at bedside earlier today. He complains of fatigue. - Current Medication List Current Medications: Active Medications Atorvastatin Calcium (Lipitor -) 80 mg PO HS [facility] Last Admin: 08/03/19 21:42 Dose: 80 mg Sodium Chloride (1/2 Normal Saline) 1,000 mls @ 42 mls/hr IV ASDIR [facility] Last Admin: 08/03/19 20:17 Dose: 42 mls/hr Amino Acids (Clinimix -) 1,000 mls @ 42 mls/hr IV Q24H [facility] Last Admin: 08/04/19 13:32 Dose: 42 mls/hr Metoprolol Tartrate (Lopressor -) 25 mg PO DAILY [facility] Last Admin: 08/04/19 10:41 Dose: 25 mg Mirtazapine (Remeron -) 15 mg PO HS [facility] Last Admin: 08/03/19 21:41 Dose: 15 mg Mupirocin (Bactroban 2% Ointment -) 1 applic TP BID [facility] Last Admin: 08/04/19 10:41 Dose: 1 applic Tamsulosin HCl (Flomax -) 0.4 mg PO DAILY@0830 [facility] Last Admin: 08/04/19 10:41 Dose: 0.4 mg - Objective Vital Signs: Vital Signs Temperature 98.0 F 08/04/19 15:00 Pulse Rate 88 08/04/19 15:00 Respiratory Rate 20 08/04/19 15:00 Blood Pressure 107/49 L 08/04/19 15:00 O2 Sat by Pulse Oximetry (%) 100 08/04/19 09:00 Constitutional: Yes: Calm Eyes: Yes: Conjunctiva Clear HENT: Yes: Atraumatic Neck: Yes: Supple Cardiovascular: Yes: S1, S2 Respiratory: Yes: CTA Bilaterally Gastrointestinal: Yes: Normal Bowel Sounds, Soft Genitourinary: Yes: WNL Musculoskeletal: Yes: WNL Edema: No Edema: LLE: Trace, RLE: Trace Neurological: Yes: Oriented Labs: CBC, BMP 08/04/19 14:50 08/04/19 12:57 INR, PTT INR 1.10 (0.83-1.09) H 07/20/19 15:50 Problem List - Problems (1) Hyperkalemia Code(s): E87.5 - HYPERKALEMIA (2) Dehydration Code(s): E86.0 - DEHYDRATION (3) Failure to thrive in adult Code(s): R62.7 - ADULT FAILURE TO THRIVE (4) Acute kidney injury Code(s): N17.9 - ACUTE KIDNEY FAILURE, UNSPECIFIED Assessment/Plan Current Medications Generic Name Dose Route Start Last Admin Trade Name Freq PRN Reason Stop Dose Admin Atorvastatin Calcium 80 mg 07/21/19 22:00 08/03/19 21:42 Lipitor - PO 80 mg HS [facility] Administration Sodium Chloride 1,000 mls @ 42 mls/hr 08/02/19 14:30 08/03/19 20:17 1/2 Normal Saline IV 42 mls/hr ASDIR [facility] Administration Amino Acids 1,000 mls @ 42 mls/hr 08/04/19 12:00 08/04/19 13:32 Clinimix - IV 42 mls/hr Q24H [facility] Administration Metoprolol Tartrate 25 mg 07/21/19 10:00 08/04/19 10:41 Lopressor - PO 25 mg DAILY [facility] Administration Mirtazapine 15 mg 07/21/19 22:00 08/03/19 21:41 Remeron - PO 15 mg HS [facility] Administration Mupirocin 1 applic 07/21/19 22:00 08/04/19 10:41 Bactroban 2% Ointment - TP 1 applic BID [facility] Administration Tamsulosin HCl 0.4 mg 07/21/19 08:30 08/04/19 10:41 Flomax - PO 0.4 mg DAILY@0830 [facility] Administration Laboratory Tests 08/02/19 14:30 Urine Eosinophils Pending Impression 1. JESSE 2. hyperkalemia 3. htn 4. hld 5. brain lesion 6. right renal density 7. rhabdo Plan - prbc transfusion - monitor renal function - cont fluids - follow ua and urine eos - repeat labs in am
[2019-08-04] MEDS: ATORVASTATIN CA 80 MG TABLET (FP) PO SCH (22:43)
[2019-08-04] MEDS: MIRTAZAPINE 15 MG TABLET (FP) PO SCH (22:43)
--- NOTE | 2019-08-04 23:31 | PN ---
Progress Note, Physician History of Present Illness: Spoke to pt's and son and they agreed to blood transfusion Also spoke to family about PEG insertion but said she is not ready to discuss it yet - Current Medication List Current Medications: Active Medications Atorvastatin Calcium (Lipitor -) 80 mg PO HS [facility] Last Admin: 08/04/19 22:43 Dose: 80 mg Sodium Chloride (1/2 Normal Saline) 1,000 mls @ 42 mls/hr IV ASDIR [facility] Last Admin: 08/03/19 20:17 Dose: 42 mls/hr Amino Acids (Clinimix -) 1,000 mls @ 42 mls/hr IV Q24H [facility] Last Admin: 08/04/19 13:32 Dose: 42 mls/hr Metoprolol Tartrate (Lopressor -) 25 mg PO DAILY [facility] Last Admin: 08/04/19 10:41 Dose: 25 mg Mirtazapine (Remeron -) 15 mg PO [facility] Last Admin: 08/04/19 22:43 Dose: 15 mg Mupirocin (Bactroban 2% Ointment -) 1 applic TP BID [facility] Last Admin: 08/04/19 22:43 Dose: 1 applic Tamsulosin HCl (Flomax -) 0.4 mg PO DAILY@0830 [facility] Last Admin: 08/04/19 10:41 Dose: 0.4 mg - Objective Vital Signs: Vital Signs Temperature 99.2 F 08/04/19 18:00 Pulse Rate 99 H 08/04/19 18:00 Respiratory Rate 20 08/04/19 18:00 Blood Pressure 102/54 L 08/04/19 18:00 O2 Sat by Pulse Oximetry (%) 100 08/04/19 09:00 Neck: Yes: WNL, Supple Cardiovascular: Yes: WNL, Regular Rate and Rhythm Respiratory: Yes: WNL, Regular, CTA Bilaterally Gastrointestinal: Yes: WNL, Normal Bowel Sounds, Soft Extremities: Yes: Other ((+) contractures) Labs: CBC, BMP 08/04/19 14:50 08/04/19 12:57 INR, PTT INR 1.10 (0.83-1.09) H 07/20/19 15:50 Problem List - Problems (1) Anemia Assessment/Plan: Transfuse 2 units PRBC's DC asa/plavix Stool for occult blood GI/Heme consults Code(s): D64.9 - ANEMIA, UNSPECIFIED (2) Bacteremia Assessment/Plan: BC (+) for MRSA Repeat BC remain negative Urine culture negatgive Pt is now off antibxs Code(s): R78.81 - BACTEREMIA (3) Rhabdomyolysis Assessment/Plan: Resolved Code(s): M62.82 - RHABDOMYOLYSIS (4) HTN (hypertension) Assessment/Plan: BP stable Code(s): I10 - ESSENTIAL (PRIMARY) HYPERTENSION (5) Failure to thrive in adult Assessment/Plan: Encourage PO intake Started on IV clinimix Code(s): R62.7 - ADULT FAILURE TO THRIVE (6) Dementia Assessment/Plan: Spoke to about PEG insertion however has not come to an agreement Will get Palliative care consult for GOC Code(s): F03.90 - UNSPECIFIED DEMENTIA WITHOUT BEHAVIORAL DISTURBANCE (7) HLD (hyperlipidemia) Assessment/Plan: Cont lipitor Code(s): E78.5 - HYPERLIPIDEMIA, UNSPECIFIED (8) Metabolic encephalopathy Code(s): G93.41 - METABOLIC ENCEPHALOPATHY (9) Elevated LFTs Assessment/Plan: DC lipitor Code(s): R94.5 - ABNORMAL RESULTS OF LIVER FUNCTION STUDIES
[2019-08-05 09:55] LABS: ALBUMIN 1.3 g/dl (3.4-5.0); BILIRUBIN,TOTAL 0.5 mg/dL (0.2-1); BLOOD UREA NITROGEN 33.3 mg/dL (7-18); CALCIUM 9.1 mg/dL (8.5-10.1); CREATININE 1.7 mg/dL (0.55-1.3); POTASSIUM 4.7 mmol/L (3.5-5.1); TOT PROT 5.8 g/dl (6.4-8.2)
--- NOTE | 2019-08-05 10:03 | PN ---
Progress Note, Physician History of Present Illness: no new issues - Current Medication List Current Medications: Active Medications Sodium Chloride (1/2 Normal Saline) 1,000 mls @ 42 mls/hr IV ASDIR [facility] Last Admin: 08/03/19 20:17 Dose: 42 mls/hr Amino Acids (Clinimix -) 1,000 mls @ 42 mls/hr IV Q24H [facility] Last Admin: 08/04/19 13:32 Dose: 42 mls/hr Metoprolol Tartrate (Lopressor -) 25 mg PO DAILY [facility] Last Admin: 08/04/19 10:41 Dose: 25 mg Mirtazapine (Remeron -) 15 mg PO HS [facility] Last Admin: 08/04/19 22:43 Dose: 15 mg Mupirocin (Bactroban 2% Ointment -) 1 applic TP BID [facility] Last Admin: 08/04/19 22:43 Dose: 1 applic Tamsulosin HCl (Flomax -) 0.4 mg PO DAILY@0830 [facility] Last Admin: 08/04/19 10:41 Dose: 0.4 mg - Objective Vital Signs: Vital Signs Temperature 98.7 F 08/05/19 06:00 Pulse Rate 109 H 08/05/19 06:00 Respiratory Rate 18 08/05/19 06:00 Blood Pressure 121/59 L 08/05/19 06:00 O2 Sat by Pulse Oximetry (%) 100 08/04/19 21:00 Constitutional: Yes: No Distress, Calm Cardiovascular: Yes: S1, S2 Respiratory: Yes: Regular, CTA Bilaterally Gastrointestinal: Yes: Normal Bowel Sounds, Soft Musculoskeletal: Yes: WNL Extremities: Yes: Other Wound/Incision: Yes: Dressing Dry and Intact Neurological: Yes: Alert Psychiatric: Yes: Other Labs: CBC, BMP 08/05/19 07:40 08/05/19 09:10 INR, PTT INR 1.10 (0.83-1.09) H 07/20/19 15:50 Assessment/Plan Problem List - Problems (1) Hyperkalemia Code(s): E87.5 - HYPERKALEMIA (2) Dehydration Code(s): E86.0 - DEHYDRATION (3) Failure to thrive in adult Code(s): R62.7 - ADULT FAILURE TO THRIVE (4) Acute kidney injury Code(s): N17.9 - ACUTE KIDNEY FAILURE, UNSPECIFIED mrsa bactremia plan continue current mgmt wound care
[2019-08-05 10:12] LABS: BASO % 1.4 % (0-2.0); EOS % 2.9 % (0-4.5); HEMATOCRIT 20.3 % (35.4-49); LYMPH % 10.2 % (8-40); MCH 27.3 pg (25.7-33.7); MCHC 33.1 g/dl (32.0-35.9); MEAN CELL VOLUME 82.5 fl (80-96); MEAN PLT VOLUME 6.7 fl (7.5-11.1); MONO % 7.2 % (3.8-10.2); NEUT % 78.3 % (42.8-82.8); PLATELET COUNT 811 K/MM3 (134-434); RBC 2.46 M/mm3 (4.00-5.60); RDW 16.2 % (11.9-15.9); WHITE BLOOD COUNT 15.9 K/mm3 (4.0-10.0)
[2019-08-05 10:20] LABS: HEMOGLOBIN 6.7 GM/dL (11.7-16.9)
[2019-08-05] MEDS: METOPROLOL TARTRATE 25 MG TABLET (FP) PO SCH (10:32)
[2019-08-05] MEDS: TAMSULOSIN HCL 0.4 MG CAP PO SCH (10:34)
[2019-08-05] MEDS: MUPIROCIN 2% TOPICAL OINTMENT 22 GM TUBE TP SCH ×2 (10:34→21:35)
--- NOTE | 2019-08-05 12:40 | CONSULT ---
Consultation: CONSULT SERVICE: Hematology/Oncology Resident HISTORY OF PRESENT ILLNESS: 78yo M with h/o dementia, HTN, HLD, CAD s/p NSTEMI, ? brain lesion who presented originally due to change in mental status found to have JESSE. Pt was noted to have normocytic anemia, however stable until 2 days ago where his H/H downtrended to 6.7 today. Stool occult is negative x1 and pt has had no signs of bleeding. We were asked to medically evaluate this patient due to the above. Pt is a poor historian 2/2 dementia and most history obtain through chart review and conversations with family. PMHx: As above PSHx: Unable to obtain SoHx: Unable to obtain Prior occupation: Retired [employer] REVIEW OF SYSTEMS: As per HPI; limited due to dementia PHYSICAL EXAMINATION Vital Signs - 24 hr 08/04/19 08/04/19 08/04/19 15:00 18:00 21:00 Temperature 98.0 F 99.2 F Pulse Rate 88 99 H Respiratory 20 20 Rate Blood Pressure 107/49 L 102/54 L O2 Sat by Pulse 100 Oximetry (%) 08/05/19 08/05/19 08/05/19 01:55 06:00 10:50 Temperature 98.7 F 98.7 F 98.8 F Pulse Rate 110 H 109 H 119 H Respiratory 18 18 20 Rate Blood Pressure 121/62 121/59 L 137/71 O2 Sat by Pulse Oximetry (%) GENERAL: Awake, alert, oriented x1, in no acute distress. HEENT: NC/AT, J CARLOS, sclera anicteric, MMM LUNGS: CTA bilaterally. No wheezes, and no crackles. No accessory muscle use. HEART: Tachycardic with regular rhythm, normal S1 and S2 without murmur ABDOMEN: Soft, Nt/ND, normoactive BS, no guarding. No blood or foul smelling stool. : [place] catheter in place EXTREMITIES: Contracted lower extremities. R hip eschar wihou drainage or surrounding eryhema. No peripheral edema. SKIN: Warm, dry, no rashes. See above Laboratory Results - last 24 hr 08/04/19 08/04/19 08/04/19 09:58 12:57 12:57 WBC 10.5 H Corrected WBC (auto) RBC 1.68 L Hgb 4.9 L* Hct 14.1 L MCV 84.1 MCH 28.9 MCHC 34.3 RDW 15.8 Plt Count 78 L D MPV 8.1 D Absolute Neuts (auto) 8.4 H Neutrophils % 79.6 Lymphocytes % 10.1 Monocytes % 6.3 Eosinophils % 2.8 Basophils % 1.2 Nucleated RBC % 0 Platelet Estimate Platelet Comment Retic Count Sodium 134 L Potassium 5.1 Chloride 106 Carbon Dioxide 21 Anion Gap 8 BUN 30.8 H Creatinine 1.6 H Est GFR (CKD-EPI)AfAm 46.79 Est GFR (CKD-EPI)NonAf 40.37 Random Glucose 97 Calcium 7.8 L Total Bilirubin 0.4 AST 86 H ALT 33 Alkaline Phosphatase 75 Total Protein 4.3 L Albumin 0.8 L Stool Occult Blood Blood Type O POSITIVE Antibody Screen Negative Crossmatch See Detail 08/04/19 08/05/19 08/05/19 14:50 06:58 07:15 WBC 14.3 H Corrected WBC (auto) RBC 2.38 L Hgb 6.4 L* Hct 19.7 L D MCV 83.0 MCH 26.8 MCHC 32.3 RDW 15.8 Plt Count 678 H D MPV 6.9 L D Absolute Neuts (auto) Neutrophils % Lymphocytes % Monocytes % Eosinophils % Basophils % Nucleated RBC % Platelet Estimate Platelet Comment Retic Count 1.44 Sodium Potassium Chloride Carbon Dioxide Anion Gap BUN Creatinine Est GFR (CKD-EPI)AfAm Est GFR (CKD-EPI)NonAf Random Glucose Calcium Total Bilirubin AST ALT Alkaline Phosphatase Total Protein Albumin Stool Occult Blood Negative Blood Type Antibody Screen Crossmatch 08/05/19 08/05/19 08/05/19 07:40 09:10 09:58 WBC Cancelled 15.9 H Corrected WBC (auto) Cancelled RBC Cancelled 2.46 L Hgb Cancelled 6.7 L* Hct Cancelled 20.3 L MCV Cancelled 82.5 MCH Cancelled 27.3 MCHC Cancelled 33.1 RDW Cancelled 16.2 H Plt Count Cancelled 811 H MPV Cancelled 6.7 L Absolute Neuts (auto) Cancelled 12.4 H Neutrophils % Cancelled 78.3 Lymphocytes % Cancelled 10.2 Monocytes % Cancelled 7.2 Eosinophils % Cancelled 2.9 Basophils % Cancelled 1.4 Nucleated RBC % Cancelled 0 Platelet Estimate Cancelled Platelet Comment Cancelled Retic Count Sodium 138 Potassium 4.7 Chloride 108 H Carbon Dioxide 20 L Anion Gap 10 BUN 33.3 H Creatinine 1.7 H Est GFR (CKD-EPI)AfAm 43.49 Est GFR (CKD-EPI)NonAf 37.52 Random Glucose 104 Calcium 9.1 Total Bilirubin 0.5 AST 62 H ALT 33 Alkaline Phosphatase 95 Total Protein 5.8 L Albumin 1.3 L Stool Occult Blood Blood Type Antibody Screen Crossmatch Active Medications Generic Name Dose Route Start Last Admin Trade Name Iza PRN Reason Stop Dose Admin Sodium Chloride 1,000 mls @ 42 mls/hr 08/02/19 14:30 08/03/19 20:17 1/2 Normal Saline IV 42 mls/hr ASDIR MELA Administration Amino Acids 1,000 mls @ 42 mls/hr 08/04/19 12:00 08/04/19 13:32 Clinimix - IV 42 mls/hr Q24H MELA Administration Metoprolol Tartrate 25 mg 07/21/19 10:00 08/05/19 10:32 Lopressor - PO 25 mg DAILY MELA Administration Mirtazapine 15 mg 07/21/19 22:00 08/04/19 22:43 Remeron - PO 15 mg HS MELA Administration Mupirocin 1 applic 07/21/19 22:00 08/05/19 10:34 Bactroban 2% Ointment - TP 1 applic BID MELA Administration Tamsulosin HCl 0.4 mg 07/21/19 08:30 08/05/19 10:34 Flomax - PO Not Given DAILY@0830 [facility] Laboratory Tests 08/05/19 08/05/19 06:58 09:10 Retic Count 1.44 Iron 33 L TIBC 106 L Iron Saturation 31 Ferritin 779.9 H LD Total 457 H ASSESSMENT/PLAN: Normocytic Anemia Albumin-globulin reversal Thrombocytosis --Transfuse to Hgb 8.0 due to existing CAD --No clear etiology of anemia yet; stool occult negative and no signs of bleeding --Iron studies (prior to transfusion), and hemolysis labs sent --Iron studies point to chronic disease vs. 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 Rosa Maria Vega, DO - IM PGY-3 Visit type - Emergency Visit Emergency Visit: Yes ED Registration Date: 07/20/19 Care time: The patient presented to the Emergency Department on the above date and was hospitalized for further evaluation of their emergent condition. - New Patient This patient is new to me today: Yes Date on this admission: 08/05/19 - Critical Care Critical Care patient: No ATTENDING PHYSICIAN STATEMENT I saw and evaluated the patient. I reviewed the resident's note and discussed the case with the resident. I agree with the resident's findings and plan as documented. SUBJECTIVE: OBJECTIVE: ASSESSMENT AND PLAN:
--- NOTE | 2019-08-05 12:48 | PROC ---
Central Line Insertion - Procedure Note TIME OUT performed prior to this procedure with verbal confirmation of correct patient identity, correct side, agreement of the procedure, correct patient position, availability of necessary equipment. The consent form is complete and accurate. Risk of possible infection, bleeding and pneumothorax have been discussed with the patient. Safety precautions based on patient history or medication use has been addressed. Indication: Poor Venous Access Consent on Chart: Yes Central Line: Triple Lumen Catheter Position: Supine Area prepped with Chlorhexidine solution then draped using sterile barrier protection. Anesthesia: Lidocaine 1% Technique used: Modified Seldinger Ultrasound Guided Assistance: Yes Site: Right Internal Jugular Dark venous non-pulsatile flow noted from hub of needle. The catheter was introduced. Guide wire removed intact. Each port aspirated then flushed with sterile normal saline and capped. Line secured to skin with silk suture. Biopatch placed around base of line. Sterile occlusive dressing applied. No complications. Patient tolerated the procedure well. STAT chest xray ordered to confirm position and rule out pneumothorax
[2019-08-05] MEDS: AMINO ACIDS 4.25%/D5W 1,000 ML IV SCH (14:59)
[2019-08-05] MEDS: SODIUM CHLORIDE 0.45% 1,000 ML IV SCH (15:00)
--- NOTE | 2019-08-05 15:33 | PN ---
Progress Note, Physician History of Present Illness: Pt seen and examined at bedside. He had central line placed for access. He will be getting prbc. - Current Medication List Current Medications: Active Medications Sodium Chloride (1/2 Normal Saline) 1,000 mls @ 42 mls/hr IV ASDIR [facility] Last Admin: 08/05/19 15:00 Dose: Not Given Amino Acids (Clinimix -) 1,000 mls @ 42 mls/hr IV Q24H [facility] Last Admin: 08/05/19 14:59 Dose: Not Given Metoprolol Tartrate (Lopressor -) 25 mg PO DAILY [facility] Last Admin: 08/05/19 10:32 Dose: 25 mg Mirtazapine (Remeron -) 15 mg PO HS [facility] Last Admin: 08/04/19 22:43 Dose: 15 mg Mupirocin (Bactroban 2% Ointment -) 1 applic TP BID [facility] Last Admin: 08/05/19 10:34 Dose: 1 applic Tamsulosin HCl (Flomax -) 0.4 mg PO DAILY@0830 [facility] Last Admin: 08/05/19 10:34 Dose: Not Given - Objective Vital Signs: Vital Signs Temperature 98.8 F 08/05/19 10:50 Pulse Rate 113 H 08/05/19 13:03 Respiratory Rate 20 08/05/19 13:03 Blood Pressure 110/71 08/05/19 13:03 O2 Sat by Pulse Oximetry (%) 100 08/04/19 21:00 Constitutional: Yes: Calm Eyes: Yes: Conjunctiva Clear HENT: Yes: Atraumatic Cardiovascular: Yes: S1, S2 Respiratory: Yes: CTA Bilaterally Gastrointestinal: Yes: Soft Genitourinary: Yes: Incontinence Musculoskeletal: Yes: Muscle Weakness Edema: LLE: Trace, RLE: Trace Neurological: Yes: Other (awake and comfortable) Labs: CBC, BMP 08/05/19 09:58 08/05/19 09:10 INR, PTT INR 1.10 (0.83-1.09) H 07/20/19 15:50 Problem List - Problems (1) Hyperkalemia Code(s): E87.5 - HYPERKALEMIA (2) Dehydration Code(s): E86.0 - DEHYDRATION (3) Failure to thrive in adult Code(s): R62.7 - ADULT FAILURE TO THRIVE (4) Acute kidney injury Code(s): N17.9 - ACUTE KIDNEY FAILURE, UNSPECIFIED Assessment/Plan Current Medications Generic Name Dose Route Start Last Admin Trade Name Iza PRN Reason Stop Dose Admin Sodium Chloride 1,000 mls @ 42 mls/hr 08/02/19 14:30 08/05/19 15:00 1/2 Normal Saline IV Not Given ASDIR MELA Amino Acids 1,000 mls @ 42 mls/hr 08/04/19 12:00 08/05/19 14:59 Clinimix - IV Not Given Q24H [facility] Metoprolol Tartrate 25 mg 07/21/19 10:00 08/05/19 10:32 Lopressor - PO 25 mg DAILY MELA Administration Mirtazapine 15 mg 07/21/19 22:00 08/04/19 22:43 Remeron - PO 15 mg HS [facility]ELA Administration Mupirocin 1 applic 07/21/19 22:00 08/05/19 10:34 Bactroban 2% Ointment - TP 1 applic BID MELA Administration Tamsulosin HCl 0.4 mg 07/21/19 08:30 08/05/19 10:34 Flomax - PO Not Given DAILY@0830 [facility] Laboratory Tests 08/02/19 14:30 Urine Eosinophils Pending Impression 1. JESSE 2. hyperkalemia 3. htn 4. hld 5. brain lesion 6. right renal density 7. rhabdo Plan - cont clinimix - can d/c 06/17 ns - monitor hg - repeat labs in am - follow urine eos
--- NOTE | 2019-08-05 21:11 | CON.GI ---
Consult Consult Specialty:: GI Referred by:: Hospitalist Service Reason for Consultation:: Anemia - History of Present Illness Chief Complaint: Patient gives limited information History of Present Illness: 78M noted to be anemic as well as thrombocytopenic. Asked to evaluate. No overt bleeding reported. Guaiac negative from specimen sent to lab. Unclear if he ever had EGD/Colonoscopy. on ASA and Plavix per medication list. Hgb 4.9 on exam, given 2 U PRBC. - History Source History Provided By: Medical Record Limitations to Obtaining History: Poor Historian - Past Medical History GRIEF COUNSELLOR: Yes: Other (Brain tumor) Cardio/Vascular: Yes: HTN, Hyperlipdemia, ND Renal/: Yes: Renal Inusuff - Alcohol/Substance Use Hx Alcohol Use: No - Smoking History Smoking history: Former smoker Have you smoked in the past 12 months: No If you are a former smoker, when did you quit?: 1992 - Social History Usual Living Arrangement: With Spouse History of Recent Travel: No Home Medications - Allergies Allergies/Adverse Reactions: Allergies Allergy/AdvReac Type Severity Reaction Status Date / Time No Known Allergies Allergy Verified 03/25/19 03:03 - Home Medications Home Medications: Ambulatory Orders Ascorbic Acid [Vitamin C] 500 mg PO DAILY 07/20/19 Aspirin 81 mg PO DAILY 07/20/19 Atorvastatin Ca [Lipitor] 80 mg PO HS 07/20/19 Clopidogrel Bisulfate [Plavix] 75 mg PO DAILY 07/20/19 Metoprolol Tartrate 25 mg PO DAILY 07/20/19 Mirtazapine [Remeron -] 15 mg PO DAILY 07/20/19 Tamsulosin HCl [Flomax -] 0.4 mg PO DAILY 07/20/19 Mupirocin Ointment [Bactroban 2% Ointment -] 1 applic TP BID applic 07/27/19 Vancomycin 1,250 mg IVPB Q12H vial 07/27/19 Family Medical History Family History: Unable to Obtain Review of Systems Unable to obtain ROS, reason: minimally verbal Physical Exam-GI Vital Signs: Vital Signs Temperature 99.7 F H 08/05/19 20:13 Pulse Rate 105 H 08/05/19 20:13 Respiratory Rate 20 08/05/19 20:13 Blood Pressure 104/56 L 08/05/19 20:13 O2 Sat by Pulse Oximetry (%) 100 08/05/19 09:00 Constitutional: Yes: Calm Eyes: No: Sclera Icterus Cardiovascular: Yes: Regular Rate and Rhythm. No: Murmur Respiratory: Yes: Diminished (at bases bilaterally, poor insp effort) Gastrointestinal Inspection: Yes: Scars (upper abdominal scars). No: Distention ...Auscultate: Yes: Normoactive Bowel Sounds ...Palpate: Yes: Soft. No: Tenderness (No grimacing upon palpation) ...Percussion: No: Tympanitic ...Rectal Exam: Yes: Other (No external lesions, no masses, light brown stool in rectal vault, guaiac negative) Extremities: Yes: Other (LE contractures, UE contractures) Neurological: Yes: Alert, Confusion Labs: CBC, BMP 08/05/19 09:58 08/05/19 09:10 INR, PTT INR 1.10 (0.83-1.09) H 07/20/19 15:50 Problem List - Problems (1) Anemia Assessment/Plan: Normocytic anemia, guaiac negative on exam without GI bleeding history Heme work-up in progress. No clear iron deficiency Pending heme work-up and when medically cleared and with plavix held for 5 days , endoscopic evaluation could be considered if this is the wish of patient's family Code(s): D64.9 - ANEMIA, UNSPECIFIED
[2019-08-05] MEDS: MIRTAZAPINE 15 MG TABLET (FP) PO SCH ×2 (21:34→23:30)
--- NOTE | 2019-08-05 21:42 | PN ---
Teaching Attending Note Name of Resident: Osei Vega ATTENDING PHYSICIAN STATEMENT I saw and evaluated the patient. I reviewed the resident's note and discussed the case with the resident. I agree with the resident's findings and plan as documented. ASSESSMENT AND PLAN: 78 y/o patient with dementia, bed bound, contractures, comes in with worsening altered mentl status, anemia, JESSE. Noted to be hypercalcemic. Normocytic anemia No overt bleeding Anemia of chronic disease?---renal failure IRon studies not s/o deficiency Getting transused for Hgb 6.7 Given reverse AG ratio --check protein studies, immunoglobulin profile Will need palliative and goals of care discussion with his family
--- NOTE | 2019-08-05 23:27 | PN ---
Progress Note, Physician - Current Medication List Current Medications: Active Medications Amino Acids (Clinimix -) 1,000 mls @ 60 mls/hr IV Q17H [facility] Metoprolol Tartrate (Lopressor -) 25 mg PO DAILY [facility] Last Admin: 08/05/19 10:32 Dose: 25 mg Mirtazapine (Remeron -) 15 mg PO HS [facility] Last Admin: 08/05/19 21:34 Dose: 15 mg Mupirocin (Bactroban 2% Ointment -) 1 applic TP BID [facility] Last Admin: 08/05/19 21:35 Dose: 1 applic Tamsulosin HCl (Flomax -) 0.4 mg PO DAILY@0830 [facility] Last Admin: 08/05/19 10:34 Dose: Not Given - Objective Vital Signs: Vital Signs Temperature 99.7 F H 08/05/19 20:13 Pulse Rate 105 H 08/05/19 20:13 Respiratory Rate 20 08/05/19 20:13 Blood Pressure 104/56 L 08/05/19 20:13 O2 Sat by Pulse Oximetry (%) 100 08/05/19 09:00 Labs: CBC, BMP 08/05/19 09:58 08/05/19 09:10 INR, PTT INR 1.10 (0.83-1.09) H 07/20/19 15:50 Problem List - Problems (1) Anemia Code(s): D64.9 - ANEMIA, UNSPECIFIED (2) Bacteremia Code(s): R78.81 - BACTEREMIA (3) Rhabdomyolysis Code(s): M62.82 - RHABDOMYOLYSIS (4) HTN (hypertension) Code(s): I10 - ESSENTIAL (PRIMARY) HYPERTENSION (5) Failure to thrive in adult Code(s): R62.7 - ADULT FAILURE TO THRIVE (6) Dementia Code(s): F03.90 - UNSPECIFIED DEMENTIA WITHOUT BEHAVIORAL DISTURBANCE (7) HLD (hyperlipidemia) Code(s): E78.5 - HYPERLIPIDEMIA, UNSPECIFIED (8) Metabolic encephalopathy Code(s): G93.41 - METABOLIC ENCEPHALOPATHY (9) Elevated LFTs Code(s): R94.5 - ABNORMAL RESULTS OF LIVER FUNCTION STUDIES
[2019-08-06] MEDS: AMINO ACIDS 4.25%/D5W 1,000 ML IV SCH ×2 (08:51→16:15)
[2019-08-06 09:19] LABS: BASO % 0.8 % (0-2.0); HEMATOCRIT 20.8 % (35.4-49); MCH 27.3 pg (25.7-33.7); MCHC 33.3 g/dl (32.0-35.9); MEAN PLT VOLUME 6.6 fl (7.5-11.1); MONO % 7.9 % (3.8-10.2); NEUT % 74.3 % (42.8-82.8); PLATELET COUNT 849 K/MM3 (134-434); RBC 2.53 M/mm3 (4.00-5.60); RDW 15.9 % (11.9-15.9); WHITE BLOOD COUNT 12.7 K/mm3 (4.0-10.0)
[2019-08-06 09:23] LABS: HEMOGLOBIN 6.9 GM/dL (11.7-16.9)
[2019-08-06 10:25] LABS: ALBUMIN 1.3 g/dl (3.4-5.0); BILIRUBIN,TOTAL 0.2 mg/dL (0.2-1); BLOOD UREA NITROGEN 35.6 mg/dL (7-18); CALCIUM 9.2 mg/dL (8.5-10.1); CREATININE 1.5 mg/dL (0.55-1.3); POTASSIUM 3.9 mmol/L (3.5-5.1); TOT PROT 5.6 g/dl (6.4-8.2)
[2019-08-06] MEDS: TAMSULOSIN HCL 0.4 MG CAP PO SCH (11:51)
[2019-08-06] MEDS: METOPROLOL TARTRATE 25 MG TABLET (FP) PO SCH (11:52)
[2019-08-06] MEDS: MUPIROCIN 2% TOPICAL OINTMENT 22 GM TUBE TP SCH ×2 (11:53→22:43)
--- NOTE | 2019-08-06 13:50 | PN ---
Progress Note, Physician History of Present Illness: stable wbc trending down - Current Medication List Current Medications: Active Medications Acetaminophen (Ofirmev Injection -) 1,000 mg IVPB Q8H PRN PRN Reason: FEVER Amino Acids (Clinimix -) 1,000 mls @ 60 mls/hr IV Q17H [facility] Last Admin: 08/06/19 08:51 Dose: Not Given Metoprolol Tartrate (Lopressor -) 25 mg PO DAILY [facility] Last Admin: 08/06/19 11:52 Dose: Not Given Mirtazapine (Remeron -) 15 mg PO HS [facility] Last Admin: 08/05/19 23:30 Dose: Not Given Mupirocin (Bactroban 2% Ointment -) 1 applic TP BID [facility] Last Admin: 08/06/19 11:53 Dose: 1 applic Tamsulosin HCl (Flomax -) 0.4 mg PO DAILY@0830 [facility] Last Admin: 08/06/19 11:51 Dose: Not Given - Objective Vital Signs: Vital Signs Temperature 99.0 F 08/06/19 11:30 Pulse Rate 120 H 08/06/19 11:30 Respiratory Rate 18 08/06/19 11:30 Blood Pressure 117/58 L 08/06/19 11:30 O2 Sat by Pulse Oximetry (%) 95 08/06/19 10:00 Constitutional: Yes: No Distress, Calm Cardiovascular: Yes: S1, S2 Respiratory: Yes: Regular, CTA Bilaterally Gastrointestinal: Yes: Normal Bowel Sounds, Soft Musculoskeletal: Yes: WNL Extremities: Yes: Other Neurological: Yes: Alert Psychiatric: Yes: Alert Labs: CBC, BMP 08/06/19 08:25 08/06/19 08:25 INR, PTT INR 1.10 (0.83-1.09) H 07/20/19 15:50 Assessment/Plan Problem List - Problems (1) Anemia Code(s): D64.9 - ANEMIA, UNSPECIFIED (2) Bacteremia Code(s): R78.81 - BACTEREMIA (3) Rhabdomyolysis Code(s): M62.82 - RHABDOMYOLYSIS (4) HTN (hypertension) Code(s): I10 - ESSENTIAL (PRIMARY) HYPERTENSION (5) Failure to thrive in adult Code(s): R62.7 - ADULT FAILURE TO THRIVE (6) Dementia Code(s): F03.90 - UNSPECIFIED DEMENTIA WITHOUT BEHAVIORAL DISTURBANCE (7) HLD (hyperlipidemia) Code(s): E78.5 - HYPERLIPIDEMIA, UNSPECIFIED (8) Metabolic encephalopathy Code(s): G93.41 - METABOLIC ENCEPHALOPATHY (9) Elevated LFTs Code(s): R94.5 - ABNORMAL RESULTS OF LIVER FUNCTION STUDIES plan continue current mgmt wound care wbc trending down nutrition continue clinimax
--- NOTE | 2019-08-06 13:58 | PN ---
Progress Note (short form) - Note Progress Note: HPI: Unable to be obtained due to patient's clinical condition. 1st unit PRBC running. No overnight events. Vital Signs Temperature 99.0 F 08/06/19 11:30 Pulse Rate 120 H 08/06/19 11:30 Respiratory Rate 18 08/06/19 11:30 Blood Pressure 117/58 L 08/06/19 11:30 O2 Sat by Pulse Oximetry (%) 95 08/06/19 10:00 PE: GENERAL: Awake, tracks around room, nonverbal, in no acute distress. HEENT: NC/AT, J CARLOS, sclera anicteric, MMM LUNGS: CTA bilaterally. No wheezes, and no crackles. No accessory muscle use. HEART: Tachycardic with regular rhythm, normal S1 and S2 without murmur ABDOMEN: Soft, Nt/ND, normoactive BS, no guarding : [place] catheter bag with clear-yellow urine EXTREMITIES: Contracted lower extremities. R hip eschar without drainage. No peripheral edema. SKIN: Warm, dry, no rashes. See above CBC, BMP 08/06/19 08:25 08/06/19 08:25 Active Medications Acetaminophen (Ofirmev Injection -) 1,000 mg IVPB Q8H PRN PRN Reason: FEVER Amino Acids (Clinimix -) 1,000 mls @ 60 mls/hr IV Q17H [facility] Last Admin: 08/06/19 08:51 Dose: Not Given Metoprolol Tartrate (Lopressor -) 25 mg PO DAILY [facility] Last Admin: 08/06/19 11:52 Dose: Not Given Mirtazapine (Remeron -) 15 mg PO HS [facility] Last Admin: 08/05/19 23:30 Dose: Not Given Mupirocin (Bactroban 2% Ointment -) 1 applic TP BID [facility] Last Admin: 08/06/19 11:53 Dose: 1 applic Tamsulosin HCl (Flomax -) 0.4 mg PO DAILY@0830 [facility] Last Admin: 08/06/19 11:51 Dose: Not Given Assessment/Plan Ritchie Positive Hemolytic anemia Albumin-globulin reversal Thrombocytosis --Transfuse to Hgb 8.0 due to existing CAD --LDH, Haptoglobin, Ritchie + --Likely related to inflammatory process considering levels are minimally elevated --Continue transfusion and monitor CBC --Peripheral smear to be examined --Would hold off on steroids right now considering improvement of patient's renal function --Pt with notable A-G ratio reversal alongside of corrected hypercalcemia, anemia, and renal failure --SPEP, UPEP, immunofixation, free [place]-Lambda chains, and Ig profile pending --07/22/2019 CT A/P not suggestive of acute bony pathology, 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 Rosa Maria Vega, DO - IM PGY-3
--- NOTE | 2019-08-06 16:52 | PN ---
Progress Note, Physician History of Present Illness: Pt seen and examined at bedside. He is lethargic. - Current Medication List Current Medications: Active Medications Acetaminophen (Ofirmev Injection -) 1,000 mg IVPB Q8H PRN PRN Reason: FEVER Amino Acids (Clinimix -) 1,000 mls @ 60 mls/hr IV Q17H [facility] Last Admin: 08/06/19 16:15 Dose: 60 mls/hr Metoprolol Tartrate (Lopressor -) 25 mg PO DAILY [facility] Last Admin: 08/06/19 11:52 Dose: Not Given Mirtazapine (Remeron -) 15 mg PO HS [facility] Last Admin: 08/05/19 23:30 Dose: Not Given Mupirocin (Bactroban 2% Ointment -) 1 applic TP BID [facility] Last Admin: 08/06/19 11:53 Dose: 1 applic Tamsulosin HCl (Flomax -) 0.4 mg PO DAILY@0830 [facility] Last Admin: 08/06/19 11:51 Dose: Not Given - Objective Vital Signs: Vital Signs Temperature 99.7 F H 08/06/19 15:30 Pulse Rate 122 H 08/06/19 15:30 Respiratory Rate 18 08/06/19 15:30 Blood Pressure 113/62 08/06/19 15:30 O2 Sat by Pulse Oximetry (%) 95 08/06/19 10:00 Constitutional: Yes: Calm Eyes: Yes: Conjunctiva Clear HENT: Yes: Atraumatic Cardiovascular: Yes: S1, S2 Respiratory: Yes: CTA Bilaterally Gastrointestinal: Yes: Soft Genitourinary: Yes: Incontinence Musculoskeletal: Yes: Other (contracted legs) Edema: Yes Edema: LLE: Trace, RLE: Trace Neurological: Yes: Lethargy Labs: CBC, BMP 08/06/19 08:25 08/06/19 08:25 INR, PTT INR 1.10 (0.83-1.09) H 07/20/19 15:50 Problem List - Problems (1) Hyperkalemia Code(s): E87.5 - HYPERKALEMIA (2) Dehydration Code(s): E86.0 - DEHYDRATION (3) Failure to thrive in adult Code(s): R62.7 - ADULT FAILURE TO THRIVE (4) Acute kidney injury Code(s): N17.9 - ACUTE KIDNEY FAILURE, UNSPECIFIED Assessment/Plan Current Medications Generic Name Dose Route Start Last Admin Trade Name Frealayna PRN Reason Stop Dose Admin Acetaminophen 1,000 mg 08/06/19 10:47 Ofirmev Injection - IVPB Q8H PRN FEVER Amino Acids 1,000 mls @ 60 mls/hr 08/05/19 15:34 08/06/19 16:15 Clinimix - IV 60 mls/hr Q17H [facility] Administration Metoprolol Tartrate 25 mg 07/21/19 10:00 08/06/19 11:52 Lopressor - PO Not Given DAILY [facility] Mirtazapine 15 mg 07/21/19 22:00 08/05/19 23:30 Remeron - PO Not Given HS [facility] Mupirocin 1 applic 07/21/19 22:00 08/06/19 11:53 Bactroban 2% Ointment - TP 1 applic BID [facility] Administration Tamsulosin HCl 0.4 mg 07/21/19 08:30 08/06/19 11:51 Flomax - PO Not Given DAILY@0830 [facility] Impression 1. JESSE 2. hyperkalemia 3. htn 4. hld 5. brain lesion 6. right renal density 7. rhabdo 8. 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
--- NOTE | 2019-08-06 22:38 | PN ---
Progress Note, Physician - Current Medication List Current Medications: Active Medications Acetaminophen (Ofirmev Injection -) 1,000 mg IVPB Q8H PRN PRN Reason: FEVER Amino Acids (Clinimix -) 1,000 mls @ 60 mls/hr IV Q17H [facility] Last Admin: 08/06/19 16:15 Dose: 60 mls/hr Metoprolol Tartrate (Lopressor -) 25 mg PO DAILY [facility] Last Admin: 08/06/19 11:52 Dose: Not Given Mirtazapine (Remeron -) 15 mg PO HS [facility] Last Admin: 08/05/19 23:30 Dose: Not Given Mupirocin (Bactroban 2% Ointment -) 1 applic TP BID [facility] Last Admin: 08/06/19 11:53 Dose: 1 applic Tamsulosin HCl (Flomax -) 0.4 mg PO DAILY@0830 [facility] Last Admin: 08/06/19 11:51 Dose: Not Given - Objective Vital Signs: Vital Signs Temperature 99.6 F 08/06/19 18:00 Pulse Rate 119 H 08/06/19 18:00 Respiratory Rate 18 08/06/19 18:00 Blood Pressure 135/70 08/06/19 18:00 O2 Sat by Pulse Oximetry (%) 95 08/06/19 10:00 Labs: CBC, BMP 08/06/19 08:25 08/06/19 08:25 INR, PTT INR 1.10 (0.83-1.09) H 07/20/19 15:50 Problem List - Problems (1) Anemia Code(s): D64.9 - ANEMIA, UNSPECIFIED (2) Bacteremia Code(s): R78.81 - BACTEREMIA (3) Rhabdomyolysis Code(s): M62.82 - RHABDOMYOLYSIS (4) HTN (hypertension) Code(s): I10 - ESSENTIAL (PRIMARY) HYPERTENSION (5) Failure to thrive in adult Code(s): R62.7 - ADULT FAILURE TO THRIVE (6) Dementia Code(s): F03.90 - UNSPECIFIED DEMENTIA WITHOUT BEHAVIORAL DISTURBANCE (7) HLD (hyperlipidemia) Code(s): E78.5 - HYPERLIPIDEMIA, UNSPECIFIED (8) Metabolic encephalopathy Code(s): G93.41 - METABOLIC ENCEPHALOPATHY (9) Elevated LFTs Code(s): R94.5 - ABNORMAL RESULTS OF LIVER FUNCTION STUDIES
[2019-08-06] MEDS: MIRTAZAPINE 15 MG TABLET (FP) PO SCH (22:43)
[2019-08-07] MEDS: AMINO ACIDS 4.25%/D5W 1,000 ML IV SCH ×4 (04:14→17:35)
[2019-08-07 08:48] LABS: BASO % 1.2 % (0-2.0); EOS % 4.6 % (0-4.5); HEMATOCRIT 25.6 % (35.4-49); HEMOGLOBIN 8.8 GM/dL (11.7-16.9); LYMPH % 12.5 % (8-40); MCH 28.2 pg (25.7-33.7); MCHC 34.2 g/dl (32.0-35.9); MEAN CELL VOLUME 82.4 fl (80-96); MEAN PLT VOLUME 6.7 fl (7.5-11.1); MONO % 7.7 % (3.8-10.2); PLATELET COUNT 777 K/MM3 (134-434); RBC 3.11 M/mm3 (4.00-5.60); RDW 15.1 % (11.9-15.9)
[2019-08-07 09:27] LABS: ALBUMIN 1.2 g/dl (3.4-5.0); BILIRUBIN,TOTAL 0.4 mg/dL (0.2-1); BLOOD UREA NITROGEN 34.6 mg/dL (7-18); CALCIUM 9.2 mg/dL (8.5-10.1); CREATININE 1.3 mg/dL (0.55-1.3); POTASSIUM 4.3 mmol/L (3.5-5.1); TOT PROT 5.1 g/dl (6.4-8.2)
[2019-08-07] MEDS: MUPIROCIN 2% TOPICAL OINTMENT 22 GM TUBE TP SCH ×2 (11:00→23:16)
[2019-08-07] MEDS: TAMSULOSIN HCL 0.4 MG CAP PO SCH ×2 (11:00→11:07)
[2019-08-07] MEDS: METOPROLOL TARTRATE 25 MG TABLET (FP) PO SCH (11:00)
--- NOTE | 2019-08-07 11:45 | PN ---
Progress Note (short form) - Note Progress Note: No overt bleeding noted, abdomen soft, no palpable masses. CBC WBC 14.0 K/mm3 (4.0-10.0) H 08/07/19 05:45 Corrected WBC (auto) Cancelled 07/25/19 07:13 RBC 3.11 M/mm3 (4.00-5.60) L 08/07/19 05:45 Hgb 8.8 GM/dL (11.7-16.9) L 08/07/19 05:45 Hct 25.6 % (35.4-49) L D 08/07/19 05:45 MCV 82.4 fl (80-96) 08/07/19 05:45 MCH 28.2 pg (25.7-33.7) 08/07/19 05:45 MCHC 34.2 g/dl (32.0-35.9) 08/07/19 05:45 RDW 15.1 % (11.9-15.9) 08/07/19 05:45 Plt Count 777 K/MM3 (134-434) H 08/07/19 05:45 MPV 6.7 fl (7.5-11.1) L 08/07/19 05:45 Absolute Neuts (auto) 10.3 K/mm3 (1.5-8.0) H 08/07/19 05:45 Neutrophils % 74.0 % (42.8-82.8) 08/07/19 05:45 Neutrophils % (Manual) 90.0 % (42.8-82.8) H 07/31/19 09:00 Band Neutrophils % 0.0 % 07/31/19 09:00 Lymphocytes % 12.5 % (8-40) 08/07/19 05:45 Lymphocytes % (Manual) 3.0 % (8-40) L 07/31/19 09:00 Monocytes % 7.7 % (3.8-10.2) 08/07/19 05:45 Monocytes % (Manual) 3 % (3.8-10.2) L 07/31/19 09:00 Eosinophils % 4.6 % (0-4.5) H 08/07/19 05:45 Eosinophils % (Manual) 1.0 % (0-4.5) 07/31/19 09:00 Basophils % 1.2 % (0-2.0) 08/07/19 05:45 Basophils % (Manual) 0.0 % (0-2.0) 07/31/19 09:00 Myelocytes % (Man) 0 % (0-2) 07/31/19 09:00 Promyelocytes % (Man) 0 % (0-2) 07/31/19 09:00 Blast Cells % (Manual) 0 % (0-0) 07/31/19 09:00 Nucleated RBC % 0 % (0-0) 08/07/19 05:45 Metamyelocytes 1 % (0-2) 07/31/19 09:00 Hypochromia 0 07/31/19 09:00 Platelet Estimate Normal 07/31/19 09:00 Platelet Comment Cancelled 07/25/19 07:13 Polychromasia 1+ 07/31/19 09:00 Poikilocytosis 1+ 07/31/19 09:00 Anisocytosis 2+ 07/31/19 09:00 Microcytosis 1+ 07/31/19 09:00 Macrocytosis 1+ 07/31/19 09:00 Target Cells 1+ 07/31/19 09:00 Tear Drop Cells 1+ 07/31/19 09:00 Ovalocytes 1+ 07/31/19 09:00 Jhonathan Cells 2+ 07/31/19 09:00 Schistocytes 1+ 07/31/19 09:00 Retic Count 1.44 % (0.5-1.5) 08/05/19 06:58 Haptoglobin 502 mg/dL (34-355) H 08/05/19 06:58 The thrombocytosis and low MCV suggest chronic GI bleeding as cause of anemia. In March 2019 the MCV was 87, platelet count 300K. Suspect he will come to endoscopy.
--- NOTE | 2019-08-07 16:06 | PN ---
Progress Note, Physician History of Present Illness: Pt is weak but verbally responsive. Denies pain/chills/SOB/abd pain. Intermittent low grade fevers. No distress noted. - Current Medication List Current Medications: Active Medications Acetaminophen (Ofirmev Injection -) 1,000 mg IVPB Q8H PRN PRN Reason: FEVER Amino Acids (Clinimix -) 1,000 mls @ 60 mls/hr IV Q17H [facility] Last Admin: 08/07/19 04:14 Dose: Not Given Metoprolol Tartrate (Lopressor -) 25 mg PO DAILY [facility] Last Admin: 08/07/19 11:00 Dose: 25 mg Mirtazapine (Remeron -) 15 mg PO HS [facility] Last Admin: 08/06/19 22:43 Dose: 15 mg Mupirocin (Bactroban 2% Ointment -) 1 applic TP BID [facility] Last Admin: 08/07/19 11:00 Dose: 1 applic Tamsulosin HCl (Flomax -) 0.4 mg PO DAILY@0830 [facility] Last Admin: 08/07/19 11:07 Dose: Not Given - Objective Vital Signs: Vital Signs Temperature 99.9 F H 08/07/19 15:00 Pulse Rate 97 H 08/07/19 15:00 Respiratory Rate 18 08/07/19 15:00 Blood Pressure 104/46 L 08/07/19 15:00 O2 Sat by Pulse Oximetry (%) 96 08/07/19 10:00 Constitutional: Yes: No Distress, Calm Cardiovascular: Yes: Tachycardia Respiratory: Yes: Regular Gastrointestinal: Yes: Normal Bowel Sounds, Soft Genitourinary: Yes: WNL Extremities: Yes: Other (contracted LEs) Neurological: Yes: Weakness Labs: CBC, BMP 08/07/19 05:45 08/07/19 05:45 INR, PTT INR 1.10 (0.83-1.09) H 07/20/19 15:50 Microbiology 07/30/19 07:40 Blood - Peripheral Venous Blood Culture - Final NO GROWTH AFTER 5 DAYS INCUBATION 07/30/19 07:35 Blood - Peripheral Venous Blood Culture - Final NO GROWTH AFTER 5 DAYS INCUBATION 08/02/19 08:40 Urine - Urine - Catheterized Urine Culture - Final NO GROWTH OBTAINED 07/24/19 08:52 Blood - Peripheral Venous Blood Culture - Final NO GROWTH AFTER 5 DAYS INCUBATION 07/24/19 08:45 Blood - Peripheral Venous Blood Culture - Final NO GROWTH AFTER 5 DAYS INCUBATION 07/20/19 15:54 Blood - Peripheral Venous Blood Culture - Final NO GROWTH AFTER 5 DAYS INCUBATION 07/20/19 15:54 Blood - Peripheral Venous Blood Culture - Final Mr Samuel Aureus Staphylococcus Capitis 07/20/19 16:44 Urine - Urine Dasilva Urine Culture - Final NO GROWTH OBTAINED - ....Imaging Chest X-ray: Report Reviewed Problem List - Problems (1) Bacteremia Code(s): R78.81 - BACTEREMIA (2) Failure to thrive in adult Code(s): R62.7 - ADULT FAILURE TO THRIVE (3) Fever Code(s): R50.9 - FEVER, UNSPECIFIED (4) HLD (hyperlipidemia) Code(s): E78.5 - HYPERLIPIDEMIA, UNSPECIFIED (5) HTN (hypertension) Code(s): I10 - ESSENTIAL (PRIMARY) HYPERTENSION (6) Weakness Code(s): R53.1 - WEAKNESS (7) Acute kidney injury Code(s): N17.9 - ACUTE KIDNEY FAILURE, UNSPECIFIED Assessment/Plan MRSA bacteremia Fever Leukocytosis Failure to thrive JESSE - improving Anemia -- s/p course of antibiotics -- temps intermittently mildly elevated, wbc fluctuating -- repeat cultures neg. -- continue monitor closely for now
[2019-08-07] MEDS ORDERED: PT OWN MED DRAWER 7, Y5N ONE (16:50)
[2019-08-07 18:07] LABS: FREE KAPPA,SERUM 116.5 mg/L (3.3-19.4)
--- NOTE | 2019-08-07 22:02 | PN ---
Progress Note, Physician - Current Medication List Current Medications: Active Medications Acetaminophen (Ofirmev Injection -) 1,000 mg IVPB Q8H PRN PRN Reason: FEVER Amino Acids (Clinimix -) 1,000 mls @ 60 mls/hr IV Q17H [facility] Last Admin: 08/07/19 16:30 Dose: 60 mls/hr Metoprolol Tartrate (Lopressor -) 25 mg PO DAILY [facility] Last Admin: 08/07/19 11:00 Dose: 25 mg Mirtazapine (Remeron -) 15 mg PO HS [facility] Last Admin: 08/06/19 22:43 Dose: 15 mg Mupirocin (Bactroban 2% Ointment -) 1 applic TP BID [facility] Last Admin: 08/07/19 11:00 Dose: 1 applic Tamsulosin HCl (Flomax -) 0.4 mg PO DAILY@0830 [facility] Last Admin: 08/07/19 11:07 Dose: Not Given - Objective Vital Signs: Vital Signs Temperature 99.9 F H 08/07/19 18:00 Pulse Rate 102 H 08/07/19 18:00 Respiratory Rate 18 08/07/19 18:00 Blood Pressure 119/59 L 08/07/19 18:00 O2 Sat by Pulse Oximetry (%) 96 08/07/19 10:00 Labs: CBC, BMP 08/07/19 05:45 08/07/19 05:45 INR, PTT INR 1.10 (0.83-1.09) H 07/20/19 15:50 Problem List - Problems (1) Anemia Code(s): D64.9 - ANEMIA, UNSPECIFIED (2) Bacteremia Code(s): R78.81 - BACTEREMIA (3) Rhabdomyolysis Code(s): M62.82 - RHABDOMYOLYSIS (4) HTN (hypertension) Code(s): I10 - ESSENTIAL (PRIMARY) HYPERTENSION (5) Failure to thrive in adult Code(s): R62.7 - ADULT FAILURE TO THRIVE (6) Dementia Code(s): F03.90 - UNSPECIFIED DEMENTIA WITHOUT BEHAVIORAL DISTURBANCE (7) HLD (hyperlipidemia) Code(s): E78.5 - HYPERLIPIDEMIA, UNSPECIFIED (8) Metabolic encephalopathy Code(s): G93.41 - METABOLIC ENCEPHALOPATHY (9) Elevated LFTs Code(s): R94.5 - ABNORMAL RESULTS OF LIVER FUNCTION STUDIES
[2019-08-07] MEDS: MIRTAZAPINE 15 MG TABLET (FP) PO SCH (23:16)
--- NOTE | 2019-08-07 23:33 | PN ---
Progress Note (short form) - Note Progress Note: Problems 1. JESSE 2. hyperkalemia 3. htn 4. hld 5. brain lesion 6. right renal density 7. rhabdo 8. anemia Current Medications Acetaminophen (Ofirmev Injection -) 1,000 mg IVPB Q8H PRN PRN Reason: FEVER Amino Acids (Clinimix -) 1,000 mls @ 60 mls/hr IV Q17H [facility] Last Admin: 08/07/19 16:30 Dose: 60 mls/hr Metoprolol Tartrate (Lopressor -) 25 mg PO DAILY [facility] Last Admin: 08/07/19 11:00 Dose: 25 mg Mirtazapine (Remeron -) 15 mg PO HS [facility] Last Admin: 08/07/19 23:16 Dose: 15 mg Mupirocin (Bactroban 2% Ointment -) 1 applic TP BID [facility] Last Admin: 08/07/19 23:16 Dose: 1 applic Tamsulosin HCl (Flomax -) 0.4 mg PO DAILY@0830 [facility] Last Admin: 08/07/19 11:07 Dose: Not Given Last Vital Signs Temp Pulse Resp BP Pulse Ox 99.9 F H 102 H 18 119/59 L 96 08/07/19 18:00 08/07/19 18:00 08/07/19 18:00 08/07/19 18:00 08/07/19 10:00 CBC, BMP 08/07/19 05:45 08/07/19 05:45 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
[2019-08-08] MEDS ORDERED: PT OWN MED DRAWER 7, Y5N ONE ×2 (08:20→16:19)
[2019-08-08 08:32] LABS: EOS % 3.4 % (0-4.5); HEMATOCRIT 26.7 % (35.4-49); HEMOGLOBIN 8.9 GM/dL (11.7-16.9); LYMPH % 13.5 % (8-40); MCH 27.9 pg (25.7-33.7); MCHC 33.2 g/dl (32.0-35.9); MEAN PLT VOLUME 6.7 fl (7.5-11.1); MONO % 7.8 % (3.8-10.2); NEUT % 74.3 % (42.8-82.8); PLATELET COUNT 787 K/MM3 (134-434); RBC 3.18 M/mm3 (4.00-5.60); RDW 15.2 % (11.9-15.9); WHITE BLOOD COUNT 13.5 K/mm3 (4.0-10.0)
[2019-08-08] MEDS: METOPROLOL TARTRATE 25 MG TABLET (FP) PO SCH (09:11)
[2019-08-08] MEDS: TAMSULOSIN HCL 0.4 MG CAP PO SCH (09:11)
[2019-08-08] MEDS: MUPIROCIN 2% TOPICAL OINTMENT 22 GM TUBE TP SCH ×2 (09:18→22:06)
[2019-08-08] MEDS: AMINO ACIDS 4.25%/D5W 1,000 ML IV SCH ×2 (09:20→10:57)
--- NOTE | 2019-08-08 14:35 | PN ---
Progress Note, Physician History of Present Illness: Pt lethargic, having low grade fevers. Has not been getting PO meds, likely not eating food, tachycardic. +copious thick green sputum noted without obvious distress. - Current Medication List Current Medications: Active Medications Acetaminophen (Ofirmev Injection -) 1,000 mg IVPB Q8H PRN PRN Reason: FEVER Amino Acids (Clinimix -) 1,000 mls @ 60 mls/hr IV Q17H [facility] Last Admin: 08/08/19 10:57 Dose: Not Given Metoprolol Tartrate (Lopressor -) 25 mg PO DAILY [facility] Last Admin: 08/08/19 09:11 Dose: Not Given Mirtazapine (Remeron -) 15 mg PO HS [facility] Last Admin: 08/07/19 23:16 Dose: 15 mg Mupirocin (Bactroban 2% Ointment -) 1 applic TP BID [facility] Last Admin: 08/08/19 09:18 Dose: 1 applic Tamsulosin HCl (Flomax -) 0.4 mg PO DAILY@0830 [facility] Last Admin: 08/08/19 09:11 Dose: Not Given - Objective Vital Signs: Vital Signs Temperature 99.6 F 08/08/19 10:00 Pulse Rate 114 H 08/08/19 10:00 Respiratory Rate 20 08/08/19 10:00 Blood Pressure 136/66 08/08/19 10:00 O2 Sat by Pulse Oximetry (%) 97 08/08/19 09:00 Constitutional: Yes: No Distress Eyes: Yes: Conjunctiva Clear Cardiovascular: Yes: Tachycardia Respiratory: Yes: Other (poor inspiratory effort) Gastrointestinal: Yes: Normal Bowel Sounds, Soft Genitourinary: Yes: Dasilva Present Extremities: Yes: Other (contracted) Neurological: Yes: Lethargy Labs: CBC, BMP 08/08/19 07:00 08/07/19 05:45 INR, PTT INR 1.10 (0.83-1.09) H 07/20/19 15:50 Microbiology 07/30/19 07:40 Blood - Peripheral Venous Blood Culture - Final NO GROWTH AFTER 5 DAYS INCUBATION 07/30/19 07:35 Blood - Peripheral Venous Blood Culture - Final NO GROWTH AFTER 5 DAYS INCUBATION 08/02/19 08:40 Urine - Urine - Catheterized Urine Culture - Final NO GROWTH OBTAINED 07/24/19 08:52 Blood - Peripheral Venous Blood Culture - Final NO GROWTH AFTER 5 DAYS INCUBATION 07/24/19 08:45 Blood - Peripheral Venous Blood Culture - Final NO GROWTH AFTER 5 DAYS INCUBATION 07/20/19 15:54 Blood - Peripheral Venous Blood Culture - Final NO GROWTH AFTER 5 DAYS INCUBATION 07/20/19 15:54 Blood - Peripheral Venous Blood Culture - Final Mr Samuel Aureus Staphylococcus Capitis 07/20/19 16:44 Urine - Urine Dasilva Urine Culture - Final NO GROWTH OBTAINED - ....Imaging Chest X-ray: Report Reviewed Problem List - Problems (1) Bacteremia Code(s): R78.81 - BACTEREMIA (2) Failure to thrive in adult Code(s): R62.7 - ADULT FAILURE TO THRIVE (3) Fever Code(s): R50.9 - FEVER, UNSPECIFIED (4) HLD (hyperlipidemia) Code(s): E78.5 - HYPERLIPIDEMIA, UNSPECIFIED (5) HTN (hypertension) Code(s): I10 - ESSENTIAL (PRIMARY) HYPERTENSION (6) Weakness Code(s): R53.1 - WEAKNESS (7) Acute kidney injury Code(s): N17.9 - ACUTE KIDNEY FAILURE, UNSPECIFIED Assessment/Plan Lethargy MRSA bacteremia Fever Leukocytosis Tachycardia JESSE - improving Anemia -- pt with low grade fevers, but lethargic, +copious thick sputum noted -- due to mental status no adequate oral intake, not getting PO meds -- leukocytosis overall improving -- repeat blood cultures/CXR, send sputum cultures -- will restart IV antibiotics empirically -- monitor closely
[2019-08-08] MEDS ORDERED: DEXTROSE 5%-WATER 100 ML IVPB ONE ×2 (15:40→18:33)
[2019-08-08] MEDS ORDERED: MEROPENEM 1 GM VIAL (RESTRICTED TO ID) IVPB ONE ×2 (15:40→18:33)
[2019-08-08] MEDS: MEROPENEM 1 GM in DEXTROSE 5%-WATER 100 ML IVPB SCH ×2 (16:14→18:42)
--- NOTE | 2019-08-08 19:00 | PN ---
Progress Note (short form) - Note Progress Note: Problems 1. JESSE 2. hyperkalemia 3. htn 4. hld 5. brain lesion 6. right renal density 7. rhabdo 8. anemia Current Medications Acetaminophen (Ofirmev Injection -) 1,000 mg IVPB Q8H PRN PRN Reason: FEVER Amino Acids (Clinimix -) 1,000 mls @ 60 mls/hr IV Q17H [facility] Last Admin: 08/08/19 10:57 Dose: Not Given Meropenem 1 gm/ Dextrose 100 mls @ 200 mls/hr IVPB Q8H-IV [facility] Last Admin: 08/08/19 18:42 Dose: 200 mls/hr Metoprolol Tartrate (Lopressor -) 25 mg PO DAILY [facility] Last Admin: 08/08/19 09:11 Dose: Not Given Mirtazapine (Remeron -) 15 mg PO HS [facility] Last Admin: 08/07/19 23:16 Dose: 15 mg Mupirocin (Bactroban 2% Ointment -) 1 applic TP BID [facility] Last Admin: 08/08/19 09:18 Dose: 1 applic Tamsulosin HCl (Flomax -) 0.4 mg PO DAILY@0830 [facility] Last Admin: 08/08/19 09:11 Dose: Not Given Last Vital Signs Temp Pulse Resp BP Pulse Ox 98.8 F 116 H 20 130/75 97 08/08/19 18:00 08/08/19 18:00 08/08/19 18:00 08/08/19 18:00 08/08/19 09:00 CBC, BMP 08/07/19 05:45 08/07/19 05:45 IMP- s/p jesse Prerenal azotemia underlying CKD Anemia Plan - s creat improving - monitor hg and labs
--- NOTE | 2019-08-08 21:49 | PN ---
Progress Note, Physician History of Present Illness: Pt w/ poor PO intake - Current Medication List Current Medications: Active Medications Acetaminophen (Ofirmev Injection -) 1,000 mg IVPB Q8H PRN PRN Reason: FEVER Amino Acids (Clinimix -) 1,000 mls @ 60 mls/hr IV Q17H [facility] Last Admin: 08/08/19 10:57 Dose: Not Given Meropenem 1 gm/ Dextrose 100 mls @ 200 mls/hr IVPB Q8H-IV [facility] Last Admin: 08/08/19 18:42 Dose: 200 mls/hr Metoprolol Tartrate (Lopressor -) 25 mg PO DAILY [facility] Last Admin: 08/08/19 09:11 Dose: Not Given Mirtazapine (Remeron -) 15 mg PO HS [facility] Last Admin: 08/07/19 23:16 Dose: 15 mg Mupirocin (Bactroban 2% Ointment -) 1 applic TP BID [facility] Last Admin: 08/08/19 09:18 Dose: 1 applic Tamsulosin HCl (Flomax -) 0.4 mg PO DAILY@0830 [facility] Last Admin: 08/08/19 09:11 Dose: Not Given - Objective Vital Signs: Vital Signs Temperature 98.8 F 08/08/19 18:00 Pulse Rate 116 H 08/08/19 18:00 Respiratory Rate 20 08/08/19 18:00 Blood Pressure 130/75 08/08/19 18:00 O2 Sat by Pulse Oximetry (%) 97 08/08/19 09:00 Cardiovascular: Yes: Tachycardia Respiratory: Yes: WNL, Regular, CTA Bilaterally Gastrointestinal: Yes: WNL, Normal Bowel Sounds, Soft Labs: CBC, BMP 08/08/19 07:00 08/07/19 05:45 INR, PTT INR 1.10 (0.83-1.09) H 07/20/19 15:50 Problem List - Problems (1) Anemia Assessment/Plan: Transfused 2 units PRBC's DC asa/plavix Anemia w/u in progress Will speak to pt's about EGD and PEG Code(s): D64.9 - ANEMIA, UNSPECIFIED (2) Bacteremia Assessment/Plan: BC (+) for MRSA Repeat BC remain negative Urine culture negatgive Pt is now off antibxs Code(s): R78.81 - BACTEREMIA (3) HTN (hypertension) Assessment/Plan: BP stable Code(s): I10 - ESSENTIAL (PRIMARY) HYPERTENSION (4) Failure to thrive in adult Code(s): R62.7 - ADULT FAILURE TO THRIVE (5) Dementia Assessment/Plan: Spoke to about PEG insertion however has not come to an agreement Will get Palliative care consult for [facility] Code(s): F03.90 - UNSPECIFIED DEMENTIA WITHOUT BEHAVIORAL DISTURBANCE (6) HLD (hyperlipidemia) Assessment/Plan: Lipitor dc'ed due to elevated LFT's Code(s): E78.5 - HYPERLIPIDEMIA, UNSPECIFIED (7) Metabolic encephalopathy Code(s): G93.41 - METABOLIC ENCEPHALOPATHY (8) Elevated LFTs Assessment/Plan: DC lipitor Code(s): R94.5 - ABNORMAL RESULTS OF LIVER FUNCTION STUDIES (9) Rhabdomyolysis Assessment/Plan: Resolved Code(s): M62.82 - RHABDOMYOLYSIS
[2019-08-08] MEDS: MIRTAZAPINE 15 MG TABLET (FP) PO SCH ×2 (22:05→22:57)
[2019-08-09] MEDS ORDERED: MEROPENEM 1 GM VIAL (RESTRICTED TO ID) IVPB ONE ×3 (01:13→17:44)
[2019-08-09] MEDS ORDERED: DEXTROSE 5%-WATER 100 ML IVPB ONE ×3 (01:14→17:44)
[2019-08-09] MEDS: AMINO ACIDS 4.25%/D5W 1,000 ML IV SCH ×3 (02:58→22:12)
[2019-08-09] MEDS: MEROPENEM 1 GM in DEXTROSE 5%-WATER 100 ML IVPB SCH ×3 (03:01→17:59)
--- NOTE | 2019-08-09 08:08 | PN ---
Progress Note (short form) - Note Progress Note: VASCULAR SURGERY s/p Right IJ TLC placed 08/05 Cont dressing changes as ordered. Please call Surgery [facility] when it needs to be removed.
[2019-08-09] MEDS: TAMSULOSIN HCL 0.4 MG CAP PO SCH (09:36)
[2019-08-09] MEDS: METOPROLOL TARTRATE 25 MG TABLET (FP) PO SCH (09:39)
--- NOTE | 2019-08-09 12:04 | PN ---
Progress Note, Physician History of Present Illness: Pt lethargic, having low grade fevers. Has not been getting PO meds, likely not eating food, tachycardic. +copious thick green sputum noted without obvious distress. - Current Medication List Current Medications: Active Medications Acetaminophen (Ofirmev Injection -) 1,000 mg IVPB Q8H PRN PRN Reason: FEVER Amino Acids (Clinimix -) 1,000 mls @ 60 mls/hr IV Q17H [facility] Last Admin: 08/09/19 05:11 Dose: Not Given Meropenem 1 gm/ Dextrose 100 mls @ 200 mls/hr IVPB Q8H-IV [facility] Last Admin: 08/09/19 11:18 Dose: 200 mls/hr Metoprolol Tartrate (Lopressor -) 25 mg PO DAILY [facility] Last Admin: 08/09/19 09:39 Dose: Not Given Mirtazapine (Remeron -) 15 mg PO HS [facility] Last Admin: 08/08/19 22:57 Dose: Not Given Mupirocin (Bactroban 2% Ointment -) 1 applic TP BID [facility] Last Admin: 08/08/19 22:06 Dose: 1 applic Tamsulosin HCl (Flomax -) 0.4 mg PO DAILY@0830 [facility] Last Admin: 08/09/19 09:36 Dose: Not Given - Objective Vital Signs: Vital Signs Temperature 98.9 F 08/09/19 06:00 Pulse Rate 112 H 08/09/19 10:00 Respiratory Rate 20 08/09/19 10:00 Blood Pressure 120/60 08/09/19 10:00 O2 Sat by Pulse Oximetry (%) 98 08/08/19 21:00 Constitutional: Yes: Calm, Other Neck: Yes: Supple Cardiovascular: Yes: S1, S2 Respiratory: Yes: Regular, Poor Air Entry Gastrointestinal: Yes: Normal Bowel Sounds, Soft Musculoskeletal: Yes: WNL Extremities: Yes: Other Neurological: Yes: Other Labs: CBC, BMP 08/08/19 07:00 08/07/19 05:45 INR, PTT INR 1.10 (0.83-1.09) H 07/20/19 15:50 Assessment/Plan Problem List - Problems (1) Anemia Code(s): D64.9 - ANEMIA, UNSPECIFIED (2) Bacteremia Code(s): R78.81 - BACTEREMIA (3) Rhabdomyolysis Code(s): M62.82 - RHABDOMYOLYSIS (4) HTN (hypertension) Code(s): I10 - ESSENTIAL (PRIMARY) HYPERTENSION (5) Failure to thrive in adult Code(s): R62.7 - ADULT FAILURE TO THRIVE (6) Dementia Code(s): F03.90 - UNSPECIFIED DEMENTIA WITHOUT BEHAVIORAL DISTURBANCE (7) HLD (hyperlipidemia) Code(s): E78.5 - HYPERLIPIDEMIA, UNSPECIFIED (8) Metabolic encephalopathy Code(s): G93.41 - METABOLIC ENCEPHALOPATHY (9) Elevated LFTs Code(s): R94.5 - ABNORMAL RESULTS OF LIVER FUNCTION STUDIES plan continue current mgmt rest as per the team abx nutrition decubitus precautions rest as per the team
[2019-08-09] MEDS: MUPIROCIN 2% TOPICAL OINTMENT 22 GM TUBE TP SCH ×2 (14:00→22:13)
--- NOTE | 2019-08-09 19:25 | PN ---
Progress Note, Physician History of Present Illness: Pt seen and examined at bedside. He is awake but is not very talkative today. - Current Medication List Current Medications: Active Medications Acetaminophen (Ofirmev Injection -) 1,000 mg IVPB Q8H PRN PRN Reason: FEVER Amino Acids (Clinimix -) 1,000 mls @ 60 mls/hr IV Q17H [facility] Last Admin: 08/09/19 05:11 Dose: Not Given Meropenem 1 gm/ Dextrose 100 mls @ 200 mls/hr IVPB Q8H-IV [facility] Last Admin: 08/09/19 17:59 Dose: 200 mls/hr Metoprolol Tartrate (Lopressor -) 25 mg PO DAILY [facility] Last Admin: 08/09/19 09:39 Dose: Not Given Mirtazapine (Remeron -) 15 mg PO HS [facility] Last Admin: 08/08/19 22:57 Dose: Not Given Mupirocin (Bactroban 2% Ointment -) 1 applic TP BID [facility] Last Admin: 08/09/19 14:00 Dose: 1 applic Tamsulosin HCl (Flomax -) 0.4 mg PO DAILY@0830 [facility] Last Admin: 08/09/19 09:36 Dose: Not Given - Objective Vital Signs: Vital Signs Temperature 99.5 F 08/09/19 18:39 Pulse Rate 100 H 08/09/19 18:39 Respiratory Rate 20 08/09/19 18:39 Blood Pressure 103/50 L 08/09/19 18:39 O2 Sat by Pulse Oximetry (%) 98 08/08/19 21:00 Constitutional: Yes: Calm Eyes: Yes: Conjunctiva Clear HENT: Yes: Atraumatic Cardiovascular: Yes: S1, S2 Respiratory: Yes: CTA Bilaterally Gastrointestinal: Yes: Soft Genitourinary: Yes: Dasilva Present Musculoskeletal: Yes: WNL Edema: Yes Neurological: Yes: Confusion Labs: CBC, BMP 08/08/19 07:00 08/07/19 05:45 INR, PTT INR 1.10 (0.83-1.09) H 07/20/19 15:50 Problem List - Problems (1) Hyperkalemia Code(s): E87.5 - HYPERKALEMIA (2) Dehydration Code(s): E86.0 - DEHYDRATION (3) Failure to thrive in adult Code(s): R62.7 - ADULT FAILURE TO THRIVE (4) Acute kidney injury Code(s): N17.9 - ACUTE KIDNEY FAILURE, UNSPECIFIED Assessment/Plan Current Medications Generic Name Dose Route Start Last Admin Trade Name Freq PRN Reason Stop Dose Admin Acetaminophen 1,000 mg 08/06/19 10:47 Ofirmev Injection - IVPB Q8H PRN FEVER Amino Acids 1,000 mls @ 60 mls/hr 08/05/19 15:34 08/09/19 05:11 Clinimix - IV Not Given Q17H [facility] Meropenem 1 gm/ Dextrose 100 mls @ 200 mls/hr 08/08/19 14:45 08/09/19 17:59 IVPB 200 mls/hr Q8H-IV [facility] Administration Metoprolol Tartrate 25 mg 07/21/19 10:00 08/09/19 09:39 Lopressor - PO Not Given DAILY [facility] Mirtazapine 15 mg 07/21/19 22:00 08/08/19 22:57 Remeron - PO Not Given HS [facility] Mupirocin 1 applic 07/21/19 22:00 08/09/19 14:00 Bactroban 2% Ointment - TP 1 applic BID [facility] Administration Tamsulosin HCl 0.4 mg 07/21/19 08:30 08/09/19 09:36 Flomax - PO Not Given DAILY@0830 [facility] Impression 1. JESSE 2. hyperkalemia 3. htn 4. hld 5. brain lesion 6. right renal density 7. rhabdo 8. anemia Plan - renal function improving - cont clinimix - repeat labs in am - avoid naids - monitor hg
--- NOTE | 2019-08-09 21:44 | PN ---
Progress Note, Physician - Current Medication List Current Medications: Active Medications Acetaminophen (Ofirmev Injection -) 1,000 mg IVPB Q8H PRN PRN Reason: FEVER Amino Acids (Clinimix -) 1,000 mls @ 60 mls/hr IV Q17H [facility] Last Admin: 08/09/19 05:11 Dose: Not Given Meropenem 1 gm/ Dextrose 100 mls @ 200 mls/hr IVPB Q8H-IV [facility] Last Admin: 08/09/19 17:59 Dose: 200 mls/hr Metoprolol Tartrate (Lopressor -) 25 mg PO DAILY [facility] Last Admin: 08/09/19 09:39 Dose: Not Given Mirtazapine (Remeron -) 15 mg PO HS [facility] Last Admin: 08/08/19 22:57 Dose: Not Given Mupirocin (Bactroban 2% Ointment -) 1 applic TP BID [facility] Last Admin: 08/09/19 14:00 Dose: 1 applic Tamsulosin HCl (Flomax -) 0.4 mg PO DAILY@0830 [facility] Last Admin: 08/09/19 09:36 Dose: Not Given - Objective Vital Signs: Vital Signs Temperature 99.5 F 08/09/19 18:39 Pulse Rate 100 H 08/09/19 18:39 Respiratory Rate 20 08/09/19 18:39 Blood Pressure 103/50 L 08/09/19 18:39 O2 Sat by Pulse Oximetry (%) 98 08/08/19 21:00 Labs: CBC, BMP 08/08/19 07:00 08/07/19 05:45 INR, PTT INR 1.10 (0.83-1.09) H 07/20/19 15:50 Problem List - Problems (1) Anemia Code(s): D64.9 - ANEMIA, UNSPECIFIED (2) Bacteremia Code(s): R78.81 - BACTEREMIA (3) HTN (hypertension) Code(s): I10 - ESSENTIAL (PRIMARY) HYPERTENSION (4) Failure to thrive in adult Code(s): R62.7 - ADULT FAILURE TO THRIVE (5) Dementia Code(s): F03.90 - UNSPECIFIED DEMENTIA WITHOUT BEHAVIORAL DISTURBANCE (6) HLD (hyperlipidemia) Code(s): E78.5 - HYPERLIPIDEMIA, UNSPECIFIED (7) Metabolic encephalopathy Code(s): G93.41 - METABOLIC ENCEPHALOPATHY (8) Elevated LFTs Code(s): R94.5 - ABNORMAL RESULTS OF LIVER FUNCTION STUDIES (9) Rhabdomyolysis Code(s): M62.82 - RHABDOMYOLYSIS
[2019-08-09] MEDS: MIRTAZAPINE 15 MG TABLET (FP) PO SCH (22:13)
[2019-08-10] MEDS ORDERED: MEROPENEM 1 GM VIAL (RESTRICTED TO ID) IVPB ONE ×2 (02:45→08:52)
[2019-08-10] MEDS ORDERED: DEXTROSE 5%-WATER 100 ML IVPB ONE ×2 (02:45→08:53)
[2019-08-10] MEDS: MEROPENEM 1 GM in DEXTROSE 5%-WATER 100 ML IVPB SCH ×2 (02:51→09:33)
[2019-08-10] MEDS: TAMSULOSIN HCL 0.4 MG CAP PO SCH (08:39)
[2019-08-10 09:03] LABS: BASO % 0.8 % (0-2.0); EOS % 3.6 % (0-4.5); HEMATOCRIT 25.2 % (35.4-49); HEMOGLOBIN 8.4 GM/dL (11.7-16.9); LYMPH % 11.9 % (8-40); MCHC 33.2 g/dl (32.0-35.9); MEAN CELL VOLUME 84.4 fl (80-96); MEAN PLT VOLUME 6.5 fl (7.5-11.1); MONO % 8.2 % (3.8-10.2); NEUT % 75.5 % (42.8-82.8); PLATELET COUNT 753 K/MM3 (134-434); RBC 2.98 M/mm3 (4.00-5.60); RDW 15.6 % (11.9-15.9)
[2019-08-10 09:33] LABS: ALBUMIN 1.1 g/dl (3.4-5.0); BILIRUBIN,TOTAL 0.2 mg/dL (0.2-1); BLOOD UREA NITROGEN 34.8 mg/dL (7-18); CALCIUM 9.7 mg/dL (8.5-10.1); CREATININE 0.9 mg/dL (0.55-1.3); TOT PROT 4.8 g/dl (6.4-8.2)
[2019-08-10] MEDS: METOPROLOL TARTRATE 25 MG TABLET (FP) PO SCH (09:34)
--- NOTE | 2019-08-10 12:31 | PN ---
Progress Note, [employer] - Note Progress Note: Pt not accepting meals. On puree/thin, downgraded by RD per [employer] rec. Holding puree and liquids in mouth. Reviewed with RD/LABORER VINEYARD Palliative care on case regarding pts wishes.
--- NOTE | 2019-08-10 12:53 | PN ---
Progress Note, Physician History of Present Illness: no new issues nutrition very poor - Current Medication List Current Medications: Active Medications Acetaminophen (Ofirmev Injection -) 1,000 mg IVPB Q8H PRN PRN Reason: FEVER Amino Acids (Clinimix -) 1,000 mls @ 60 mls/hr IV Q17H [facility] Last Admin: 08/09/19 22:12 Dose: 60 mls/hr Metoprolol Tartrate (Lopressor -) 25 mg PO DAILY [facility] Last Admin: 08/10/19 09:34 Dose: Not Given Mirtazapine (Remeron -) 15 mg PO HS [facility] Last Admin: 08/09/19 22:13 Dose: Not Given Mupirocin (Bactroban 2% Ointment -) 1 applic TP BID [facility] Last Admin: 08/09/19 22:13 Dose: 1 applic Tamsulosin HCl (Flomax -) 0.4 mg PO DAILY@0830 [facility] Last Admin: 08/10/19 08:39 Dose: Not Given - Objective Vital Signs: Vital Signs Temperature 97.5 F L 08/10/19 06:00 Pulse Rate 112 H 08/10/19 10:00 Respiratory Rate 18 08/10/19 10:00 Blood Pressure 108/56 L 08/10/19 10:00 O2 Sat by Pulse Oximetry (%) 100 08/09/19 21:00 Constitutional: Yes: No Distress, Calm Cardiovascular: Yes: S1, S2 Respiratory: Yes: Regular, Poor Air Entry Gastrointestinal: Yes: Normal Bowel Sounds, Soft Musculoskeletal: Yes: WNL Extremities: Yes: Other Neurological: Yes: Other Labs: CBC, BMP 08/10/19 07:20 08/10/19 07:20 INR, PTT INR 1.10 (0.83-1.09) H 07/20/19 15:50 Assessment/Plan Problem List - Problems (1) Anemia Code(s): D64.9 - ANEMIA, UNSPECIFIED (2) Bacteremia Code(s): R78.81 - BACTEREMIA (3) Rhabdomyolysis Code(s): M62.82 - RHABDOMYOLYSIS (4) HTN (hypertension) Code(s): I10 - ESSENTIAL (PRIMARY) HYPERTENSION (5) Failure to thrive in adult Code(s): R62.7 - ADULT FAILURE TO THRIVE (6) Dementia Code(s): F03.90 - UNSPECIFIED DEMENTIA WITHOUT BEHAVIORAL DISTURBANCE (7) HLD (hyperlipidemia) Code(s): E78.5 - HYPERLIPIDEMIA, UNSPECIFIED (8) Metabolic encephalopathy Code(s): G93.41 - METABOLIC ENCEPHALOPATHY (9) Elevated LFTs Code(s): R94.5 - ABNORMAL RESULTS OF LIVER FUNCTION STUDIES plan sputum positive for mrsa will start patient on vanco nutrition rest as per the team
[2019-08-10] MEDS: MUPIROCIN 2% TOPICAL OINTMENT 22 GM TUBE TP SCH ×2 (14:00→22:16)
[2019-08-10] MEDS: AMINO ACIDS 4.25%/D5W 1,000 ML IV SCH ×2 (15:00→20:26)
[2019-08-10 16:12] LABS: ALBUMIN % 24.5 % (.); TOTAL PROTEIN, URINE 69.2 mg/dL (Not Estab.)
--- NOTE | 2019-08-10 16:16 | PN ---
Progress Note, Physician History of Present Illness: Pt seen and examined at bedside. He is awake and appears comfortable. - Current Medication List Current Medications: Active Medications Acetaminophen (Ofirmev Injection -) 1,000 mg IVPB Q8H PRN PRN Reason: FEVER Amino Acids (Clinimix -) 1,000 mls @ 60 mls/hr IV Q17H [facility] Last Admin: 08/09/19 22:12 Dose: 60 mls/hr Vancomycin HCl 1,500 mg/ (Dextrose) 500 mls @ 250 mls/hr IVPB Q24H [facility]; Protocol Metoprolol Tartrate (Lopressor -) 25 mg PO DAILY [facility] Last Admin: 08/10/19 09:34 Dose: Not Given Mirtazapine (Remeron -) 15 mg PO HS [facility] Last Admin: 08/09/19 22:13 Dose: Not Given Mupirocin (Bactroban 2% Ointment -) 1 applic TP BID [facility] Last Admin: 08/09/19 22:13 Dose: 1 applic Tamsulosin HCl (Flomax -) 0.4 mg PO DAILY@0830 [facility] Last Admin: 08/10/19 08:39 Dose: Not Given - Objective Vital Signs: Vital Signs Temperature 97.3 F L 08/10/19 15:54 Pulse Rate 111 H 08/10/19 15:54 Respiratory Rate 20 08/10/19 15:54 Blood Pressure 101/56 L 08/10/19 15:54 O2 Sat by Pulse Oximetry (%) 100 08/10/19 09:00 Constitutional: Yes: Calm Eyes: Yes: Conjunctiva Clear HENT: Yes: Atraumatic Neck: Yes: Supple Cardiovascular: Yes: S1, S2 Respiratory: Yes: CTA Bilaterally Gastrointestinal: Yes: Soft Genitourinary: Yes: Incontinence Edema: Yes Edema: LLE: Trace, RLE: Trace Neurological: Yes: Confusion Labs: CBC, BMP 08/10/19 07:20 08/10/19 07:20 INR, PTT INR 1.10 (0.83-1.09) H 07/20/19 15:50 Problem List - Problems (1) Hyperkalemia Code(s): E87.5 - HYPERKALEMIA (2) Dehydration Code(s): E86.0 - DEHYDRATION (3) Failure to thrive in adult Code(s): R62.7 - ADULT FAILURE TO THRIVE (4) Acute kidney injury Code(s): N17.9 - ACUTE KIDNEY FAILURE, UNSPECIFIED Assessment/Plan Current Medications Generic Name Dose Route Start Last Admin Trade Name Iza PRN Reason Stop Dose Admin Acetaminophen 1,000 mg 08/06/19 10:47 Ofirmev Injection - IVPB Q8H PRN FEVER Amino Acids 1,000 mls @ 60 mls/hr 08/05/19 15:34 08/09/19 22:12 Clinimix - IV 60 mls/hr Q17H [facility] Administration Vancomycin HCl 1,500 mg/ 500 mls @ 250 mls/hr 08/10/19 13:00 Dextrose IVPB Q24H [facility] Protocol Metoprolol Tartrate 25 mg 07/21/19 10:00 08/10/19 09:34 Lopressor - PO Not Given DAILY [facility] Mirtazapine 15 mg 07/21/19 22:00 08/09/19 22:13 Remeron - PO Not Given HS [facility] Mupirocin 1 applic 07/21/19 22:00 08/09/19 22:13 Bactroban 2% Ointment - TP 1 applic BID [facility] Administration Tamsulosin HCl 0.4 mg 07/21/19 08:30 08/10/19 08:39 Flomax - PO Not Given DAILY@0830 [facility] Impression 1. JESSE 2. hyperkalemia 3. htn 4. hld 5. brain lesion 6. right renal density 7. rhabdo 8. anemia Plan - renal function is improving - sodium is dropping - decrease rate of clinimix for now - repeat labs in am - avoid naids - monitor hg
[2019-08-10] MEDS: VANCOMYCIN HCL 1,500 MG in DEXTROSE 5%-WATER - 500 ML IVPB SCH (16:45)
[2019-08-10] MEDS: MIRTAZAPINE 15 MG TABLET (FP) PO SCH (22:17)
--- NOTE | 2019-08-10 23:39 | PN ---
Progress Note, Physician History of Present Illness: Pt w/ poor PO intake Family discussing further options/management - Current Medication List Current Medications: Active Medications Acetaminophen (Ofirmev Injection -) 1,000 mg IVPB Q8H PRN PRN Reason: FEVER Vancomycin HCl 1,500 mg/ (Dextrose) 500 mls @ 250 mls/hr IVPB Q24H [facility]; Protocol Last Admin: 08/10/19 16:45 Dose: 250 mls/hr Amino Acids (Clinimix -) 1,000 mls @ 42 mls/hr IV Q24H [facility] Last Admin: 08/10/19 20:26 Dose: 42 mls/hr Metoprolol Tartrate (Lopressor -) 25 mg PO DAILY [facility] Last Admin: 08/10/19 09:34 Dose: Not Given Mirtazapine (Remeron -) 15 mg PO HS [facility] Last Admin: 08/10/19 22:17 Dose: Not Given Mupirocin (Bactroban 2% Ointment -) 1 applic TP BID [facility] Last Admin: 08/10/19 22:16 Dose: 1 applic Tamsulosin HCl (Flomax -) 0.4 mg PO DAILY@0830 [facility] Last Admin: 08/10/19 08:39 Dose: Not Given - Objective Vital Signs: Vital Signs Temperature 99.5 F 08/10/19 18:00 Pulse Rate 113 H 08/10/19 18:00 Respiratory Rate 20 08/10/19 18:00 Blood Pressure 114/66 08/10/19 18:00 O2 Sat by Pulse Oximetry (%) 100 08/10/19 09:00 Neck: Yes: WNL, Supple Cardiovascular: Yes: WNL, Regular Rate and Rhythm Respiratory: Yes: WNL, Regular, CTA Bilaterally Gastrointestinal: Yes: WNL, Normal Bowel Sounds, Soft Labs: CBC, BMP 08/10/19 07:20 08/10/19 07:20 INR, PTT INR 1.10 (0.83-1.09) H 07/20/19 15:50 Problem List - Problems (1) Anemia Assessment/Plan: S/P transfusion 2 units PRBC's DC asa/plavix Anemia w/u in progress Will speak to pt's about EGD and PEG wc wants to discuss w/ family Code(s): D64.9 - ANEMIA, UNSPECIFIED (2) Bacteremia Assessment/Plan: BC (+) for MRSA Repeat BC remain negative Urine culture negatgive Pt on IV vanco due to (+) sputum for MRSA Code(s): R78.81 - BACTEREMIA (3) HTN (hypertension) Assessment/Plan: BP stable Code(s): I10 - ESSENTIAL (PRIMARY) HYPERTENSION (4) Failure to thrive in adult Assessment/Plan: Encourage PO intake Started on IV clinimix Code(s): R62.7 - ADULT FAILURE TO THRIVE (5) Dementia Assessment/Plan: Spoke to about PEG insertion however has not come to an agreement Will get Palliative care consult for GOC Code(s): F03.90 - UNSPECIFIED DEMENTIA WITHOUT BEHAVIORAL DISTURBANCE (6) HLD (hyperlipidemia) Assessment/Plan: Lipitor dc'ed due to elevated LFT's Code(s): E78.5 - HYPERLIPIDEMIA, UNSPECIFIED (7) Metabolic encephalopathy Code(s): G93.41 - METABOLIC ENCEPHALOPATHY (8) Elevated LFTs Code(s): R94.5 - ABNORMAL RESULTS OF LIVER FUNCTION STUDIES (9) Rhabdomyolysis Code(s): M62.82 - RHABDOMYOLYSIS
[2019-08-11 08:53] LABS: ALBUMIN 1.1 g/dl (3.4-5.0); BILIRUBIN,TOTAL 0.3 mg/dL (0.2-1); CALCIUM 9.3 mg/dL (8.5-10.1); CREATININE 0.8 mg/dL (0.55-1.3); POTASSIUM 3.8 mmol/L (3.5-5.1)
[2019-08-11] MEDS: METOPROLOL TARTRATE 25 MG TABLET (FP) PO SCH (10:11)
[2019-08-11] MEDS: TAMSULOSIN HCL 0.4 MG CAP PO SCH (10:11)
[2019-08-11] MEDS: MUPIROCIN 2% TOPICAL OINTMENT 22 GM TUBE TP SCH ×2 (10:13→23:16)
--- NOTE | 2019-08-11 12:21 | PN ---
Progress Note (short form) - Note Progress Note: No bleeding. Vitals stable. Abd soft, NT Of note, no evidence of iron deficiency (normal MCV anemia with elevated ferritin, and normal iron saturation) Would not pursue endoscopic evaluation at this time GI will sign off Please recall for any GI concerns (i.e. PEG as being discussed with family) as needed
--- NOTE | 2019-08-11 13:26 | PN ---
Progress Note, Physician History of Present Illness: Pt seen and examined at bedside. He has poor po intake. He is confused. - Current Medication List Current Medications: Active Medications Acetaminophen (Ofirmev Injection -) 1,000 mg IVPB Q8H PRN PRN Reason: FEVER Vancomycin HCl 1,500 mg/ (Dextrose) 500 mls @ 250 mls/hr IVPB Q24H [facility]; Protocol Last Admin: 08/10/19 16:45 Dose: 250 mls/hr Amino Acids (Clinimix -) 1,000 mls @ 42 mls/hr IV Q24H [facility] Last Admin: 08/10/19 20:26 Dose: 42 mls/hr Metoprolol Tartrate (Lopressor -) 25 mg PO DAILY [facility] Last Admin: 08/11/19 10:11 Dose: Not Given Mirtazapine (Remeron -) 15 mg PO HS [facility] Last Admin: 08/10/19 22:17 Dose: Not Given Mupirocin (Bactroban 2% Ointment -) 1 applic TP BID [facility] Last Admin: 08/11/19 10:13 Dose: 1 applic Tamsulosin HCl (Flomax -) 0.4 mg PO DAILY@0830 [facility] Last Admin: 08/11/19 10:11 Dose: Not Given - Objective Vital Signs: Vital Signs Temperature 97.7 F 08/11/19 09:02 Pulse Rate 99 H 08/11/19 09:02 Respiratory Rate 20 08/11/19 09:02 Blood Pressure 103/59 L 08/11/19 09:02 O2 Sat by Pulse Oximetry (%) 100 08/11/19 09:00 Constitutional: Yes: Calm Eyes: Yes: Conjunctiva Clear HENT: Yes: Atraumatic Neck: Yes: Supple Cardiovascular: Yes: S1, S2 Respiratory: Yes: CTA Bilaterally Gastrointestinal: Yes: Soft Genitourinary: Yes: Incontinence Musculoskeletal: Yes: Muscle Weakness Edema: Yes Edema: LLE: Trace, RLE: Trace Neurological: Yes: Confusion Labs: CBC, BMP 08/10/19 07:20 08/11/19 08:00 INR, PTT INR 1.10 (0.83-1.09) H 07/20/19 15:50 Problem List - Problems (1) Hyperkalemia Code(s): E87.5 - HYPERKALEMIA (2) Dehydration Code(s): E86.0 - DEHYDRATION (3) Failure to thrive in adult Code(s): R62.7 - ADULT FAILURE TO THRIVE (4) Acute kidney injury Code(s): N17.9 - ACUTE KIDNEY FAILURE, UNSPECIFIED Assessment/Plan Current Medications Generic Name Dose Route Start Last Admin Trade Name Freq PRN Reason Stop Dose Admin Acetaminophen 1,000 mg 08/06/19 10:47 Ofirmev Injection - IVPB Q8H PRN FEVER Vancomycin HCl 1,500 mg/ 500 mls @ 250 mls/hr 08/10/19 13:00 08/10/19 16:45 Dextrose IVPB 250 mls/hr Q24H [facility] Administration Protocol Amino Acids 1,000 mls @ 42 mls/hr 08/10/19 16:17 08/10/19 20:26 Clinimix - IV 42 mls/hr Q24H [facility] Administration Metoprolol Tartrate 25 mg 07/21/19 10:00 08/11/19 10:11 Lopressor - PO Not Given DAILY [facility] Mirtazapine 15 mg 07/21/19 22:00 08/10/19 22:17 Remeron - PO Not Given HS [facility] Mupirocin 1 applic 07/21/19 22:00 08/11/19 10:13 Bactroban 2% Ointment - TP 1 applic BID [facility] Administration Tamsulosin HCl 0.4 mg 07/21/19 08:30 08/11/19 10:11 Flomax - PO Not Given DAILY@0830 [facility] Impression 1. JESSE 2. hyperkalemia 3. htn 4. hld 5. brain lesion 6. right renal density 7. rhabdo 8. anemia Plan - cont to monitor renal function - cont current rate of clinimix - pt with poor po intake, evaluate for feeding tube - monitor hg - avoid nsaids - monitor hg - sodium is improved
--- NOTE | 2019-08-11 13:51 | PN ---
Progress Note, Physician History of Present Illness: no new issues nutrition very poor - Current Medication List Current Medications: Active Medications Acetaminophen (Ofirmev Injection -) 1,000 mg IVPB Q8H PRN PRN Reason: FEVER Vancomycin HCl 1,500 mg/ (Dextrose) 500 mls @ 250 mls/hr IVPB Q24H [facility]; Protocol Last Admin: 08/10/19 16:45 Dose: 250 mls/hr Amino Acids (Clinimix -) 1,000 mls @ 42 mls/hr IV Q24H [facility] Last Admin: 08/10/19 20:26 Dose: 42 mls/hr Metoprolol Tartrate (Lopressor -) 25 mg PO DAILY [facility] Last Admin: 08/11/19 10:11 Dose: Not Given Mirtazapine (Remeron -) 15 mg PO HS [facility] Last Admin: 08/10/19 22:17 Dose: Not Given Mupirocin (Bactroban 2% Ointment -) 1 applic TP BID [facility] Last Admin: 08/11/19 10:13 Dose: 1 applic Tamsulosin HCl (Flomax -) 0.4 mg PO DAILY@0830 [facility] Last Admin: 08/11/19 10:11 Dose: Not Given - Objective Vital Signs: Vital Signs Temperature 97.7 F 08/11/19 09:02 Pulse Rate 99 H 08/11/19 09:02 Respiratory Rate 20 08/11/19 09:02 Blood Pressure 103/59 L 08/11/19 09:02 O2 Sat by Pulse Oximetry (%) 100 08/11/19 09:00 Constitutional: Yes: Other Cardiovascular: Yes: S1, S2 Respiratory: Yes: Regular, CTA Bilaterally Gastrointestinal: Yes: Normal Bowel Sounds, Soft Musculoskeletal: Yes: WNL Extremities: Yes: Other Wound/Incision: Yes: Dressing Dry and Intact, Dressing Removed Neurological: Yes: Other Labs: CBC, BMP 08/10/19 07:20 08/11/19 08:00 INR, PTT INR 1.10 (0.83-1.09) H 07/20/19 15:50 Assessment/Plan Problem List - Problems (1) Anemia Code(s): D64.9 - ANEMIA, UNSPECIFIED (2) Bacteremia Code(s): R78.81 - BACTEREMIA (3) Rhabdomyolysis Code(s): M62.82 - RHABDOMYOLYSIS (4) HTN (hypertension) Code(s): I10 - ESSENTIAL (PRIMARY) HYPERTENSION (5) Failure to thrive in adult Code(s): R62.7 - ADULT FAILURE TO THRIVE (6) Dementia Code(s): F03.90 - UNSPECIFIED DEMENTIA WITHOUT BEHAVIORAL DISTURBANCE (7) HLD (hyperlipidemia) Code(s): E78.5 - HYPERLIPIDEMIA, UNSPECIFIED (8) Metabolic encephalopathy Code(s): G93.41 - METABOLIC ENCEPHALOPATHY (9) Elevated LFTs Code(s): R94.5 - ABNORMAL RESULTS OF LIVER FUNCTION STUDIES plan continue current mgmt rest as per the team abx nutrition decubitus precautions rest as per the team
[2019-08-11] MEDS: VANCOMYCIN HCL 1,500 MG in DEXTROSE 5%-WATER - 500 ML IVPB SCH (14:28)
[2019-08-11] MEDS: AMINO ACIDS 4.25%/D5W 1,000 ML IV SCH (23:16)
[2019-08-11] MEDS: MIRTAZAPINE 15 MG TABLET (FP) PO SCH (23:17)
--- NOTE | 2019-08-11 23:27 | PN ---
Progress Note, Physician - Current Medication List Current Medications: Active Medications Acetaminophen (Ofirmev Injection -) 1,000 mg IVPB Q8H PRN PRN Reason: FEVER Vancomycin HCl 1,500 mg/ (Dextrose) 500 mls @ 250 mls/hr IVPB Q24H [facility]; Protocol Last Admin: 08/11/19 14:28 Dose: 250 mls/hr Amino Acids (Clinimix -) 1,000 mls @ 42 mls/hr IV Q24H [facility] Last Admin: 08/11/19 23:16 Dose: 42 mls/hr Metoprolol Tartrate (Lopressor -) 25 mg PO DAILY [facility] Last Admin: 08/11/19 10:11 Dose: Not Given Mirtazapine (Remeron -) 15 mg PO HS [facility] Last Admin: 08/11/19 23:17 Dose: Not Given Mupirocin (Bactroban 2% Ointment -) 1 applic TP BID [facility] Last Admin: 08/11/19 23:16 Dose: 1 applic Tamsulosin HCl (Flomax -) 0.4 mg PO DAILY@0830 [facility] Last Admin: 08/11/19 10:11 Dose: Not Given - Objective Vital Signs: Vital Signs Temperature 97.3 F L 08/11/19 18:00 Pulse Rate 108 H 08/11/19 18:00 Respiratory Rate 18 08/11/19 18:00 Blood Pressure 143/87 08/11/19 18:00 O2 Sat by Pulse Oximetry (%) 100 08/11/19 09:00 Labs: CBC, BMP 08/10/19 07:20 08/11/19 08:00 INR, PTT INR 1.10 (0.83-1.09) H 07/20/19 15:50 Problem List - Problems (1) Anemia Code(s): D64.9 - ANEMIA, UNSPECIFIED (2) Bacteremia Code(s): R78.81 - BACTEREMIA (3) HTN (hypertension) Code(s): I10 - ESSENTIAL (PRIMARY) HYPERTENSION (4) Failure to thrive in adult Code(s): R62.7 - ADULT FAILURE TO THRIVE (5) Dementia Code(s): F03.90 - UNSPECIFIED DEMENTIA WITHOUT BEHAVIORAL DISTURBANCE (6) HLD (hyperlipidemia) Code(s): E78.5 - HYPERLIPIDEMIA, UNSPECIFIED (7) Metabolic encephalopathy Code(s): G93.41 - METABOLIC ENCEPHALOPATHY (8) Elevated LFTs Code(s): R94.5 - ABNORMAL RESULTS OF LIVER FUNCTION STUDIES (9) Rhabdomyolysis Code(s): M62.82 - RHABDOMYOLYSIS
[2019-08-12 08:12] LABS: BASO % 0.7 % (0-2.0); EOS % 4.3 % (0-4.5); LYMPH % 9.8 % (8-40); MCH 28.2 pg (25.7-33.7); MCHC 33.4 g/dl (32.0-35.9); MEAN CELL VOLUME 84.4 fl (80-96); MEAN PLT VOLUME 6.7 fl (7.5-11.1); MONO % 7.2 % (3.8-10.2); PLATELET COUNT 777 K/MM3 (134-434); RBC 3.56 M/mm3 (4.00-5.60); RDW 15.8 % (11.9-15.9); WHITE BLOOD COUNT 15.1 K/mm3 (4.0-10.0)
[2019-08-12] MEDS: TAMSULOSIN HCL 0.4 MG CAP PO SCH (09:00)
[2019-08-12 09:37] LABS: ALBUMIN 1.4 g/dl (3.4-5.0); BILIRUBIN,TOTAL 0.2 mg/dL (0.2-1); BLOOD UREA NITROGEN 33.1 mg/dL (7-18); CALCIUM 10.2 mg/dL (8.5-10.1); CREATININE 0.8 mg/dL (0.55-1.3); POTASSIUM 4.3 mmol/L (3.5-5.1); TOT PROT 5.6 g/dl (6.4-8.2)
--- NOTE | 2019-08-12 10:14 | PN ---
Progress Note, Physician History of Present Illness: no new issues nutrition very poor - Current Medication List Current Medications: Active Medications Acetaminophen (Ofirmev Injection -) 1,000 mg IVPB Q8H PRN PRN Reason: FEVER Vancomycin HCl 1,500 mg/ (Dextrose) 500 mls @ 250 mls/hr IVPB Q24H [facility]; Protocol Last Admin: 08/11/19 14:28 Dose: 250 mls/hr Amino Acids (Clinimix -) 1,000 mls @ 42 mls/hr IV Q24H [facility] Last Admin: 08/11/19 23:16 Dose: 42 mls/hr Metoprolol Tartrate (Lopressor -) 25 mg PO DAILY [facility] Last Admin: 08/11/19 10:11 Dose: Not Given Mirtazapine (Remeron -) 15 mg PO HS [facility] Last Admin: 08/11/19 23:17 Dose: Not Given Mupirocin (Bactroban 2% Ointment -) 1 applic TP BID [facility] Last Admin: 08/11/19 23:16 Dose: 1 applic Tamsulosin HCl (Flomax -) 0.4 mg PO DAILY@0830 [facility] Last Admin: 08/11/19 10:11 Dose: Not Given - Objective Vital Signs: Vital Signs Temperature 97.7 F 08/12/19 06:00 Pulse Rate 104 H 08/12/19 06:00 Respiratory Rate 18 08/12/19 06:00 Blood Pressure 147/83 08/12/19 06:00 O2 Sat by Pulse Oximetry (%) 100 08/11/19 21:00 Constitutional: Yes: No Distress, Calm Cardiovascular: Yes: S1, S2 Respiratory: Yes: Regular, CTA Bilaterally Gastrointestinal: Yes: Normal Bowel Sounds, Soft Musculoskeletal: Yes: Other Extremities: Yes: Other Wound/Incision: Yes: Dressing Dry and Intact Neurological: Yes: Other Labs: CBC, BMP 08/12/19 06:45 08/12/19 06:45 INR, PTT INR 1.10 (0.83-1.09) H 07/20/19 15:50 Assessment/Plan Problem List - Problems (1) Anemia Code(s): D64.9 - ANEMIA, UNSPECIFIED (2) Bacteremia Code(s): R78.81 - BACTEREMIA (3) Rhabdomyolysis Code(s): M62.82 - RHABDOMYOLYSIS (4) HTN (hypertension) Code(s): I10 - ESSENTIAL (PRIMARY) HYPERTENSION (5) Failure to thrive in adult Code(s): R62.7 - ADULT FAILURE TO THRIVE (6) Dementia Code(s): F03.90 - UNSPECIFIED DEMENTIA WITHOUT BEHAVIORAL DISTURBANCE (7) HLD (hyperlipidemia) Code(s): E78.5 - HYPERLIPIDEMIA, UNSPECIFIED (8) Metabolic encephalopathy Code(s): G93.41 - METABOLIC ENCEPHALOPATHY (9) Elevated LFTs Code(s): R94.5 - ABNORMAL RESULTS OF LIVER FUNCTION STUDIES plan continue current mgmt rest as per the team abx nutrition decubitus precautions rest as per the team
[2019-08-12] MEDS: METOPROLOL TARTRATE 25 MG TABLET (FP) PO SCH (10:27)
[2019-08-12] MEDS: VANCOMYCIN HCL 1,500 MG in DEXTROSE 5%-WATER - 500 ML IVPB SCH (12:32)
[2019-08-12] MEDS: MUPIROCIN 2% TOPICAL OINTMENT 22 GM TUBE TP SCH (13:00)
--- NOTE | 2019-08-12 13:58 | PN ---
Progress Note, Physician History of Present Illness: Pt seen and examined at bedside. He is awake but not very interactive. He is not eating any of his food. - Current Medication List Current Medications: Active Medications Acetaminophen (Ofirmev Injection -) 1,000 mg IVPB Q8H PRN PRN Reason: FEVER Vancomycin HCl 1,500 mg/ (Dextrose) 500 mls @ 250 mls/hr IVPB Q24H [facility]; Protocol Last Admin: 08/12/19 12:32 Dose: 250 mls/hr Amino Acids (Clinimix -) 1,000 mls @ 42 mls/hr IV Q24H [facility] Last Admin: 08/11/19 23:16 Dose: 42 mls/hr Metoprolol Tartrate (Lopressor -) 25 mg PO DAILY [facility] Last Admin: 08/12/19 10:27 Dose: Not Given Mirtazapine (Remeron -) 15 mg PO HS [facility] Last Admin: 08/11/19 23:17 Dose: Not Given Mupirocin (Bactroban 2% Ointment -) 1 applic TP BID [facility] Last Admin: 08/11/19 23:16 Dose: 1 applic Tamsulosin HCl (Flomax -) 0.4 mg PO DAILY@0830 [facility] Last Admin: 08/12/19 09:00 Dose: Not Given - Objective Vital Signs: Vital Signs Temperature 98.7 F 08/12/19 10:00 Pulse Rate 104 H 08/12/19 10:00 Respiratory Rate 18 08/12/19 10:00 Blood Pressure 142/88 08/12/19 10:00 O2 Sat by Pulse Oximetry (%) 100 08/11/19 21:00 Constitutional: Yes: Calm Eyes: Yes: Conjunctiva Clear HENT: Yes: Atraumatic Neck: Yes: Supple Cardiovascular: Yes: S1, S2 Respiratory: Yes: CTA Bilaterally Gastrointestinal: Yes: Soft Genitourinary: Yes: Incontinence Musculoskeletal: Yes: Muscle Weakness Edema: Yes Edema: LLE: Trace, RLE: Trace Neurological: Yes: Confusion Labs: CBC, BMP 08/12/19 06:45 08/12/19 06:45 INR, PTT INR 1.10 (0.83-1.09) H 07/20/19 15:50 Problem List - Problems (1) Hyperkalemia Code(s): E87.5 - HYPERKALEMIA (2) Dehydration Code(s): E86.0 - DEHYDRATION (3) Failure to thrive in adult Code(s): R62.7 - ADULT FAILURE TO THRIVE (4) Acute kidney injury Code(s): N17.9 - ACUTE KIDNEY FAILURE, UNSPECIFIED Assessment/Plan Current Medications Generic Name Dose Route Start Last Admin Trade Name Freq PRN Reason Stop Dose Admin Acetaminophen 1,000 mg 08/06/19 10:47 Ofirmev Injection - IVPB Q8H PRN FEVER Vancomycin HCl 1,500 mg/ 500 mls @ 250 mls/hr 08/10/19 13:00 08/12/19 12:32 Dextrose IVPB 250 mls/hr Q24H MELA Administration Protocol Amino Acids 1,000 mls @ 42 mls/hr 08/10/19 16:17 08/11/19 23:16 Clinimix - IV 42 mls/hr Q24H MELA Administration Metoprolol Tartrate 25 mg 07/21/19 10:00 08/12/19 10:27 Lopressor - PO Not Given DAILY MELA Mirtazapine 15 mg 07/21/19 22:00 08/11/19 23:17 Remeron - PO Not Given HS MELA Mupirocin 1 applic 07/21/19 22:00 08/11/19 23:16 Bactroban 2% Ointment - TP 1 applic BID MELA Administration Tamsulosin HCl 0.4 mg 07/21/19 08:30 08/12/19 09:00 Flomax - PO Not Given DAILY@0830 MELA Impression 1. JESSE 2. hyperkalemia 3. htn 4. hld 5. brain lesion 6. right renal density 7. rhabdo 8. anemia Plan - cont clinimix - pt not eating, will need plan for feeding - monitor lytes - sodium stabilizing - monitor hg - avoid nsaids
[2019-08-12] MEDS: AMINO ACIDS 4.25%/D5W 1,000 ML IV SCH (16:33)
--- NOTE | 2019-08-12 20:12 | PN ---
Teaching Attending Note Name of Resident: Osei Vega ATTENDING PHYSICIAN STATEMENT I saw and evaluated the patient. I reviewed the resident's note and discussed the case with the resident. I agree with the resident's findings and plan as documented. SUBJECTIVE: Denied pain OBJECTIVE: Last Vital Signs Temp Pulse Resp BP Pulse Ox 97.6 F 107 H 18 131/75 98 08/12/19 18:00 08/12/19 18:00 08/12/19 18:00 08/12/19 18:00 08/12/19 09:00 ASSESSMENT AND PLAN: 78 y/o gentleman with dementia, bed bound, contractures, comes in with worsening altered mental status, anemia, JESSE. Noted to be hypercalcemic. 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 FLC ratio within normal limits. Consider Palliative care consult and family input to determine goals of care. Further diagnostic testing to characterize plasma cell process will be addressed after GOC discussion.
[2019-08-12] MEDS: MIRTAZAPINE 15 MG TABLET (FP) PO SCH (21:37)
--- NOTE | 2019-08-12 23:23 | PN ---
Progress Note, Physician - Current Medication List Current Medications: Active Medications Acetaminophen (Ofirmev Injection -) 1,000 mg IVPB Q8H PRN PRN Reason: FEVER Vancomycin HCl 1,500 mg/ (Dextrose) 500 mls @ 250 mls/hr IVPB Q24H [facility]; Protocol Last Admin: 08/12/19 12:32 Dose: 250 mls/hr Amino Acids (Clinimix -) 1,000 mls @ 42 mls/hr IV Q24H [facility] Last Admin: 08/12/19 16:33 Dose: Not Given Metoprolol Tartrate (Lopressor -) 25 mg PO DAILY [facility] Last Admin: 08/12/19 10:27 Dose: Not Given Mirtazapine (Remeron -) 15 mg PO HS [facility] Last Admin: 08/12/19 21:37 Dose: Not Given Mupirocin (Bactroban 2% Ointment -) 1 applic TP BID [facility] Last Admin: 08/12/19 13:00 Dose: 1 applic Tamsulosin HCl (Flomax -) 0.4 mg PO DAILY@0830 [facility] Last Admin: 08/12/19 09:00 Dose: Not Given - Objective Vital Signs: Vital Signs Temperature 97.6 F 08/12/19 18:00 Pulse Rate 110 H 08/12/19 21:36 Respiratory Rate 18 08/12/19 21:36 Blood Pressure 145/74 08/12/19 21:36 O2 Sat by Pulse Oximetry (%) 98 08/12/19 09:00 Labs: CBC, BMP 08/12/19 06:45 08/12/19 06:45 INR, PTT INR 1.10 (0.83-1.09) H 07/20/19 15:50 Problem List - Problems (1) Anemia Code(s): D64.9 - ANEMIA, UNSPECIFIED (2) Bacteremia Code(s): R78.81 - BACTEREMIA (3) HTN (hypertension) Code(s): I10 - ESSENTIAL (PRIMARY) HYPERTENSION (4) Failure to thrive in adult Code(s): R62.7 - ADULT FAILURE TO THRIVE (5) Dementia Code(s): F03.90 - UNSPECIFIED DEMENTIA WITHOUT BEHAVIORAL DISTURBANCE (6) HLD (hyperlipidemia) Code(s): E78.5 - HYPERLIPIDEMIA, UNSPECIFIED (7) Metabolic encephalopathy Code(s): G93.41 - METABOLIC ENCEPHALOPATHY (8) Elevated LFTs Code(s): R94.5 - ABNORMAL RESULTS OF LIVER FUNCTION STUDIES (9) Rhabdomyolysis Code(s): M62.82 - RHABDOMYOLYSIS
[2019-08-13] MEDS: AMINO ACIDS 4.25%/D5W 1,000 ML IV SCH ×2 (00:56→16:52)
[2019-08-13] MEDS: MUPIROCIN 2% TOPICAL OINTMENT 22 GM TUBE TP SCH ×2 (01:15→13:00)
[2019-08-13] MEDS: TAMSULOSIN HCL 0.4 MG CAP PO SCH (08:45)
--- NOTE | 2019-08-13 10:55 | PN ---
Progress Note, DB2 DBA - Note Progress Note: Selected Entries 08/12/19 08/12/19 08/12/19 02:00 06:00 10:00 Breakfast Diet Tolerated Lunch Supper Temperature 97.8 F 97.7 F 98.7 F 08/12/19 08/12/19 08/13/19 14:00 18:00 02:00 Breakfast 0 Diet Tolerated Refused Refused Lunch 0 Supper 0 Temperature 97.6 F 97.6 F 98.0 F 08/13/19 08/13/19 06:00 09:59 Breakfast Diet Tolerated Lunch Supper Temperature 97.7 F 97.4 F L Laboratory Tests 08/10/19 08/12/19 07:20 06:45 WBC 13.0 H 15.1 H Pt not accepting meals. Performance unchanged. Holding puree and liquids in mouth. Reviewed with RD/COMMUTER PILOT Palliative care on case regarding pts wishes.
--- NOTE | 2019-08-13 12:26 | PN ---
Progress Note, Physician History of Present Illness: no new issues nutrition very poor - Current Medication List Current Medications: Active Medications Acetaminophen (Ofirmev Injection -) 1,000 mg IVPB Q8H PRN PRN Reason: FEVER Vancomycin HCl 1,500 mg/ (Dextrose) 500 mls @ 250 mls/hr IVPB Q24H [facility]; Protocol Last Admin: 08/12/19 12:32 Dose: 250 mls/hr Amino Acids (Clinimix -) 1,000 mls @ 42 mls/hr IV Q24H [facility] Last Admin: 08/13/19 00:56 Dose: 42 mls/hr Metoprolol Tartrate (Lopressor -) 25 mg PO DAILY [facility] Last Admin: 08/12/19 10:27 Dose: Not Given Mirtazapine (Remeron -) 15 mg PO HS [facility] Last Admin: 08/12/19 21:37 Dose: Not Given Mupirocin (Bactroban 2% Ointment -) 1 applic TP BID [facility] Last Admin: 08/13/19 01:15 Dose: 1 applic Tamsulosin HCl (Flomax -) 0.4 mg PO DAILY@0830 [facility] Last Admin: 08/13/19 08:45 Dose: Not Given - Objective Vital Signs: Vital Signs Temperature 97.4 F L 08/13/19 09:59 Pulse Rate 96 H 08/13/19 09:59 Respiratory Rate 18 08/13/19 09:59 Blood Pressure 132/68 08/13/19 09:59 O2 Sat by Pulse Oximetry (%) 98 08/12/19 21:00 Constitutional: Yes: No Distress, Calm HENT: Yes: Atraumatic Cardiovascular: Yes: Regular Rate and Rhythm Respiratory: Yes: Regular, CTA Bilaterally Gastrointestinal: Yes: Normal Bowel Sounds, Soft Musculoskeletal: Yes: WNL Extremities: Yes: WNL Neurological: Yes: Alert Labs: CBC, BMP 08/12/19 06:45 08/12/19 06:45 INR, PTT INR 1.10 (0.83-1.09) H 07/20/19 15:50 Assessment/Plan Problem List - Problems (1) Anemia Code(s): D64.9 - ANEMIA, UNSPECIFIED (2) Bacteremia Code(s): R78.81 - BACTEREMIA (3) Rhabdomyolysis Code(s): M62.82 - RHABDOMYOLYSIS (4) HTN (hypertension) Code(s): I10 - ESSENTIAL (PRIMARY) HYPERTENSION (5) Failure to thrive in adult Code(s): R62.7 - ADULT FAILURE TO THRIVE (6) Dementia Code(s): F03.90 - UNSPECIFIED DEMENTIA WITHOUT BEHAVIORAL DISTURBANCE (7) HLD (hyperlipidemia) Code(s): E78.5 - HYPERLIPIDEMIA, UNSPECIFIED (8) Metabolic encephalopathy Code(s): G93.41 - METABOLIC ENCEPHALOPATHY (9) Elevated LFTs Code(s): R94.5 - ABNORMAL RESULTS OF LIVER FUNCTION STUDIES plan can change to oral doxy for 2 more weeks rest as per the team
[2019-08-13] MEDS: METOPROLOL TARTRATE 25 MG TABLET (FP) PO SCH (12:30)
--- NOTE | 2019-08-13 12:30 | PN ---
Progress Note, Physician History of Present Illness: Pt seen and examined at bedside. He is more awake today. He is still not tolerating diet. - Current Medication List Current Medications: Active Medications Acetaminophen (Ofirmev Injection -) 1,000 mg IVPB Q8H PRN PRN Reason: FEVER Vancomycin HCl 1,500 mg/ (Dextrose) 500 mls @ 250 mls/hr IVPB Q24H [facility]; Protocol Last Admin: 08/12/19 12:32 Dose: 250 mls/hr Amino Acids (Clinimix -) 1,000 mls @ 42 mls/hr IV Q24H [facility] Last Admin: 08/13/19 00:56 Dose: 42 mls/hr Metoprolol Tartrate (Lopressor -) 25 mg PO DAILY [facility] Last Admin: 08/12/19 10:27 Dose: Not Given Mirtazapine (Remeron -) 15 mg PO HS [facility] Last Admin: 08/12/19 21:37 Dose: Not Given Mupirocin (Bactroban 2% Ointment -) 1 applic TP BID [facility] Last Admin: 08/13/19 01:15 Dose: 1 applic Tamsulosin HCl (Flomax -) 0.4 mg PO DAILY@0830 [facility] Last Admin: 08/13/19 08:45 Dose: Not Given - Objective Vital Signs: Vital Signs Temperature 97.4 F L 08/13/19 09:59 Pulse Rate 96 H 08/13/19 09:59 Respiratory Rate 18 08/13/19 09:59 Blood Pressure 132/68 08/13/19 09:59 O2 Sat by Pulse Oximetry (%) 98 08/12/19 21:00 Constitutional: Yes: Calm Eyes: Yes: Conjunctiva Clear HENT: Yes: Atraumatic Neck: Yes: Supple Cardiovascular: Yes: S1, S2 Respiratory: Yes: CTA Bilaterally Gastrointestinal: Yes: Soft Genitourinary: Yes: Incontinence Edema: Yes Edema: LLE: Trace, RLE: Trace Neurological: Yes: Confusion Labs: CBC, BMP 08/12/19 06:45 08/12/19 06:45 INR, PTT INR 1.10 (0.83-1.09) H 07/20/19 15:50 Problem List - Problems (1) Hyperkalemia Code(s): E87.5 - HYPERKALEMIA (2) Dehydration Code(s): E86.0 - DEHYDRATION (3) Failure to thrive in adult Code(s): R62.7 - ADULT FAILURE TO THRIVE (4) Acute kidney injury Code(s): N17.9 - ACUTE KIDNEY FAILURE, UNSPECIFIED Assessment/Plan Current Medications Generic Name Dose Route Start Last Admin Trade Name Freq PRN Reason Stop Dose Admin Acetaminophen 1,000 mg 08/06/19 10:47 Ofirmev Injection - IVPB Q8H PRN FEVER Vancomycin HCl 1,500 mg/ 500 mls @ 250 mls/hr 08/10/19 13:00 08/12/19 12:32 Dextrose IVPB 250 mls/hr Q24H [facility] Administration Protocol Amino Acids 1,000 mls @ 42 mls/hr 08/10/19 16:17 08/13/19 00:56 Clinimix - IV 42 mls/hr Q24H [facility] Administration Metoprolol Tartrate 25 mg 07/21/19 10:00 08/12/19 10:27 Lopressor - PO Not Given DAILY [facility] Mirtazapine 15 mg 07/21/19 22:00 08/12/19 21:37 Remeron - PO Not Given HS [facility] Mupirocin 1 applic 07/21/19 22:00 08/13/19 01:15 Bactroban 2% Ointment - TP 1 applic BID [facility] Administration Tamsulosin HCl 0.4 mg 07/21/19 08:30 08/13/19 08:45 Flomax - PO Not Given DAILY@0830 [facility] Impression 1. JESSE 2. hyperkalemia 3. htn 4. hld 5. brain lesion 6. right renal density 7. rhabdo 8. anemia 9. hypercalcemia Plan - check cmp - cont clinimix for now - evaluate for feeding tube - sodium stabilizing - monitor hg - avoid nsaids - if calcium elevated check pth
[2019-08-13] MEDS: VANCOMYCIN HCL 1,500 MG in DEXTROSE 5%-WATER - 500 ML IVPB SCH (12:31)
[2019-08-13] MEDS: MIRTAZAPINE 15 MG TABLET (FP) PO SCH (22:43)
--- NOTE | 2019-08-13 22:59 | PN ---
Progress Note, Physician History of Present Illness: Pt w/ poor PO intake No new complaints - Current Medication List Current Medications: Active Medications Acetaminophen (Ofirmev Injection -) 1,000 mg IVPB Q8H PRN PRN Reason: FEVER Vancomycin HCl 1,500 mg/ (Dextrose) 500 mls @ 250 mls/hr IVPB Q24H [facility]; Protocol Last Admin: 08/13/19 12:31 Dose: 250 mls/hr Amino Acids (Clinimix -) 1,000 mls @ 42 mls/hr IV Q24H [facility] Last Admin: 08/13/19 16:52 Dose: Not Given Metoprolol Tartrate (Lopressor -) 25 mg PO DAILY [facility] Last Admin: 08/13/19 12:30 Dose: Not Given Mirtazapine (Remeron -) 15 mg PO HS [facility] Last Admin: 08/13/19 22:43 Dose: Not Given Mupirocin (Bactroban 2% Ointment -) 1 applic TP BID [facility] Last Admin: 08/13/19 13:00 Dose: 1 applic Tamsulosin HCl (Flomax -) 0.4 mg PO DAILY@0830 [facility] Last Admin: 08/13/19 08:45 Dose: Not Given - Objective Vital Signs: Vital Signs Temperature 97.6 F 08/13/19 18:48 Pulse Rate 109 H 08/13/19 18:48 Respiratory Rate 18 08/13/19 18:48 Blood Pressure 118/66 08/13/19 18:48 O2 Sat by Pulse Oximetry (%) 96 08/13/19 09:00 Neck: Yes: WNL, Supple Cardiovascular: Yes: WNL, Regular Rate and Rhythm Respiratory: Yes: WNL, Regular, CTA Bilaterally Gastrointestinal: Yes: WNL, Normal Bowel Sounds, Soft Labs: CBC, BMP 08/12/19 06:45 08/12/19 06:45 INR, PTT INR 1.10 (0.83-1.09) H 07/20/19 15:50 Problem List - Problems (1) Anemia Assessment/Plan: S/P transfusion 2 units PRBC's DC asa/plavix No further testing Pt hospice Code(s): D64.9 - ANEMIA, UNSPECIFIED (2) Bacteremia Assessment/Plan: BC (+) for MRSA Repeat BC remain negative Urine culture negatgive Pt on IV vanco due to (+) sputum for MRSA Code(s): R78.81 - BACTEREMIA (3) HTN (hypertension) Assessment/Plan: BP stable Code(s): I10 - ESSENTIAL (PRIMARY) HYPERTENSION (4) Failure to thrive in adult Assessment/Plan: Encourage PO intake Started on IV clinimix Code(s): R62.7 - ADULT FAILURE TO THRIVE (5) Dementia Assessment/Plan: Spoke to about PEG insertion however has not come to an agreement Will get Palliative care consult for GOC Code(s): F03.90 - UNSPECIFIED DEMENTIA WITHOUT BEHAVIORAL DISTURBANCE (6) HLD (hyperlipidemia) Assessment/Plan: Lipitor dc'ed due to elevated LFT's Code(s): E78.5 - HYPERLIPIDEMIA, UNSPECIFIED (7) Metabolic encephalopathy Code(s): G93.41 - METABOLIC ENCEPHALOPATHY (8) Elevated LFTs Assessment/Plan: DC lipitor Code(s): R94.5 - ABNORMAL RESULTS OF LIVER FUNCTION STUDIES (9) Rhabdomyolysis Assessment/Plan: Resolved Code(s): M62.82 - RHABDOMYOLYSIS
[2019-08-14] MEDS: ACETAMINOPHEN 1000 MG/100 ML VIAL (NON FORMULARY) IVPB PRN (00:07)
[2019-08-14] MEDS: MUPIROCIN 2% TOPICAL OINTMENT 22 GM TUBE TP SCH ×3 (01:42→23:11)
[2019-08-14] MEDS: AMINO ACIDS 4.25%/D5W 1,000 ML IV SCH ×2 (02:25→16:46)
[2019-08-14] MEDS ORDERED: PT OWN MED DRAWER 7, Y5N ONE ×2 (04:43→09:39)
[2019-08-14] MEDS: TAMSULOSIN HCL 0.4 MG CAP PO SCH (09:25)
[2019-08-14 09:29] LABS: ALBUMIN 1.3 g/dl (3.4-5.0); BILIRUBIN,TOTAL 0.2 mg/dL (0.2-1); BLOOD UREA NITROGEN 28.3 mg/dL (7-18); CALCIUM 10.2 mg/dL (8.5-10.1); CREATININE 0.7 mg/dL (0.55-1.3); POTASSIUM 3.7 mmol/L (3.5-5.1); TOT PROT 5.3 g/dl (6.4-8.2)
[2019-08-14] MEDS: METOPROLOL TARTRATE 25 MG TABLET (FP) PO SCH (09:41)
[2019-08-14] MEDS: VANCOMYCIN HCL 1,500 MG in DEXTROSE 5%-WATER - 500 ML IVPB SCH (13:28)
--- NOTE | 2019-08-14 14:56 | PN ---
Progress Note (short form) - Note Progress Note: Renal follow up for JESSE/electrolyte disturbance coverage for Dr. Ricci Seen and examined at the bedside confused no overnight events still not eating Vital Signs Temperature 98.1 F 08/14/19 10:15 Pulse Rate 96 H 08/14/19 10:15 Respiratory Rate 18 08/14/19 10:15 Blood Pressure 128/65 08/14/19 10:15 O2 Sat by Pulse Oximetry (%) 100 08/14/19 09:00 Intake & Output 08/11/19 08/12/19 08/13/19 08/14/19 23:59 23:59 23:59 23:59 Intake Total 836 900 900 600 Output Total 1100 1640 866 1916 Balance -264 -100 200 -1100 Weight 88.252 kg 87.317 kg NAD RRR Dec BS, no rales no LE edema CBC, BMP 08/12/19 06:45 08/14/19 08:12 Current Medications Acetaminophen (Ofirmev Injection -) 1,000 mg IVPB Q8H PRN PRN Reason: FEVER Last Admin: 08/14/19 00:07 Dose: 1,000 mg Vancomycin HCl 1,500 mg/ (Dextrose) 500 mls @ 250 mls/hr IVPB Q24H [facility]; Protocol Last Admin: 08/14/19 13:28 Dose: 250 mls/hr Amino Acids (Clinimix -) 1,000 mls @ 42 mls/hr IV Q24H [facility] Last Admin: 08/14/19 02:25 Dose: 42 mls/hr Metoprolol Tartrate (Lopressor -) 25 mg PO DAILY [facility] Last Admin: 08/14/19 09:41 Dose: 25 mg Mirtazapine (Remeron -) 15 mg PO HS [facility] Last Admin: 08/13/19 22:43 Dose: Not Given Mupirocin (Bactroban 2% Ointment -) 1 applic TP BID [facility] Last Admin: 08/14/19 09:41 Dose: 1 applic Tamsulosin HCl (Flomax -) 0.4 mg PO DAILY@0830 [facility] Last Admin: 08/14/19 09:25 Dose: 0.4 mg Impression 1. JESSE 2. hyperkalemia 3. htn 4. hld 5. brain lesion 6. right renal density 7. rhabdo 8. anemia 9. hypercalcemia Plan renal function improved and stable continue IV clinimix as pt has poor oral intake check PTH for hypercalcemia Jimmy Guerrero DO
--- NOTE | 2019-08-14 16:03 | PN ---
Progress Note, Physician - Current Medication List Current Medications: Active Medications Acetaminophen (Ofirmev Injection -) 1,000 mg IVPB Q8H PRN PRN Reason: FEVER Last Admin: 08/14/19 00:07 Dose: 1,000 mg Vancomycin HCl 1,500 mg/ (Dextrose) 500 mls @ 250 mls/hr IVPB Q24H [facility]; Protocol Last Admin: 08/14/19 13:28 Dose: 250 mls/hr Amino Acids (Clinimix -) 1,000 mls @ 42 mls/hr IV Q24H [facility] Last Admin: 08/14/19 02:25 Dose: 42 mls/hr Metoprolol Tartrate (Lopressor -) 25 mg PO DAILY [facility] Last Admin: 08/14/19 09:41 Dose: 25 mg Mirtazapine (Remeron -) 15 mg PO HS [facility] Last Admin: 08/13/19 22:43 Dose: Not Given Mupirocin (Bactroban 2% Ointment -) 1 applic TP BID [facility] Last Admin: 08/14/19 09:41 Dose: 1 applic Tamsulosin HCl (Flomax -) 0.4 mg PO DAILY@0830 [facility] Last Admin: 08/14/19 09:25 Dose: 0.4 mg - Objective Vital Signs: Vital Signs Temperature 97.9 F 08/14/19 14:00 Pulse Rate 101 H 08/14/19 14:00 Respiratory Rate 18 08/14/19 14:00 Blood Pressure 124/82 08/14/19 14:00 O2 Sat by Pulse Oximetry (%) 100 08/14/19 09:00 Constitutional: Yes: No Distress HENT: Yes: Atraumatic Neck: Yes: Supple Cardiovascular: Yes: Regular Rate and Rhythm Respiratory: Yes: CTA Bilaterally Gastrointestinal: Yes: Normal Bowel Sounds Extremities: Yes: WNL Labs: CBC, BMP 08/12/19 06:45 08/14/19 08:12 INR, PTT INR 1.10 (0.83-1.09) H 07/20/19 15:50 Problem List - Problems (1) Bacteremia Assessment/Plan: on abx id on board Code(s): R78.81 - BACTEREMIA (2) Failure to thrive in adult Code(s): R62.7 - ADULT FAILURE TO THRIVE (3) Rhabdomyolysis Assessment/Plan: MONITOR IMPROVING Code(s): M62.82 - RHABDOMYOLYSIS (4) HLD (hyperlipidemia) Assessment/Plan: ON MEDS Code(s): E78.5 - HYPERLIPIDEMIA, UNSPECIFIED (5) HTN (hypertension) Assessment/Plan: ON MEDS Code(s): I10 - ESSENTIAL (PRIMARY) HYPERTENSION (6) Anemia Code(s): D64.9 - ANEMIA, UNSPECIFIED (7) Dementia Code(s): F03.90 - UNSPECIFIED DEMENTIA WITHOUT BEHAVIORAL DISTURBANCE (8) Feeding difficulties Assessment/Plan: on clinimix peg placement?? Code(s): R63.3 - FEEDING DIFFICULTIES Assessment/Plan covering for dr slaughter today
--- NOTE | 2019-08-14 18:29 | PN ---
Progress Note, Physician History of Present Illness: Pt is weak but responsive. Denies SOB/CP/abd pain. - Current Medication List Current Medications: Active Medications Acetaminophen (Ofirmev Injection -) 1,000 mg IVPB Q8H PRN PRN Reason: FEVER Last Admin: 08/14/19 00:07 Dose: 1,000 mg Vancomycin HCl 1,500 mg/ (Dextrose) 500 mls @ 250 mls/hr IVPB Q24H [facility]; Protocol Last Admin: 08/14/19 13:28 Dose: 250 mls/hr Amino Acids (Clinimix -) 1,000 mls @ 42 mls/hr IV Q24H [facility] Last Admin: 08/14/19 16:46 Dose: Not Given Metoprolol Tartrate (Lopressor -) 25 mg PO DAILY [facility] Last Admin: 08/14/19 09:41 Dose: 25 mg Mirtazapine (Remeron -) 15 mg PO HS [facility] Last Admin: 08/13/19 22:43 Dose: Not Given Mupirocin (Bactroban 2% Ointment -) 1 applic TP BID [facility] Last Admin: 08/14/19 09:41 Dose: 1 applic Tamsulosin HCl (Flomax -) 0.4 mg PO DAILY@0830 [facility] Last Admin: 08/14/19 09:25 Dose: 0.4 mg - Objective Vital Signs: Vital Signs Temperature 97.9 F 08/14/19 14:00 Pulse Rate 101 H 08/14/19 14:00 Respiratory Rate 18 08/14/19 14:00 Blood Pressure 124/82 08/14/19 14:00 O2 Sat by Pulse Oximetry (%) 100 08/14/19 09:00 Constitutional: Yes: No Distress Cardiovascular: Yes: Tachycardia Respiratory: Yes: Regular Gastrointestinal: Yes: Normal Bowel Sounds, Soft Genitourinary: Yes: WNL Edema: LLE: 1+, RLE: 1+ Neurological: Yes: Weakness Labs: CBC, BMP 08/12/19 06:45 08/14/19 08:12 INR, PTT INR 1.10 (0.83-1.09) H 07/20/19 15:50 Microbiology 08/08/19 14:50 Blood - Peripheral Venous Blood Culture - Final NO GROWTH AFTER 5 DAYS INCUBATION 08/08/19 14:50 Blood - Peripheral Venous Blood Culture - Final NO GROWTH AFTER 5 DAYS INCUBATION 08/09/19 00:20 Sputum - Expectorated Gram Stain - Final 08/09/19 00:20 Sputum - Expectorated Sputum Culture - Final S Aureus 07/30/19 07:40 Blood - Peripheral Venous Blood Culture - Final NO GROWTH AFTER 5 DAYS INCUBATION 07/30/19 07:35 Blood - Peripheral Venous Blood Culture - Final NO GROWTH AFTER 5 DAYS INCUBATION 08/02/19 08:40 Urine - Urine - Catheterized Urine Culture - Final NO GROWTH OBTAINED 07/24/19 08:52 Blood - Peripheral Venous Blood Culture - Final NO GROWTH AFTER 5 DAYS INCUBATION 07/24/19 08:45 Blood - Peripheral Venous Blood Culture - Final NO GROWTH AFTER 5 DAYS INCUBATION 07/20/19 15:54 Blood - Peripheral Venous Blood Culture - Final NO GROWTH AFTER 5 DAYS INCUBATION 07/20/19 15:54 Blood - Peripheral Venous Blood Culture - Final S Aureus Staphylococcus Capitis 07/20/19 16:44 Urine - Urine Dasilva Urine Culture - Final NO GROWTH OBTAINED Problem List - Problems (1) Bacteremia Code(s): R78.81 - BACTEREMIA (2) Failure to thrive in adult Code(s): R62.7 - ADULT FAILURE TO THRIVE (3) Fever Code(s): R50.9 - FEVER, UNSPECIFIED (4) HLD (hyperlipidemia) Code(s): E78.5 - HYPERLIPIDEMIA, UNSPECIFIED (5) HTN (hypertension) Code(s): I10 - ESSENTIAL (PRIMARY) HYPERTENSION (6) Weakness Code(s): R53.1 - WEAKNESS (7) Acute kidney injury Code(s): N17.9 - ACUTE KIDNEY FAILURE, UNSPECIFIED Assessment/Plan Lethargy MRSA bacteremia Possible MRSA PNA Fever - resolved Leukocytosis Tachycardia JESSE - improved, renal function stable Anemia -- Pt without overall improvement, still weak although verbally responsive/without distress, afebrile -- repeat blood cultures neg -- on Vancomycin IV -- continue monitor wbc trend, renal function, Vancomycin trough prior to am dose -- if patient can tolerate PO meds , may switch to Doxycycline 100 mg po BID -- prognosis poor
[2019-08-14] MEDS: MIRTAZAPINE 15 MG TABLET (FP) PO SCH (23:15)
[2019-08-15] MEDS: TAMSULOSIN HCL 0.4 MG CAP PO SCH (09:12)
[2019-08-15] MEDS: METOPROLOL TARTRATE 25 MG TABLET (FP) PO SCH (09:56)
[2019-08-15] MEDS: MUPIROCIN 2% TOPICAL OINTMENT 22 GM TUBE TP SCH ×2 (09:56→23:20)
[2019-08-15 09:58] LABS: BLOOD UREA NITROGEN 28.7 mg/dL (7-18); CALCIUM 10.4 mg/dL (8.5-10.1); CREATININE 0.7 mg/dL (0.55-1.3); MAGNESIUM 1.7 mg/dL (1.8-2.4); PHOSPHOROUS 2.2 mg/dL (2.5-4.9); POTASSIUM 3.8 mmol/L (3.5-5.1)
[2019-08-15] MEDS ORDERED: MAGNESIUM SULF 50% (8.12 MEQ/2 ML-1 GM VIAL) IVPB ONE (13:00)
[2019-08-15] MEDS ORDERED: POTASSIUM PHOSPHATE 15 MM in DEXTROSE 5%-WATER - 250 ML IVPB ONE (13:00)
--- NOTE | 2019-08-15 13:01 | PN ---
Progress Note (short form) - Note Progress Note: Renal follow up for JESSE/electrolyte disturbance coverage for Dr. Ricci Seen and examined at the bedside confused no overnight events, clinically unchanged still not eating Vital Signs Temperature 98 F 08/15/19 09:39 Pulse Rate 118 H 08/15/19 09:39 Respiratory Rate 20 08/15/19 09:39 Blood Pressure 129/66 08/15/19 09:39 O2 Sat by Pulse Oximetry (%) 100 08/15/19 09:00 Intake & Output 08/12/19 08/13/19 08/14/19 08/15/19 23:59 23:59 23:59 23:59 Intake Total 261 196 4199 0 Output Total 0675 544 7368 500 Balance -100 200 -1680 -500 Weight 87.317 kg NAD RRR Dec BS, no rales no LE edema CBC, BMP 08/12/19 06:45 08/15/19 07:30 Laboratory Tests 08/14/19 08/15/19 08:12 07:30 Calcium 10.2 H 10.4 H Phosphorus 2.2 L Magnesium 1.7 L Albumin 1.3 L Current Medications Acetaminophen (Ofirmev Injection -) 1,000 mg IVPB Q8H PRN PRN Reason: FEVER Last Admin: 08/14/19 00:07 Dose: 1,000 mg Vancomycin HCl 1,500 mg/ (Dextrose) 500 mls @ 250 mls/hr IVPB Q24H [facility]; Protocol Last Admin: 08/14/19 13:28 Dose: 250 mls/hr Amino Acids (Clinimix -) 1,000 mls @ 42 mls/hr IV Q24H [facility] Last Admin: 08/14/19 16:46 Dose: Not Given Potassium Phosphate 15 mm/ (Dextrose) 255 mls @ 63.75 mls/hr IVPB ONCE ONE Stop: 08/15/19 16:59 Magnesium Sulfate (Magnesium Sulfate) 2 gm IVPB ONCE ONE Stop: 08/15/19 13:01 Metoprolol Tartrate (Lopressor -) 25 mg PO DAILY [facility] Last Admin: 08/15/19 09:56 Dose: Not Given Mirtazapine (Remeron -) 15 mg PO HS [facility] Last Admin: 08/14/19 23:15 Dose: Not Given Mupirocin (Bactroban 2% Ointment -) 1 applic TP BID [facility] Last Admin: 08/15/19 09:56 Dose: 1 applic Tamsulosin HCl (Flomax -) 0.4 mg PO DAILY@0830 [facility] Last Admin: 08/15/19 09:12 Dose: 0.4 mg Impression 1. JESSE 2. hyperkalemia 3. htn 4. hld 5. brain lesion 6. right renal density 7. rhabdo 8. anemia 9. hypercalcemia 10. Hypomagnesemia 11. Hypophosphatemia Plan renal function improved and stable continue IV clinimix as pt has poor oral intake PTH collected, results pending supplement Mg and Phos IV Jimmy Guerrero DO
[2019-08-15] MEDS ORDERED: PT OWN MED DRAWER 7, Y5N ONE (15:01)
[2019-08-15] MEDS: ACETAMINOPHEN 1000 MG/100 ML VIAL (NON FORMULARY) IVPB PRN (16:43)
[2019-08-15] MEDS: VANCOMYCIN HCL 1,500 MG in DEXTROSE 5%-WATER - 500 ML IVPB SCH (16:59)
--- NOTE | 2019-08-15 17:10 | PN ---
Progress Note, Physician History of Present Illness: Pt arousable but weak. No distress noted. Temp of 99.1F currently. Vancomycin trough level noted. - Current Medication List Current Medications: Active Medications Acetaminophen (Ofirmev Injection -) 1,000 mg IVPB Q8H PRN PRN Reason: FEVER Last Admin: 08/15/19 16:43 Dose: 1,000 mg Amino Acids (Clinimix -) 1,000 mls @ 42 mls/hr IV Q24H [facility] Last Admin: 08/14/19 16:46 Dose: Not Given Metoprolol Tartrate (Lopressor -) 25 mg PO DAILY [facility] Last Admin: 08/15/19 09:56 Dose: Not Given Mirtazapine (Remeron -) 15 mg PO HS [facility] Last Admin: 08/14/19 23:15 Dose: Not Given Mupirocin (Bactroban 2% Ointment -) 1 applic TP BID [facility] Last Admin: 08/15/19 09:56 Dose: 1 applic Tamsulosin HCl (Flomax -) 0.4 mg PO DAILY@0830 [facility] Last Admin: 08/15/19 09:12 Dose: 0.4 mg - Objective Vital Signs: Vital Signs Temperature 99.1 F 08/15/19 16:42 Pulse Rate 113 H 08/15/19 16:42 Respiratory Rate 20 08/15/19 16:42 Blood Pressure 135/82 08/15/19 16:42 O2 Sat by Pulse Oximetry (%) 100 08/15/19 09:00 Constitutional: Yes: No Distress Cardiovascular: Yes: Tachycardia Respiratory: Yes: Regular Gastrointestinal: Yes: Normal Bowel Sounds, Soft, Abdomen, Obese Genitourinary: Yes: Dasilva Present Neurological: Yes: Lethargy Labs: CBC, BMP 08/12/19 06:45 08/15/19 07:30 INR, PTT INR 1.10 (0.83-1.09) H 07/20/19 15:50 Abnormal Lab Results 08/15/19 08/15/19 07:30 13:13 Anion Gap 5 L BUN 28.7 H Calcium 10.4 H Phosphorus 2.2 L Magnesium 1.7 L Vancomycin Pre-Dose 39.0 H* Problem List - Problems (1) Bacteremia Code(s): R78.81 - BACTEREMIA (2) Failure to thrive in adult Code(s): R62.7 - ADULT FAILURE TO THRIVE (3) Fever Code(s): R50.9 - FEVER, UNSPECIFIED (4) HLD (hyperlipidemia) Code(s): E78.5 - HYPERLIPIDEMIA, UNSPECIFIED (5) HTN (hypertension) Code(s): I10 - ESSENTIAL (PRIMARY) HYPERTENSION (6) Weakness Code(s): R53.1 - WEAKNESS (7) Acute kidney injury Code(s): N17.9 - ACUTE KIDNEY FAILURE, UNSPECIFIED Assessment/Plan Lethargy MRSA bacteremia Possible MRSA PNA Fever - resolved Leukocytosis Tachycardia JESSE - improved, renal function stable Anemia -- Pt without overall improvement, poor po intake -- repeat blood cultures neg -- wbc elevated last checked, repeat cbc/bmp -- if wbc continues to rise suggest repeat urine culture -- Vancomycin trough level high (39). Hold Vancomycin and check random level in a.m. -- if patient can tolerate PO meds , may switch to Doxycycline 100 mg po BID -- prognosis poor
[2019-08-15] MEDS: AMINO ACIDS 4.25%/D5W 1,000 ML IV SCH (17:48)
--- NOTE | 2019-08-15 22:20 | PN ---
Progress Note, Physician History of Present Illness: No new complaints - Current Medication List Current Medications: Active Medications Acetaminophen (Ofirmev Injection -) 1,000 mg IVPB Q8H PRN PRN Reason: FEVER Last Admin: 08/15/19 16:43 Dose: 1,000 mg Amino Acids (Clinimix -) 1,000 mls @ 42 mls/hr IV Q24H [facility] Last Admin: 08/15/19 17:48 Dose: Not Given Metoprolol Tartrate (Lopressor -) 25 mg PO DAILY [facility] Last Admin: 08/15/19 09:56 Dose: Not Given Mirtazapine (Remeron -) 15 mg PO HS [facility] Last Admin: 08/14/19 23:15 Dose: Not Given Mupirocin (Bactroban 2% Ointment -) 1 applic TP BID [facility] Last Admin: 08/15/19 09:56 Dose: 1 applic Tamsulosin HCl (Flomax -) 0.4 mg PO DAILY@0830 [facility] Last Admin: 08/15/19 09:12 Dose: 0.4 mg - Objective Vital Signs: Vital Signs Temperature 97.7 F 08/15/19 18:00 Pulse Rate 74 08/15/19 18:00 Respiratory Rate 20 08/15/19 18:00 Blood Pressure 127/74 08/15/19 18:00 O2 Sat by Pulse Oximetry (%) 100 08/15/19 09:00 Neck: Yes: WNL, Supple Cardiovascular: Yes: WNL, Regular Rate and Rhythm Respiratory: Yes: WNL, Regular, CTA Bilaterally Gastrointestinal: Yes: WNL, Normal Bowel Sounds, Soft Labs: CBC, BMP 08/12/19 06:45 08/15/19 07:30 INR, PTT INR 1.10 (0.83-1.09) H 07/20/19 15:50 Problem List - Problems (1) Anemia Assessment/Plan: S/P transfusion 2 units PRBC's DC asa/plavix No further testing Pt probable hospice Code(s): D64.9 - ANEMIA, UNSPECIFIED (2) Bacteremia Assessment/Plan: BC (+) for MRSA Repeat BC remain negative Urine culture negatgive Pt on IV vanco due to (+) sputum for MRSA Code(s): R78.81 - BACTEREMIA (3) HTN (hypertension) Assessment/Plan: BP stable Code(s): I10 - ESSENTIAL (PRIMARY) HYPERTENSION (4) Failure to thrive in adult Assessment/Plan: Encourage PO intake Started on IV clinimix Code(s): R62.7 - ADULT FAILURE TO THRIVE (5) Dementia Assessment/Plan: Spoke to about PEG insertion however has not come to an agreement Will get Palliative care consult for GOC Code(s): F03.90 - UNSPECIFIED DEMENTIA WITHOUT BEHAVIORAL DISTURBANCE (6) HLD (hyperlipidemia) Assessment/Plan: Lipitor dc'ed due to elevated LFT's Code(s): E78.5 - HYPERLIPIDEMIA, UNSPECIFIED (7) Metabolic encephalopathy Code(s): G93.41 - METABOLIC ENCEPHALOPATHY (8) Elevated LFTs Assessment/Plan: DC lipitor Code(s): R94.5 - ABNORMAL RESULTS OF LIVER FUNCTION STUDIES (9) Rhabdomyolysis Assessment/Plan: Resolved Code(s): M62.82 - RHABDOMYOLYSIS
[2019-08-15] MEDS: MIRTAZAPINE 15 MG TABLET (FP) PO SCH (23:20)
[2019-08-16] MEDS: DOCUSATE NA 100 MG/10 ML UNIT-DOSE CUPS PO SCH ×2 (06:40→22:36)
[2019-08-16 08:04] LABS: BASO % 0.7 % (0-2.0); EOS % 4.1 % (0-4.5); HEMATOCRIT 25.8 % (35.4-49); HEMOGLOBIN 8.6 GM/dL (11.7-16.9); LYMPH % 6.1 % (8-40); MCH 27.8 pg (25.7-33.7); MCHC 33.2 g/dl (32.0-35.9); MEAN CELL VOLUME 83.7 fl (80-96); MEAN PLT VOLUME 6.6 fl (7.5-11.1); MONO % 4.3 % (3.8-10.2); NEUT % 84.8 % (42.8-82.8); PLATELET COUNT 632 K/MM3 (134-434); RBC 3.08 M/mm3 (4.00-5.60); RDW 16.2 % (11.9-15.9); WHITE BLOOD COUNT 23.4 K/mm3 (4.0-10.0)
--- NOTE | 2019-08-16 08:04 | PN ---
Progress Note, Physician History of Present Illness: no new issues - Current Medication List Current Medications: Active Medications Acetaminophen (Ofirmev Injection -) 1,000 mg IVPB Q8H PRN PRN Reason: FEVER Last Admin: 08/15/19 16:43 Dose: 1,000 mg Docusate Sodium (Colace Liquid -) 300 mg PO [facility] Last Admin: 08/16/19 06:40 Dose: Not Given Amino Acids (Clinimix -) 1,000 mls @ 42 mls/hr IV Q24H [facility] Last Admin: 08/15/19 17:48 Dose: Not Given Metoprolol Tartrate (Lopressor -) 25 mg PO DAILY [facility] Last Admin: 08/15/19 09:56 Dose: Not Given Mirtazapine (Remeron -) 15 mg PO [facility] Last Admin: 08/15/19 23:20 Dose: Not Given Mupirocin (Bactroban 2% Ointment -) 1 applic TP BID [facility] Last Admin: 08/15/19 23:20 Dose: 1 applic Tamsulosin HCl (Flomax -) 0.4 mg PO DAILY@0830 [facility] Last Admin: 08/15/19 09:12 Dose: 0.4 mg - Objective Vital Signs: Vital Signs Temperature 98.3 F 08/16/19 06:00 Pulse Rate 97 H 08/16/19 06:00 Respiratory Rate 20 08/16/19 06:00 Blood Pressure 125/60 08/16/19 06:00 O2 Sat by Pulse Oximetry (%) 100 08/15/19 21:00 Constitutional: Yes: No Distress, Calm Cardiovascular: Yes: S1, S2 Respiratory: Yes: Regular, CTA Bilaterally Gastrointestinal: Yes: Normal Bowel Sounds, Soft Musculoskeletal: Yes: Other Extremities: Yes: Other Integumentary: Yes: Other Wound/Incision: Yes: Dressing Dry and Intact Labs: INR, PTT INR 1.10 (0.83-1.09) H 07/20/19 15:50 Assessment/Plan Problem List - Problems (1) Anemia Code(s): D64.9 - ANEMIA, UNSPECIFIED (2) Bacteremia Code(s): R78.81 - BACTEREMIA (3) Rhabdomyolysis Code(s): M62.82 - RHABDOMYOLYSIS (4) HTN (hypertension) Code(s): I10 - ESSENTIAL (PRIMARY) HYPERTENSION (5) Failure to thrive in adult Code(s): R62.7 - ADULT FAILURE TO THRIVE (6) Dementia Code(s): F03.90 - UNSPECIFIED DEMENTIA WITHOUT BEHAVIORAL DISTURBANCE (7) HLD (hyperlipidemia) Code(s): E78.5 - HYPERLIPIDEMIA, UNSPECIFIED (8) Metabolic encephalopathy Code(s): G93.41 - METABOLIC ENCEPHALOPATHY (9) Elevated LFTs Code(s): R94.5 - ABNORMAL RESULTS OF LIVER FUNCTION STUDIES plan await for vanco level still with very poor intake nutrition rest as per the team
[2019-08-16 08:39] LABS: BLOOD UREA NITROGEN 29.8 mg/dL (7-18); CALCIUM 10.1 mg/dL (8.5-10.1); CREATININE 0.8 mg/dL (0.55-1.3); MAGNESIUM 1.9 mg/dL (1.8-2.4); PHOSPHOROUS 2.5 mg/dL (2.5-4.9); POTASSIUM 3.8 mmol/L (3.5-5.1)
[2019-08-16 09:00] LABS: ANISOCYTOSIS 0; MACROCYTOSIS 0; PLATELET ESTIMATE INCREASED
[2019-08-16] MEDS: TAMSULOSIN HCL 0.4 MG CAP PO SCH (10:10)
[2019-08-16] MEDS: METOPROLOL TARTRATE 25 MG TABLET (FP) PO SCH (11:12)
[2019-08-16] MEDS: MUPIROCIN 2% TOPICAL OINTMENT 22 GM TUBE TP SCH ×2 (13:42→22:36)
[2019-08-16] MEDS ORDERED: BISACODYL 10 MG SUPP.RECT RC ONE (14:00)
--- NOTE | 2019-08-16 15:41 | PN ---
Progress Note, Physician History of Present Illness: Pt seen and examined at bedside. He remains lethargic. - Current Medication List Current Medications: Active Medications Acetaminophen (Ofirmev Injection -) 1,000 mg IVPB Q8H PRN PRN Reason: FEVER Last Admin: 08/15/19 16:43 Dose: 1,000 mg Docusate Sodium (Colace Liquid -) 300 mg PO [facility] Last Admin: 08/16/19 06:40 Dose: Not Given Amino Acids (Clinimix -) 1,000 mls @ 42 mls/hr IV Q24H [facility] Last Admin: 08/15/19 17:48 Dose: Not Given Metoprolol Tartrate (Lopressor -) 25 mg PO DAILY [facility] Last Admin: 08/16/19 11:12 Dose: Not Given Mirtazapine (Remeron -) 15 mg PO HS [facility] Last Admin: 08/15/19 23:20 Dose: Not Given Mupirocin (Bactroban 2% Ointment -) 1 applic TP BID [facility] Last Admin: 08/16/19 13:42 Dose: 1 applic Tamsulosin HCl (Flomax -) 0.4 mg PO DAILY@0830 [facility] Last Admin: 08/16/19 10:10 Dose: Not Given - Objective Vital Signs: Vital Signs Temperature 99.1 F 08/16/19 15:00 Pulse Rate 112 H 08/16/19 15:00 Respiratory Rate 20 08/16/19 15:00 Blood Pressure 119/57 L 08/16/19 15:00 O2 Sat by Pulse Oximetry (%) 100 08/15/19 21:00 Constitutional: Yes: Calm Eyes: Yes: Conjunctiva Clear HENT: Yes: Atraumatic Cardiovascular: Yes: S1, S2 Respiratory: Yes: CTA Bilaterally Gastrointestinal: Yes: Soft Genitourinary: Yes: Incontinence Edema: LLE: Trace, RLE: Trace Neurological: Yes: Confusion Labs: CBC, BMP 08/16/19 07:00 08/16/19 07:00 INR, PTT INR 1.10 (0.83-1.09) H 07/20/19 15:50 Problem List - Problems (1) Hyperkalemia Code(s): E87.5 - HYPERKALEMIA (2) Dehydration Code(s): E86.0 - DEHYDRATION (3) Failure to thrive in adult Code(s): R62.7 - ADULT FAILURE TO THRIVE (4) Acute kidney injury Code(s): N17.9 - ACUTE KIDNEY FAILURE, UNSPECIFIED Assessment/Plan Current Medications Generic Name Dose Route Start Last Admin Trade Name Freq PRN Reason Stop Dose Admin Acetaminophen 1,000 mg 08/06/19 10:47 08/15/19 16:43 Ofirmev Injection - IVPB 1,000 mg Q8H PRN Administration FEVER Docusate Sodium 300 mg 08/16/19 05:00 08/16/19 06:40 Colace Liquid - PO Not Given HS [facility] Amino Acids 1,000 mls @ 42 mls/hr 08/10/19 16:17 08/15/19 17:48 Clinimix - IV Not Given Q24H [facility] Metoprolol Tartrate 25 mg 07/21/19 10:00 08/16/19 11:12 Lopressor - PO Not Given DAILY [facility] Mirtazapine 15 mg 07/21/19 22:00 08/15/19 23:20 Remeron - PO Not Given HS [facility] Mupirocin 1 applic 07/21/19 22:00 08/16/19 13:42 Bactroban 2% Ointment - TP 1 applic BID [facility] Administration Tamsulosin HCl 0.4 mg 07/21/19 08:30 08/16/19 10:10 Flomax - PO Not Given DAILY@0830 [facility] Impression 1. JESSE 2. hyperkalemia 3. htn 4. hld 5. brain lesion 6. right renal density 7. rhabdo 8. anemia 9. hypercalcemia Plan - follow pth - monitor calcium - po intake is poor - monitor hg - avoid nsaids
[2019-08-16] MEDS: AMINO ACIDS 4.25%/D5W 1,000 ML IV SCH ×2 (16:20→22:17)
[2019-08-16 16:34] VITALS: BMI 25.7
[2019-08-16] MEDS: ACETAMINOPHEN 1000 MG/100 ML VIAL (NON FORMULARY) IVPB PRN (18:24)
--- NOTE | 2019-08-16 19:23 | PN ---
Progress Note, Physician History of Present Illness: Left message w/ pt's to discuss PEG insertion - Current Medication List Current Medications: Active Medications Acetaminophen (Ofirmev Injection -) 1,000 mg IVPB Q8H PRN PRN Reason: FEVER Last Admin: 08/16/19 18:24 Dose: 1,000 mg Docusate Sodium (Colace Liquid -) 300 mg PO [facility] Last Admin: 08/16/19 06:40 Dose: Not Given Amino Acids (Clinimix -) 1,000 mls @ 42 mls/hr IV Q24H [facility] Last Admin: 08/16/19 16:20 Dose: Not Given Metoprolol Tartrate (Lopressor -) 25 mg PO DAILY [facility] Last Admin: 08/16/19 11:12 Dose: Not Given Mirtazapine (Remeron -) 15 mg PO HS [facility] Last Admin: 08/15/19 23:20 Dose: Not Given Mupirocin (Bactroban 2% Ointment -) 1 applic TP BID [facility] Last Admin: 08/16/19 13:42 Dose: 1 applic Tamsulosin HCl (Flomax -) 0.4 mg PO DAILY@0830 [facility] Last Admin: 08/16/19 10:10 Dose: Not Given - Objective Vital Signs: Vital Signs Temperature 98.6 F 08/16/19 18:00 Pulse Rate 92 H 08/16/19 18:00 Respiratory Rate 20 08/16/19 18:00 Blood Pressure 123/78 08/16/19 18:00 O2 Sat by Pulse Oximetry (%) 96 08/16/19 09:00 Neck: Yes: WNL, Supple Cardiovascular: Yes: WNL, Regular Rate and Rhythm Respiratory: Yes: WNL, Regular, CTA Bilaterally Gastrointestinal: Yes: WNL, Normal Bowel Sounds, Soft Labs: CBC, BMP 08/16/19 07:00 08/16/19 07:00 INR, PTT INR 1.10 (0.83-1.09) H 07/20/19 15:50 Problem List - Problems (1) Dementia Assessment/Plan: Pt's has agreed to PEG insertion Will get IR consult for placement Code(s): F03.90 - UNSPECIFIED DEMENTIA WITHOUT BEHAVIORAL DISTURBANCE (2) Anemia Assessment/Plan: S/P transfusion 2 units PRBC's DC asa/plavix No further testing Pt probable hospice Code(s): D64.9 - ANEMIA, UNSPECIFIED (3) Bacteremia Assessment/Plan: BC (+) for MRSA Repeat BC remain negative Urine culture negatgive Pt on IV vanco due to (+) sputum for MRSA Code(s): R78.81 - BACTEREMIA (4) HTN (hypertension) Assessment/Plan: BP stable Code(s): I10 - ESSENTIAL (PRIMARY) HYPERTENSION (5) Failure to thrive in adult Assessment/Plan: Encourage PO intake Started on IV clinimix Code(s): R62.7 - ADULT FAILURE TO THRIVE (6) HLD (hyperlipidemia) Assessment/Plan: Lipitor dc'ed due to elevated LFT's Code(s): E78.5 - HYPERLIPIDEMIA, UNSPECIFIED (7) Metabolic encephalopathy Code(s): G93.41 - METABOLIC ENCEPHALOPATHY (8) Elevated LFTs Code(s): R94.5 - ABNORMAL RESULTS OF LIVER FUNCTION STUDIES (9) Rhabdomyolysis Code(s): M62.82 - RHABDOMYOLYSIS
[2019-08-16] MEDS: MIRTAZAPINE 15 MG TABLET (FP) PO SCH (22:37)
[2019-08-17] MEDS: TAMSULOSIN HCL 0.4 MG CAP PO SCH (07:46)
[2019-08-17 08:17] LABS: BASO % 0.7 % (0-2.0); EOS % 4.7 % (0-4.5); HEMOGLOBIN 8.1 GM/dL (11.7-16.9); MCH 27.8 pg (25.7-33.7); MCHC 32.6 g/dl (32.0-35.9); MEAN CELL VOLUME 85.2 fl (80-96); MEAN PLT VOLUME 6.9 fl (7.5-11.1); MONO % 5.3 % (3.8-10.2); NEUT % 82.3 % (42.8-82.8); PLATELET COUNT 598 K/MM3 (134-434); RBC 2.93 M/mm3 (4.00-5.60); RDW 16.1 % (11.9-15.9); WHITE BLOOD COUNT 17.3 K/mm3 (4.0-10.0)
[2019-08-17] MEDS: MUPIROCIN 2% TOPICAL OINTMENT 22 GM TUBE TP SCH (09:35)
[2019-08-17] MEDS: METOPROLOL TARTRATE 25 MG TABLET (FP) PO SCH (09:35)
--- NOTE | 2019-08-17 10:39 | PROC ---
Procedure Note Procedure: VASCULAR SURGERY Informed consent obtained from his and placed in his paper chart under CONSENT section. Prior too procedure, INR 1.[address] RUE MIDLINE under ultrasound guidance. Very difficult as patient is contracted (bilaterally) and unable to externally rotate and abduct arm away from body. Only able to obtain venous flow from hub of needle but unable to pass guidewire...resistance. Cont to use Right IJ TLC as it's only been in or 12 days. Will reassess foor peripheral access later today/tomorrow.
--- NOTE | 2019-08-17 13:01 | PN ---
Progress Note, Physician History of Present Illness: no new issues nutrition very poor - Current Medication List Current Medications: Active Medications Acetaminophen (Ofirmev Injection -) 1,000 mg IVPB Q8H PRN PRN Reason: FEVER Last Admin: 08/16/19 18:24 Dose: 1,000 mg Docusate Sodium (Colace Liquid -) 300 mg PO [facility] Last Admin: 08/16/19 22:36 Dose: Not Given Amino Acids (Clinimix -) 1,000 mls @ 42 mls/hr IV Q24H [facility] Last Admin: 08/16/19 22:17 Dose: 42 mls/hr Metoprolol Tartrate (Lopressor -) 25 mg PO DAILY [facility] Last Admin: 08/17/19 09:35 Dose: Not Given Mirtazapine (Remeron -) 15 mg PO [facility] Last Admin: 08/16/19 22:37 Dose: Not Given Mupirocin (Bactroban 2% Ointment -) 1 applic TP BID [facility] Last Admin: 08/17/19 09:35 Dose: 1 applic Tamsulosin HCl (Flomax -) 0.4 mg PO DAILY@0830 [facility] Last Admin: 08/17/19 07:46 Dose: Not Given - Objective Vital Signs: Vital Signs Temperature 97.4 F L 08/17/19 09:45 Pulse Rate 97 H 08/17/19 09:45 Respiratory Rate 18 08/17/19 09:45 Blood Pressure 138/65 08/17/19 09:45 O2 Sat by Pulse Oximetry (%) 100 08/16/19 21:00 Constitutional: Yes: No Distress Cardiovascular: Yes: S1, S2 Respiratory: Yes: Regular, CTA Bilaterally Gastrointestinal: Yes: Normal Bowel Sounds, Soft Musculoskeletal: Yes: Other Extremities: Yes: Other Wound/Incision: Yes: Dressing Dry and Intact Neurological: Yes: Other Labs: CBC, BMP 08/17/19 07:00 08/16/19 07:00 INR, PTT INR 1.10 (0.83-1.09) H 07/20/19 15:50 Assessment/Plan Problem List - Problems (1) Anemia Code(s): D64.9 - ANEMIA, UNSPECIFIED (2) Bacteremia Code(s): R78.81 - BACTEREMIA (3) Rhabdomyolysis Code(s): M62.82 - RHABDOMYOLYSIS (4) HTN (hypertension) Code(s): I10 - ESSENTIAL (PRIMARY) HYPERTENSION (5) Failure to thrive in adult Code(s): R62.7 - ADULT FAILURE TO THRIVE (6) Dementia Code(s): F03.90 - UNSPECIFIED DEMENTIA WITHOUT BEHAVIORAL DISTURBANCE (7) HLD (hyperlipidemia) Code(s): E78.5 - HYPERLIPIDEMIA, UNSPECIFIED (8) Metabolic encephalopathy Code(s): G93.41 - METABOLIC ENCEPHALOPATHY (9) Elevated LFTs Code(s): R94.5 - ABNORMAL RESULTS OF LIVER FUNCTION STUDIES plan continue current mgmt rest as per the team
[2019-08-17] MEDS: ACETAMINOPHEN 1000 MG/100 ML VIAL (NON FORMULARY) IVPB PRN (13:19)
--- NOTE | 2019-08-17 13:27 | PN ---
Progress Note (short form) - Note Progress Note: Called to evaluate for PEG. Patient seen by S/S: Pt not accepting meals. On puree/thin, downgraded by RD per CERTIFIED TUMOR REGISTRAR rec. Holding puree and liquids in mouth. Palliative care on case regarding pts wishes. Was evaluated by IR for G-Tube, however unable to be placed by IR given finding of large HH. Reviewed CT scan chest. It appears as though the majority of his stomach is in his right chest. Reviewed with Dr. Scales. only portion of gastric antrum is intraabdominal. It is also high up and adjacent to / behind the liver. My concern would be that this would be a technically difficult attempt at PEG with small window high up in the abdomen making this much higher risk. Surgical approach could be considered or transfer to tertiary care center where endoscopic gastropexy could possibly be performed. D/W Dr. Mojica Problem List - Problems (1) Anemia Code(s): D64.9 - ANEMIA, UNSPECIFIED
[2019-08-17] MEDS: AMINO ACIDS 4.25%/D5W 1,000 ML IV SCH ×2 (15:56→22:58)
--- NOTE | 2019-08-17 16:12 | PN ---
Progress Note, Physician History of Present Illness: Pt seen and examined at bedside. He is lethargic. - Current Medication List Current Medications: Active Medications Acetaminophen (Ofirmev Injection -) 1,000 mg IVPB Q8H PRN PRN Reason: FEVER Last Admin: 08/17/19 13:19 Dose: 1,000 mg Docusate Sodium (Colace Liquid -) 300 mg PO HS [facility] Last Admin: 08/16/19 22:36 Dose: Not Given Amino Acids (Clinimix -) 1,000 mls @ 42 mls/hr IV Q24H [facility] Last Admin: 08/17/19 15:56 Dose: Not Given Metoprolol Tartrate (Lopressor -) 25 mg PO DAILY [facility] Last Admin: 08/17/19 09:35 Dose: Not Given Mirtazapine (Remeron -) 15 mg PO HS [facility] Last Admin: 08/16/19 22:37 Dose: Not Given Mupirocin (Bactroban 2% Ointment -) 1 applic TP BID [facility] Last Admin: 08/17/19 09:35 Dose: 1 applic Tamsulosin HCl (Flomax -) 0.4 mg PO DAILY@0830 [facility] Last Admin: 08/17/19 07:46 Dose: Not Given - Objective Vital Signs: Vital Signs Temperature 97.1 F L 08/17/19 14:00 Pulse Rate 100 H 08/17/19 14:00 Respiratory Rate 18 08/17/19 14:00 Blood Pressure 100/53 L 08/17/19 14:00 O2 Sat by Pulse Oximetry (%) 100 08/17/19 09:00 Constitutional: Yes: Calm Eyes: Yes: Conjunctiva Clear HENT: Yes: Atraumatic Neck: Yes: Supple Cardiovascular: Yes: S1, S2 Respiratory: Yes: CTA Bilaterally Gastrointestinal: Yes: Soft Genitourinary: Yes: Incontinence Musculoskeletal: Yes: Muscle Weakness Edema: LLE: Trace, RLE: Trace Neurological: Yes: Lethargy Labs: CBC, BMP 08/17/19 07:00 08/16/19 07:00 INR, PTT INR 1.10 (0.83-1.09) H 07/20/19 15:50 Problem List - Problems (1) Hyperkalemia Code(s): E87.5 - HYPERKALEMIA (2) Dehydration Code(s): E86.0 - DEHYDRATION (3) Failure to thrive in adult Code(s): R62.7 - ADULT FAILURE TO THRIVE (4) Acute kidney injury Code(s): N17.9 - ACUTE KIDNEY FAILURE, UNSPECIFIED Assessment/Plan Current Medications Generic Name Dose Route Start Last Admin Trade Name Freq PRN Reason Stop Dose Admin Acetaminophen 1,000 mg 08/06/19 10:47 08/17/19 13:19 Ofirmev Injection - IVPB 1,000 mg Q8H PRN Administration FEVER Docusate Sodium 300 mg 08/16/19 05:00 08/16/19 22:36 Colace Liquid - PO Not Given HS [facility] Amino Acids 1,000 mls @ 42 mls/hr 08/10/19 16:17 08/17/19 15:56 Clinimix - IV Not Given Q24H [facility] Metoprolol Tartrate 25 mg 07/21/19 10:00 08/17/19 09:35 Lopressor - PO Not Given DAILY [facility] Mirtazapine 15 mg 07/21/19 22:00 08/16/19 22:37 Remeron - PO Not Given HS [facility] Mupirocin 1 applic 07/21/19 22:00 08/17/19 09:35 Bactroban 2% Ointment - TP 1 applic BID [facility] Administration Tamsulosin HCl 0.4 mg 07/21/19 08:30 08/17/19 07:46 Flomax - PO Not Given DAILY@0830 [facility] Laboratory Tests 08/15/19 08/16/19 07:30 07:00 Calcium 10.1 PTH Intact 5 L Impression 1. JESSE 2. hyperkalemia 3. htn 4. hld 5. brain lesion 6. right renal density 7. rhabdo 8. anemia 9. hypercalcemia Plan - cont clinimix - pth is appropriately low - monitor calcium levels - will need to discuss GOC - pt not on vit D supplements - check spep - oncology eval - monitor hg - avoid nsaids
[2019-08-17] MEDS: MIRTAZAPINE 15 MG TABLET (FP) PO SCH (22:11)
[2019-08-17] MEDS: DOCUSATE NA 100 MG/10 ML UNIT-DOSE CUPS PO SCH (22:11)
--- NOTE | 2019-08-17 22:41 | PN ---
Progress Note, Physician History of Present Illness: Poor IV access - Current Medication List Current Medications: Active Medications Acetaminophen (Ofirmev Injection -) 1,000 mg IVPB Q8H PRN PRN Reason: FEVER Last Admin: 08/17/19 13:19 Dose: 1,000 mg Docusate Sodium (Colace Liquid -) [address] [facility] Last Admin: 08/17/19 22:11 Dose: Not Given Amino Acids (Clinimix -) 1,000 mls @ 42 mls/hr IV Q24H [facility] Last Admin: 08/17/19 15:56 Dose: Not Given Metoprolol Tartrate (Lopressor -) 25 mg PO DAILY [facility] Last Admin: 08/17/19 09:35 Dose: Not Given Mirtazapine (Remeron -) [address] [facility] Last Admin: 08/17/19 22:11 Dose: Not Given Mupirocin (Bactroban 2% Ointment -) 1 applic TP BID [facility] Last Admin: 08/17/19 09:35 Dose: 1 applic Tamsulosin HCl (Flomax -) 0.4 mg PO DAILY@0830 [facility] Last Admin: 08/17/19 07:46 Dose: Not Given - Objective Vital Signs: Vital Signs Temperature 97.8 F 08/17/19 18:00 Pulse Rate 108 H 08/17/19 18:00 Respiratory Rate 18 08/17/19 18:00 Blood Pressure 133/68 08/17/19 18:00 O2 Sat by Pulse Oximetry (%) 100 08/17/19 09:00 Cardiovascular: Yes: Tachycardia Respiratory: Yes: Diminished Gastrointestinal: Yes: WNL, Normal Bowel Sounds, Soft Extremities: Yes: Other ((+) contractures) Labs: CBC, BMP 08/17/19 07:00 08/16/19 07:00 INR, PTT INR 1.10 (0.83-1.09) H 07/20/19 15:50 Problem List - Problems (1) Dementia Assessment/Plan: Pt's has agreed to PEG insertion IR/GI consults noted and they r unable insert PEG due to large ventral hernia Will get surgical consult Code(s): F03.90 - UNSPECIFIED DEMENTIA WITHOUT BEHAVIORAL DISTURBANCE (2) Anemia Assessment/Plan: S/P transfusion 2 units PRBC's DC asa/plavix No further testing Pt probable hospice Code(s): D64.9 - ANEMIA, UNSPECIFIED (3) Bacteremia Assessment/Plan: BC (+) for MRSA Repeat BC remain negative Urine culture negatgive Pt on IV vanco wc is on hold due to (+) sputum for MRSA Code(s): R78.81 - BACTEREMIA (4) HTN (hypertension) Code(s): I10 - ESSENTIAL (PRIMARY) HYPERTENSION (5) Failure to thrive in adult Code(s): R62.7 - ADULT FAILURE TO THRIVE (6) HLD (hyperlipidemia) Code(s): E78.5 - HYPERLIPIDEMIA, UNSPECIFIED (7) Metabolic encephalopathy Code(s): G93.41 - METABOLIC ENCEPHALOPATHY (8) Elevated LFTs Code(s): R94.5 - ABNORMAL RESULTS OF LIVER FUNCTION STUDIES (9) Rhabdomyolysis Code(s): M62.82 - RHABDOMYOLYSIS
[2019-08-18] MEDS: MUPIROCIN 2% TOPICAL OINTMENT 22 GM TUBE TP SCH ×3 (01:52→21:52)
[2019-08-18] MEDS: TAMSULOSIN HCL 0.4 MG CAP PO SCH (11:16)
[2019-08-18] MEDS: METOPROLOL TARTRATE 25 MG TABLET (FP) PO SCH (11:27)
--- NOTE | 2019-08-18 13:40 | PN ---
Progress Note (short form) - Note Progress Note: Patient scheduled for gastrostomy tube placement in the OR on 08/23/2019 Medical optimization/clearance Cardio clearance.
--- NOTE | 2019-08-18 16:44 | PN ---
Progress Note, Physician History of Present Illness: Pt seen and examined at bedside. He remain lethargic. - Current Medication List Current Medications: Active Medications Acetaminophen (Ofirmev Injection -) 1,000 mg IVPB Q8H PRN PRN Reason: FEVER Last Admin: 08/17/19 13:19 Dose: 1,000 mg Docusate Sodium (Colace Liquid -) 300 mg PO [facility] Last Admin: 08/17/19 22:11 Dose: Not Given Amino Acids (Clinimix -) 1,000 mls @ 42 mls/hr IV Q24H [facility] Last Admin: 08/17/19 22:58 Dose: 42 mls/hr Metoprolol Tartrate (Lopressor -) 25 mg PO DAILY [facility] Last Admin: 08/18/19 11:27 Dose: Not Given Mirtazapine (Remeron -) 15 mg PO HS [facility] Last Admin: 08/17/19 22:11 Dose: Not Given Mupirocin (Bactroban 2% Ointment -) 1 applic TP BID [facility] Last Admin: 08/18/19 01:52 Dose: 1 applic Tamsulosin HCl (Flomax -) 0.4 mg PO DAILY@0830 [facility] Last Admin: 08/18/19 11:16 Dose: Not Given - Objective Vital Signs: Vital Signs Temperature 98.1 F 08/18/19 15:00 Pulse Rate 103 H 08/18/19 15:00 Respiratory Rate 18 08/18/19 15:00 Blood Pressure 134/64 08/18/19 15:00 O2 Sat by Pulse Oximetry (%) 100 08/18/19 10:00 Constitutional: Yes: Calm Eyes: Yes: Conjunctiva Clear HENT: Yes: Atraumatic Neck: Yes: Supple Cardiovascular: Yes: S1, S2 Respiratory: Yes: CTA Bilaterally Gastrointestinal: Yes: Soft Genitourinary: Yes: Incontinence Musculoskeletal: Yes: WNL Edema: Yes Edema: LLE: Trace, RLE: Trace Neurological: Yes: Confusion Labs: CBC, BMP 08/17/19 07:00 08/16/19 07:00 INR, PTT INR 1.10 (0.83-1.09) H 07/20/19 15:50 Problem List - Problems (1) Hyperkalemia Code(s): E87.5 - HYPERKALEMIA (2) Dehydration Code(s): E86.0 - DEHYDRATION (3) Failure to thrive in adult Code(s): R62.7 - ADULT FAILURE TO THRIVE (4) Acute kidney injury Code(s): N17.9 - ACUTE KIDNEY FAILURE, UNSPECIFIED Assessment/Plan Current Medications Generic Name Dose Route Start Last Admin Trade Name Freq PRN Reason Stop Dose Admin Acetaminophen 1,000 mg 08/06/19 10:47 08/17/19 13:19 Ofirmev Injection - IVPB 1,000 mg Q8H PRN Administration FEVER Docusate Sodium 300 mg 08/16/19 05:00 08/17/19 22:11 Colace Liquid - PO Not Given HS MELA Amino Acids 1,000 mls @ 42 mls/hr 08/10/19 16:17 08/17/19 22:58 Clinimix - IV 42 mls/hr Q24H [facility]A Administration Metoprolol Tartrate 25 mg 07/21/19 10:00 08/18/19 11:27 Lopressor - PO Not Given DAILY M[facility]A Mirtazapine 15 mg 07/21/19 22:00 08/17/19 22:11 Remeron - PO Not Given HS MELA Mupirocin 1 applic 07/21/19 22:00 08/18/19 01:52 Bactroban 2% Ointment - TP 1 applic BID MELA Administration Tamsulosin HCl 0.4 mg 07/21/19 08:30 08/18/19 11:16 Flomax - PO Not Given DAILY@0830 [facility] Impression 1. JESSE 2. hyperkalemia 3. htn 4. hld 5. brain lesion 6. right renal density 7. rhabdo 8. anemia 9. hypercalcemia Plan - cont fluids for now - gi input appreciated - will need to discuss GOC - monitor calcium levles - check spep, pending - oncology eval - monitor hg - avoid nsaids
[2019-08-18] MEDS: AMINO ACIDS 4.25%/D5W 1,000 ML IV SCH (18:13)
[2019-08-18] MEDS: DOCUSATE NA 100 MG/10 ML UNIT-DOSE CUPS PO SCH (21:51)
[2019-08-18] MEDS: MIRTAZAPINE 15 MG TABLET (FP) PO SCH (21:51)
--- NOTE | 2019-08-18 22:12 | PN ---
Progress Note, Physician History of Present Illness: Awaiting surgical consult for PEG insertion - Current Medication List Current Medications: Active Medications Acetaminophen (Ofirmev Injection -) 1,000 mg IVPB Q8H PRN PRN Reason: FEVER Last Admin: 08/17/19 13:19 Dose: 1,000 mg Docusate Sodium (Colace Liquid -) 300 mg PO [facility] Last Admin: 08/18/19 21:51 Dose: Not Given Amino Acids (Clinimix -) 1,000 mls @ 42 mls/hr IV Q24H [facility] Last Admin: 08/18/19 18:13 Dose: 42 mls/hr Metoprolol Tartrate (Lopressor -) 25 mg PO DAILY [facility] Last Admin: 08/18/19 11:27 Dose: Not Given Mirtazapine (Remeron -) 15 mg PO [facility] Last Admin: 08/18/19 21:51 Dose: Not Given Mupirocin (Bactroban 2% Ointment -) 1 applic TP BID [facility] Last Admin: 08/18/19 21:52 Dose: 1 applic Tamsulosin HCl (Flomax -) 0.4 mg PO DAILY@0830 [facility] Last Admin: 08/18/19 11:16 Dose: Not Given - Objective Vital Signs: Vital Signs Temperature 98.1 F 08/18/19 18:00 Pulse Rate 103 H 08/18/19 18:00 Respiratory Rate 18 08/18/19 18:00 Blood Pressure 133/65 08/18/19 18:00 O2 Sat by Pulse Oximetry (%) 100 08/18/19 10:00 Cardiovascular: Yes: WNL, Regular Rate and Rhythm Respiratory: Yes: WNL, Regular, CTA Bilaterally Gastrointestinal: Yes: WNL, Normal Bowel Sounds, Soft Extremities: Yes: Other ((+) contractures) Labs: CBC, BMP 08/17/19 07:00 08/16/19 07:00 INR, PTT INR 1.10 (0.83-1.09) H 07/20/19 15:50 Problem List - Problems (1) Dementia Assessment/Plan: Pt's has agreed to PEG insertion IR/GI consults noted and they r unable insert PEG due to large ventral hernia Will get surgical consult Code(s): F03.90 - UNSPECIFIED DEMENTIA WITHOUT BEHAVIORAL DISTURBANCE (2) Anemia Assessment/Plan: S/P transfusion 2 units PRBC's DC asa/plavix No further testing Pt probable hospice Code(s): D64.9 - ANEMIA, UNSPECIFIED (3) Bacteremia Assessment/Plan: BC (+) for MRSA Repeat BC remain negative Urine culture negatgive Pt on IV vanco wc is on hold due to (+) sputum for MRSA Code(s): R78.81 - BACTEREMIA (4) HTN (hypertension) Assessment/Plan: BP stable Code(s): I10 - ESSENTIAL (PRIMARY) HYPERTENSION (5) Failure to thrive in adult Assessment/Plan: Encourage PO intake Started on IV clinimix Code(s): R62.7 - ADULT FAILURE TO THRIVE (6) HLD (hyperlipidemia) Assessment/Plan: Lipitor dc'ed due to elevated LFT's Code(s): E78.5 - HYPERLIPIDEMIA, UNSPECIFIED (7) Metabolic encephalopathy Code(s): G93.41 - METABOLIC ENCEPHALOPATHY (8) Elevated LFTs Assessment/Plan: DC lipitor Code(s): R94.5 - ABNORMAL RESULTS OF LIVER FUNCTION STUDIES (9) Rhabdomyolysis Assessment/Plan: Resolved Code(s): M62.82 - RHABDOMYOLYSIS
[2019-08-19 10:45] LABS: EOS % 7.4 % (0-4.5); HEMATOCRIT 22.3 % (35.4-49); HEMOGLOBIN 7.6 GM/dL (11.7-16.9); LYMPH % 15.3 % (8-40); MCH 28.7 pg (25.7-33.7); MCHC 33.9 g/dl (32.0-35.9); MEAN CELL VOLUME 84.8 fl (80-96); MEAN PLT VOLUME 6.8 fl (7.5-11.1); NEUT % 67.3 % (42.8-82.8); PLATELET COUNT 540 K/MM3 (134-434); RBC 2.63 M/mm3 (4.00-5.60); RDW 16.3 % (11.9-15.9); WHITE BLOOD COUNT 9.9 K/mm3 (4.0-10.0)
[2019-08-19] MEDS: TAMSULOSIN HCL 0.4 MG CAP PO SCH (11:12)
[2019-08-19] MEDS: METOPROLOL TARTRATE 25 MG TABLET (FP) PO SCH (11:13)
[2019-08-19 11:17] LABS: ALBUMIN 1.3 g/dl (3.4-5.0); BILIRUBIN,TOTAL 0.2 mg/dL (0.2-1); BLOOD UREA NITROGEN 25.3 mg/dL (7-18); CALCIUM 9.5 mg/dL (8.5-10.1); CREATININE 0.8 mg/dL (0.55-1.3); POTASSIUM 3.4 mmol/L (3.5-5.1)
--- NOTE | 2019-08-19 11:39 | PN ---
Progress Note, Physician History of Present Illness: no new issues awaiting for peg tube - Current Medication List Current Medications: Active Medications Acetaminophen (Ofirmev Injection -) 1,000 mg IVPB Q8H PRN PRN Reason: FEVER Last Admin: 08/17/19 13:19 Dose: 1,000 mg Documented by: Docusate Sodium (Colace Liquid -) 300 mg PO [facility] Last Admin: 08/18/19 21:51 Dose: Not Given Documented by: Amino Acids (Clinimix -) 1,000 mls @ 42 mls/hr IV Q24H [facility] Last Admin: 08/18/19 18:13 Dose: 42 mls/hr Documented by: Metoprolol Tartrate (Lopressor -) 25 mg PO DAILY [facility] Last Admin: 08/19/19 11:13 Dose: Not Given Documented by: Mirtazapine (Remeron -) 15 mg PO HS [facility] Last Admin: 08/18/19 21:51 Dose: Not Given Documented by: Mupirocin (Bactroban 2% Ointment -) 1 applic TP BID [facility] Last Admin: 08/18/19 21:52 Dose: 1 applic Documented by: Tamsulosin HCl (Flomax -) 0.4 mg PO DAILY@0830 [facility] Last Admin: 08/19/19 11:12 Dose: Not Given Documented by: - Objective Vital Signs: Vital Signs Temperature 99.0 F 08/19/19 10:00 Pulse Rate 102 H 08/19/19 10:00 Respiratory Rate 18 08/19/19 10:00 Blood Pressure 135/66 08/19/19 10:00 O2 Sat by Pulse Oximetry (%) 100 08/18/19 21:00 Constitutional: Yes: Other Respiratory: Yes: Poor Air Entry Gastrointestinal: Yes: Normal Bowel Sounds, Soft Musculoskeletal: Yes: WNL Extremities: Yes: Other Neurological: Yes: Alert Psychiatric: Yes: Other Labs: CBC, BMP 08/19/19 06:45 08/19/19 06:45 INR, PTT INR 1.10 (0.83-1.09) H 07/20/19 15:50 Assessment/Plan Problem List - Problems (1) Anemia Code(s): D64.9 - ANEMIA, UNSPECIFIED (2) Bacteremia Code(s): R78.81 - BACTEREMIA (3) Rhabdomyolysis Code(s): M62.82 - RHABDOMYOLYSIS (4) HTN (hypertension) Code(s): I10 - ESSENTIAL (PRIMARY) HYPERTENSION (5) Failure to thrive in adult Code(s): R62.7 - ADULT FAILURE TO THRIVE (6) Dementia Code(s): F03.90 - UNSPECIFIED DEMENTIA WITHOUT BEHAVIORAL DISTURBANCE (7) HLD (hyperlipidemia) Code(s): E78.5 - HYPERLIPIDEMIA, UNSPECIFIED (8) Metabolic encephalopathy Code(s): G93.41 - METABOLIC ENCEPHALOPATHY (9) Elevated LFTs Code(s): R94.5 - ABNORMAL RESULTS OF LIVER FUNCTION STUDIES plan continue current mgmt nutrition
--- NOTE | 2019-08-19 11:39 | PN ---
Progress Note, Physician History of Present Illness: no new issues awaiting for peg tube - Current Medication List Current Medications: Active Medications Acetaminophen (Ofirmev Injection -) 1,000 mg IVPB Q8H PRN PRN Reason: FEVER Last Admin: 08/17/19 13:19 Dose: 1,000 mg Documented by: Docusate Sodium (Colace Liquid -) 300 mg PO [facility] Last Admin: 08/18/19 21:51 Dose: Not Given Documented by: Amino Acids (Clinimix -) 1,000 mls @ 42 mls/hr IV Q24H [facility] Last Admin: 08/18/19 18:13 Dose: 42 mls/hr Documented by: Metoprolol Tartrate (Lopressor -) 25 mg PO DAILY [facility] Last Admin: 08/19/19 11:13 Dose: Not Given Documented by: Mirtazapine (Remeron -) 15 mg PO [facility] Last Admin: 08/18/19 21:51 Dose: Not Given Documented by: Mupirocin (Bactroban 2% Ointment -) 1 applic TP BID [facility] Last Admin: 08/18/19 21:52 Dose: 1 applic Documented by: Tamsulosin HCl (Flomax -) 0.4 mg PO DAILY@0830 [facility] Last Admin: 08/19/19 11:12 Dose: Not Given Documented by: - Objective Vital Signs: Vital Signs Temperature 99.0 F 08/19/19 10:00 Pulse Rate 102 H 08/19/19 10:00 Respiratory Rate 18 08/19/19 10:00 Blood Pressure 135/66 08/19/19 10:00 O2 Sat by Pulse Oximetry (%) 100 08/18/19 21:00 Constitutional: Yes: No Distress, Calm Cardiovascular: Yes: S1, S2 Respiratory: Yes: Regular, CTA Bilaterally Gastrointestinal: Yes: Normal Bowel Sounds, Soft Musculoskeletal: Yes: WNL Extremities: Yes: Other Wound/Incision: Yes: Dressing Dry and Intact Neurological: Yes: Alert, Oriented Psychiatric: Yes: Alert, Oriented Labs: CBC, BMP 08/19/19 06:45 08/19/19 06:45 INR, PTT INR 1.10 (0.83-1.09) H 07/20/19 15:50 Assessment/Plan Problem List - Problems (1) Anemia Code(s): D64.9 - ANEMIA, UNSPECIFIED (2) Bacteremia Code(s): R78.81 - BACTEREMIA (3) Rhabdomyolysis Code(s): M62.82 - RHABDOMYOLYSIS (4) HTN (hypertension) Code(s): I10 - ESSENTIAL (PRIMARY) HYPERTENSION (5) Failure to thrive in adult Code(s): R62.7 - ADULT FAILURE TO THRIVE (6) Dementia Code(s): F03.90 - UNSPECIFIED DEMENTIA WITHOUT BEHAVIORAL DISTURBANCE (7) HLD (hyperlipidemia) Code(s): E78.5 - HYPERLIPIDEMIA, UNSPECIFIED (8) Metabolic encephalopathy Code(s): G93.41 - METABOLIC ENCEPHALOPATHY (9) Elevated LFTs Code(s): R94.5 - ABNORMAL RESULTS OF LIVER FUNCTION STUDIES plan continue current mgmt nutrition
--- NOTE | 2019-08-19 12:34 | PN ---
Progress Note (short form) - Note Progress Note: Right IJ TLC removed as it's been in for 2 weeks. Good hemostasis. Occlusive dressing applied. Peripheral access established in patient's LEFT external jugular with 20 ga angiocath. Aspirates and flushes easily. Occlusive dressing applied and secured with additional tape. Clinimix switched over to new line. RN made aware.
--- NOTE | 2019-08-19 15:26 | PN ---
Progress Note, Physician History of Present Illness: Pt seen and examined at bedside. He remains confused. - Current Medication List Current Medications: Active Medications Acetaminophen (Ofirmev Injection -) 1,000 mg IVPB Q8H PRN PRN Reason: FEVER Last Admin: 08/17/19 13:19 Dose: 1,000 mg Documented by: Docusate Sodium (Colace Liquid -) 300 mg PO [facility] Last Admin: 08/18/19 21:51 Dose: Not Given Documented by: Amino Acids (Clinimix -) 1,000 mls @ 42 mls/hr IV Q24H [facility] Last Admin: 08/18/19 18:13 Dose: 42 mls/hr Documented by: Metoprolol Tartrate (Lopressor -) 25 mg PO DAILY [facility] Last Admin: 08/19/19 11:13 Dose: Not Given Documented by: Mirtazapine (Remeron -) 15 mg PO [facility] Last Admin: 08/18/19 21:51 Dose: Not Given Documented by: Mupirocin (Bactroban 2% Ointment -) 1 applic TP BID [facility] Last Admin: 08/18/19 21:52 Dose: 1 applic Documented by: Potassium Chloride (Potassium Chloride Oral Liquid) 40 meq PO ONCE ONE Stop: 08/19/19 15:21 Tamsulosin HCl (Flomax -) 0.4 mg PO DAILY@0830 [facility] Last Admin: 08/19/19 11:12 Dose: Not Given Documented by: - Objective Vital Signs: Vital Signs Temperature 99.0 F 08/19/19 10:00 Pulse Rate 102 H 08/19/19 10:00 Respiratory Rate 18 08/19/19 10:00 Blood Pressure 135/66 08/19/19 10:00 O2 Sat by Pulse Oximetry (%) 100 08/19/19 10:00 Constitutional: Yes: Calm Eyes: Yes: Conjunctiva Clear HENT: Yes: Atraumatic Neck: Yes: Supple Cardiovascular: Yes: S1, S2 Respiratory: Yes: On Nasal O2 Gastrointestinal: Yes: Soft Genitourinary: Yes: Incontinence Musculoskeletal: Yes: Muscle Weakness Edema: Yes Edema: LLE: Trace, RLE: Trace Neurological: Yes: Confusion Labs: CBC, BMP 08/19/19 06:45 08/19/19 06:45 INR, PTT INR 1.10 (0.83-1.09) H 07/20/19 15:50 Problem List - Problems (1) Hyperkalemia Code(s): E87.5 - HYPERKALEMIA (2) Dehydration Code(s): E86.0 - DEHYDRATION (3) Failure to thrive in adult Code(s): R62.7 - ADULT FAILURE TO THRIVE (4) Acute kidney injury Code(s): N17.9 - ACUTE KIDNEY FAILURE, UNSPECIFIED Assessment/Plan Current Medications Generic Name Dose Route Start Last Admin Trade Name Freq PRN Reason Stop Dose Admin Acetaminophen 1,000 mg 08/06/19 10:47 08/17/19 13:19 Ofirmev Injection - IVPB 1,000 mg Q8H PRN Administration FEVER Docusate Sodium 300 mg 08/16/19 05:00 08/18/19 21:51 Colace Liquid - PO Not Given HS MELA Amino Acids 1,000 mls @ 42 mls/hr 08/10/19 16:17 08/18/19 18:13 Clinimix - IV 42 mls/hr Q24H [facility] Administration Metoprolol Tartrate 25 mg 07/21/19 10:00 08/19/19 11:13 Lopressor - PO Not Given DAILY [facility] Mirtazapine 15 mg 07/21/19 22:00 08/18/19 21:51 Remeron - PO Not Given HS MELA Mupirocin 1 applic 07/21/19 22:00 08/18/19 21:52 Bactroban 2% Ointment - TP 1 applic BID [facility]ELA Administration Potassium Chloride 40 meq 08/19/19 15:20 Potassium Chloride Oral Liquid PO 08/19/19 15:21 ONCE ONE Tamsulosin HCl 0.4 mg 07/21/19 08:30 08/19/19 11:12 Flomax - PO Not Given DAILY@0830 [facility] Laboratory Tests 08/19/19 06:45 Calcium 9.5 Impression 1. JESSE 2. hyperkalemia 3. htn 4. hld 5. brain lesion 6. right renal density 7. rhabdo 8. anemia 9. hypercalcemia Plan - replace potassium - cnt fluids - follow spep - will need to discuss GOC - calcium improved - monitor hg - avoid nsaids
[2019-08-19] MEDS ORDERED: POTASSIUM CHLORIDE ORAL LIQUID 20 MEQ/15 ML PO ONE (15:45)
[2019-08-19] MEDS: AMINO ACIDS 4.25%/D5W 1,000 ML IV SCH (17:03)
[2019-08-19] MEDS: KCL 10 MEQ IVPB 10 MEQ/100 ML INFUS.BAG IVPB SCH ×2 (17:03→18:40)
[2019-08-19] MEDS: MUPIROCIN 2% TOPICAL OINTMENT 22 GM TUBE TP SCH ×2 (17:04→22:21)
[2019-08-19] MEDS: MIRTAZAPINE 15 MG TABLET (FP) PO SCH (21:27)
[2019-08-19] MEDS: DOCUSATE NA 100 MG/10 ML UNIT-DOSE CUPS PO SCH (21:27)
--- NOTE | 2019-08-19 22:50 | PN ---
Progress Note, Physician - Current Medication List Current Medications: Active Medications Acetaminophen (Ofirmev Injection -) 1,000 mg IVPB Q8H PRN PRN Reason: FEVER Last Admin: 08/17/19 13:19 Dose: 1,000 mg Documented by: Docusate Sodium (Colace Liquid -) 300 mg PO [facility] Last Admin: 08/19/19 21:27 Dose: Not Given Documented by: Amino Acids (Clinimix -) 1,000 mls @ 42 mls/hr IV Q24H [facility] Last Admin: 08/19/19 17:03 Dose: 42 mls/hr Documented by: Metoprolol Tartrate (Lopressor -) 25 mg PO DAILY [facility] Last Admin: 08/19/19 11:13 Dose: Not Given Documented by: Mirtazapine (Remeron -) 15 mg PO [facility] Last Admin: 08/19/19 21:27 Dose: Not Given Documented by: Mupirocin (Bactroban 2% Ointment -) 1 applic TP BID [facility] Last Admin: 08/19/19 22:21 Dose: 1 applic Documented by: Tamsulosin HCl (Flomax -) 0.4 mg PO DAILY@0830 [facility] Last Admin: 08/19/19 11:12 Dose: Not Given Documented by: - Objective Vital Signs: Vital Signs Temperature 98.1 F 08/19/19 18:19 Pulse Rate 102 H 08/19/19 18:19 Respiratory Rate 18 08/19/19 18:19 Blood Pressure 129/57 L 08/19/19 18:19 O2 Sat by Pulse Oximetry (%) 100 08/19/19 10:00 Labs: CBC, BMP 08/19/19 06:45 08/19/19 06:45 INR, PTT INR 1.10 (0.83-1.09) H 07/20/19 15:50 Problem List - Problems (1) Dementia Code(s): F03.90 - UNSPECIFIED DEMENTIA WITHOUT BEHAVIORAL DISTURBANCE (2) Anemia Code(s): D64.9 - ANEMIA, UNSPECIFIED (3) Bacteremia Code(s): R78.81 - BACTEREMIA (4) HTN (hypertension) Code(s): I10 - ESSENTIAL (PRIMARY) HYPERTENSION (5) Failure to thrive in adult Code(s): R62.7 - ADULT FAILURE TO THRIVE (6) HLD (hyperlipidemia) Code(s): E78.5 - HYPERLIPIDEMIA, UNSPECIFIED (7) Metabolic encephalopathy Code(s): G93.41 - METABOLIC ENCEPHALOPATHY (8) Elevated LFTs Code(s): R94.5 - ABNORMAL RESULTS OF LIVER FUNCTION STUDIES (9) Rhabdomyolysis Code(s): M62.82 - RHABDOMYOLYSIS
--- NOTE | 2019-08-20 08:05 | SPA.PREOP ---
- PRE-OP NOTE Dx: Failure to thrive Planned Procedure: Open gastrostomy tube placement Surgeon: Daron Mendenhall Last Vital Signs Temp Pulse Resp BP Pulse Ox 97.7 F 91 H 18 134/70 100 08/20/19 06:00 08/20/19 06:00 08/20/19 06:00 08/20/19 06:00 08/19/19 21:00 Lab Results WBC 9.9 K/mm3 (4.0-10.0) 08/19/19 06:45 RBC 2.63 M/mm3 (4.00-5.60) L 08/19/19 06:45 Hgb 7.6 GM/dL (11.7-16.9) L 08/19/19 06:45 Hct 22.3 % (35.4-49) L 08/19/19 06:45 MCV 84.8 fl (80-96) 08/19/19 06:45 MCHC 33.9 g/dl (32.0-35.9) 08/19/19 06:45 RDW 16.3 % (11.9-15.9) H 08/19/19 06:45 Plt Count 540 K/MM3 (134-434) H 08/19/19 06:45 INR 1.10 (0.83-1.09) H 07/20/19 15:50 Sodium 140 mmol/L (136-145) 08/19/19 06:45 Potassium 3.4 mmol/L (3.5-5.1) L 08/19/19 06:45 Chloride 110 mmol/L (98-107) H 08/19/19 06:45 Carbon Dioxide 24 mmol/L (21-32) 08/19/19 06:45 Anion Gap 6 MMOL/L (8-16) L 08/19/19 06:45 BUN 25.3 mg/dL (7-18) H 08/19/19 06:45 Creatinine 0.8 mg/dL (0.55-1.3) 08/19/19 06:45 Random Glucose 90 mg/dL (74-106) 08/19/19 06:45 Calcium 9.5 mg/dL (8.5-10.1) 08/19/19 06:45 Blood Type O POSITIVE 08/04/19 09:58 Antibody Screen Negative 08/04/19 09:58 - IMAGING Chest X-ray: Report Reviewed, Image Reviewed Cat Scan: Report Reviewed, Image Reviewed - ASSESSMENT/PLAN 1. Make NPO after midnight except po meds for surgery Friday08/23/2019 at 1 PM 2. GI/DVT PPX 3. Medical optimization / clearance 4. f/u Cardio clearance 5. Consent to be obtained by surgeon after risks, benefits and alternatives discussed with patient and or Health Care Proxy. Problem List - Problems (1) Anemia Code(s): D64.9 - ANEMIA, UNSPECIFIED (2) Dehydration Code(s): E86.0 - DEHYDRATION (3) Failure to thrive in adult Code(s): R62.7 - ADULT FAILURE TO THRIVE Visit type - Case Type Case Type: ED Admission
[2019-08-20] MEDS: METOPROLOL TARTRATE 25 MG TABLET (FP) PO SCH (10:04)
[2019-08-20] MEDS: TAMSULOSIN HCL 0.4 MG CAP PO SCH (10:04)
[2019-08-20] MEDS: MUPIROCIN 2% TOPICAL OINTMENT 22 GM TUBE TP SCH ×2 (11:28→22:55)
--- NOTE | 2019-08-20 11:35 | PN ---
Progress Note, Physician History of Present Illness: no new issues plan for peg tube on friday - Current Medication List Current Medications: Active Medications Acetaminophen (Ofirmev Injection -) 1,000 mg IVPB Q8H PRN PRN Reason: FEVER Last Admin: 08/17/19 13:19 Dose: 1,000 mg Documented by: Docusate Sodium (Colace Liquid -) 300 mg PO [facility] Last Admin: 08/19/19 21:27 Dose: Not Given Documented by: Amino Acids (Clinimix -) 1,000 mls @ 42 mls/hr IV Q24H [facility] Last Admin: 08/19/19 17:03 Dose: 42 mls/hr Documented by: Metoprolol Tartrate (Lopressor -) 25 mg PO DAILY [facility] Last Admin: 08/20/19 10:04 Dose: Not Given Documented by: Mirtazapine (Remeron -) 15 mg PO HS [facility] Last Admin: 08/19/19 21:27 Dose: Not Given Documented by: Mupirocin (Bactroban 2% Ointment -) 1 applic TP BID [facility] Last Admin: 08/20/19 11:28 Dose: 1 applic Documented by: Tamsulosin HCl (Flomax -) 0.4 mg PO DAILY@0830 [facility] Last Admin: 08/20/19 10:04 Dose: Not Given Documented by: - Objective Vital Signs: Vital Signs Temperature 97.8 F 08/20/19 10:00 Pulse Rate 96 H 08/20/19 10:00 Respiratory Rate 18 08/20/19 10:00 Blood Pressure 133/98 08/20/19 10:00 O2 Sat by Pulse Oximetry (%) 100 08/20/19 09:00 Constitutional: Yes: No Distress, Calm Cardiovascular: Yes: S1, S2 Respiratory: Yes: Regular, CTA Bilaterally Gastrointestinal: Yes: Normal Bowel Sounds, Soft Musculoskeletal: Yes: Other Extremities: Yes: Other Wound/Incision: Yes: Dressing Dry and Intact Labs: CBC, BMP 08/19/19 06:45 08/19/19 06:45 INR, PTT INR 1.10 (0.83-1.09) H 07/20/19 15:50 Assessment/Plan Problem List - Problems (1) Anemia Code(s): D64.9 - ANEMIA, UNSPECIFIED (2) Bacteremia Code(s): R78.81 - BACTEREMIA (3) Rhabdomyolysis Code(s): M62.82 - RHABDOMYOLYSIS (4) HTN (hypertension) Code(s): I10 - ESSENTIAL (PRIMARY) HYPERTENSION (5) Failure to thrive in adult Code(s): R62.7 - ADULT FAILURE TO THRIVE (6) Dementia Code(s): F03.90 - UNSPECIFIED DEMENTIA WITHOUT BEHAVIORAL DISTURBANCE (7) HLD (hyperlipidemia) Code(s): E78.5 - HYPERLIPIDEMIA, UNSPECIFIED (8) Metabolic encephalopathy Code(s): G93.41 - METABOLIC ENCEPHALOPATHY (9) Elevated LFTs Code(s): R94.5 - ABNORMAL RESULTS OF LIVER FUNCTION STUDIES plan continue current mgmt nutrition
--- NOTE | 2019-08-20 14:42 | PN ---
Progress Note, Physician History of Present Illness: Pt seen and examined at bedside. He remains lethargic. He has not had anything to eat. - Current Medication List Current Medications: Active Medications Acetaminophen (Ofirmev Injection -) 1,000 mg IVPB Q8H PRN PRN Reason: FEVER Last Admin: 08/17/19 13:19 Dose: 1,000 mg Documented by: Docusate Sodium (Colace Liquid -) 300 mg PO [facility] Last Admin: 08/19/19 21:27 Dose: Not Given Documented by: Potassium Chloride 10 meq/ (Amino Acids) 1,005 mls @ 50 mls/hr IVPB Q24H [facility] BEDS AT [facility] Metoprolol Tartrate (Lopressor -) 25 mg PO DAILY [facility]S [facility] Last Admin: 08/20/19 10:04 Dose: Not Given Documented by: Mirtazapine (Remeron -) 15 mg PO [facility] Last Admin: 08/19/19 21:27 Dose: Not Given Documented by: Mupirocin (Bactroban 2% Ointment -) 1 applic TP BID [facility] Last Admin: 08/20/19 11:28 Dose: 1 applic Documented by: Tamsulosin HCl (Flomax -) 0.4 mg PO DAILY@0830 [facility]S [facility] Last Admin: 08/20/19 10:04 Dose: Not Given Documented by: - Objective Vital Signs: Vital Signs Temperature 97.8 F 08/20/19 10:00 Pulse Rate 96 H 08/20/19 10:00 Respiratory Rate 18 08/20/19 10:00 Blood Pressure 133/98 08/20/19 10:00 O2 Sat by Pulse Oximetry (%) 100 08/20/19 09:00 Constitutional: Yes: Calm Eyes: Yes: Conjunctiva Clear HENT: Yes: Atraumatic Cardiovascular: Yes: S1, S2 Respiratory: Yes: CTA Bilaterally Gastrointestinal: Yes: Soft Genitourinary: Yes: Incontinence Musculoskeletal: Yes: Muscle Weakness Edema: Yes Edema: LLE: Trace, RLE: Trace Neurological: Yes: Lethargy Labs: CBC, BMP 08/19/19 06:45 08/19/19 06:45 INR, PTT INR 1.10 (0.83-1.09) H 07/20/19 15:50 Problem List - Problems (1) Hyperkalemia Code(s): E87.5 - HYPERKALEMIA (2) Dehydration Code(s): E86.0 - DEHYDRATION (3) Failure to thrive in adult Code(s): R62.7 - ADULT FAILURE TO THRIVE (4) Acute kidney injury Code(s): N17.9 - ACUTE KIDNEY FAILURE, UNSPECIFIED Assessment/Plan Current Medications Generic Name Dose Route Start Last Admin Trade Name Freq PRN Reason Stop Dose Admin Acetaminophen 1,000 mg 08/06/19 10:47 08/17/19 13:19 Ofirmev Injection - IVPB 1,000 mg Q8H PRN Administration FEVER Docusate Sodium 300 mg 08/16/19 05:00 08/19/19 21:27 Colace Liquid - PO Not Given HS MELA Potassium Chloride 10 meq/ 1,005 mls @ 50 mls/hr 08/20/19 14:39 Amino Acids IVPB Q24H MELA Metoprolol Tartrate 25 mg 07/21/19 10:00 08/20/19 10:04 Lopressor - PO Not Given DAILY MELA Mirtazapine 15 mg 07/21/19 22:00 08/19/19 21:27 Remeron - PO Not Given HS MELA Mupirocin 1 applic 07/21/19 22:00 08/20/19 11:28 Bactroban 2% Ointment - TP 1 applic BID MELA Administration Tamsulosin HCl 0.4 mg 07/21/19 08:30 08/20/19 10:04 Flomax - PO Not Given DAILY@0830 MELA Impression 1. JESSE 2. hyperkalemia 3. htn 4. hld 5. brain lesion 6. right renal density 7. rhabdo 8. anemia 9. hypercalcemia Plan - cont fluids - check labs in am - pt getting g-tube on Friday - monitor calcium - monitor hg - avoid nsaids
[2019-08-20] MEDS: POTASSIUM CHLORIDE 10 MEQ in AMINO ACIDS 4.25%/D5W 1,000 ML IVPB SCH (16:36)
[2019-08-20] MEDS ORDERED: FAT EMULSION/OLIVE/SOY (CLINOLIPID) 250 ML EMULSION IV ONE (20:00)
[2019-08-20] MEDS: MIRTAZAPINE 15 MG TABLET (FP) PO SCH (22:53)
[2019-08-20] MEDS: DOCUSATE NA 100 MG/10 ML UNIT-DOSE CUPS PO SCH (22:53)
--- NOTE | 2019-08-20 23:39 | PN ---
Progress Note, Physician - Current Medication List Current Medications: Active Medications Acetaminophen (Ofirmev Injection -) 1,000 mg IVPB Q8H PRN PRN Reason: FEVER Last Admin: 08/17/19 13:19 Dose: 1,000 mg Documented by: Docusate Sodium (Colace Liquid -) 300 mg PO HS [facility] Last Admin: 08/20/19 22:53 Dose: Not Given Documented by: Potassium Chloride 10 meq/ (Amino Acids) 1,005 mls @ 50 mls/hr IVPB Q20H [facility] Last Admin: 08/20/19 16:36 Dose: 50 mls/hr Documented by: Metoprolol Tartrate (Lopressor -) 25 mg PO DAILY [facility] Last Admin: 08/20/19 10:04 Dose: Not Given Documented by: Mirtazapine (Remeron -) 15 mg PO [facility] Last Admin: 08/20/19 22:53 Dose: Not Given Documented by: Mupirocin (Bactroban 2% Ointment -) 1 applic TP BID [facility] Last Admin: 08/20/19 22:55 Dose: 1 applic Documented by: Tamsulosin HCl (Flomax -) 0.4 mg PO DAILY@0830 [facility] Last Admin: 08/20/19 10:04 Dose: Not Given Documented by: - Objective Vital Signs: Vital Signs Temperature 97.7 F 08/20/19 22:00 Pulse Rate 105 H 08/20/19 22:00 Respiratory Rate 18 08/20/19 22:00 Blood Pressure 135/74 08/20/19 22:00 O2 Sat by Pulse Oximetry (%) 100 08/20/19 09:00 Labs: CBC, BMP 08/19/19 06:45 08/19/19 06:45 INR, PTT INR 1.10 (0.83-1.09) H 07/20/19 15:50 Problem List - Problems (1) Dementia Code(s): F03.90 - UNSPECIFIED DEMENTIA WITHOUT BEHAVIORAL DISTURBANCE (2) Anemia Code(s): D64.9 - ANEMIA, UNSPECIFIED (3) Bacteremia Code(s): R78.81 - BACTEREMIA (4) HTN (hypertension) Code(s): I10 - ESSENTIAL (PRIMARY) HYPERTENSION (5) Failure to thrive in adult Code(s): R62.7 - ADULT FAILURE TO THRIVE (6) HLD (hyperlipidemia) Code(s): E78.5 - HYPERLIPIDEMIA, UNSPECIFIED (7) Metabolic encephalopathy Code(s): G93.41 - METABOLIC ENCEPHALOPATHY (8) Elevated LFTs Code(s): R94.5 - ABNORMAL RESULTS OF LIVER FUNCTION STUDIES (9) Rhabdomyolysis Code(s): M62.82 - RHABDOMYOLYSIS
[2019-08-21 04:09] LABS: FREE KAP CHN UR 886.97 mg/L (0.63-113.79); KAPPA LAMBDA RATIO URIN 3.11 (1.03-31.76)
[2019-08-21] MEDS: TAMSULOSIN HCL 0.4 MG CAP PO SCH (08:40)
[2019-08-21] MEDS: METOPROLOL TARTRATE 25 MG TABLET (FP) PO SCH (12:32)
[2019-08-21 12:44] LABS: BASO % 1.1 % (0-2.0); EOS % 5.7 % (0-4.5); HEMATOCRIT 25.3 % (35.4-49); HEMOGLOBIN 8.3 GM/dL (11.7-16.9); LYMPH % 15.3 % (8-40); MCH 28.1 pg (25.7-33.7); MEAN CELL VOLUME 85.1 fl (80-96); MEAN PLT VOLUME 6.5 fl (7.5-11.1); MONO % 8.8 % (3.8-10.2); NEUT % 69.1 % (42.8-82.8); PLATELET COUNT 577 K/MM3 (134-434); RBC 2.98 M/mm3 (4.00-5.60); RDW 16.4 % (11.9-15.9); WHITE BLOOD COUNT 12.4 K/mm3 (4.0-10.0)
--- NOTE | 2019-08-21 12:49 | PN ---
Progress Note, Physician History of Present Illness: Pt seen and examined at bedside. He remains lethargic. - Current Medication List Current Medications: Active Medications Acetaminophen (Ofirmev Injection -) 1,000 mg IVPB Q8H PRN PRN Reason: FEVER Last Admin: 08/17/19 13:19 Dose: 1,000 mg Documented by: Docusate Sodium (Colace Liquid -) 300 mg PO [facility] Last Admin: 08/20/19 22:53 Dose: Not Given Documented by: Potassium Chloride 10 meq/ (Amino Acids) 1,005 mls @ 50 mls/hr IVPB Q20H [facility] Last Admin: 08/20/19 16:36 Dose: 50 mls/hr Documented by: Metoprolol Tartrate (Lopressor -) 25 mg PO DAILY [facility] Last Admin: 08/21/19 12:32 Dose: Not Given Documented by: Mirtazapine (Remeron -) 15 mg PO HS [facility] Last Admin: 08/20/19 22:53 Dose: Not Given Documented by: Mupirocin (Bactroban 2% Ointment -) 1 applic TP BID [facility] Last Admin: 08/20/19 22:55 Dose: 1 applic Documented by: Tamsulosin HCl (Flomax -) 0.4 mg PO DAILY@0830 [facility] Last Admin: 08/21/19 08:40 Dose: Not Given Documented by: - Objective Vital Signs: Vital Signs Temperature 98 F 08/21/19 06:00 Pulse Rate 104 H 08/21/19 06:00 Respiratory Rate 18 08/21/19 06:00 Blood Pressure 156/81 08/21/19 06:00 O2 Sat by Pulse Oximetry (%) 100 08/20/19 21:00 Constitutional: Yes: Calm Eyes: Yes: Conjunctiva Clear HENT: Yes: Atraumatic Neck: Yes: Supple Cardiovascular: Yes: S1, S2 Respiratory: Yes: CTA Bilaterally Gastrointestinal: Yes: Normal Bowel Sounds, Soft Musculoskeletal: Yes: Muscle Weakness Edema: Yes Edema: LLE: Trace, RLE: Trace Neurological: Yes: Lethargy Labs: INR, PTT INR 1.10 (0.83-1.09) H 07/20/19 15:50 Problem List - Problems (1) Hyperkalemia Code(s): E87.5 - HYPERKALEMIA (2) Dehydration Code(s): E86.0 - DEHYDRATION (3) Failure to thrive in adult Code(s): R62.7 - ADULT FAILURE TO THRIVE (4) Acute kidney injury Code(s): N17.9 - ACUTE KIDNEY FAILURE, UNSPECIFIED Assessment/Plan Current Medications Generic Name Dose Route Start Last Admin Trade Name Freq PRN Reason Stop Dose Admin Acetaminophen 1,000 mg 08/06/19 10:47 08/17/19 13:19 Ofirmev Injection - IVPB 1,000 mg Q8H PRN Administration FEVER Docusate Sodium 300 mg 08/16/19 05:00 08/20/19 22:53 Colace Liquid - PO Not Given HS [facility] Potassium Chloride 10 meq/ 1,005 mls @ 50 mls/hr 08/20/19 14:39 08/20/19 16:36 Amino Acids IVPB 50 mls/hr Q20H [facility] Administration Metoprolol Tartrate 25 mg 07/21/19 10:00 08/21/19 12:32 Lopressor - PO Not Given DAILY [facility] Mirtazapine 15 mg 07/21/19 22:00 08/20/19 22:53 Remeron - PO Not Given HS [facility] Mupirocin 1 applic 07/21/19 22:00 08/20/19 22:55 Bactroban 2% Ointment - TP 1 applic BID [facility] Administration Tamsulosin HCl 0.4 mg 07/21/19 08:30 08/21/19 08:40 Flomax - PO Not Given DAILY@0830 [facility] Impression 1. JESSE 2. hyperkalemia 3. htn 4. hld 5. brain lesion 6. right renal density 7. rhabdo 8. anemia 9. hypercalcemia Plan - follow labs - cont fluids - g-tube friday - monitor calcium - monitor hg - avoid nsaids
[2019-08-21 13:11] LABS: ALBUMIN 1.8 g/dl (3.4-5.0); BILIRUBIN,TOTAL 0.3 mg/dL (0.2-1); BLOOD UREA NITROGEN 25.8 mg/dL (7-18); CALCIUM 10.1 mg/dL (8.5-10.1); CREATININE 0.9 mg/dL (0.55-1.3); MAGNESIUM 1.6 mg/dL (1.8-2.4); POTASSIUM 3.9 mmol/L (3.5-5.1); TOT PROT 6.6 g/dl (6.4-8.2)
--- NOTE | 2019-08-21 13:26 | PN ---
Progress Note, Physician History of Present Illness: no new issues - Current Medication List Current Medications: Active Medications Acetaminophen (Ofirmev Injection -) 1,000 mg IVPB Q8H PRN PRN Reason: FEVER Last Admin: 08/17/19 13:19 Dose: 1,000 mg Documented by: Docusate Sodium (Colace Liquid -) 300 mg PO HS [facility] Last Admin: 08/20/19 22:53 Dose: Not Given Documented by: Potassium Chloride 10 meq/ (Amino Acids) 1,005 mls @ 50 mls/hr IVPB Q20H [facility] Last Admin: 08/20/19 16:36 Dose: 50 mls/hr Documented by: Metoprolol Tartrate (Lopressor -) 25 mg PO DAILY [facility] Last Admin: 08/21/19 12:32 Dose: Not Given Documented by: Mirtazapine (Remeron -) 15 mg PO HS [facility] Last Admin: 08/20/19 22:53 Dose: Not Given Documented by: Mupirocin (Bactroban 2% Ointment -) 1 applic TP BID [facility] Last Admin: 08/20/19 22:55 Dose: 1 applic Documented by: Tamsulosin HCl (Flomax -) 0.4 mg PO DAILY@0830 [facility] Last Admin: 08/21/19 08:40 Dose: Not Given Documented by: - Objective Vital Signs: Vital Signs Temperature 98 F 08/21/19 06:00 Pulse Rate 104 H 08/21/19 06:00 Respiratory Rate 18 08/21/19 06:00 Blood Pressure 156/81 08/21/19 06:00 O2 Sat by Pulse Oximetry (%) 100 08/20/19 21:00 Constitutional: Yes: No Distress, Calm Cardiovascular: Yes: S1, S2 Respiratory: Yes: Regular, CTA Bilaterally Gastrointestinal: Yes: Normal Bowel Sounds, Soft Musculoskeletal: Yes: WNL Extremities: Yes: Other Wound/Incision: Yes: Dressing Dry and Intact Neurological: Yes: Alert, Oriented Psychiatric: Yes: Alert, Oriented Labs: CBC, BMP 08/21/19 12:26 08/21/19 12:26 INR, PTT INR 1.10 (0.83-1.09) H 07/20/19 15:50 Assessment/Plan Problem List - Problems (1) Anemia Code(s): D64.9 - ANEMIA, UNSPECIFIED (2) Bacteremia Code(s): R78.81 - BACTEREMIA (3) Rhabdomyolysis Code(s): M62.82 - RHABDOMYOLYSIS (4) HTN (hypertension) Code(s): I10 - ESSENTIAL (PRIMARY) HYPERTENSION (5) Failure to thrive in adult Code(s): R62.7 - ADULT FAILURE TO THRIVE (6) Dementia Code(s): F03.90 - UNSPECIFIED DEMENTIA WITHOUT BEHAVIORAL DISTURBANCE (7) HLD (hyperlipidemia) Code(s): E78.5 - HYPERLIPIDEMIA, UNSPECIFIED (8) Metabolic encephalopathy Code(s): G93.41 - METABOLIC ENCEPHALOPATHY (9) Elevated LFTs Code(s): R94.5 - ABNORMAL RESULTS OF LIVER FUNCTION STUDIES plan continue current mgmt nutrition
[2019-08-21] MEDS: POTASSIUM CHLORIDE 10 MEQ in AMINO ACIDS 4.25%/D5W 1,000 ML IVPB SCH (14:49)
[2019-08-21] MEDS: MUPIROCIN 2% TOPICAL OINTMENT 22 GM TUBE TP SCH ×2 (14:53→21:45)
[2019-08-21] MEDS: DOCUSATE NA 100 MG/10 ML UNIT-DOSE CUPS PO SCH (21:45)
[2019-08-21] MEDS: MIRTAZAPINE 15 MG TABLET (FP) PO SCH (21:45)
--- NOTE | 2019-08-21 23:33 | PN ---
Progress Note, Physician - Current Medication List Current Medications: Active Medications Acetaminophen (Ofirmev Injection -) 1,000 mg IVPB Q8H PRN PRN Reason: FEVER Last Admin: 08/17/19 13:19 Dose: 1,000 mg Documented by: Docusate Sodium (Colace Liquid -) 300 mg PO HS [facility] Last Admin: 08/21/19 21:45 Dose: Not Given Documented by: Potassium Chloride 10 meq/ (Amino Acids) 1,005 mls @ 50 mls/hr IVPB Q20H [facility] Last Admin: 08/21/19 14:49 Dose: 50 mls/hr Documented by: Metoprolol Tartrate (Lopressor -) 25 mg PO DAILY [facility] Last Admin: 08/21/19 12:32 Dose: Not Given Documented by: Mirtazapine (Remeron -) 15 mg PO [facility] Last Admin: 08/21/19 21:45 Dose: Not Given Documented by: Mupirocin (Bactroban 2% Ointment -) 1 applic TP BID [facility] Last Admin: 08/21/19 21:45 Dose: 1 applic Documented by: Tamsulosin HCl (Flomax -) 0.4 mg PO DAILY@0830 [facility] Last Admin: 08/21/19 08:40 Dose: Not Given Documented by: - Objective Vital Signs: Vital Signs Temperature 98.7 F 08/21/19 18:56 Pulse Rate 103 H 08/21/19 18:56 Respiratory Rate 18 08/21/19 18:56 Blood Pressure 127/67 08/21/19 18:56 O2 Sat by Pulse Oximetry (%) 100 08/21/19 10:00 Cardiovascular: Yes: WNL, Regular Rate and Rhythm Respiratory: Yes: WNL, Regular, CTA Bilaterally Gastrointestinal: Yes: WNL, Normal Bowel Sounds, Soft Labs: CBC, BMP 08/21/19 12:26 08/21/19 12:26 INR, PTT INR 1.10 (0.83-1.09) H 07/20/19 15:50 Problem List - Problems (1) Dementia Assessment/Plan: Pt's has agreed to PEG insertion IR/GI consults noted and they r unable insert PEG due to large ventral hernia Will get surgical consult Code(s): F03.90 - UNSPECIFIED DEMENTIA WITHOUT BEHAVIORAL DISTURBANCE (2) Anemia Assessment/Plan: S/P transfusion 2 units PRBC's DC asa/plavix No further testing Pt probable hospice Code(s): D64.9 - ANEMIA, UNSPECIFIED (3) Bacteremia Assessment/Plan: BC (+) for MRSA Repeat BC remain negative Urine culture negatgive Pt on IV vanco wc is on hold due to (+) sputum for MRSA Code(s): R78.81 - BACTEREMIA (4) HTN (hypertension) Assessment/Plan: BP stable Code(s): I10 - ESSENTIAL (PRIMARY) HYPERTENSION (5) Failure to thrive in adult Assessment/Plan: Encourage PO intake Started on IV clinimix Code(s): R62.7 - ADULT FAILURE TO THRIVE (6) HLD (hyperlipidemia) Assessment/Plan: Lipitor dc'ed due to elevated LFT's Code(s): E78.5 - HYPERLIPIDEMIA, UNSPECIFIED (7) Metabolic encephalopathy Code(s): G93.41 - METABOLIC ENCEPHALOPATHY (8) Elevated LFTs Assessment/Plan: DC lipitor Code(s): R94.5 - ABNORMAL RESULTS OF LIVER FUNCTION STUDIES (9) Rhabdomyolysis Assessment/Plan: Resolved Code(s): M62.82 - RHABDOMYOLYSIS
[2019-08-22] MEDS: POTASSIUM CHLORIDE 10 MEQ in AMINO ACIDS 4.25%/D5W 1,000 ML IVPB SCH ×2 (06:28→17:47)
[2019-08-22] MEDS: METOPROLOL TARTRATE 25 MG TABLET (FP) PO SCH (10:00)
[2019-08-22] MEDS: TAMSULOSIN HCL 0.4 MG CAP PO SCH (11:19)
--- NOTE | 2019-08-22 14:47 | PN ---
Progress Note, Physician History of Present Illness: no new issues nutrition very poor - Current Medication List Current Medications: Active Medications Acetaminophen (Ofirmev Injection -) 1,000 mg IVPB Q8H PRN PRN Reason: FEVER Last Admin: 08/17/19 13:19 Dose: 1,000 mg Documented by: Docusate Sodium (Colace Liquid -) 300 mg PO [facility] Last Admin: 08/21/19 21:45 Dose: Not Given Documented by: Potassium Chloride 10 meq/ (Amino Acids) 1,005 mls @ 50 mls/hr IVPB Q20H [facility] Last Admin: 08/22/19 06:28 Dose: Not Given Documented by: Metoprolol Tartrate (Lopressor -) 25 mg PO DAILY [facility] Last Admin: 08/22/19 10:00 Dose: Not Given Documented by: Mirtazapine (Remeron -) 15 mg PO HS [facility] Last Admin: 08/21/19 21:45 Dose: Not Given Documented by: Mupirocin (Bactroban 2% Ointment -) 1 applic TP BID [facility] Last Admin: 08/21/19 21:45 Dose: 1 applic Documented by: Tamsulosin HCl (Flomax -) 0.4 mg PO DAILY@0830 [facility] Last Admin: 08/22/19 11:19 Dose: Not Given Documented by: - Objective Vital Signs: Vital Signs Temperature 98.5 F 08/22/19 09:27 Pulse Rate 89 08/22/19 09:27 Respiratory Rate 18 08/22/19 09:27 Blood Pressure 130/58 L 08/22/19 09:27 O2 Sat by Pulse Oximetry (%) 100 08/22/19 10:00 Constitutional: Yes: No Distress, Calm Cardiovascular: Yes: S1, S2 Respiratory: Yes: Regular, CTA Bilaterally Gastrointestinal: Yes: Normal Bowel Sounds, Soft Musculoskeletal: Yes: WNL Extremities: Yes: Other Wound/Incision: Yes: Dressing Dry and Intact Neurological: Yes: Other Labs: CBC, BMP 08/21/19 12:26 08/21/19 12:26 INR, PTT INR 1.10 (0.83-1.09) H 07/20/19 15:50 Assessment/Plan Problem List - Problems (1) Anemia Code(s): D64.9 - ANEMIA, UNSPECIFIED (2) Bacteremia Code(s): R78.81 - BACTEREMIA (3) Rhabdomyolysis Code(s): M62.82 - RHABDOMYOLYSIS (4) HTN (hypertension) Code(s): I10 - ESSENTIAL (PRIMARY) HYPERTENSION (5) Failure to thrive in adult Code(s): R62.7 - ADULT FAILURE TO THRIVE (6) Dementia Code(s): F03.90 - UNSPECIFIED DEMENTIA WITHOUT BEHAVIORAL DISTURBANCE (7) HLD (hyperlipidemia) Code(s): E78.5 - HYPERLIPIDEMIA, UNSPECIFIED (8) Metabolic encephalopathy Code(s): G93.41 - METABOLIC ENCEPHALOPATHY (9) Elevated LFTs Code(s): R94.5 - ABNORMAL RESULTS OF LIVER FUNCTION STUDIES plan continue current mgmt rest as per the team
--- NOTE | 2019-08-22 17:42 | PN ---
Progress Note, Physician History of Present Illness: Pt seen and examined at bedside. He remains lethargic. - Current Medication List Current Medications: Active Medications Acetaminophen (Ofirmev Injection -) 1,000 mg IVPB Q8H PRN PRN Reason: FEVER Last Admin: 08/17/19 13:19 Dose: 1,000 mg Documented by: Docusate Sodium (Colace Liquid -) 300 mg PO [facility] Last Admin: 08/21/19 21:45 Dose: Not Given Documented by: Potassium Chloride 10 meq/ (Amino Acids) 1,005 mls @ 50 mls/hr IVPB Q20H [facility] Last Admin: 08/22/19 06:28 Dose: Not Given Documented by: Metoprolol Tartrate (Lopressor -) 25 mg PO DAILY [facility] Last Admin: 08/22/19 10:00 Dose: Not Given Documented by: Mirtazapine (Remeron -) 15 mg PO HS [facility] Last Admin: 08/21/19 21:45 Dose: Not Given Documented by: Mupirocin (Bactroban 2% Ointment -) 1 applic TP BID [facility] Last Admin: 08/21/19 21:45 Dose: 1 applic Documented by: Tamsulosin HCl (Flomax -) 0.4 mg PO DAILY@0830 [facility] Last Admin: 08/22/19 11:19 Dose: Not Given Documented by: - Objective Vital Signs: Vital Signs Temperature 98.5 F 08/22/19 15:00 Pulse Rate 97 H 08/22/19 15:00 Respiratory Rate 18 08/22/19 15:00 Blood Pressure 128/59 L 08/22/19 15:00 O2 Sat by Pulse Oximetry (%) 100 08/22/19 10:00 Constitutional: Yes: Calm Eyes: Yes: Conjunctiva Clear HENT: Yes: Atraumatic Neck: Yes: Supple Cardiovascular: Yes: S1, S2 Respiratory: Yes: CTA Bilaterally Gastrointestinal: Yes: Soft Genitourinary: Yes: WNL Musculoskeletal: Yes: WNL Edema: Yes Edema: LLE: Trace, RLE: Trace Neurological: Yes: Oriented Psychiatric: Yes: Oriented Labs: CBC, BMP 08/21/19 12:26 08/21/19 12:26 INR, PTT INR 1.10 (0.83-1.09) H 07/20/19 15:50 Problem List - Problems (1) Hyperkalemia Code(s): E87.5 - HYPERKALEMIA (2) Dehydration Code(s): E86.0 - DEHYDRATION (3) Failure to thrive in adult Code(s): R62.7 - ADULT FAILURE TO THRIVE (4) Acute kidney injury Code(s): N17.9 - ACUTE KIDNEY FAILURE, UNSPECIFIED Assessment/Plan Current Medications Generic Name Dose Route Start Last Admin Trade Name Freq PRN Reason Stop Dose Admin Acetaminophen 1,000 mg 08/06/19 10:47 08/17/19 13:19 Ofirmev Injection - IVPB 1,000 mg Q8H PRN Administration FEVER Docusate Sodium 300 mg 08/16/19 05:00 08/21/19 21:45 Colace Liquid - PO Not Given HS [facility] Potassium Chloride 10 meq/ 1,005 mls @ 50 mls/hr 08/20/19 14:39 08/22/19 06:28 Amino Acids IVPB Not Given Q20H [facility] Metoprolol Tartrate 25 mg 07/21/19 10:00 08/22/19 10:00 Lopressor - PO Not Given DAILY [facility] Mirtazapine 15 mg 07/21/19 22:00 08/21/19 21:45 Remeron - PO Not Given HS [facility] Mupirocin 1 applic 07/21/19 22:00 08/21/19 21:45 Bactroban 2% Ointment - TP 1 applic BID [facility] Administration Tamsulosin HCl 0.4 mg 07/21/19 08:30 08/22/19 11:19 Flomax - PO Not Given DAILY@0830 [facility] Impression 1. JESSE 2. hyperkalemia 3. htn 4. hld 5. brain lesion 6. right renal density 7. rhabdo 8. anemia 9. hypercalcemia Plan - check cmp in am - cont fluids - g-tube likely tomorrow - monitor calcium - monitor hg - avoid nsaids
[2019-08-22] MEDS: MUPIROCIN 2% TOPICAL OINTMENT 22 GM TUBE TP SCH ×2 (17:48→21:10)
[2019-08-22] MEDS: MIRTAZAPINE 15 MG TABLET (FP) PO SCH (21:11)
[2019-08-22] MEDS: DOCUSATE NA 100 MG/10 ML UNIT-DOSE CUPS PO SCH (21:11)
--- NOTE | 2019-08-22 23:44 | PN ---
Progress Note, Physician History of Present Illness: Pt for PEG insertion surgically in am - Current Medication List Current Medications: Active Medications Acetaminophen (Ofirmev Injection -) 1,000 mg IVPB Q8H PRN PRN Reason: FEVER Last Admin: 08/17/19 13:19 Dose: 1,000 mg Documented by: Docusate Sodium (Colace Liquid -) 300 mg PO [facility] Last Admin: 08/22/19 21:11 Dose: Not Given Documented by: Potassium Chloride 10 meq/ (Amino Acids) 1,005 mls @ 50 mls/hr IVPB Q20H [facility] Last Admin: 08/22/19 17:47 Dose: 50 mls/hr Documented by: Metoprolol Tartrate (Lopressor -) 25 mg PO DAILY [facility] Last Admin: 08/22/19 10:00 Dose: Not Given Documented by: Mirtazapine (Remeron -) 15 mg PO HS [facility] Last Admin: 08/22/19 21:11 Dose: Not Given Documented by: Mupirocin (Bactroban 2% Ointment -) 1 applic TP BID [facility] Last Admin: 08/22/19 21:10 Dose: 1 applic Documented by: Tamsulosin HCl (Flomax -) 0.4 mg PO DAILY@0830 [facility] Last Admin: 08/22/19 11:19 Dose: Not Given Documented by: - Objective Vital Signs: Vital Signs Temperature 98.3 F 08/22/19 18:00 Pulse Rate 100 H 08/22/19 18:00 Respiratory Rate 18 08/22/19 18:00 Blood Pressure 146/72 08/22/19 18:00 O2 Sat by Pulse Oximetry (%) 100 08/22/19 10:00 Cardiovascular: Yes: WNL, Regular Rate and Rhythm Respiratory: Yes: WNL, Regular, CTA Bilaterally Gastrointestinal: Yes: WNL, Normal Bowel Sounds, Soft Labs: CBC, BMP 08/21/19 12:26 08/21/19 12:26 INR, PTT INR 1.10 (0.83-1.09) H 07/20/19 15:50 Problem List - Problems (1) Dementia Assessment/Plan: Pt's has agreed to PEG insertion Pt to have surgical placement of PEG in am NPO after midnight Hold heparin in am Code(s): F03.90 - UNSPECIFIED DEMENTIA WITHOUT BEHAVIORAL DISTURBANCE (2) Anemia Assessment/Plan: S/P transfusion 2 units PRBC's DC asa/plavix No further testing Pt probable hospice Code(s): D64.9 - ANEMIA, UNSPECIFIED (3) Bacteremia Assessment/Plan: BC (+) for MRSA Repeat BC remain negative Urine culture negatgive Pt on IV vanco wc is on hold due to (+) sputum for MRSA Code(s): R78.81 - BACTEREMIA (4) HTN (hypertension) Assessment/Plan: BP stable Code(s): I10 - ESSENTIAL (PRIMARY) HYPERTENSION (5) Failure to thrive in adult Assessment/Plan: Encourage PO intake Started on IV clinimix Code(s): R62.7 - ADULT FAILURE TO THRIVE (6) HLD (hyperlipidemia) Assessment/Plan: Lipitor dc'ed due to elevated LFT's Code(s): E78.5 - HYPERLIPIDEMIA, UNSPECIFIED (7) Metabolic encephalopathy Code(s): G93.41 - METABOLIC ENCEPHALOPATHY (8) Elevated LFTs Assessment/Plan: DC lipitor Code(s): R94.5 - ABNORMAL RESULTS OF LIVER FUNCTION STUDIES (9) Rhabdomyolysis Assessment/Plan: Resolved Code(s): M62.82 - RHABDOMYOLYSIS
[2019-08-23] MEDS: POTASSIUM CHLORIDE 10 MEQ in AMINO ACIDS 4.25%/D5W 1,000 ML IVPB SCH ×3 (04:06→22:02)
[2019-08-23] MEDS: TAMSULOSIN HCL 0.4 MG CAP PO SCH (10:13)
[2019-08-23] MEDS: METOPROLOL TARTRATE 25 MG TABLET (FP) PO SCH (10:13)
[2019-08-23] MEDS: MUPIROCIN 2% TOPICAL OINTMENT 22 GM TUBE TP SCH ×2 (10:55→22:02)
[2019-08-23 12:14] LABS: BASO % 1.2 % (0-2.0); EOS % 6.4 % (0-4.5); HEMATOCRIT 24.3 % (35.4-49); HEMOGLOBIN 8.1 GM/dL (11.7-16.9); LYMPH % 15.6 % (8-40); MCHC 33.2 g/dl (32.0-35.9); MEAN CELL VOLUME 84.4 fl (80-96); MEAN PLT VOLUME 6.6 fl (7.5-11.1); MONO % 11.5 % (3.8-10.2); NEUT % 65.3 % (42.8-82.8); PLATELET COUNT 520 K/MM3 (134-434); RBC 2.88 M/mm3 (4.00-5.60); RDW 16.1 % (11.9-15.9); WHITE BLOOD COUNT 11.2 K/mm3 (4.0-10.0)
--- NOTE | 2019-08-23 13:04 | PN ---
Progress Note, Physician History of Present Illness: no new issues nutrition very poor - Current Medication List Current Medications: Active Medications Acetaminophen (Ofirmev Injection -) 1,000 mg IVPB Q8H PRN PRN Reason: FEVER Last Admin: 08/17/19 13:19 Dose: 1,000 mg Documented by: Docusate Sodium (Colace Liquid -) 300 mg PO [facility] Last Admin: 08/22/19 21:11 Dose: Not Given Documented by: Potassium Chloride 10 meq/ (Amino Acids) 1,005 mls @ 50 mls/hr IVPB Q20H [facility] Last Admin: 08/23/19 04:06 Dose: Not Given Documented by: Metoprolol Tartrate (Lopressor -) 25 mg PO DAILY [facility] Last Admin: 08/23/19 10:13 Dose: Not Given Documented by: Mirtazapine (Remeron -) 15 mg PO HS [facility] Last Admin: 08/22/19 21:11 Dose: Not Given Documented by: Mupirocin (Bactroban 2% Ointment -) 1 applic TP BID [facility] Last Admin: 08/23/19 10:55 Dose: 1 applic Documented by: Tamsulosin HCl (Flomax -) 0.4 mg PO DAILY@0830 [facility] Last Admin: 08/23/19 10:13 Dose: Not Given Documented by: - Objective Vital Signs: Vital Signs Temperature 98.0 F 08/23/19 10:00 Pulse Rate 111 H 08/23/19 10:00 Respiratory Rate 19 08/23/19 10:00 Blood Pressure 135/83 08/23/19 10:00 O2 Sat by Pulse Oximetry (%) 99 08/23/19 09:00 Constitutional: Yes: No Distress, Calm Cardiovascular: Yes: S1, S2 Respiratory: Yes: Regular, CTA Bilaterally Gastrointestinal: Yes: Normal Bowel Sounds, Soft Musculoskeletal: Yes: Other Extremities: Yes: Other Wound/Incision: Yes: Dressing Dry and Intact Labs: CBC, BMP 08/23/19 11:45 INR, PTT INR 1.10 (0.83-1.09) H 07/20/19 15:50 Assessment/Plan Problem List - Problems (1) Anemia Code(s): D64.9 - ANEMIA, UNSPECIFIED (2) Bacteremia Code(s): R78.81 - BACTEREMIA (3) Rhabdomyolysis Code(s): M62.82 - RHABDOMYOLYSIS (4) HTN (hypertension) Code(s): I10 - ESSENTIAL (PRIMARY) HYPERTENSION (5) Failure to thrive in adult Code(s): R62.7 - ADULT FAILURE TO THRIVE (6) Dementia Code(s): F03.90 - UNSPECIFIED DEMENTIA WITHOUT BEHAVIORAL DISTURBANCE (7) HLD (hyperlipidemia) Code(s): E78.5 - HYPERLIPIDEMIA, UNSPECIFIED (8) Metabolic encephalopathy Code(s): G93.41 - METABOLIC ENCEPHALOPATHY (9) Elevated LFTs Code(s): R94.5 - ABNORMAL RESULTS OF LIVER FUNCTION STUDIES plan continue current mgmt rest as per the team
[2019-08-23 13:23] LABS: ALBUMIN 1.6 g/dl (3.4-5.0); BILIRUBIN,TOTAL 0.2 mg/dL (0.2-1); BLOOD UREA NITROGEN 25.4 mg/dL (7-18); CREATININE 0.8 mg/dL (0.55-1.3); TOT PROT 5.6 g/dl (6.4-8.2)
[2019-08-23] MEDS ORDERED: PROPOFOL 20 ML ONE ×2 (14:05)
[2019-08-23] MEDS ORDERED: SUCCINYLCHOLINE CHLORIDE 200 MG/10 ML SYRINGE ONE (14:06)
--- NOTE | 2019-08-23 16:22 | PN ---
Progress Note, Physician History of Present Illness: Pt seen and examined at bedside. He did not get the g-tube as his did not give consent. He remains lethargic. - Current Medication List Current Medications: Active Medications Acetaminophen (Ofirmev Injection -) 1,000 mg IVPB Q8H PRN PRN Reason: FEVER Last Admin: 08/17/19 13:19 Dose: 1,000 mg Documented by: Docusate Sodium (Colace Liquid -) 300 mg PO [facility] Last Admin: 08/22/19 21:11 Dose: Not Given Documented by: Potassium Chloride 10 meq/ (Amino Acids) 1,005 mls @ 50 mls/hr IVPB Q20H [facility] Last Admin: 08/23/19 04:06 Dose: Not Given Documented by: Metoprolol Tartrate (Lopressor -) 25 mg PO DAILY [facility] Last Admin: 08/23/19 10:13 Dose: Not Given Documented by: Mirtazapine (Remeron -) 15 mg PO [facility] Last Admin: 08/22/19 21:11 Dose: Not Given Documented by: Mupirocin (Bactroban 2% Ointment -) 1 applic TP BID [facility] Last Admin: 08/23/19 10:55 Dose: 1 applic Documented by: Tamsulosin HCl (Flomax -) 0.4 mg PO DAILY@0830 [facility] Last Admin: 08/23/19 10:13 Dose: Not Given Documented by: - Objective Vital Signs: Vital Signs Temperature 98.1 F 08/23/19 15:00 Pulse Rate 113 H 08/23/19 15:00 Respiratory Rate 19 08/23/19 15:00 Blood Pressure 100/49 L 08/23/19 15:00 O2 Sat by Pulse Oximetry (%) 99 08/23/19 09:00 Constitutional: Yes: Calm Eyes: Yes: Conjunctiva Clear HENT: Yes: Atraumatic Cardiovascular: Yes: S1, S2 Respiratory: Yes: On Nasal O2 Genitourinary: Yes: Incontinence Edema: LLE: Trace, RLE: Trace Neurological: Yes: Lethargy Labs: CBC, BMP 08/23/19 11:45 08/23/19 11:45 INR, PTT INR 1.10 (0.83-1.09) H 07/20/19 15:50 Problem List - Problems (1) Hyperkalemia Code(s): E87.5 - HYPERKALEMIA (2) Dehydration Code(s): E86.0 - DEHYDRATION (3) Failure to thrive in adult Code(s): R62.7 - ADULT FAILURE TO THRIVE (4) Acute kidney injury Code(s): N17.9 - ACUTE KIDNEY FAILURE, UNSPECIFIED Assessment/Plan Current Medications Generic Name Dose Route Start Last Admin Trade Name Freq PRN Reason Stop Dose Admin Acetaminophen 1,000 mg 08/06/19 10:47 08/17/19 13:19 Ofirmev Injection - IVPB 1,000 mg Q8H PRN Administration FEVER Docusate Sodium 300 mg 08/16/19 05:00 08/22/19 21:11 Colace Liquid - PO Not Given HS [facility] Potassium Chloride 10 meq/ 1,005 mls @ 50 mls/hr 08/20/19 14:39 08/23/19 04:06 Amino Acids IVPB Not Given Q20H [facility] Metoprolol Tartrate 25 mg 07/21/19 10:00 08/23/19 10:13 Lopressor - PO Not Given DAILY [facility] Mirtazapine 15 mg 07/21/19 22:00 08/22/19 21:11 Remeron - PO Not Given HS [facility] Mupirocin 1 applic 07/21/19 22:00 08/23/19 10:55 Bactroban 2% Ointment - TP 1 applic BID [facility] Administration Tamsulosin HCl 0.4 mg 07/21/19 08:30 08/23/19 10:13 Flomax - PO Not Given DAILY@0830 [facility] Impression 1. JESSE 2. hyperkalemia 3. htn 4. hld 5. brain lesion 6. right renal density 7. rhabdo 8. anemia 9. hypercalcemia Plan - resume fluids - will need to clarify GOC - g-tube on hold for now - monitor calcium - monitor hg - avoid nsaids
--- NOTE | 2019-08-23 21:20 | PN ---
Progress Note, Physician - Current Medication List Current Medications: Active Medications Acetaminophen (Ofirmev Injection -) 1,000 mg IVPB Q8H PRN PRN Reason: FEVER Last Admin: 08/17/19 13:19 Dose: 1,000 mg Documented by: Docusate Sodium (Colace Liquid -) 300 mg PO HS [facility] Last Admin: 08/22/19 21:11 Dose: Not Given Documented by: Potassium Chloride 10 meq/ (Amino Acids) 1,005 mls @ 50 mls/hr IVPB Q20H [facility] Last Admin: 08/23/19 17:09 Dose: 50 mls/hr Documented by: Metoprolol Tartrate (Lopressor -) 25 mg PO DAILY [facility] Last Admin: 08/23/19 10:13 Dose: Not Given Documented by: Mirtazapine (Remeron -) 15 mg PO [facility] Last Admin: 08/22/19 21:11 Dose: Not Given Documented by: Mupirocin (Bactroban 2% Ointment -) 1 applic TP BID [facility] Last Admin: 08/23/19 10:55 Dose: 1 applic Documented by: Tamsulosin HCl (Flomax -) 0.4 mg PO DAILY@0830 [facility] Last Admin: 08/23/19 10:13 Dose: Not Given Documented by: - Objective Vital Signs: Vital Signs Temperature 98.2 F 08/23/19 18:00 Pulse Rate 115 H 08/23/19 18:00 Respiratory Rate 18 08/23/19 18:00 Blood Pressure 125/67 08/23/19 18:00 O2 Sat by Pulse Oximetry (%) 99 08/23/19 09:00 Labs: CBC, BMP 08/23/19 11:45 08/23/19 11:45 INR, PTT INR 1.10 (0.83-1.09) H 07/20/19 15:50 Problem List - Problems (1) Dementia Code(s): F03.90 - UNSPECIFIED DEMENTIA WITHOUT BEHAVIORAL DISTURBANCE (2) Anemia Code(s): D64.9 - ANEMIA, UNSPECIFIED (3) Bacteremia Code(s): R78.81 - BACTEREMIA (4) HTN (hypertension) Code(s): I10 - ESSENTIAL (PRIMARY) HYPERTENSION (5) Failure to thrive in adult Code(s): R62.7 - ADULT FAILURE TO THRIVE (6) HLD (hyperlipidemia) Code(s): E78.5 - HYPERLIPIDEMIA, UNSPECIFIED (7) Metabolic encephalopathy Code(s): G93.41 - METABOLIC ENCEPHALOPATHY (8) Elevated LFTs Code(s): R94.5 - ABNORMAL RESULTS OF LIVER FUNCTION STUDIES (9) Rhabdomyolysis Code(s): M62.82 - RHABDOMYOLYSIS
[2019-08-23] MEDS: MIRTAZAPINE 15 MG TABLET (FP) PO SCH (22:01)
[2019-08-23] MEDS: DOCUSATE NA 100 MG/10 ML UNIT-DOSE CUPS PO SCH (22:01)
[2019-08-24 08:41] LABS: ALBUMIN 1.6 g/dl (3.4-5.0); BILIRUBIN,TOTAL 0.4 mg/dL (0.2-1); BLOOD UREA NITROGEN 24.8 mg/dL (7-18); CALCIUM 9.9 mg/dL (8.5-10.1); CREATININE 0.8 mg/dL (0.55-1.3); POTASSIUM 4.2 mmol/L (3.5-5.1); TOT PROT 5.8 g/dl (6.4-8.2)
[2019-08-24] MEDS: MUPIROCIN 2% TOPICAL OINTMENT 22 GM TUBE TP SCH ×2 (09:36→23:11)
[2019-08-24] MEDS: METOPROLOL TARTRATE 25 MG TABLET (FP) PO SCH (09:36)
[2019-08-24] MEDS: TAMSULOSIN HCL 0.4 MG CAP PO SCH (09:36)
--- NOTE | 2019-08-24 12:18 | PN ---
Progress Note, Physician History of Present Illness: no new issues nutrition very poor - Current Medication List Current Medications: Active Medications Acetaminophen (Ofirmev Injection -) 1,000 mg IVPB Q8H PRN PRN Reason: FEVER Last Admin: 08/17/19 13:19 Dose: 1,000 mg Documented by: Docusate Sodium (Colace Liquid -) 300 mg PO [facility] Last Admin: 08/23/19 22:01 Dose: Not Given Documented by: Potassium Chloride 10 meq/ (Amino Acids) 1,005 mls @ 50 mls/hr IVPB Q20H [facility] Last Admin: 08/23/19 22:02 Dose: Not Given Documented by: Metoprolol Tartrate (Lopressor -) 25 mg PO DAILY [facility] Last Admin: 08/24/19 09:36 Dose: Not Given Documented by: Mirtazapine (Remeron -) 15 mg PO HS [facility] Last Admin: 08/23/19 22:01 Dose: Not Given Documented by: Mupirocin (Bactroban 2% Ointment -) 1 applic TP BID [facility] Last Admin: 08/24/19 09:36 Dose: 1 applic Documented by: Tamsulosin HCl (Flomax -) 0.4 mg PO DAILY@0830 [facility] Last Admin: 08/24/19 09:36 Dose: Not Given Documented by: - Objective Vital Signs: Vital Signs Temperature 98.0 F 08/24/19 09:51 Pulse Rate 97 H 08/24/19 09:51 Respiratory Rate 18 08/24/19 09:51 Blood Pressure 115/52 L 08/24/19 09:51 O2 Sat by Pulse Oximetry (%) 99 08/24/19 09:00 Constitutional: Yes: No Distress, Calm Cardiovascular: Yes: S1, S2 Respiratory: Yes: Regular, CTA Bilaterally Gastrointestinal: Yes: Normal Bowel Sounds, Soft Musculoskeletal: Yes: Other Extremities: Yes: Other Wound/Incision: Yes: Dressing Dry and Intact Labs: CBC, BMP 08/23/19 11:45 08/24/19 07:33 INR, PTT INR 1.10 (0.83-1.09) H 07/20/19 15:50 Assessment/Plan Problem List - Problems (1) Anemia Code(s): D64.9 - ANEMIA, UNSPECIFIED (2) Bacteremia Code(s): R78.81 - BACTEREMIA (3) Rhabdomyolysis Code(s): M62.82 - RHABDOMYOLYSIS (4) HTN (hypertension) Code(s): I10 - ESSENTIAL (PRIMARY) HYPERTENSION (5) Failure to thrive in adult Code(s): R62.7 - ADULT FAILURE TO THRIVE (6) Dementia Code(s): F03.90 - UNSPECIFIED DEMENTIA WITHOUT BEHAVIORAL DISTURBANCE (7) HLD (hyperlipidemia) Code(s): E78.5 - HYPERLIPIDEMIA, UNSPECIFIED (8) Metabolic encephalopathy Code(s): G93.41 - METABOLIC ENCEPHALOPATHY (9) Elevated LFTs Code(s): R94.5 - ABNORMAL RESULTS OF LIVER FUNCTION STUDIES plan continue current mgmt rest as per the team
[2019-08-24] MEDS: POTASSIUM CHLORIDE 10 MEQ in AMINO ACIDS 4.25%/D5W 1,000 ML IVPB SCH ×2 (14:19→17:48)
--- NOTE | 2019-08-24 16:52 | PN ---
Progress Note, Physician History of Present Illness: Pt seen and examined at bedside. He remains lethargic. He is tolerating fluids. - Current Medication List Current Medications: Active Medications Acetaminophen (Ofirmev Injection -) 1,000 mg IVPB Q8H PRN PRN Reason: FEVER Last Admin: 08/17/19 13:19 Dose: 1,000 mg Documented by: Docusate Sodium (Colace Liquid -) 300 mg PO HS [facility] Last Admin: 08/23/19 22:01 Dose: Not Given Documented by: Potassium Chloride 10 meq/ (Amino Acids) 1,005 mls @ 50 mls/hr IVPB Q20H [facility] Last Admin: 08/24/19 14:19 Dose: 50 mls/hr Documented by: Metoprolol Tartrate (Lopressor -) 25 mg PO DAILY [facility] Last Admin: 08/24/19 09:36 Dose: Not Given Documented by: Mirtazapine (Remeron -) 15 mg PO HS [facility] Last Admin: 08/23/19 22:01 Dose: Not Given Documented by: Mupirocin (Bactroban 2% Ointment -) 1 applic TP BID [facility] Last Admin: 08/24/19 09:36 Dose: 1 applic Documented by: Tamsulosin HCl (Flomax -) 0.4 mg PO DAILY@0830 [facility] Last Admin: 08/24/19 09:36 Dose: Not Given Documented by: - Objective Vital Signs: Vital Signs Temperature 97.5 F L 08/24/19 15:10 Pulse Rate 103 H 08/24/19 15:10 Respiratory Rate 18 08/24/19 15:10 Blood Pressure 117/58 L 08/24/19 15:10 O2 Sat by Pulse Oximetry (%) 99 08/24/19 09:00 Constitutional: Yes: Calm Eyes: Yes: Conjunctiva Clear HENT: Yes: Atraumatic Neck: Yes: Supple Cardiovascular: Yes: S1, S2 Respiratory: Yes: CTA Bilaterally Gastrointestinal: Yes: Normal Bowel Sounds, Soft Genitourinary: Yes: Incontinence Musculoskeletal: Yes: Muscle Weakness Edema: Yes Neurological: Yes: Lethargy Labs: CBC, BMP 08/23/19 11:45 08/24/19 07:33 INR, PTT INR 1.10 (0.83-1.09) H 07/20/19 15:50 Problem List - Problems (1) Hyperkalemia Code(s): E87.5 - HYPERKALEMIA (2) Dehydration Code(s): E86.0 - DEHYDRATION (3) Failure to thrive in adult Code(s): R62.7 - ADULT FAILURE TO THRIVE (4) Acute kidney injury Code(s): N17.9 - ACUTE KIDNEY FAILURE, UNSPECIFIED Assessment/Plan Current Medications Generic Name Dose Route Start Last Admin Trade Name Freq PRN Reason Stop Dose Admin Acetaminophen 1,000 mg 08/06/19 10:47 08/17/19 13:19 Ofirmev Injection - IVPB 1,000 mg Q8H PRN Administration FEVER Docusate Sodium 300 mg 08/16/19 05:00 08/23/19 22:01 Colace Liquid - PO Not Given HS [facility] Potassium Chloride 10 meq/ 1,005 mls @ 50 mls/hr 08/20/19 14:39 08/24/19 14:1 9 Amino Acids IVPB 50 mls/hr Q20H [facility] Administration Metoprolol Tartrate 25 mg 07/21/19 10:00 08/24/19 09:36 Lopressor - PO Not Given DAILY [facility] Mirtazapine 15 mg 07/21/19 22:00 08/23/19 22:01 Remeron - PO Not Given HS [facility] Mupirocin 1 applic 07/21/19 22:00 08/24/19 09:36 Bactroban 2% Ointment - TP 1 applic BID [facility] Administration Tamsulosin HCl 0.4 mg 07/21/19 08:30 08/24/19 09:36 Flomax - PO Not Given DAILY@0830 [facility] Impression 1. JESSE 2. hyperkalemia 3. htn 4. hld 5. brain lesion 6. right renal density 7. rhabdo 8. anemia 9. hypercalcemia Plan - cont fluids - discuss GOC - no acute change in management - g-tube on hold for now - monitor calcium - monitor hg - avoid nsaids
[2019-08-24] MEDS: DOCUSATE NA 100 MG/10 ML UNIT-DOSE CUPS PO SCH (22:38)
[2019-08-24] MEDS: MIRTAZAPINE 15 MG TABLET (FP) PO SCH (22:38)
--- NOTE | 2019-08-24 23:04 | PN ---
Progress Note, Physician - Current Medication List Current Medications: Active Medications Acetaminophen (Ofirmev Injection -) 1,000 mg IVPB Q8H PRN PRN Reason: FEVER Last Admin: 08/17/19 13:19 Dose: 1,000 mg Documented by: Docusate Sodium (Colace Liquid -) 300 mg PO [facility] Last Admin: 08/24/19 22:38 Dose: Not Given Documented by: Potassium Chloride 10 meq/ (Amino Acids) 1,005 mls @ 50 mls/hr IVPB Q20H [facility] Last Admin: 08/24/19 17:48 Dose: Not Given Documented by: Metoprolol Tartrate (Lopressor -) 25 mg PO DAILY [facility] Last Admin: 08/24/19 09:36 Dose: Not Given Documented by: Mirtazapine (Remeron -) 15 mg PO [facility] Last Admin: 08/24/19 22:38 Dose: Not Given Documented by: Mupirocin (Bactroban 2% Ointment -) 1 applic TP BID [facility] Last Admin: 08/24/19 09:36 Dose: 1 applic Documented by: Tamsulosin HCl (Flomax -) 0.4 mg PO DAILY@0830 [facility] Last Admin: 08/24/19 09:36 Dose: Not Given Documented by: - Objective Vital Signs: Vital Signs Temperature 98.0 F 08/24/19 18:00 Pulse Rate 103 H 08/24/19 18:00 Respiratory Rate 18 08/24/19 18:00 Blood Pressure 112/48 L 08/24/19 18:00 O2 Sat by Pulse Oximetry (%) 99 08/24/19 09:00 Labs: CBC, BMP 08/23/19 11:45 08/24/19 07:33 INR, PTT INR 1.10 (0.83-1.09) H 07/20/19 15:50 Problem List - Problems (1) Dementia Code(s): F03.90 - UNSPECIFIED DEMENTIA WITHOUT BEHAVIORAL DISTURBANCE (2) Anemia Code(s): D64.9 - ANEMIA, UNSPECIFIED (3) Bacteremia Code(s): R78.81 - BACTEREMIA (4) HTN (hypertension) Code(s): I10 - ESSENTIAL (PRIMARY) HYPERTENSION (5) Failure to thrive in adult Code(s): R62.7 - ADULT FAILURE TO THRIVE (6) HLD (hyperlipidemia) Code(s): E78.5 - HYPERLIPIDEMIA, UNSPECIFIED (7) Metabolic encephalopathy Code(s): G93.41 - METABOLIC ENCEPHALOPATHY (8) Elevated LFTs Code(s): R94.5 - ABNORMAL RESULTS OF LIVER FUNCTION STUDIES (9) Rhabdomyolysis Code(s): M62.82 - RHABDOMYOLYSIS
--- NOTE | 2019-08-25 08:10 | PN ---
Progress Note (short form) - Note Progress Note: Per Dr Mendenhall will plan for Gastrostomy tube placement today 08/25/19. Surgical time pending.
[2019-08-25] MEDS: TAMSULOSIN HCL 0.4 MG CAP PO SCH (09:30)
[2019-08-25] MEDS: MUPIROCIN 2% TOPICAL OINTMENT 22 GM TUBE TP SCH ×2 (10:29→22:09)
[2019-08-25] MEDS: METOPROLOL TARTRATE 25 MG TABLET (FP) PO SCH (10:30)
[2019-08-25] MEDS ORDERED: PROPOFOL 20 ML ONE (11:31)
[2019-08-25] MEDS ORDERED: ROCURONIUM BROMIDE 50 MG/5 ML SYRINGE ONE (11:31)
[2019-08-25] MEDS ORDERED: LIDOCAINE HCL/PF 2% SDV 5ML VIAL ONE (11:33)
[2019-08-25] MEDS ORDERED: ceFAZolin SODIUM 1 GM VIAL ONE (11:33)
[2019-08-25] MEDS ORDERED: DEXAMETHASONE SOD PHOSPHATE 4 MG/1 ML VIAL ONE (11:33)
[2019-08-25] MEDS ORDERED: SODIUM CHLORIDE 0.9% P/F 10 ML VIAL IJ ONE (11:33)
[2019-08-25] MEDS ORDERED: BENZOIN/ALOE VERA/STORAX/TOLU 58 ML BOTTLE ONE (12:36)
[2019-08-25] MEDS ORDERED: ceFAZolin SODIUM 1 GM VIAL IVPB ONE (12:36)
--- NOTE | 2019-08-25 12:43 | PN ---
Progress Note, Physician History of Present Illness: no new issues nutrition very poor for or tomorrow - Current Medication List Current Medications: Active Medications Acetaminophen (Ofirmev Injection -) 1,000 mg IVPB Q8H PRN PRN Reason: FEVER Last Admin: 08/17/19 13:19 Dose: 1,000 mg Documented by: Docusate Sodium (Colace Liquid -) 300 mg PO [facility] Last Admin: 08/24/19 22:38 Dose: Not Given Documented by: Potassium Chloride 10 meq/ (Amino Acids) 1,005 mls @ 50 mls/hr IVPB Q20H [facility] Last Admin: 08/24/19 17:48 Dose: Not Given Documented by: Metoprolol Tartrate (Lopressor -) 25 mg PO DAILY [facility] Last Admin: 08/25/19 10:30 Dose: Not Given Documented by: Mirtazapine (Remeron -) 15 mg PO HS [facility] Last Admin: 08/24/19 22:38 Dose: Not Given Documented by: Mupirocin (Bactroban 2% Ointment -) 1 applic TP BID [facility] Last Admin: 08/25/19 10:29 Dose: 1 applic Documented by: Tamsulosin HCl (Flomax -) 0.4 mg PO DAILY@0830 [facility] Last Admin: 08/25/19 09:30 Dose: Not Given Documented by: - Objective Vital Signs: Vital Signs Temperature 98 F 08/25/19 10:15 Pulse Rate 98 H 08/25/19 10:15 Respiratory Rate 18 08/25/19 10:15 Blood Pressure 123/56 L 08/25/19 10:15 O2 Sat by Pulse Oximetry (%) 98 08/24/19 21:00 Constitutional: Yes: No Distress, Calm Cardiovascular: Yes: S1, S2 Respiratory: Yes: Regular, CTA Bilaterally Gastrointestinal: Yes: Normal Bowel Sounds, Soft Musculoskeletal: Yes: Other Extremities: Yes: Other Neurological: Yes: Alert Labs: CBC, BMP 08/23/19 11:45 08/24/19 07:33 INR, PTT INR 1.10 (0.83-1.09) H 07/20/19 15:50 Assessment/Plan Problem List - Problems (1) Anemia Code(s): D64.9 - ANEMIA, UNSPECIFIED (2) Bacteremia Code(s): R78.81 - BACTEREMIA (3) Rhabdomyolysis Code(s): M62.82 - RHABDOMYOLYSIS (4) HTN (hypertension) Code(s): I10 - ESSENTIAL (PRIMARY) HYPERTENSION (5) Failure to thrive in adult Code(s): R62.7 - ADULT FAILURE TO THRIVE (6) Dementia Code(s): F03.90 - UNSPECIFIED DEMENTIA WITHOUT BEHAVIORAL DISTURBANCE (7) HLD (hyperlipidemia) Code(s): E78.5 - HYPERLIPIDEMIA, UNSPECIFIED (8) Metabolic encephalopathy Code(s): G93.41 - METABOLIC ENCEPHALOPATHY (9) Elevated LFTs Code(s): R94.5 - ABNORMAL RESULTS OF LIVER FUNCTION STUDIES plan continue current mgmt rest as per the team nutrition
[2019-08-25] MEDS ORDERED: BUPIVACAINE HCL/PF 0.25% (2.5MG/ML) 10 ML VIAL ONE (12:48)
[2019-08-25] MEDS ORDERED: BUPIVACAINE HCL/PF 0.5% (5MG/ML) 10 ML VIAL NR ONE (13:00)
[2019-08-25] MEDS ORDERED: NEOSTIGMINE METHYLSULFATE 0.5 MG/ML - 10 ML MDV ONE (13:05)
[2019-08-25] MEDS ORDERED: GLYCOPYRROLATE 0.2 MG/1 ML VIAL ONE (13:05)
--- NOTE | 2019-08-25 13:35 | PN ---
Progress Note, Physician History of Present Illness: Pt appears comfortable. Family have decided for g-tube. - Current Medication List Current Medications: Active Medications Acetaminophen (Ofirmev Injection -) 1,000 mg IVPB Q8H PRN PRN Reason: FEVER Last Admin: 08/17/19 13:19 Dose: 1,000 mg Documented by: Docusate Sodium (Colace Liquid -) 300 mg PO [facility] Last Admin: 08/24/19 22:38 Dose: Not Given Documented by: Potassium Chloride 10 meq/ (Amino Acids) 1,005 mls @ 50 mls/hr IVPB Q20H [facility] Last Admin: 08/24/19 17:48 Dose: Not Given Documented by: Metoprolol Tartrate (Lopressor -) 25 mg PO DAILY [facility] Last Admin: 08/25/19 10:30 Dose: Not Given Documented by: Mirtazapine (Remeron -) 15 mg PO HS [facility] Last Admin: 08/24/19 22:38 Dose: Not Given Documented by: Mupirocin (Bactroban 2% Ointment -) 1 applic TP BID [facility] Last Admin: 08/25/19 10:29 Dose: 1 applic Documented by: Tamsulosin HCl (Flomax -) 0.4 mg PO DAILY@0830 [facility] Last Admin: 08/25/19 09:30 Dose: Not Given Documented by: - Objective Vital Signs: Vital Signs Temperature 98 F 08/25/19 10:15 Pulse Rate 98 H 08/25/19 10:15 Respiratory Rate 18 08/25/19 10:15 Blood Pressure 123/56 L 08/25/19 10:15 O2 Sat by Pulse Oximetry (%) 98 08/24/19 21:00 Constitutional: Yes: Calm Eyes: Yes: Conjunctiva Clear HENT: Yes: Atraumatic Neck: Yes: Supple Cardiovascular: Yes: S1, S2 Respiratory: Yes: CTA Bilaterally Gastrointestinal: Yes: Normal Bowel Sounds, Soft Genitourinary: Yes: Incontinence Musculoskeletal: Yes: Muscle Weakness Edema: Yes Edema: LLE: Trace, RLE: Trace Neurological: Yes: Lethargy Labs: CBC, BMP 08/23/19 11:45 08/24/19 07:33 INR, PTT INR 1.10 (0.83-1.09) H 07/20/19 15:50 Problem List - Problems (1) Hyperkalemia Code(s): E87.5 - HYPERKALEMIA (2) Dehydration Code(s): E86.0 - DEHYDRATION (3) Failure to thrive in adult Code(s): R62.7 - ADULT FAILURE TO THRIVE (4) Acute kidney injury Code(s): N17.9 - ACUTE KIDNEY FAILURE, UNSPECIFIED Assessment/Plan Current Medications Generic Name Dose Route Start Last Admin Trade Name Freq PRN Reason Stop Dose Admin Acetaminophen 1,000 mg 08/06/19 10:47 08/17/19 13:19 Ofirmev Injection - IVPB 1,000 mg Q8H PRN Administration FEVER Docusate Sodium 300 mg 08/16/19 05:00 08/24/19 22:38 Colace Liquid - PO Not Given HS [facility] Potassium Chloride 10 meq/ 1,005 mls @ 50 mls/hr 08/20/19 14:39 08/24/19 17:48 Amino Acids IVPB Not Given Q20H [facility] Metoprolol Tartrate 25 mg 07/21/19 10:00 08/25/19 10:30 Lopressor - PO Not Given DAILY [facility] Mirtazapine 15 mg 07/21/19 22:00 08/24/19 22:38 Remeron - PO Not Given HS [facility] Mupirocin 1 applic 07/21/19 22:00 08/25/19 10:29 Bactroban 2% Ointment - TP 1 applic BID [facility] Administration Tamsulosin HCl 0.4 mg 07/21/19 08:30 08/25/19 09:30 Flomax - PO Not Given DAILY@0830 [facility] Impression 1. JESSE 2. hyperkalemia 3. htn 4. hld 5. brain lesion 6. right renal density 7. rhabdo 8. anemia 9. hypercalcemia Plan - pt going for gtube - can cont fluids until feeds started - monitor lytes and phos - monitor calcium - monitor hg - avoid nsaids
--- NOTE | 2019-08-25 13:54 | OP ---
Operative Note - Note: Operative Date: 08/25/19 Pre-Operative Diagnosis: Failure to thrive Operation: Open Gastrostomy tube placement Post-Operative Diagnosis: Same as Pre-op Surgeon: Daron Mendenhall Pattern Fitter: Duncan Reed Anesthesiologist/QUALITY ASSURANCE LEAD: Joey Moreno Anesthesia: General Estimated Blood Loss (mls): 10 Operative Report Dictated: Yes
--- NOTE | 2019-08-25 13:55 | SURG ---
Surgery Associate Veterinarian Note Associate Veterinarian: Duncan Reed PA-C Date of Service: 08/25/19 Diagnosis: failure to thrive Procedure: Open gastrostomy tube placement I was present for the entirety of the operative procedure. For further detail, please refer to operative report. Visit type - Case Type Case Type: ED Admission - Emergency Emergency Visit: Yes ED Registration Date: 07/20/19 Care time: The patient presented to the Emergency Department on the above date and was hospitalized for further evaluation of their emergent condition. - New patient This patient is new to me today: No - Critical Care Critical Care patient: No
[2019-08-25] MEDS ORDERED: LACTATED RINGERS SOLUTION 1,000 ML IV SCH (14:00)
[2019-08-25] MEDS ORDERED: ACETAMINOPHEN 1000 MG/100 ML VIAL (NON FORMULARY) IVPB PRN (14:41)
--- NOTE | 2019-08-25 15:36 | RAPID ---
Physical Examination Vital Signs: Vital Signs Temperature 97.8 F 08/25/19 15:00 Pulse Rate 76 08/25/19 15:00 Respiratory Rate 20 08/25/19 15:00 Blood Pressure 113/57 L 08/25/19 15:00 O2 Sat by Pulse Oximetry (%) 100 08/25/19 15:00 BP before Rapid was called: 61/32 repeat BP: 114/57, HR 78, O2: 100 , Finger Stick: 107 Findings/Remarks: Patient was found to be unresponsive initially and with BP of 61/ 32 so rapid response was called. Patient responded to sternal rub, and repeat BP was 114/57. Patient was still recovering from anesthesia, Chest X-Ray did not show any new infiltrate or effusion. Abdominal X-ray confirmed placement of G-Tube. CBC was ordered STAT. EKG was ordered STAT. Labs: CBC, BMP 08/23/19 11:45 08/24/19 07:33
[2019-08-25] MEDS ORDERED: POTASSIUM CHLORIDE 10 MEQ in AMINO ACIDS 4.25%/D5W 1,000 ML IVPB SCH (15:39)
[2019-08-25] MEDS: POTASSIUM CHLORIDE 10 MEQ in AMINO ACIDS 4.25%/D5W 1,000 ML IVPB SCH (16:18)
[2019-08-25] MEDS ORDERED: DEXTROSE 5%-LACTATED RINGERS 1,000 ML IV SCH (19:45)
[2019-08-25 21:05] LABS: HEMOGLOBIN 8.5 GM/dL (11.7-16.9); MCH 26.6 pg (25.7-33.7); MCHC 31.6 g/dl (32.0-35.9); MEAN CELL VOLUME 84.4 fl (80-96); MEAN PLT VOLUME 7.9 fl (7.5-11.1); PLATELET COUNT 519 K/MM3 (134-434); RBC 3.21 M/mm3 (4.00-5.60); RDW 16.3 % (11.9-15.9); WHITE BLOOD COUNT 21.3 K/mm3 (4.0-10.0)
[2019-08-25 21:25] LABS: ANISOCYTOSIS 1+; PLATELET ESTIMATE INCREASED; TARGET CELLS 1+; TEAR DROP CELLS 1+
[2019-08-25] MEDS: MIRTAZAPINE 15 MG TABLET (FP) PO SCH (22:08)
[2019-08-25] MEDS: DOCUSATE NA 100 MG/10 ML UNIT-DOSE CUPS PO SCH (22:08)
--- NOTE | 2019-08-25 23:27 | PN ---
Progress Note, Physician History of Present Illness: S/P PEG insertion Rapid Response called for altered mental status - Current Medication List Current Medications: Active Medications Acetaminophen (Ofirmev Injection -) 1,000 mg IVPB Q8H PRN PRN Reason: FEVER Docusate Sodium (Colace Liquid -) 300 mg PO [facility] Last Admin: 08/25/19 22:08 Dose: Not Given Documented by: Fentanyl (Sublimaze Injection -) 25 mcg IVPUSH [id number] PRN PRN Reason: PAIN-PACU ORDER X 4 DOSES ONLY Dextrose/Lactated Ringer's (D5-Lr -) 1,000 mls @ 75 mls/hr IV [facility] Last Admin: 08/25/19 20:47 Dose: 75 mls/hr Documented by: Metoprolol Tartrate (Lopressor -) 25 mg PO DAILY [facility] Mirtazapine (Remeron -) 15 mg PO [facility] Last Admin: 08/25/19 22:08 Dose: Not Given Documented by: Mupirocin (Bactroban 2% Ointment -) 1 applic TP BID [facility] Last Admin: 08/25/19 22:09 Dose: 1 applic Documented by: Tamsulosin HCl (Flomax -) 0.4 mg PO DAILY@0830 [facility] - Objective Vital Signs: Vital Signs Temperature 98.1 F 08/25/19 18:00 Pulse Rate 82 08/25/19 18:00 Respiratory Rate 16 08/25/19 18:00 Blood Pressure 143/70 08/25/19 18:00 O2 Sat by Pulse Oximetry (%) 100 08/25/19 15:00 Neck: Yes: WNL, Supple Cardiovascular: Yes: WNL, Regular Rate and Rhythm Respiratory: Yes: WNL, Regular, CTA Bilaterally Gastrointestinal: Yes: WNL, Normal Bowel Sounds, Soft Edema: LLE: Trace, RLE: Trace Labs: CBC, BMP 08/25/19 20:00 08/24/19 07:33 INR, PTT INR 1.10 (0.83-1.09) H 07/20/19 15:50 Problem List - Problems (1) Dementia Assessment/Plan: S/P PEG insertion Pt hypotensive after procedure COnt IVF BP improved Code(s): F03.90 - UNSPECIFIED DEMENTIA WITHOUT BEHAVIORAL DISTURBANCE (2) Anemia Assessment/Plan: S/P transfusion 2 units PRBC's DC asa/plavix No further testing Pt probable hospice Code(s): D64.9 - ANEMIA, UNSPECIFIED (3) Bacteremia Assessment/Plan: BC (+) for MRSA Repeat BC remain negative Urine culture negatgive Pt on IV vanco wc is on hold due to (+) sputum for MRSA Code(s): R78.81 - BACTEREMIA (4) HTN (hypertension) Assessment/Plan: BP stable Code(s): I10 - ESSENTIAL (PRIMARY) HYPERTENSION (5) Failure to thrive in adult Assessment/Plan: Encourage PO intake Started on IV clinimix Code(s): R62.7 - ADULT FAILURE TO THRIVE (6) HLD (hyperlipidemia) Assessment/Plan: Lipitor dc'ed due to elevated LFT's Code(s): E78.5 - HYPERLIPIDEMIA, UNSPECIFIED (7) Metabolic encephalopathy Code(s): G93.41 - METABOLIC ENCEPHALOPATHY (8) Elevated LFTs Assessment/Plan: DC lipitor Code(s): R94.5 - ABNORMAL RESULTS OF LIVER FUNCTION STUDIES (9) Rhabdomyolysis Assessment/Plan: Resolved Code(s): M62.82 - RHABDOMYOLYSIS
[2019-08-26] MEDS: TAMSULOSIN HCL 0.4 MG CAP PO SCH (09:25)
--- NOTE | 2019-08-26 09:52 | PN ---
Progress Note (short form) - Note Progress Note: 78yo M s/p open gastrostomy placement POD 1, pt seen and examined at bedside. Pt remains demented and unresponsive, which is his usual state. Pt had rapid response called on him yesterday. Pt had a g tube study done last night, but in fact Jujenostomy tube was injected not the G tube. The study was unremarkable. Pt G tube continues to be on drainage til 24hours post op. Last Vital Signs Temp Pulse Resp BP Pulse Ox 97.8 F 89 16 117/62 100 08/26/19 06:00 08/26/19 06:00 08/26/19 06:00 08/26/19 06:00 08/25/19 21:00 CBC, BMP 08/25/19 20:00 08/24/19 07:33 PE; Gen: Awake, nonresponsive Resp: breathing comfortably Abd: soft, nondistended, nontender, G tube in place with yellowish drainage Problem List - Problems (1) Failure to thrive in adult Assessment/Plan: Plan -continue G tube to drainage til this afternoon -pt needs G tube study with G tube injected on J tube to evaluate for leak -if G tube study negative for leak, pt can be started on Feeds. Will follow up study Code(s): R62.7 - ADULT FAILURE TO THRIVE
[2019-08-26] MEDS: METOPROLOL TARTRATE 25 MG TABLET (FP) PO SCH (09:56)
[2019-08-26] MEDS: HEPARIN NA (PORCINE) 5,000 UNITS/ML 1ML VIAL SQ SCH ×2 (09:56→21:34)
[2019-08-26] MEDS: MUPIROCIN 2% TOPICAL OINTMENT 22 GM TUBE TP SCH ×2 (09:56→21:33)
[2019-08-26 10:21] LABS: BASO % 0.3 % (0-2.0); HEMATOCRIT 22.7 % (35.4-49); HEMOGLOBIN 7.4 GM/dL (11.7-16.9); LYMPH % 9.9 % (8-40); MCH 27.3 pg (25.7-33.7); MCHC 32.7 g/dl (32.0-35.9); MEAN CELL VOLUME 83.6 fl (80-96); MEAN PLT VOLUME 6.8 fl (7.5-11.1); MONO % 6.4 % (3.8-10.2); NEUT % 83.4 % (42.8-82.8); PLATELET COUNT 489 K/MM3 (134-434); RBC 2.71 M/mm3 (4.00-5.60); RDW 16.4 % (11.9-15.9); WHITE BLOOD COUNT 16.1 K/mm3 (4.0-10.0)
--- NOTE | 2019-08-26 10:27 | EKG ---
Test Reason : Blood Pressure : / mmHG Vent. Rate : 077 BPM Atrial Rate : 077 BPM P-R Int : 156 ms QRS Dur : 086 ms QT Int : 354 ms P-R-T Axes : 042 -18 015 degrees QTc Int : 400 ms NORMAL SINUS RHYTHM NORMAL ECG WHEN COMPARED WITH ECG OF 20-JUL-2019 17:38, QT HAS SHORTENED Confirmed by JOCELINE LOVE MD ([id number]) on 08/26/2019 10:27:30 AM Referred By: LIANE AUSTIN Confirmed By:JOCELINE LOVE MD
[2019-08-26 11:00] LABS: ALBUMIN 1.6 g/dl (3.4-5.0); BILIRUBIN,TOTAL 0.2 mg/dL (0.2-1); BLOOD UREA NITROGEN 27.8 mg/dL (7-18); CALCIUM 9.8 mg/dL (8.5-10.1); CREATININE 0.9 mg/dL (0.55-1.3); POTASSIUM 4.4 mmol/L (3.5-5.1); TOT PROT 5.6 g/dl (6.4-8.2)
--- NOTE | 2019-08-26 13:07 | PN ---
Progress Note, Physician History of Present Illness: events noted from yesterday still lethargic wbc trending down peg tube in place - Current Medication List Current Medications: Active Medications Acetaminophen (Ofirmev Injection -) 1,000 mg IVPB Q8H PRN PRN Reason: FEVER Docusate Sodium (Colace Liquid -) 300 mg PO [facility] Last Admin: 08/25/19 22:08 Dose: Not Given Documented by: Fentanyl (Sublimaze Injection -) 25 mcg IVPUSH [id number] PRN PRN Reason: PAIN-PACU ORDER X 4 DOSES ONLY Heparin Sodium (Porcine) (Heparin -) 5,000 unit SQ BID [facility] Last Admin: 08/26/19 09:56 Dose: 5,000 unit Documented by: Dextrose/Lactated Ringer's (D5-Lr -) 1,000 mls @ 75 mls/hr IV ASDIR [facility] Last Admin: 08/25/19 20:47 Dose: 75 mls/hr Documented by: Vancomycin HCl 1,250 mg/ (Dextrose) 250 mls @ 250 mls/2 hr IVPB ONCE ONE; Protocol Stop: 08/26/19 15:04 Metoprolol Tartrate (Lopressor -) 25 mg PO DAILY [facility] Last Admin: 08/26/19 09:56 Dose: Not Given Documented by: Mirtazapine (Remeron -) 15 mg PO [facility] Last Admin: 08/25/19 22:08 Dose: Not Given Documented by: Mupirocin (Bactroban 2% Ointment -) 1 applic TP BID [facility] Last Admin: 08/26/19 09:56 Dose: 1 applic Documented by: Tamsulosin HCl (Flomax -) 0.4 mg PO DAILY@0830 [facility] Last Admin: 08/26/19 09:25 Dose: Not Given Documented by: - Objective Vital Signs: Vital Signs Temperature 98 F 08/26/19 10:00 Pulse Rate 86 08/26/19 10:00 Respiratory Rate 18 08/26/19 10:00 Blood Pressure 124/53 L 08/26/19 10:00 O2 Sat by Pulse Oximetry (%) 100 08/26/19 09:00 Constitutional: Yes: Other Cardiovascular: Yes: S1, S2 Respiratory: Yes: On Nasal O2, Poor Air Entry Gastrointestinal: Yes: Normal Bowel Sounds, Soft Musculoskeletal: Yes: WNL Extremities: Yes: Other Wound/Incision: Yes: Dressing Dry and Intact Neurological: Yes: Other Labs: CBC, BMP 08/26/19 09:45 08/26/19 09:45 INR, PTT INR 1.10 (0.83-1.09) H 07/20/19 15:50 Assessment/Plan Problem List - Problems (1) Anemia Code(s): D64.9 - ANEMIA, UNSPECIFIED (2) Bacteremia Code(s): R78.81 - BACTEREMIA (3) Rhabdomyolysis Code(s): M62.82 - RHABDOMYOLYSIS (4) HTN (hypertension) Code(s): I10 - ESSENTIAL (PRIMARY) HYPERTENSION (5) Failure to thrive in adult Code(s): R62.7 - ADULT FAILURE TO THRIVE (6) Dementia Code(s): F03.90 - UNSPECIFIED DEMENTIA WITHOUT BEHAVIORAL DISTURBANCE (7) HLD (hyperlipidemia) Code(s): E78.5 - HYPERLIPIDEMIA, UNSPECIFIED (8) Metabolic encephalopathy Code(s): G93.41 - METABOLIC ENCEPHALOPATHY (9) Elevated LFTs Code(s): R94.5 - ABNORMAL RESULTS OF LIVER FUNCTION STUDIES plan continue current mgmt nutrition will give a dose of vanco when peg tube can be used we will put him on vanco
[2019-08-26] MEDS ORDERED: VANCOMYCIN HCL 1,250 MG in DEXTROSE 5%-WATER - 250 ML IVPB ONE (14:00)
[2019-08-26] MEDS ORDERED: PT OWN MED DRAWER 7, Y5N ONE (15:05)
--- NOTE | 2019-08-26 17:39 | PN ---
Progress Note, Physician History of Present Illness: Pt had g-tube placed. He remains lethargic. - Current Medication List Current Medications: Active Medications Acetaminophen (Ofirmev Injection -) 1,000 mg IVPB Q8H PRN PRN Reason: FEVER Docusate Sodium (Colace Liquid -) 300 mg PO [facility] Last Admin: 08/25/19 22:08 Dose: Not Given Documented by: Fentanyl (Sublimaze Injection -) 25 mcg IVPUSH [id number] PRN PRN Reason: PAIN-PACU ORDER X 4 DOSES ONLY Heparin Sodium (Porcine) (Heparin -) 5,000 unit SQ BID [facility] Last Admin: 08/26/19 09:56 Dose: 5,000 unit Documented by: Amino Acids (Clinimix -) 1,000 mls @ 42 mls/hr IV Q24H [facility] Metoprolol Tartrate (Lopressor -) 25 mg PO DAILY [facility] Last Admin: 08/26/19 09:56 Dose: Not Given Documented by: Mirtazapine (Remeron -) 15 mg PO [facility] Last Admin: 08/25/19 22:08 Dose: Not Given Documented by: Mupirocin (Bactroban 2% Ointment -) 1 applic TP BID [facility] Last Admin: 08/26/19 09:56 Dose: 1 applic Documented by: Tamsulosin HCl (Flomax -) 0.4 mg PO DAILY@0830 [facility] Last Admin: 08/26/19 09:25 Dose: Not Given Documented by: - Objective Vital Signs: Vital Signs Temperature 98.1 F 08/26/19 14:00 Pulse Rate 84 08/26/19 14:00 Respiratory Rate 18 08/26/19 14:00 Blood Pressure 110/51 L 08/26/19 14:00 O2 Sat by Pulse Oximetry (%) 100 08/26/19 09:00 Constitutional: Yes: Calm Eyes: Yes: Conjunctiva Clear HENT: Yes: Atraumatic Neck: Yes: Supple Cardiovascular: Yes: S1, S2 Respiratory: Yes: CTA Bilaterally Gastrointestinal: Yes: Soft, Other (g-tube) Musculoskeletal: Yes: WNL Edema: Yes Edema: LLE: Trace, RLE: Trace Neurological: Yes: Lethargy Labs: CBC, BMP 08/26/19 09:45 08/26/19 09:45 INR, PTT INR 1.10 (0.83-1.09) H 07/20/19 15:50 Problem List - Problems (1) Hyperkalemia Code(s): E87.5 - HYPERKALEMIA (2) Dehydration Code(s): E86.0 - DEHYDRATION (3) Failure to thrive in adult Code(s): R62.7 - ADULT FAILURE TO THRIVE (4) Acute kidney injury Code(s): N17.9 - ACUTE KIDNEY FAILURE, UNSPECIFIED Assessment/Plan Current Medications Generic Name Dose Route Start Last Admin Trade Name Freq PRN Reason Stop Dose Admin Acetaminophen 1,000 mg 08/25/19 14:41 Ofirmev Injection - IVPB Q8H PRN FEVER Docusate Sodium 300 mg 08/25/19 22:00 08/25/19 22:08 Colace Liquid - PO Not Given HS [facility] Fentanyl 25 mcg 08/25/19 13:55 Sublimaze Injection - IVPUSH [id number] PRN PAIN-PACU ORDER X 4 DOSES ONLY Heparin Sodium (Porcine) 5,000 unit 08/26/19 10:00 08/26/19 09:56 Heparin - SQ 5,000 unit BID [facility] Administration Amino Acids 1,000 mls @ 42 mls/hr 08/26/19 17:00 Clinimix - IV Q24H [facility] Metoprolol Tartrate 25 mg 08/26/19 10:00 08/26/19 09:56 Lopressor - PO Not Given DAILY [facility] Mirtazapine 15 mg 08/25/19 22:00 08/25/19 22:08 Remeron - PO Not Given HS [facility] Mupirocin 1 applic 08/25/19 22:00 08/26/19 09:56 Bactroban 2% Ointment - TP 1 applic BID [facility] Administration Tamsulosin HCl 0.4 mg 08/26/19 08:30 08/26/19 09:25 Flomax - PO Not Given DAILY@0830 [facility] Impression 1. JESSE 2. hyperkalemia 3. htn 4. hld 5. brain lesion 6. right renal density 7. rhabdo 8. anemia 9. hypercalcemia Plan - cont clinimix until feeds started - surgery input appreciated - nutrition eval - monitor calcium - monitor hg - avoid nsaids
[2019-08-26] MEDS: AMINO ACIDS 4.25%/D5W 1,000 ML IV SCH (19:41)
[2019-08-26] MEDS: MIRTAZAPINE 15 MG TABLET (FP) PO SCH (21:34)
[2019-08-26] MEDS: DOCUSATE NA 100 MG/10 ML UNIT-DOSE CUPS PO SCH (21:35)
--- NOTE | 2019-08-26 21:55 | PN ---
Progress Note, Physician - Current Medication List Current Medications: Active Medications Acetaminophen (Ofirmev Injection -) 1,000 mg IVPB Q8H PRN PRN Reason: FEVER Stop: 08/27/19 10:00 Docusate Sodium (Colace Liquid -) 300 mg PO [facility] Last Admin: 08/26/19 21:35 Dose: Not Given Documented by: Fentanyl (Sublimaze Injection -) 25 mcg IVPUSH [id number] PRN PRN Reason: PAIN-PACU ORDER X 4 DOSES ONLY Heparin Sodium (Porcine) (Heparin -) 5,000 unit SQ BID [facility] Last Admin: 08/26/19 21:34 Dose: 5,000 unit Documented by: Amino Acids (Clinimix -) 1,000 mls @ 42 mls/hr IV Q24H [facility] Last Admin: 08/26/19 19:41 Dose: 42 mls/hr Documented by: Metoprolol Tartrate (Lopressor -) 25 mg PO DAILY [facility] Last Admin: 08/26/19 09:56 Dose: Not Given Documented by: Mirtazapine (Remeron -) 15 mg PO [facility] Last Admin: 08/26/19 21:34 Dose: Not Given Documented by: Mupirocin (Bactroban 2% Ointment -) 1 applic TP BID [facility] Last Admin: 08/26/19 21:33 Dose: 1 applic Documented by: Tamsulosin HCl (Flomax -) 0.4 mg PO DAILY@0830 [facility] Last Admin: 08/26/19 09:25 Dose: Not Given Documented by: - Objective Vital Signs: Vital Signs Temperature 97.5 F L 08/26/19 18:00 Pulse Rate 69 08/26/19 18:00 Respiratory Rate 18 08/26/19 18:00 Blood Pressure 119/55 L 08/26/19 18:00 O2 Sat by Pulse Oximetry (%) 100 08/26/19 09:00 Labs: CBC, BMP 08/26/19 09:45 08/26/19 09:45 INR, PTT INR 1.10 (0.83-1.09) H 07/20/19 15:50 Problem List - Problems (1) Dementia Code(s): F03.90 - UNSPECIFIED DEMENTIA WITHOUT BEHAVIORAL DISTURBANCE (2) Anemia Code(s): D64.9 - ANEMIA, UNSPECIFIED (3) Bacteremia Code(s): R78.81 - BACTEREMIA (4) HTN (hypertension) Code(s): I10 - ESSENTIAL (PRIMARY) HYPERTENSION (5) Failure to thrive in adult Code(s): R62.7 - ADULT FAILURE TO THRIVE (6) HLD (hyperlipidemia) Code(s): E78.5 - HYPERLIPIDEMIA, UNSPECIFIED (7) Metabolic encephalopathy Code(s): G93.41 - METABOLIC ENCEPHALOPATHY (8) Elevated LFTs Code(s): R94.5 - ABNORMAL RESULTS OF LIVER FUNCTION STUDIES (9) Rhabdomyolysis Code(s): M62.82 - RHABDOMYOLYSIS
--- NOTE | 2019-08-27 08:30 | PN ---
Progress Note (short form) - Note Progress Note: GENERAL SURGERY POD #2 s/p Gastrostomy tube insertion Demented and verbally unresponsive (baseline) GT study yesterday confirms tube in good position. No extravasation and cleared for use. Last Vital Signs Temp Pulse Resp BP Pulse Ox 97.5 F L 78 18 117/59 L 100 08/27/19 06:00 08/27/19 06:00 08/27/19 06:00 08/27/19 06:00 08/26/19 21:00 PE Gen: Awake, non-responsive (baseline) Resp: breathing comfortably Abd: soft, nt. nd. GT to gravity with (yellowish drainage) Problem List - Problems (1) Failure to thrive in adult Assessment/Plan: POD #2 s/p gastrostomy tube insertion. GT study confirms correct placement and no leak/extravasation. - may begin using GT for tube feeds - gi ppx - dvt ppx - cont care per primary team - no further surgical input, rec-consult prn On behalf of Dr. Mendenhall, thank you for the opportunity to participate in your patient's care. Code(s): R62.7 - ADULT FAILURE TO THRIVE (2) Anemia Code(s): D64.9 - ANEMIA, UNSPECIFIED (3) Dehydration Code(s): E86.0 - DEHYDRATION
[2019-08-27] MEDS: MUPIROCIN 2% TOPICAL OINTMENT 22 GM TUBE TP SCH ×2 (09:22→21:57)
[2019-08-27] MEDS: METOPROLOL TARTRATE 25 MG TABLET (FP) PO SCH (09:22)
[2019-08-27] MEDS: TAMSULOSIN HCL 0.4 MG CAP PO SCH (09:22)
[2019-08-27] MEDS: HEPARIN NA (PORCINE) 5,000 UNITS/ML 1ML VIAL SQ SCH ×2 (10:31→21:59)
--- NOTE | 2019-08-27 12:10 | PN ---
Progress Note, Physician History of Present Illness: no new issues - Current Medication List Current Medications: Active Medications Docusate Sodium (Colace Liquid -) 300 mg PO HS [facility] Last Admin: 08/26/19 21:35 Dose: Not Given Documented by: Fentanyl (Sublimaze Injection -) 25 mcg IVPUSH [id number] PRN PRN Reason: PAIN-PACU ORDER X 4 DOSES ONLY Heparin Sodium (Porcine) (Heparin -) 5,000 unit SQ BID [facility] Last Admin: 08/27/19 10:31 Dose: 5,000 unit Documented by: Amino Acids (Clinimix -) 1,000 mls @ 42 mls/hr IV Q24H [facility] Last Admin: 08/26/19 19:41 Dose: 42 mls/hr Documented by: Metoprolol Tartrate (Lopressor -) 25 mg PO DAILY [facility] Last Admin: 08/27/19 09:22 Dose: Not Given Documented by: Mirtazapine (Remeron -) 15 mg PO [facility] Last Admin: 08/26/19 21:34 Dose: Not Given Documented by: Mupirocin (Bactroban 2% Ointment -) 1 applic TP BID [facility] Last Admin: 08/27/19 09:22 Dose: 1 applic Documented by: Tamsulosin HCl (Flomax -) 0.4 mg PO DAILY@0830 [facility] Last Admin: 08/27/19 09:22 Dose: Not Given Documented by: - Objective Vital Signs: Vital Signs Temperature 97.9 F 08/27/19 09:13 Pulse Rate 88 08/27/19 09:13 Respiratory Rate 18 08/27/19 09:13 Blood Pressure 113/48 L 08/27/19 09:13 O2 Sat by Pulse Oximetry (%) 100 08/27/19 09:00 Constitutional: Yes: No Distress, Calm Cardiovascular: Yes: S1, S2 Respiratory: Yes: Regular, Poor Air Entry Gastrointestinal: Yes: Normal Bowel Sounds, Soft, Other (peg tube in place) Breast(s): Yes: WNL Extremities: Yes: Other Neurological: Yes: Other Labs: CBC, BMP 08/26/19 09:45 08/26/19 09:45 INR, PTT INR 1.10 (0.83-1.09) H 07/20/19 15:50 Assessment/Plan Problem List - Problems (1) Anemia Code(s): D64.9 - ANEMIA, UNSPECIFIED (2) Bacteremia Code(s): R78.81 - BACTEREMIA (3) Rhabdomyolysis Code(s): M62.82 - RHABDOMYOLYSIS (4) HTN (hypertension) Code(s): I10 - ESSENTIAL (PRIMARY) HYPERTENSION (5) Failure to thrive in adult Code(s): R62.7 - ADULT FAILURE TO THRIVE (6) Dementia Code(s): F03.90 - UNSPECIFIED DEMENTIA WITHOUT BEHAVIORAL DISTURBANCE (7) HLD (hyperlipidemia) Code(s): E78.5 - HYPERLIPIDEMIA, UNSPECIFIED (8) Metabolic encephalopathy Code(s): G93.41 - METABOLIC ENCEPHALOPATHY (9) Elevated LFTs Code(s): R94.5 - ABNORMAL RESULTS OF LIVER FUNCTION STUDIES plan continue current mgmt can start clinda 300 mg every 8 hours once peg tube feeding starts
[2019-08-27] MEDS: AMINO ACIDS 4.25%/D5W 1,000 ML IV SCH (17:48)
--- NOTE | 2019-08-27 18:03 | PN ---
Progress Note, Physician History of Present Illness: Pt seen and examined. G-tube is still draining. - Current Medication List Current Medications: Active Medications Docusate Sodium (Colace Liquid -) 300 mg PO [facility] Last Admin: 08/26/19 21:35 Dose: Not Given Documented by: Fentanyl (Sublimaze Injection -) 25 mcg IVPUSH [id number] PRN PRN Reason: PAIN-PACU ORDER X 4 DOSES ONLY Heparin Sodium (Porcine) (Heparin -) 5,000 unit SQ BID [facility] Last Admin: 08/27/19 10:31 Dose: 5,000 unit Documented by: Amino Acids (Clinimix -) 1,000 mls @ 42 mls/hr IV Q24H [facility] Last Admin: 08/27/19 17:48 Dose: 42 mls/hr Documented by: Metoprolol Tartrate (Lopressor -) 25 mg PO DAILY [facility] Last Admin: 08/27/19 09:22 Dose: Not Given Documented by: Mirtazapine (Remeron -) 15 mg PO [facility] Last Admin: 08/26/19 21:34 Dose: Not Given Documented by: Mupirocin (Bactroban 2% Ointment -) 1 applic TP BID [facility] Last Admin: 08/27/19 09:22 Dose: 1 applic Documented by: Tamsulosin HCl (Flomax -) 0.4 mg PO DAILY@0830 [facility] Last Admin: 08/27/19 09:22 Dose: Not Given Documented by: - Objective Vital Signs: Vital Signs Temperature 97.6 F 08/27/19 14:00 Pulse Rate 81 08/27/19 14:00 Respiratory Rate 18 08/27/19 14:00 Blood Pressure 100/64 08/27/19 14:00 O2 Sat by Pulse Oximetry (%) 100 08/27/19 09:00 Constitutional: Yes: Calm Eyes: Yes: Conjunctiva Clear HENT: Yes: Atraumatic Neck: Yes: Supple Cardiovascular: Yes: S1, S2 Respiratory: Yes: CTA Bilaterally Gastrointestinal: Yes: Soft Genitourinary: Yes: Incontinence Edema: Yes Edema: LLE: Trace, RLE: Trace Neurological: Yes: Lethargy Labs: CBC, BMP 08/26/19 09:45 08/26/19 09:45 INR, PTT INR 1.10 (0.83-1.09) H 07/20/19 15:50 Problem List - Problems (1) Hyperkalemia Code(s): E87.5 - HYPERKALEMIA (2) Dehydration Code(s): E86.0 - DEHYDRATION (3) Failure to thrive in adult Code(s): R62.7 - ADULT FAILURE TO THRIVE (4) Acute kidney injury Code(s): N17.9 - ACUTE KIDNEY FAILURE, UNSPECIFIED Assessment/Plan Current Medications Generic Name Dose Route Start Last Admin Trade Name Freq PRN Reason Stop Dose Admin Docusate Sodium 300 mg 08/25/19 22:00 08/26/19 21:35 Colace Liquid - PO Not Given HS [facility] Fentanyl 25 mcg 08/25/19 13:55 Sublimaze Injection - IVPUSH [id number] PRN PAIN-PACU ORDER X 4 DOSES ONLY Heparin Sodium (Porcine) 5,000 unit 08/26/19 10:00 08/27/19 10:31 Heparin - SQ 5,000 unit BID [facility] Administration Amino Acids 1,000 mls @ 42 mls/hr 08/26/19 17:00 08/27/19 17:48 Clinimix - IV 42 mls/hr Q24H [facility] Administration Metoprolol Tartrate 25 mg 08/26/19 10:00 08/27/19 09:22 Lopressor - PO Not Given DAILY [facility] Mirtazapine 15 mg 08/25/19 22:00 08/26/19 21:34 Remeron - PO Not Given HS [facility] Mupirocin 1 applic 08/25/19 22:00 08/27/19 09:22 Bactroban 2% Ointment - TP 1 applic BID [facility] Administration Tamsulosin HCl 0.4 mg 08/26/19 08:30 08/27/19 09:22 Flomax - PO Not Given DAILY@0830 [facility] Impression 1. JESSE 2. hyperkalemia 3. htn 4. hld 5. brain lesion 6. right renal density 7. rhabdo 8. anemia 9. hypercalcemia 10. malnutrition Plan - g-tube stil draining - surgery follow up pending - cont fluids for now - check labs in am - monitor calcium - monitor hg - avoid nsaids
[2019-08-27] MEDS: DOCUSATE NA 100 MG/10 ML UNIT-DOSE CUPS PO SCH (21:58)
[2019-08-27] MEDS: MIRTAZAPINE 15 MG TABLET (FP) PO SCH (21:59)
--- NOTE | 2019-08-27 23:14 | PN ---
Progress Note, Physician - Current Medication List Current Medications: Active Medications Docusate Sodium (Colace Liquid -) 300 mg PO HS [facility] Last Admin: 08/27/19 21:58 Dose: Not Given Documented by: Fentanyl (Sublimaze Injection -) 25 mcg IVPUSH [id number] PRN PRN Reason: PAIN-PACU ORDER X 4 DOSES ONLY Heparin Sodium (Porcine) (Heparin -) 5,000 unit SQ BID [facility] Last Admin: 08/27/19 21:59 Dose: 5,000 unit Documented by: Amino Acids (Clinimix -) 1,000 mls @ 42 mls/hr IV Q24H [facility] Last Admin: 08/27/19 17:48 Dose: 42 mls/hr Documented by: Metoprolol Tartrate (Lopressor -) 25 mg PO DAILY [facility] Last Admin: 08/27/19 09:22 Dose: Not Given Documented by: Mirtazapine (Remeron -) 15 mg PO HS [facility] Last Admin: 08/27/19 21:59 Dose: Not Given Documented by: Mupirocin (Bactroban 2% Ointment -) 1 applic TP BID [facility] Last Admin: 08/27/19 21:57 Dose: 1 applic Documented by: Tamsulosin HCl (Flomax -) 0.4 mg PO DAILY@0830 [facility] Last Admin: 08/27/19 09:22 Dose: Not Given Documented by: - Objective Vital Signs: Vital Signs Temperature 97.6 F 08/27/19 14:00 Pulse Rate 81 08/27/19 14:00 Respiratory Rate 18 08/27/19 21:00 Blood Pressure 100/64 08/27/19 14:00 O2 Sat by Pulse Oximetry (%) 100 08/27/19 21:00 Labs: CBC, BMP 08/26/19 09:45 08/26/19 09:45 INR, PTT INR 1.10 (0.83-1.09) H 07/20/19 15:50 Problem List - Problems (1) Dementia Code(s): F03.90 - UNSPECIFIED DEMENTIA WITHOUT BEHAVIORAL DISTURBANCE (2) Anemia Code(s): D64.9 - ANEMIA, UNSPECIFIED (3) Bacteremia Code(s): R78.81 - BACTEREMIA (4) HTN (hypertension) Code(s): I10 - ESSENTIAL (PRIMARY) HYPERTENSION (5) Failure to thrive in adult Code(s): R62.7 - ADULT FAILURE TO THRIVE (6) HLD (hyperlipidemia) Code(s): E78.5 - HYPERLIPIDEMIA, UNSPECIFIED (7) Metabolic encephalopathy Code(s): G93.41 - METABOLIC ENCEPHALOPATHY (8) Elevated LFTs Code(s): R94.5 - ABNORMAL RESULTS OF LIVER FUNCTION STUDIES (9) Rhabdomyolysis Code(s): M62.82 - RHABDOMYOLYSIS
[2019-08-28] MEDS: TAMSULOSIN HCL 0.4 MG CAP PO SCH (09:39)
[2019-08-28] MEDS: HEPARIN NA (PORCINE) 5,000 UNITS/ML 1ML VIAL SQ SCH ×2 (09:40→22:16)
[2019-08-28] MEDS: MUPIROCIN 2% TOPICAL OINTMENT 22 GM TUBE TP SCH ×2 (09:41→22:16)
[2019-08-28] MEDS: METOPROLOL TARTRATE 25 MG TABLET (FP) PO SCH (09:41)
--- NOTE | 2019-08-28 18:08 | PN ---
Progress Note, Physician History of Present Illness: Pt weak, without distress. Afebrile. GT draining - Current Medication List Current Medications: Active Medications Clindamycin HCl (Cleocin -) 300 mg GT TID [facility] Docusate Sodium (Colace Liquid -) 300 mg PO [facility] Last Admin: 08/27/19 21:58 Dose: Not Given Documented by: Fentanyl (Sublimaze Injection -) 25 mcg IVPUSH [id number] PRN PRN Reason: PAIN-PACU ORDER X 4 DOSES ONLY Heparin Sodium (Porcine) (Heparin -) 5,000 unit SQ BID [facility] Last Admin: 08/28/19 09:40 Dose: 5,000 unit Documented by: Amino Acids (Clinimix -) 1,000 mls @ 42 mls/hr IV Q24H [facility] Last Admin: 08/27/19 17:48 Dose: 42 mls/hr Documented by: Metoprolol Tartrate (Lopressor -) 25 mg PO DAILY [facility] Last Admin: 08/28/19 09:41 Dose: Not Given Documented by: Mirtazapine (Remeron -) 15 mg PO [facility] Last Admin: 08/27/19 21:59 Dose: Not Given Documented by: Mupirocin (Bactroban 2% Ointment -) 1 applic TP BID [facility] Last Admin: 08/28/19 09:41 Dose: 1 applic Documented by: Tamsulosin HCl (Flomax -) 0.4 mg PO DAILY@0830 [facility] Last Admin: 08/28/19 09:39 Dose: Not Given Documented by: - Objective Vital Signs: Vital Signs Temperature 97.7 F 08/28/19 14:00 Pulse Rate 103 H 08/28/19 14:00 Respiratory Rate 18 08/28/19 14:00 Blood Pressure 112/67 08/28/19 14:00 O2 Sat by Pulse Oximetry (%) 100 08/28/19 09:00 Constitutional: Yes: No Distress Cardiovascular: Yes: Regular Rate and Rhythm Respiratory: Yes: Regular Gastrointestinal: Yes: Normal Bowel Sounds, Soft Genitourinary: Yes: WNL Neurological: Yes: Lethargy Labs: CBC, BMP 08/26/19 09:45 08/26/19 09:45 INR, PTT INR 1.10 (0.83-1.09) H 07/20/19 15:50 Microbiology 08/08/19 14:50 Blood - Peripheral Venous Blood Culture - Final NO GROWTH AFTER 5 DAYS INCUBATION 08/08/19 14:50 Blood - Peripheral Venous Blood Culture - Final NO GROWTH AFTER 5 DAYS INCUBATION 08/09/19 00:20 Sputum - Expectorated Gram Stain - Final 08/09/19 00:20 Sputum - Expectorated Sputum Culture - Final S Aureus 07/30/19 07:40 Blood - Peripheral Venous Blood Culture - Final NO GROWTH AFTER 5 DAYS INCUBATION 07/30/19 07:35 Blood - Peripheral Venous Blood Culture - Final NO GROWTH AFTER 5 DAYS INCUBATION 08/02/19 08:40 Urine - Urine - Catheterized Urine Culture - Final NO GROWTH OBTAINED 07/24/19 08:52 Blood - Peripheral Venous Blood Culture - Final NO GROWTH AFTER 5 DAYS INCUBATION 07/24/19 08:45 Blood - Peripheral Venous Blood Culture - Final NO GROWTH AFTER 5 DAYS INCUBATION 07/20/19 15:54 Blood - Peripheral Venous Blood Culture - Final NO GROWTH AFTER 5 DAYS INCUBATION 07/20/19 15:54 Blood - Peripheral Venous Blood Culture - Final S Aureus Staphylococcus Capitis 07/20/19 16:44 Urine - Urine Dasilva Urine Culture - Final NO GROWTH OBTAINED Problem List - Problems (1) Bacteremia Code(s): R78.81 - BACTEREMIA (2) Failure to thrive in adult Code(s): R62.7 - ADULT FAILURE TO THRIVE (3) Fever Code(s): R50.9 - FEVER, UNSPECIFIED (4) HLD (hyperlipidemia) Code(s): E78.5 - HYPERLIPIDEMIA, UNSPECIFIED (5) HTN (hypertension) Code(s): I10 - ESSENTIAL (PRIMARY) HYPERTENSION (6) Weakness Code(s): R53.1 - WEAKNESS (7) Acute kidney injury Code(s): N17.9 - ACUTE KIDNEY FAILURE, UNSPECIFIED (8) Metabolic encephalopathy Code(s): G93.41 - METABOLIC ENCEPHALOPATHY (9) Rhabdomyolysis Code(s): M62.82 - RHABDOMYOLYSIS Assessment/Plan GT placed Clindamycin started, s/p IV Vancomycin Continue monitor wbc trend Pt afebrile, without distress
[2019-08-28] MEDS: AMINO ACIDS 4.25%/D5W 1,000 ML IV SCH (18:36)
--- NOTE | 2019-08-28 21:05 | PN ---
Progress Note (short form) - Note Progress Note: Problems 1. JESSE 2. hyperkalemia 3. htn 4. hld 5. brain lesion 6. right renal density 7. rhabdo 8. anemia Plan - g-tube stil draining - surgery follow up pending - cont fluids for now - check labs in am - monitor calcium - monitor hg - avoid nsaids Current Medications Clindamycin HCl (Cleocin -) 300 mg GT TID [facility] Docusate Sodium (Colace Liquid -) 300 mg PO [facility] Last Admin: 08/27/19 21:58 Dose: Not Given Documented by: Fentanyl (Sublimaze Injection -) 25 mcg IVPUSH [id number] PRN PRN Reason: PAIN-PACU ORDER X 4 DOSES ONLY Heparin Sodium (Porcine) (Heparin -) 5,000 unit SQ BID [facility] Last Admin: 08/28/19 09:40 Dose: 5,000 unit Documented by: Amino Acids (Clinimix -) 1,000 mls @ 42 mls/hr IV Q24H [facility] Last Admin: 08/28/19 18:36 Dose: Not Given Documented by: Metoprolol Tartrate (Lopressor -) 25 mg PO DAILY [facility] Last Admin: 08/28/19 09:41 Dose: Not Given Documented by: Mirtazapine (Remeron -) 15 mg PO [facility] Last Admin: 08/27/19 21:59 Dose: Not Given Documented by: Mupirocin (Bactroban 2% Ointment -) 1 applic TP BID [facility] Last Admin: 08/28/19 09:41 Dose: 1 applic Documented by: Tamsulosin HCl (Flomax -) 0.4 mg PO DAILY@0830 [facility] Last Admin: 08/28/19 09:39 Dose: Not Given Documented by: Last Vital Signs Temp Pulse Resp BP Pulse Ox 98.2 F 94 H 18 118/69 100 08/28/19 18:00 08/28/19 18:00 08/28/19 18:00 08/28/19 18:00 08/28/19 09:00 CBC, BMP 08/26/19 09:45 08/26/19 09:45 IMP- s/p jesse Prerenal azotemia underlying CKD Anemia Plan - s creat improving - monitor hg and labs - g-tube stil draining - surgery follow up pending - cont fluids for now - check labs in am - monitor calcium - monitor hg - avoid nsaids
--- NOTE | 2019-08-28 22:02 | PN ---
Progress Note, Physician History of Present Illness: No new changes - Current Medication List Current Medications: Active Medications Clindamycin HCl (Cleocin -) 300 mg GT TID [facility] Docusate Sodium (Colace Liquid -) 300 mg PO [facility] Last Admin: 08/27/19 21:58 Dose: Not Given Documented by: Fentanyl (Sublimaze Injection -) 25 mcg IVPUSH [id number] PRN PRN Reason: PAIN-PACU ORDER X 4 DOSES ONLY Heparin Sodium (Porcine) (Heparin -) 5,000 unit SQ BID [facility] Last Admin: 08/28/19 09:40 Dose: 5,000 unit Documented by: Amino Acids (Clinimix -) 1,000 mls @ 42 mls/hr IV Q24H [facility] Last Admin: 08/28/19 18:36 Dose: Not Given Documented by: Metoprolol Tartrate (Lopressor -) 25 mg PO DAILY [facility] Last Admin: 08/28/19 09:41 Dose: Not Given Documented by: Mirtazapine (Remeron -) 15 mg PO [facility] Last Admin: 08/27/19 21:59 Dose: Not Given Documented by: Mupirocin (Bactroban 2% Ointment -) 1 applic TP BID [facility] Last Admin: 08/28/19 09:41 Dose: 1 applic Documented by: Tamsulosin HCl (Flomax -) 0.4 mg PO DAILY@0830 [facility] Last Admin: 08/28/19 09:39 Dose: Not Given Documented by: - Objective Vital Signs: Vital Signs Temperature 98.2 F 08/28/19 18:00 Pulse Rate 94 H 08/28/19 18:00 Respiratory Rate 18 08/28/19 18:00 Blood Pressure 118/69 08/28/19 18:00 O2 Sat by Pulse Oximetry (%) 100 08/28/19 09:00 Neck: Yes: WNL, Supple Cardiovascular: Yes: WNL, Regular Rate and Rhythm Respiratory: Yes: Diminished Gastrointestinal: Yes: WNL, Normal Bowel Sounds, Soft, Other ((+) PEG) Labs: CBC, BMP 08/26/19 09:45 08/26/19 09:45 INR, PTT INR 1.10 (0.83-1.09) H 07/20/19 15:50 Problem List - Problems (1) Dementia Assessment/Plan: S/P PEG insertion DC IVF Pt cleared by surgery to use PEG Code(s): F03.90 - UNSPECIFIED DEMENTIA WITHOUT BEHAVIORAL DISTURBANCE (2) Anemia Assessment/Plan: S/P transfusion 2 units PRBC's DC asa/plavix No further testing Pt probable hospice Code(s): D64.9 - ANEMIA, UNSPECIFIED (3) Bacteremia Assessment/Plan: BC (+) for MRSA Repeat BC remain negative Urine culture negatgive Pt on IV vanco wc is on hold due to (+) sputum for MRSA Code(s): R78.81 - BACTEREMIA (4) HTN (hypertension) Assessment/Plan: BP stable Code(s): I10 - ESSENTIAL (PRIMARY) HYPERTENSION (5) Failure to thrive in adult Assessment/Plan: Encourage PO intake Started on IV clinimix Code(s): R62.7 - ADULT FAILURE TO THRIVE (6) HLD (hyperlipidemia) Assessment/Plan: Lipitor dc'ed due to elevated LFT's Code(s): E78.5 - HYPERLIPIDEMIA, UNSPECIFIED (7) Metabolic encephalopathy Code(s): G93.41 - METABOLIC ENCEPHALOPATHY (8) Elevated LFTs Assessment/Plan: DC lipitor Code(s): R94.5 - ABNORMAL RESULTS OF LIVER FUNCTION STUDIES (9) Rhabdomyolysis Assessment/Plan: Resolved Code(s): M62.82 - RHABDOMYOLYSIS
[2019-08-28] MEDS: MIRTAZAPINE 15 MG TABLET (FP) PO SCH (22:17)
[2019-08-28] MEDS: CLINDAMYCIN HCL 150 MG CAPSULE (FP) GT SCH (22:17)
[2019-08-28] MEDS: DOCUSATE NA 100 MG/10 ML UNIT-DOSE CUPS PO SCH (22:17)
[2019-08-29] MEDS: CLINDAMYCIN HCL 150 MG CAPSULE (FP) GT SCH ×3 (05:07→22:58)
[2019-08-29] MEDS ORDERED: PT OWN MED DRAWER 7, Y5N ONE (10:14)
[2019-08-29] MEDS: HEPARIN NA (PORCINE) 5,000 UNITS/ML 1ML VIAL SQ SCH ×2 (10:18→22:58)
[2019-08-29] MEDS: MUPIROCIN 2% TOPICAL OINTMENT 22 GM TUBE TP SCH ×2 (10:18→22:58)
[2019-08-29] MEDS: METOPROLOL TARTRATE 25 MG TABLET (FP) PO SCH (10:18)
[2019-08-29] MEDS: TAMSULOSIN HCL 0.4 MG CAP PO SCH (10:19)
--- NOTE | 2019-08-29 13:35 | PN ---
Progress Note, Physician History of Present Illness: Pt weak but arousable, without distress. Remains afebrile. GT with feeds running. +loose BM noted at this time. No previous episodes recorded as per RN. No abd pain on exam. - Current Medication List Current Medications: Active Medications Clindamycin HCl (Cleocin -) 300 mg GT TID [facility] Last Admin: 08/29/19 05:07 Dose: 300 mg Documented by: Docusate Sodium (Colace Liquid -) 300 mg PO [facility] Last Admin: 08/28/19 22:17 Dose: 300 mg Documented by: Fentanyl (Sublimaze Injection -) 25 mcg IVPUSH [id number] PRN PRN Reason: PAIN-PACU ORDER X 4 DOSES ONLY Heparin Sodium (Porcine) (Heparin -) 5,000 unit SQ BID [facility] Last Admin: 08/29/19 10:18 Dose: 5,000 unit Documented by: Amino Acids (Clinimix -) 1,000 mls @ 42 mls/hr IV Q24H [facility] Last Admin: 08/28/19 18:36 Dose: Not Given Documented by: Metoprolol Tartrate (Lopressor -) 25 mg PO DAILY [facility] Last Admin: 08/29/19 10:18 Dose: 25 mg Documented by: Mirtazapine (Remeron -) 15 mg PO [facility] Last Admin: 08/28/19 22:17 Dose: 15 mg Documented by: Mupirocin (Bactroban 2% Ointment -) 1 applic TP BID [facility] Last Admin: 08/29/19 10:18 Dose: 1 applic Documented by: Tamsulosin HCl (Flomax -) 0.4 mg PO DAILY@0830 [facility] Last Admin: 08/29/19 10:19 Dose: Not Given Documented by: - Objective Vital Signs: Vital Signs Temperature 98.2 F 08/29/19 10:00 Pulse Rate 94 H 08/29/19 10:00 Respiratory Rate 18 08/29/19 10:00 Blood Pressure 131/64 08/29/19 10:00 O2 Sat by Pulse Oximetry (%) 100 08/28/19 09:00 Constitutional: Yes: No Distress Eyes: Yes: Conjunctiva Clear Cardiovascular: Yes: Regular Rate and Rhythm Respiratory: Yes: Regular Gastrointestinal: Yes: Normal Bowel Sounds, Soft, Other (+GT) Genitourinary: Yes: Dasilva Present Extremities: Yes: Other (contracted LEs) Neurological: Yes: Lethargy, Weakness Labs: CBC, BMP 08/26/19 09:45 08/26/19 09:45 INR, PTT INR 1.10 (0.83-1.09) H 07/20/19 15:50 Laboratory Last Values WBC 16.1 K/mm3 (4.0-10.0) H 08/26/19 09:45 Corrected WBC (auto) Cancelled 08/05/19 07:40 RBC 2.71 M/mm3 (4.00-5.60) L 08/26/19 09:45 Hgb 7.4 GM/dL (11.7-16.9) L 08/26/19 09:45 Hct 22.7 % (35.4-49) L D 08/26/19 09:45 MCV 83.6 fl (80-96) 08/26/19 09:45 MCH 27.3 pg (25.7-33.7) 08/26/19 09:45 MCHC 32.7 g/dl (32.0-35.9) 08/26/19 09:45 RDW 16.4 % (11.9-15.9) H 08/26/19 09:45 Plt Count 489 K/MM3 (134-434) H 08/26/19 09:45 MPV 6.8 fl (7.5-11.1) L D 08/26/19 09:45 Absolute Neuts (auto) 13.5 K/mm3 (1.5-8.0) H 08/26/19 09:45 Total Counted 100 08/25/19 20:00 Neutrophils % 83.4 % (42.8-82.8) H D 08/26/19 09:45 Neutrophils % (Manual) 94.0 % (42.8-82.8) H 08/25/19 20:00 Band Neutrophils % 1.0 % 08/25/19 20:00 Lymphocytes % 9.9 % (8-40) D 08/26/19 09:45 Lymphocytes % (Manual) 4.0 % (8-40) L D 08/25/19 20:00 Monocytes % 6.4 % (3.8-10.2) 08/26/19 09:45 Monocytes % (Manual) 1 % (3.8-10.2) L D 08/25/19 20:00 Eosinophils % 0.0 % (0-4.5) D 08/26/19 09:45 Eosinophils % (Manual) 5.0 % (0-4.5) H D 08/16/19 07:00 Basophils % 0.3 % (0-2.0) 08/26/19 09:45 Basophils % (Manual) 0.0 % (0-2.0) 08/16/19 07:00 Myelocytes % (Man) 0 % (0-2) 08/16/19 07:00 Promyelocytes % (Man) 0 % (0-2) 08/16/19 07:00 Blast Cells % (Manual) 0 % (0-0) 08/16/19 07:00 Nucleated RBC % 0 % (0-0) 08/26/19 09:45 Metamyelocytes 0 % (0-2) D 08/16/19 07:00 Hypochromia 1+ 08/25/19 20:00 Platelet Estimate Increased 08/25/19 20:00 Platelet Comment No clumping noted 08/25/19 20:00 Polychromasia 1+ 08/25/19 20:00 Poikilocytosis 1+ 08/25/19 20:00 Anisocytosis 1+ 08/25/19 20:00 Microcytosis 1+ 08/25/19 20:00 Macrocytosis 0 08/16/19 07:00 Target Cells 1+ 08/25/19 20:00 Tear Drop Cells 1+ 08/25/19 20:00 Ovalocytes 1+ 07/31/19 09:00 Slater Cells 2+ 07/31/19 09:00 Schistocytes 1+ 07/31/19 09:00 Retic Count 1.44 % (0.5-1.5) 08/05/19 06:58 Haptoglobin 502 mg/dL (34-355) H 08/05/19 06:58 PT with INR 13.00 SEC (9.7-13.0) 07/20/19 15:50 INR 1.10 (0.83-1.09) H 07/20/19 15:50 PTT (Actin FS) 25.7 SECONDS (25.2-36.5) 07/20/19 15:50 VBG pH 7.30 (7.31-7.41) L 07/20/19 15:50 POC VBG pCO2 54.0 mmHg (38-52) H 07/20/19 15:50 POC VBG pO2 < 49 mmHg (28-48) H 07/20/19 15:50 VBG HCO3 26.0 mmol/L (23-29) 07/20/19 15:50 VBG O2 Sat (Henry) 19.5 % (70-80) L 07/20/19 15:50 VBG Base Excess -0.5 meq/l (-2-2) 07/20/19 15:50 Sodium 140 mmol/L (136-145) 08/26/19 09:45 Potassium 4.4 mmol/L (3.5-5.1) 08/26/19 09:45 Chloride 111 mmol/L (98-107) H 08/26/19 09:45 Carbon Dioxide 25 mmol/L (21-32) 08/26/19 09:45 Anion Gap 5 MMOL/L (8-16) L 08/26/19 09:45 BUN 27.8 mg/dL (7-18) H 08/26/19 09:45 Creatinine 0.9 mg/dL (0.55-1.3) 08/26/19 09:45 Est GFR (CKD-EPI)AfAm 93.82 08/26/19 09:45 Est GFR (CKD-EPI)NonAf 80.95 08/26/19 09:45 POC Glucometer 107 UNITS (80-120) 08/25/19 15:38 Random Glucose 110 mg/dL (74-106) H 08/26/19 09:45 Lactic Acid 1.9 mmol/L (0.4-2.0) 07/21/19 02:44 Calcium 9.8 mg/dL (8.5-10.1) 08/26/19 09:45 Phosphorus 2.5 mg/dL (2.5-4.9) 08/16/19 07:00 Magnesium 1.6 mg/dL (1.8-2.4) L 08/21/19 12:26 Iron 33 ug/dL (50-175) L 08/05/19 09:10 TIBC 106 ug/dL (250-450) L 08/05/19 09:10 Iron Saturation 31 % (17.5-39) 08/05/19 09:10 Unsaturated IBC 73 ug/dL (200-275) L 08/05/19 09:10 Ferritin 779.9 ng/ml (8-388) H 08/05/19 09:10 Total Bilirubin 0.2 mg/dL (0.2-1) 08/26/19 09:45 AST 15 U/L (15-37) 08/26/19 09:45 ALT 7 U/L (13-61) L 08/26/19 09:45 Alkaline Phosphatase 74 U/L (45-117) 08/26/19 09:45 LD Total 457 U/L (87-246) H 08/05/19 09:10 Creatine Kinase 437 U/L (26-308) H 07/27/19 07:35 Creatine Kinase Index 0.9 % (0.0-5.0) 07/27/19 07:35 CK-MB (CK-2) 4.1 ng/mL (0.5-3.6) H 07/27/19 07:35 Troponin I 0.02 ng/ml (0.00-0.05) 07/23/19 10:20 Total Protein 5.6 g/dl (6.4-8.2) L 08/26/19 09:45 Total Protein (PEP) 5.2 g/dL (6.0-8.5) L 08/17/19 17:00 Albumin 1.6 g/dl (3.4-5.0) L 08/26/19 09:45 Albumin % 24.5 % (.) 08/07/19 06:00 Albumin (PEP) 1.7 gm/dl (2.9-4.4) L 08/17/19 17:00 Globulin 3.5 g/dL (2.2-3.9) 08/17/19 17:00 Albumin/Globulin Ratio 0.5 (0.7-1.7) L 08/17/19 17:00 Beta Globulins 0.8 gm/dL (0.7-1.3) 08/17/19 17:00 Gamma Globulins (%) 32.0 % (.) 08/07/19 06:00 Triglycerides 213 mg/dL (0-150) H 08/21/19 12:26 Cholesterol 158 mg/dL (50-200) 08/21/19 12:26 Total LDL Cholesterol 92 mg/dL (5-100) 08/21/19 12:26 HDL Cholesterol 34 mg/dL (40-60) L 08/21/19 12:26 Vitamin B12 558 pg/ml (193-986) 08/06/19 08:25 Folate 1447 ng/mL (>498) 08/06/19 08:25 Folate Hemolysate 314.1 ng/mL (Not Estab.) 08/06/19 08:25 TSH 5.93 uIU/ml (0.358-3.74) H D 08/06/19 08:25 Free T4 0.99 ng/dl (0.76-1.16) 08/06/19 08:25 PTH Intact 5 pg/mL (15-65) L 08/15/19 07:30 Urine Color Yellow 08/02/19 14:30 Urine Appearance Cloudy 08/02/19 14:30 Urine pH 5.0 (5.0-8.0) 08/02/19 14:30 Ur Specific [place] 1.021 (1.010-1.035) 08/02/19 14:30 Urine Protein Trace (NEGATIVE) 08/02/19 14:30 Urine Glucose (UA) Negative (NEGATIVE) 08/02/19 14:30 Urine Ketones Negative (NEGATIVE) 08/02/19 14:30 Urine Blood Trace (NEGATIVE) 08/02/19 14:30 Urine Nitrite Negative (NEGATIVE) 08/02/19 14:30 Urine Bilirubin Negative (NEGATIVE) 08/02/19 14:30 Urine Urobilinogen 1.0 mg/dL (0.2-1.0) 08/02/19 14:30 Ur Leukocyte Esterase Negative (NEGATIVE) 08/02/19 14:30 Urine WBC (Auto) 9 /hpf (0-5) 08/02/19 14:30 Urine RBC (Auto) 54.5 /hpf (0-4) 08/02/19 14:30 Urine Casts (Auto) 15 /lpf (0-8) 08/02/19 14:30 U Epithel Cells (Auto) 1.9 /HPF (0-5/HPF) 08/02/19 14:30 Urine Bacteria (Auto) 2.7 /hpf (NEGATIVE) 08/02/19 14:30 Urine Eosinophils None seen % (.) 08/02/19 14:30 Ur Total Protein 24 Hr 554 mg/24 hr (30-150) H 08/07/19 06:00 Urine Total Protein 69.2 mg/dL (Not Estab.) 08/07/19 06:00 U PEP M-Jose A 78.6 mg/24 hr (Not Observed) H 08/07/19 06:00 U Free [place] Light Ch 886.97 mg/L (0.63-113.79) H 08/19/19 09:40 U Free [place] Light Ch 285.31 mg/L (0.47-11.77) H 08/19/19 09:40 U Free [place]/Lambda 24 3.11 (1.03-31.76) 08/19/19 09:40 Stool Occult Blood Negative (NEGATIVE) 08/05/19 07:15 Random Vancomycin 5.0 ug/ml (5-26) 08/25/19 08:20 Vancomycin Pre-Dose 39.0 ug/ml (5-10) H* 08/15/19 13:13 IgG 1205 mg/dL (700-1600) 08/05/19 13:00 IgA 564 mg/dL (61-437) H 08/05/19 13:00 IgM 48 mg/dL (15-143) 08/05/19 13:00 LEANDRO M-Jose A 0.3 g/dL (Not Observed) H 08/17/19 17:00 Serum LEANDRO Interpret (.) 08/05/19 13:00 IEP IgG 1170 mg/dL (700-1600) 08/05/19 13:00 IEP IgA 572 mg/dL (61-437) H 08/05/19 13:00 IEP IgM 48 mg/dL (15-143) 08/05/19 13:00 U Random LEANDRO M-Jose A % 14.2 % (Not Observed) H 08/07/19 06:00 Free [place] LC, Quant 116.5 mg/L (3.3-19.4) H 08/05/19 13:00 Free [place] LC, Quant 166.6 mg/L (5.7-26.3) H 08/05/19 13:00 Free [place]/Lambda Ratio 0.70 (0.26-1.65) 08/05/19 13:00 Ref Test Comments (.) 08/07/19 06:00 Blood Type O POSITIVE 08/04/19 09:58 Antibody Screen Negative 08/04/19 09:58 Direct Antiglob Test Positive (NEGATIVE) H 08/05/19 09:58 Crossmatch See Detail 08/05/19 09:58 Problem List - Problems (1) Bacteremia Code(s): R78.81 - BACTEREMIA (2) Failure to thrive in adult Code(s): R62.7 - ADULT FAILURE TO THRIVE (3) Fever Code(s): R50.9 - FEVER, UNSPECIFIED (4) HLD (hyperlipidemia) Code(s): E78.5 - HYPERLIPIDEMIA, UNSPECIFIED (5) HTN (hypertension) Code(s): I10 - ESSENTIAL (PRIMARY) HYPERTENSION (6) Weakness Code(s): R53.1 - WEAKNESS (7) Acute kidney injury Code(s): N17.9 - ACUTE KIDNEY FAILURE, UNSPECIFIED (8) Metabolic encephalopathy Code(s): G93.41 - METABOLIC ENCEPHALOPATHY (9) Rhabdomyolysis Code(s): M62.82 - RHABDOMYOLYSIS Assessment/Plan GT now in use Antibiotics switched to Clindamycin yesterday Loose BM noted currently - monitor number of episodes, send stool C.dif if recurrent s/p IV Vancomycin Continue monitor labs Pt afebrile, without distress
[2019-08-29] MEDS: AMINO ACIDS 4.25%/D5W 1,000 ML IV SCH (17:04)
[2019-08-29] MEDS: AMINO ACIDS/PROTEIN HYDROLYS 30 ML LIQUID.PKT PO SCH (17:51)
--- NOTE | 2019-08-29 21:53 | PN ---
Progress Note, Physician - Current Medication List Current Medications: Active Medications Amino Acids (Prosource No Carb Liquid Pkt) 30 ml [facility] Last Admin: 08/29/19 17:51 Dose: 30 ml Documented by: Clindamycin HCl (Cleocin -) 300 mg GT TID [facility] Last Admin: 08/29/19 15:12 Dose: 300 mg Documented by: Docusate Sodium (Colace Liquid -) 300 mg PO HS [facility] Last Admin: 08/28/19 22:17 Dose: 300 mg Documented by: Fentanyl (Sublimaze Injection -) 25 mcg IVPUSH [id number] PRN PRN Reason: PAIN-PACU ORDER X 4 DOSES ONLY Heparin Sodium (Porcine) (Heparin -) 5,000 unit SQ BID [facility] Last Admin: 08/29/19 10:18 Dose: 5,000 unit Documented by: Metoprolol Tartrate (Lopressor -) 25 mg PO DAILY [facility] Last Admin: 08/29/19 10:18 Dose: 25 mg Documented by: Mirtazapine (Remeron -) 15 mg PO [facility] Last Admin: 08/28/19 22:17 Dose: 15 mg Documented by: Mupirocin (Bactroban 2% Ointment -) 1 applic TP BID [facility] Last Admin: 08/29/19 10:18 Dose: 1 applic Documented by: Tamsulosin HCl (Flomax -) 0.4 mg PO DAILY@0830 [facility] Last Admin: 08/29/19 10:19 Dose: Not Given Documented by: - Objective Vital Signs: Vital Signs Temperature 97.4 F L 08/29/19 18:00 Pulse Rate 79 08/29/19 18:00 Respiratory Rate 18 08/29/19 18:00 Blood Pressure 119/64 08/29/19 18:00 O2 Sat by Pulse Oximetry (%) 100 08/28/19 09:00 Labs: CBC, BMP 08/26/19 09:45 08/26/19 09:45 INR, PTT INR 1.10 (0.83-1.09) H 07/20/19 15:50 Problem List - Problems (1) Dementia Code(s): F03.90 - UNSPECIFIED DEMENTIA WITHOUT BEHAVIORAL DISTURBANCE (2) Anemia Code(s): D64.9 - ANEMIA, UNSPECIFIED (3) Bacteremia Code(s): R78.81 - BACTEREMIA (4) HTN (hypertension) Code(s): I10 - ESSENTIAL (PRIMARY) HYPERTENSION (5) Failure to thrive in adult Code(s): R62.7 - ADULT FAILURE TO THRIVE (6) HLD (hyperlipidemia) Code(s): E78.5 - HYPERLIPIDEMIA, UNSPECIFIED (7) Metabolic encephalopathy Code(s): G93.41 - METABOLIC ENCEPHALOPATHY (8) Elevated LFTs Code(s): R94.5 - ABNORMAL RESULTS OF LIVER FUNCTION STUDIES (9) Rhabdomyolysis Code(s): M62.82 - RHABDOMYOLYSIS
--- NOTE | 2019-08-29 22:03 | PN ---
Progress Note (short form) - Note Progress Note: Problems 1. JESSE 2. hyperkalemia 3. htn 4. hld 5. brain lesion 6. right renal density 7. rhabdo 8. anemia Current Medications Amino Acids (Prosource No Carb Liquid Pkt) 30 ml PO [facility]IDCM [facility] Last Admin: 08/29/19 17:51 Dose: 30 ml Documented by: Clindamycin HCl (Cleocin -) 300 mg GT TID [facility] Last Admin: 08/29/19 15:12 Dose: 300 mg Documented by: Docusate Sodium (Colace Liquid -) 300 mg PO HS [facility] Last Admin: 08/28/19 22:17 Dose: 300 mg Documented by: Fentanyl (Sublimaze Injection -) 25 mcg IVPUSH [id number] PRN PRN Reason: PAIN-PACU ORDER X 4 DOSES ONLY Heparin Sodium (Porcine) (Heparin -) 5,000 unit SQ BID [facility] Last Admin: 08/29/19 10:18 Dose: 5,000 unit Documented by: Metoprolol Tartrate (Lopressor -) 25 mg PO DAILY [facility] Last Admin: 08/29/19 10:18 Dose: 25 mg Documented by: Mirtazapine (Remeron -) 15 mg PO [facility] Last Admin: 08/28/19 22:17 Dose: 15 mg Documented by: Mupirocin (Bactroban 2% Ointment -) 1 applic TP BID [facility] Last Admin: 08/29/19 10:18 Dose: 1 applic Documented by: Tamsulosin HCl (Flomax -) 0.4 mg PO DAILY@0830 [facility] Last Admin: 08/29/19 10:19 Dose: Not Given Documented by: Last Vital Signs Temp Pulse Resp BP Pulse Ox 97.4 F L 79 18 119/64 100 08/29/19 18:00 08/29/19 18:00 08/29/19 18:00 08/29/19 18:00 08/28/19 09:00 CBC, BMP 08/26/19 09:45 08/26/19 09:45 IMP- s/p jesse Prerenal azotemia underlying CKD Anemia Plan - s creat improving - monitor hg and labs - g-tube stil draining - surgery follow up pending - cont fluids for now - check labs in am - monitor calcium - monitor hg - avoid nsaids
[2019-08-29] MEDS: MIRTAZAPINE 15 MG TABLET (FP) PO SCH (22:58)
[2019-08-29] MEDS: DOCUSATE NA 100 MG/10 ML UNIT-DOSE CUPS PO SCH (22:58)
[2019-08-30] MEDS: CLINDAMYCIN HCL 150 MG CAPSULE (FP) GT SCH ×3 (06:37→21:43)
[2019-08-30] MEDS: HEPARIN NA (PORCINE) 5,000 UNITS/ML 1ML VIAL SQ SCH ×2 (09:03→21:43)
[2019-08-30] MEDS: TAMSULOSIN HCL 0.4 MG CAP PO SCH ×2 (09:03→09:19)
[2019-08-30] MEDS: AMINO ACIDS/PROTEIN HYDROLYS 30 ML LIQUID.PKT PO SCH ×3 (09:03→17:27)
[2019-08-30] MEDS: METOPROLOL TARTRATE 25 MG TABLET (FP) PO SCH (09:03)
[2019-08-30] MEDS: MUPIROCIN 2% TOPICAL OINTMENT 22 GM TUBE TP SCH ×2 (11:19→21:43)
--- NOTE | 2019-08-30 12:58 | PN ---
Progress Note, Physician History of Present Illness: no new issues - Current Medication List Current Medications: Active Medications Amino Acids (Prosource No Carb Liquid Pkt) 30 ml PO TIDCM [facility] Last Admin: 08/30/19 12:18 Dose: 30 ml Documented by: Clindamycin HCl (Cleocin -) 300 mg GT TID [facility] Last Admin: 08/30/19 06:37 Dose: 300 mg Documented by: Docusate Sodium (Colace Liquid -) 300 mg PO HS [facility] Last Admin: 08/29/19 22:58 Dose: 300 mg Documented by: Fentanyl (Sublimaze Injection -) 25 mcg IVPUSH [id number] PRN PRN Reason: PAIN-PACU ORDER X 4 DOSES ONLY Heparin Sodium (Porcine) (Heparin -) 5,000 unit SQ BID [facility] Last Admin: 08/30/19 09:03 Dose: 5,000 unit Documented by: Metoprolol Tartrate (Lopressor -) 25 mg PO DAILY [facility] Last Admin: 08/30/19 09:03 Dose: 25 mg Documented by: Mirtazapine (Remeron -) 15 mg PO [facility] Last Admin: 08/29/19 22:58 Dose: 15 mg Documented by: Mupirocin (Bactroban 2% Ointment -) 1 applic TP BID [facility] Last Admin: 08/30/19 11:19 Dose: 1 applic Documented by: Tamsulosin HCl (Flomax -) 0.4 mg PO DAILY@0830 [facility] Last Admin: 08/30/19 09:19 Dose: Not Given Documented by: - Objective Vital Signs: Vital Signs Temperature 98.3 F 08/30/19 10:00 Pulse Rate 88 08/30/19 10:00 Respiratory Rate 18 08/30/19 10:00 Blood Pressure 138/64 08/30/19 10:00 O2 Sat by Pulse Oximetry (%) 100 08/28/19 09:00 Constitutional: Yes: No Distress, Calm Cardiovascular: Yes: S1, S2 Respiratory: Yes: Regular, CTA Bilaterally Gastrointestinal: Yes: Soft, Other (g) Musculoskeletal: Yes: WNL Extremities: Yes: WNL Neurological: Yes: Alert Psychiatric: Yes: Other Labs: CBC, BMP 08/26/19 09:45 08/26/19 09:45 INR, PTT INR 1.10 (0.83-1.09) H 07/20/19 15:50 Assessment/Plan Problem List - Problems (1) Anemia Code(s): D64.9 - ANEMIA, UNSPECIFIED (2) Bacteremia Code(s): R78.81 - BACTEREMIA (3) Rhabdomyolysis Code(s): M62.82 - RHABDOMYOLYSIS (4) HTN (hypertension) Code(s): I10 - ESSENTIAL (PRIMARY) HYPERTENSION (5) Failure to thrive in adult Code(s): R62.7 - ADULT FAILURE TO THRIVE (6) Dementia Code(s): F03.90 - UNSPECIFIED DEMENTIA WITHOUT BEHAVIORAL DISTURBANCE (7) HLD (hyperlipidemia) Code(s): E78.5 - HYPERLIPIDEMIA, UNSPECIFIED (8) Metabolic encephalopathy Code(s): G93.41 - METABOLIC ENCEPHALOPATHY (9) Elevated LFTs Code(s): R94.5 - ABNORMAL RESULTS OF LIVER FUNCTION STUDIES plan continue current mgmt monitor dirrhoea nutrition rest as per the team
--- NOTE | 2019-08-30 19:26 | PN ---
Progress Note (short form) - Note Progress Note: Problems 1. JESSE 2. hyperkalemia 3. htn 4. hld 5. brain lesion 6. right renal density 7. rhabdo 8. anemia Current Medications Amino Acids (Prosource No Carb Liquid Pkt) 30 ml PO TIDCM [facility] Last Admin: 08/30/19 17:27 Dose: 30 ml Documented by: Clindamycin HCl (Cleocin -) 300 mg GT TID [facility] Last Admin: 08/30/19 14:59 Dose: 300 mg Documented by: Docusate Sodium (Colace Liquid -) 300 mg PO HS [facility] Last Admin: 08/29/19 22:58 Dose: 300 mg Documented by: Fentanyl (Sublimaze Injection -) 25 mcg IVPUSH [id number] PRN PRN Reason: PAIN-PACU ORDER X 4 DOSES ONLY Heparin Sodium (Porcine) (Heparin -) 5,000 unit SQ BID [facility] Last Admin: 08/30/19 09:03 Dose: 5,000 unit Documented by: Metoprolol Tartrate (Lopressor -) 25 mg PO DAILY [facility] Last Admin: 08/30/19 09:03 Dose: 25 mg Documented by: Mirtazapine (Remeron -) 15 mg PO [facility] Last Admin: 08/29/19 22:58 Dose: 15 mg Documented by: Mupirocin (Bactroban 2% Ointment -) 1 applic TP BID [facility] Last Admin: 08/30/19 11:19 Dose: 1 applic Documented by: Tamsulosin HCl (Flomax -) 0.4 mg PO DAILY@0830 [facility] Last Admin: 08/30/19 09:19 Dose: Not Given Documented by: Last Vital Signs Temp Pulse Resp BP Pulse Ox 98.3 F 91 H 18 122/55 L 100 08/30/19 18:00 08/30/19 18:00 08/30/19 15:50 08/30/19 18:00 08/28/19 09:00 poor ly responsive Lungs clear heart reg Abd soft nontender Ext no edema CBC, BMP 08/26/19 09:45 08/26/19 09:45 CBC, BMP 08/26/19 09:45 08/26/19 09:45 IMP- s/p jesse Prerenal azotemia underlying CKD Anemia Plan continue present rx
--- NOTE | 2019-08-30 21:05 | PN ---
Progress Note, Physician History of Present Illness: No new changes - Current Medication List Current Medications: Active Medications Amino Acids (Prosource No Carb Liquid Pkt) 30 ml PO TIDCM COUNTS INCLUDE 234 BEDS AT THE [facility] Last Admin: 08/30/19 17:27 Dose: 30 ml Documented by: Clindamycin HCl (Cleocin -) 300 mg GT TID COUNTS INCLUDE 234 BEDS AT THE [facility] Last Admin: 08/30/19 14:59 Dose: 300 mg Documented by: Docusate Sodium (Colace Liquid -) 300 mg PO HS COUNTS INCLUDE 234 BEDS AT THE [facility] Last Admin: 08/29/19 22:58 Dose: 300 mg Documented by: Fentanyl (Sublimaze Injection -) 25 mcg IVPUSH [id number] PRN PRN Reason: PAIN-PACU ORDER X 4 DOSES ONLY Heparin Sodium (Porcine) (Heparin -) 5,000 unit SQ BID COUNTS INCLUDE 234 BEDS AT THE [facility] Last Admin: 08/30/19 09:03 Dose: 5,000 unit Documented by: Metoprolol Tartrate (Lopressor -) 25 mg PO DAILY COUNTS INCLUDE 234 BEDS AT THE [facility] Last Admin: 08/30/19 09:03 Dose: 25 mg Documented by: Mirtazapine (Remeron -) 15 mg PO [facility] Last Admin: 08/29/19 22:58 Dose: 15 mg Documented by: Mupirocin (Bactroban 2% Ointment -) 1 applic TP BID COUNTS INCLUDE 234 BEDS AT THE [facility] Last Admin: 08/30/19 11:19 Dose: 1 applic Documented by: Tamsulosin HCl (Flomax -) 0.4 mg PO DAILY@0830 COUNTS INCLUDE 234 BEDS AT THE [facility] Last Admin: 08/30/19 09:19 Dose: Not Given Documented by: - Objective Vital Signs: Vital Signs Temperature 98.3 F 08/30/19 18:00 Pulse Rate 91 H 08/30/19 18:00 Respiratory Rate 18 08/30/19 15:50 Blood Pressure 122/55 L 08/30/19 18:00 O2 Sat by Pulse Oximetry (%) 100 08/30/19 09:00 Cardiovascular: Yes: WNL, Regular Rate and Rhythm Respiratory: Yes: WNL, Regular, CTA Bilaterally Gastrointestinal: Yes: WNL, Normal Bowel Sounds, Soft, Other ((+) PEG) Labs: CBC, BMP 08/26/19 09:45 08/26/19 09:45 INR, PTT INR 1.10 (0.83-1.09) H 07/20/19 15:50 Problem List - Problems (1) Bacteremia Assessment/Plan: BC (+) for MRSA Repeat BC remain negative Urine culture negatgive (+) sputum for MRSA Cont clinda DC planning in am Unable to draw any labs today due to poor access Code(s): R78.81 - BACTEREMIA (2) Dementia Assessment/Plan: S/P PEG insertion DC IVF Pt cleared by surgery to use PEG Pt tolerating feedings DC planning Code(s): F03.90 - UNSPECIFIED DEMENTIA WITHOUT BEHAVIORAL DISTURBANCE (3) Anemia Assessment/Plan: S/P transfusion 2 units PRBC's DC asa/plavix No further testing Pt probable hospice Code(s): D64.9 - ANEMIA, UNSPECIFIED (4) HTN (hypertension) Code(s): I10 - ESSENTIAL (PRIMARY) HYPERTENSION (5) Failure to thrive in adult Code(s): R62.7 - ADULT FAILURE TO THRIVE (6) HLD (hyperlipidemia) Code(s): E78.5 - HYPERLIPIDEMIA, UNSPECIFIED (7) Metabolic encephalopathy Code(s): G93.41 - METABOLIC ENCEPHALOPATHY (8) Elevated LFTs Code(s): R94.5 - ABNORMAL RESULTS OF LIVER FUNCTION STUDIES (9) Rhabdomyolysis Code(s): M62.82 - RHABDOMYOLYSIS
[2019-08-30] MEDS: MIRTAZAPINE 15 MG TABLET (FP) PO SCH (21:43)
[2019-08-30] MEDS: DOCUSATE NA 100 MG/10 ML UNIT-DOSE CUPS PO SCH ×2 (21:43→21:45)
[2019-08-31] MEDS: CLINDAMYCIN HCL 150 MG CAPSULE (FP) GT SCH ×3 (05:56→21:13)
[2019-08-31] MEDS: TAMSULOSIN HCL 0.4 MG CAP PO SCH (10:58)
[2019-08-31] MEDS: AMINO ACIDS/PROTEIN HYDROLYS 30 ML LIQUID.PKT PO SCH ×3 (10:58→18:16)
[2019-08-31] MEDS: HEPARIN NA (PORCINE) 5,000 UNITS/ML 1ML VIAL SQ SCH ×2 (10:58→21:14)
[2019-08-31] MEDS: METOPROLOL TARTRATE 25 MG TABLET (FP) PO SCH (10:58)
[2019-08-31] MEDS: MUPIROCIN 2% TOPICAL OINTMENT 22 GM TUBE TP SCH ×2 (11:00→21:14)
--- NOTE | 2019-08-31 11:56 | PN ---
Progress Note, Physician History of Present Illness: no new issues dirrhoea - Current Medication List Current Medications: Active Medications Amino Acids (Prosource No Carb Liquid Pkt) 30 ml PO TIDCM [facility] Last Admin: 08/31/19 10:58 Dose: 30 ml Documented by: Clindamycin HCl (Cleocin -) 300 mg GT TID [facility] Last Admin: 08/31/19 05:56 Dose: 300 mg Documented by: Docusate Sodium (Colace Liquid -) 300 mg PO HS [facility] Last Admin: 08/30/19 21:45 Dose: Not Given Documented by: Fentanyl (Sublimaze Injection -) 25 mcg IVPUSH [id number] PRN PRN Reason: PAIN-PACU ORDER X 4 DOSES ONLY Heparin Sodium (Porcine) (Heparin -) 5,000 unit SQ BID [facility] Last Admin: 08/31/19 10:58 Dose: 5,000 unit Documented by: Metoprolol Tartrate (Lopressor -) 25 mg PO DAILY [facility] Last Admin: 08/31/19 10:58 Dose: 25 mg Documented by: Mirtazapine (Remeron -) 15 mg PO [facility] Last Admin: 08/30/19 21:43 Dose: 15 mg Documented by: Mupirocin (Bactroban 2% Ointment -) 1 applic TP BID [facility] Last Admin: 08/31/19 11:00 Dose: 1 applic Documented by: Tamsulosin HCl (Flomax -) 0.4 mg PO DAILY@0830 [facility] Last Admin: 08/31/19 10:58 Dose: 0.4 mg Documented by: - Objective Vital Signs: Vital Signs Temperature 98.4 F 08/31/19 06:00 Pulse Rate 104 H 08/31/19 06:00 Respiratory Rate 20 08/31/19 06:00 Blood Pressure 104/56 L 08/31/19 06:00 O2 Sat by Pulse Oximetry (%) 98 08/30/19 21:00 Constitutional: Yes: No Distress, Calm Cardiovascular: Yes: S1, S2 Respiratory: Yes: Regular, CTA Bilaterally Gastrointestinal: Yes: Normal Bowel Sounds, Soft, Other (peg in place) Musculoskeletal: Yes: WNL Extremities: Yes: Other Neurological: Yes: Other Labs: CBC, BMP 08/26/19 09:45 08/26/19 09:45 INR, PTT INR 1.10 (0.83-1.09) H 07/20/19 15:50 Assessment/Plan Problem List - Problems (1) Anemia Code(s): D64.9 - ANEMIA, UNSPECIFIED (2) Bacteremia Code(s): R78.81 - BACTEREMIA (3) Rhabdomyolysis Code(s): M62.82 - RHABDOMYOLYSIS (4) HTN (hypertension) Code(s): I10 - ESSENTIAL (PRIMARY) HYPERTENSION (5) Failure to thrive in adult Code(s): R62.7 - ADULT FAILURE TO THRIVE (6) Dementia Code(s): F03.90 - UNSPECIFIED DEMENTIA WITHOUT BEHAVIORAL DISTURBANCE (7) HLD (hyperlipidemia) Code(s): E78.5 - HYPERLIPIDEMIA, UNSPECIFIED (8) Metabolic encephalopathy Code(s): G93.41 - METABOLIC ENCEPHALOPATHY (9) Elevated LFTs Code(s): R94.5 - ABNORMAL RESULTS OF LIVER FUNCTION STUDIES plan continue current mgmt rest as per the team nutrition
--- NOTE | 2019-08-31 16:44 | PN ---
Progress Note, Physician History of Present Illness: Pt seen and examined at bedside. He developed diarrhea with the feeds. - Current Medication List Current Medications: Active Medications Amino Acids (Prosource No Carb Liquid Pkt) 30 ml PO TIDCM [facility] Last Admin: 08/31/19 12:36 Dose: 30 ml Documented by: Clindamycin HCl (Cleocin -) 300 mg GT TID [facility] Last Admin: 08/31/19 15:33 Dose: 300 mg Documented by: Docusate Sodium (Colace Liquid -) 300 mg PO [facility] Last Admin: 08/30/19 21:45 Dose: Not Given Documented by: Fentanyl (Sublimaze Injection -) 25 mcg IVPUSH [id number] PRN PRN Reason: PAIN-PACU ORDER X 4 DOSES ONLY Heparin Sodium (Porcine) (Heparin -) 5,000 unit SQ BID [facility] Last Admin: 08/31/19 10:58 Dose: 5,000 unit Documented by: Metoprolol Tartrate (Lopressor -) 25 mg PO DAILY [facility] Last Admin: 08/31/19 10:58 Dose: 25 mg Documented by: Mirtazapine (Remeron -) 15 mg PO [facility] Last Admin: 08/30/19 21:43 Dose: 15 mg Documented by: Mupirocin (Bactroban 2% Ointment -) 1 applic TP BID [facility] Last Admin: 08/31/19 11:00 Dose: 1 applic Documented by: Tamsulosin HCl (Flomax -) 0.4 mg PO DAILY@0830 [facility] Last Admin: 08/31/19 10:58 Dose: 0.4 mg Documented by: - Objective Vital Signs: Vital Signs Temperature 98.8 F 08/31/19 14:12 Pulse Rate 84 08/31/19 14:12 Respiratory Rate 20 08/31/19 14:12 Blood Pressure 118/83 08/31/19 14:12 O2 Sat by Pulse Oximetry (%) 98 08/31/19 09:00 Constitutional: Yes: Calm Eyes: Yes: Conjunctiva Clear HENT: Yes: Atraumatic Neck: Yes: Supple Cardiovascular: Yes: S1, S2 Gastrointestinal: Yes: Soft Musculoskeletal: Yes: Muscle Weakness Neurological: Yes: Lethargy Labs: CBC, BMP 08/26/19 09:45 08/26/19 09:45 INR, PTT INR 1.10 (0.83-1.09) H 07/20/19 15:50 Problem List - Problems (1) Hyperkalemia Code(s): E87.5 - HYPERKALEMIA (2) Dehydration Code(s): E86.0 - DEHYDRATION (3) Failure to thrive in adult Code(s): R62.7 - ADULT FAILURE TO THRIVE (4) Acute kidney injury Code(s): N17.9 - ACUTE KIDNEY FAILURE, UNSPECIFIED Assessment/Plan Current Medications Generic Name Dose Route Start Last Admin Trade Name Freq PRN Reason Stop Dose Admin Amino Acids 30 ml 08/29/19 17:30 08/31/19 12:36 Prosource No Carb Liquid Pkt PO 30 ml TIDCM MELA Administration Clindamycin HCl 300 mg 08/28/19 22:00 08/31/19 15:33 Cleocin - GT 300 mg TID MELA Administration Docusate Sodium 300 mg 08/25/19 22:00 08/30/19 21:45 Colace Liquid - PO Not Given HS MELA Fentanyl 25 mcg 08/25/19 13:55 Sublimaze Injection - IVPUSH [id number] PRN PAIN-PACU ORDER X 4 DOSES ONLY Heparin Sodium (Porcine) 5,000 unit 08/26/19 10:00 08/31/19 10:58 Heparin - SQ 5,000 unit BID MELA Administration Metoprolol Tartrate 25 mg 08/26/19 10:00 08/31/19 10:58 Lopressor - PO 25 mg DAILY MELA Administration Mirtazapine 15 mg 08/25/19 22:00 08/30/19 21:43 Remeron - PO 15 mg HS MELA Administration Mupirocin 1 applic 08/25/19 22:00 08/31/19 11:00 Bactroban 2% Ointment - TP 1 applic BID MELA Administration Tamsulosin HCl 0.4 mg 08/26/19 08:30 08/31/19 10:58 Flomax - PO 0.4 mg DAILY@0830 MELA Administration Impression 1. JESSE 2. hyperkalemia 3. htn 4. hld 5. brain lesion 6. right renal density 7. rhabdo 8. anemia 9. hypercalcemia 10. malnutrition Plan - change feeds to alternate formulation to see if loose stools improve - if no improvement will need to workup diarrhea - spoke to dietary for recs - discussed with nurse - monitor calcium - monitor hg - avoid nsaids
[2019-08-31] MEDS: MIRTAZAPINE 15 MG TABLET (FP) PO SCH (21:13)
[2019-08-31] MEDS: DOCUSATE NA 100 MG/10 ML UNIT-DOSE CUPS PO SCH (21:18)
--- NOTE | 2019-08-31 22:56 | PN ---
Progress Note, Physician - Current Medication List Current Medications: Active Medications Amino Acids (Prosource No Carb Liquid Pkt) 30 [facility] Last Admin: 08/31/19 18:16 Dose: 30 ml Documented by: Clindamycin HCl (Cleocin -) 300 mg GT TID [facility] Last Admin: 08/31/19 21:13 Dose: 300 mg Documented by: Docusate Sodium (Colace Liquid -) 300 mg PO HS [facility] Last Admin: 08/31/19 21:18 Dose: Not Given Documented by: Fentanyl (Sublimaze Injection -) 25 mcg IVPUSH [id number] PRN PRN Reason: PAIN-PACU ORDER X 4 DOSES ONLY Heparin Sodium (Porcine) (Heparin -) 5,000 unit SQ BID [facility] Last Admin: 08/31/19 21:14 Dose: 5,000 unit Documented by: Metoprolol Tartrate (Lopressor -) 25 mg PO DAILY [facility] Last Admin: 08/31/19 10:58 Dose: 25 mg Documented by: Mirtazapine (Remeron -) 15 mg PO [facility] Last Admin: 08/31/19 21:13 Dose: 15 mg Documented by: Mupirocin (Bactroban 2% Ointment -) 1 applic TP BID [facility] Last Admin: 08/31/19 21:14 Dose: 1 applic Documented by: Tamsulosin HCl (Flomax -) 0.4 mg PO DAILY@0830 [facility] Last Admin: 08/31/19 10:58 Dose: 0.4 mg Documented by: - Objective Vital Signs: Vital Signs Temperature 98.3 F 08/31/19 18:00 Pulse Rate 83 08/31/19 18:00 Respiratory Rate 20 08/31/19 18:00 Blood Pressure 117/57 L 08/31/19 18:00 O2 Sat by Pulse Oximetry (%) 98 08/31/19 09:00 Labs: CBC, BMP 08/26/19 09:45 08/26/19 09:45 INR, PTT INR 1.10 (0.83-1.09) H 07/20/19 15:50 Problem List - Problems (1) Bacteremia Code(s): R78.81 - BACTEREMIA (2) Dementia Code(s): F03.90 - UNSPECIFIED DEMENTIA WITHOUT BEHAVIORAL DISTURBANCE (3) Anemia Code(s): D64.9 - ANEMIA, UNSPECIFIED (4) HTN (hypertension) Code(s): I10 - ESSENTIAL (PRIMARY) HYPERTENSION (5) Failure to thrive in adult Code(s): R62.7 - ADULT FAILURE TO THRIVE (6) HLD (hyperlipidemia) Code(s): E78.5 - HYPERLIPIDEMIA, UNSPECIFIED (7) Metabolic encephalopathy Code(s): G93.41 - METABOLIC ENCEPHALOPATHY (8) Elevated LFTs Code(s): R94.5 - ABNORMAL RESULTS OF LIVER FUNCTION STUDIES (9) Rhabdomyolysis Code(s): M62.82 - RHABDOMYOLYSIS
[2019-09-01] MEDS: CLINDAMYCIN HCL 150 MG CAPSULE (FP) GT SCH ×3 (05:16→22:42)
[2019-09-01 11:02] LABS: ALBUMIN 1.6 g/dl (3.4-5.0); BILIRUBIN,TOTAL 0.2 mg/dL (0.2-1); BLOOD UREA NITROGEN 27.9 mg/dL (7-18); CALCIUM 9.1 mg/dL (8.5-10.1); MAGNESIUM 1.6 mg/dL (1.8-2.4); PHOSPHOROUS 2.1 mg/dL (2.5-4.9); POTASSIUM 3.3 mmol/L (3.5-5.1); TOT PROT 5.7 g/dl (6.4-8.2)
[2019-09-01] MEDS: TAMSULOSIN HCL 0.4 MG CAP PO SCH (11:06)
[2019-09-01] MEDS: MUPIROCIN 2% TOPICAL OINTMENT 22 GM TUBE TP SCH ×2 (11:06→22:42)
[2019-09-01] MEDS: AMINO ACIDS/PROTEIN HYDROLYS 30 ML LIQUID.PKT PO SCH ×3 (11:06→17:07)
[2019-09-01] MEDS: HEPARIN NA (PORCINE) 5,000 UNITS/ML 1ML VIAL SQ SCH ×2 (11:06→22:43)
[2019-09-01] MEDS ORDERED: INSULIN (NOVOLOG) ASPART 100 UNITS/ML 10ML VIAL ONE (11:07)
[2019-09-01] MEDS: METOPROLOL TARTRATE 25 MG TABLET (FP) PO SCH (11:11)
--- NOTE | 2019-09-01 13:14 | PN ---
Progress Note, Physician History of Present Illness: dirrhoea feeding tube feeding started - Current Medication List Current Medications: Active Medications Amino Acids (Prosource No Carb Liquid Pkt) 30 ml PO TIDCM [facility] Last Admin: 09/01/19 11:06 Dose: 30 ml Documented by: Clindamycin HCl (Cleocin -) 300 mg GT TID [facility] Last Admin: 09/01/19 05:16 Dose: 300 mg Documented by: Docusate Sodium (Colace Liquid -) 300 mg PO HS [facility] Last Admin: 08/31/19 21:18 Dose: Not Given Documented by: Fentanyl (Sublimaze Injection -) 25 mcg IVPUSH [id number] PRN PRN Reason: PAIN-PACU ORDER X 4 DOSES ONLY Heparin Sodium (Porcine) (Heparin -) 5,000 unit SQ BID [facility] Last Admin: 09/01/19 11:06 Dose: 5,000 unit Documented by: Metoprolol Tartrate (Lopressor -) 25 mg PO DAILY [facility] Last Admin: 09/01/19 11:11 Dose: 25 mg Documented by: Mirtazapine (Remeron -) 15 mg PO [facility] Last Admin: 08/31/19 21:13 Dose: 15 mg Documented by: Mupirocin (Bactroban 2% Ointment -) 1 applic TP BID [facility] Last Admin: 09/01/19 11:06 Dose: 1 applic Documented by: Tamsulosin HCl (Flomax -) 0.4 mg PO DAILY@0830 [facility] Last Admin: 09/01/19 11:06 Dose: 0.4 mg Documented by: - Objective Vital Signs: Vital Signs Temperature 98 F 09/01/19 10:00 Pulse Rate 98 H 09/01/19 10:00 Respiratory Rate 20 09/01/19 10:00 Blood Pressure 117/60 09/01/19 10:00 O2 Sat by Pulse Oximetry (%) 97 09/01/19 09:00 Constitutional: Yes: No Distress, Calm Cardiovascular: Yes: S1, S2 Gastrointestinal: Yes: Normal Bowel Sounds, Soft, Other (peg in place) Musculoskeletal: Yes: WNL Extremities: Yes: Other Neurological: Yes: Other Psychiatric: Yes: Other Labs: CBC, BMP 08/26/19 09:45 09/01/19 09:39 INR, PTT INR 1.10 (0.83-1.09) H 07/20/19 15:50 Assessment/Plan Problem List - Problems (1) Anemia Code(s): D64.9 - ANEMIA, UNSPECIFIED (2) Bacteremia Code(s): R78.81 - BACTEREMIA (3) Rhabdomyolysis Code(s): M62.82 - RHABDOMYOLYSIS (4) HTN (hypertension) Code(s): I10 - ESSENTIAL (PRIMARY) HYPERTENSION (5) Failure to thrive in adult Code(s): R62.7 - ADULT FAILURE TO THRIVE (6) Dementia Code(s): F03.90 - UNSPECIFIED DEMENTIA WITHOUT BEHAVIORAL DISTURBANCE (7) HLD (hyperlipidemia) Code(s): E78.5 - HYPERLIPIDEMIA, UNSPECIFIED (8) Metabolic encephalopathy Code(s): G93.41 - METABOLIC ENCEPHALOPATHY (9) Elevated LFTs Code(s): R94.5 - ABNORMAL RESULTS OF LIVER FUNCTION STUDIES plan continue current mgmt monitor dirrhoea nutrition rest as per the team
--- NOTE | 2019-09-01 14:11 | PN ---
Progress Note, Physician History of Present Illness: Pt seen and examined at bedside. He had high residuals and feeding rate decreased. - Current Medication List Current Medications: Active Medications Amino Acids (Prosource No Carb Liquid Pkt) 30 ml PO TIDCM [facility] Last Admin: 09/01/19 11:06 Dose: 30 ml Documented by: Clindamycin HCl (Cleocin -) 300 mg GT TID [facility] Last Admin: 09/01/19 05:16 Dose: 300 mg Documented by: Docusate Sodium (Colace Liquid -) 300 mg PO HS [facility] Last Admin: 08/31/19 21:18 Dose: Not Given Documented by: Fentanyl (Sublimaze Injection -) 25 mcg IVPUSH [id number] PRN PRN Reason: PAIN-PACU ORDER X 4 DOSES ONLY Heparin Sodium (Porcine) (Heparin -) 5,000 unit SQ BID [facility] Last Admin: 09/01/19 11:06 Dose: 5,000 unit Documented by: Metoprolol Tartrate (Lopressor -) 25 mg PO DAILY [facility] Last Admin: 09/01/19 11:11 Dose: 25 mg Documented by: Mirtazapine (Remeron -) 15 mg PO [facility] Last Admin: 08/31/19 21:13 Dose: 15 mg Documented by: Mupirocin (Bactroban 2% Ointment -) 1 applic TP BID [facility] Last Admin: 09/01/19 11:06 Dose: 1 applic Documented by: Potassium Chloride (Potassium Chloride Oral Liquid) 40 meq GT ONCE ONE Stop: 09/01/19 14:07 Potassium Phos/Sodium Phos (Phos-Nak Packet -) 1 packet GT BID [facility] Stop: 09/03/19 22:01 Tamsulosin HCl (Flomax -) 0.4 mg PO DAILY@0830 [facility] Last Admin: 09/01/19 11:06 Dose: 0.4 mg Documented by: - Objective Vital Signs: Vital Signs Temperature 98.1 F 09/01/19 13:42 Pulse Rate 98 H 09/01/19 13:42 Respiratory Rate 20 09/01/19 13:42 Blood Pressure 110/55 L 09/01/19 13:42 O2 Sat by Pulse Oximetry (%) 97 09/01/19 09:00 Constitutional: Yes: Calm Eyes: Yes: Conjunctiva Clear HENT: Yes: Atraumatic Neck: Yes: Supple Cardiovascular: Yes: S1, S2 Respiratory: Yes: CTA Bilaterally Gastrointestinal: Yes: Soft Genitourinary: Yes: Incontinence Musculoskeletal: Yes: Muscle Weakness Edema: Yes Edema: LLE: Trace, RLE: Trace Neurological: Yes: Confusion Labs: CBC, BMP 08/26/19 09:45 09/01/19 09:39 INR, PTT INR 1.10 (0.83-1.09) H 07/20/19 15:50 Problem List - Problems (1) Hyperkalemia Code(s): E87.5 - HYPERKALEMIA (2) Dehydration Code(s): E86.0 - DEHYDRATION (3) Failure to thrive in adult Code(s): R62.7 - ADULT FAILURE TO THRIVE (4) Acute kidney injury Code(s): N17.9 - ACUTE KIDNEY FAILURE, UNSPECIFIED Assessment/Plan Current Medications Generic Name Dose Route Start Last Admin Trade Name Freq PRN Reason Stop Dose Admin Amino Acids 30 ml 08/29/19 17:30 09/01/19 11:06 Prosource No Carb Liquid Pkt PO 30 ml TIDCM MELA Administration Clindamycin HCl 300 mg 08/28/19 22:00 09/01/19 05:16 Cleocin - GT 300 mg TID MELA Administration Docusate Sodium 300 mg 08/25/19 22:00 08/31/19 21:18 Colace Liquid - PO Not Given HS MELA Fentanyl 25 mcg 08/25/19 13:55 Sublimaze Injection - IVPUSH [id number] PRN PAIN-PACU ORDER X 4 DOSES ONLY Heparin Sodium (Porcine) 5,000 unit 08/26/19 10:00 09/01/19 11:06 Heparin - SQ 5,000 unit BID MELA Administration Magnesium Sulfate 2 gm 09/01/19 14:07 Magnesium Sulfate IVPB 09/01/19 14:08 ONCE ONE Metoprolol Tartrate 25 mg 08/26/19 10:00 09/01/19 11:11 Lopressor - PO 25 mg DAILY MELA Administration Mirtazapine 15 mg 08/25/19 22:00 08/31/19 21:13 Remeron - PO 15 mg HS MELA Administration Mupirocin 1 applic 08/25/19 22:00 09/01/19 11:06 Bactroban 2% Ointment - TP 1 applic BID MELA Administration Potassium Chloride 40 meq 09/01/19 14:15 Potassium Chloride Oral Liquid GT 09/01/19 14:16 ONCE ONE Potassium Phos/Sodium Phos 1 packet 09/01/19 14:06 Phos-Nak Packet - GT 09/03/19 22:01 BID MELA Tamsulosin HCl 0.4 mg 08/26/19 08:30 09/01/19 11:06 Flomax - PO 0.4 mg DAILY@0830 MELA Administration Impression 1. JESSE 2. hyperkalemia 3. htn 4. hld 5. brain lesion 6. right renal density 7. rhabdo 8. anemia 9. hypercalcemia 10. malnutrition Plan - replace potassium - replace lytes - feeds adjusted yesterday and decrease as residuals were high - cont to check residuals - repeat labs in am - monitor hg - avoid nsaids
[2019-09-01] MEDS ORDERED: POTASSIUM CHLORIDE ORAL LIQUID 20 MEQ/15 ML GT ONE (14:15)
[2019-09-01] MEDS ORDERED: MAGNESIUM SULF 50% (8.12 MEQ/2 ML-1 GM VIAL) IVPB ONE (14:30)
[2019-09-01] MEDS: NAPH,MB-DB/K PH,MBDB POWDER PACKET GT SCH ×2 (14:57→22:43)
[2019-09-01] MEDS: MIRTAZAPINE 15 MG TABLET (FP) PO SCH (22:42)
[2019-09-01] MEDS: DOCUSATE NA 100 MG/10 ML UNIT-DOSE CUPS PO SCH (22:42)
--- NOTE | 2019-09-02 00:13 | PN ---
Progress Note, Physician History of Present Illness: No new changes - Current Medication List Current Medications: Active Medications Amino Acids (Prosource No Carb Liquid Pkt) 30 ml PO TIDCM [facility] Last Admin: 09/01/19 17:07 Dose: 30 ml Documented by: Clindamycin HCl (Cleocin -) 300 mg GT TID [facility] Last Admin: 09/01/19 22:42 Dose: 300 mg Documented by: Docusate Sodium (Colace Liquid -) 300 mg PO HS [facility] Last Admin: 09/01/19 22:42 Dose: 300 mg Documented by: Fentanyl (Sublimaze Injection -) 25 mcg IVPUSH [id number] PRN PRN Reason: PAIN-PACU ORDER X 4 DOSES ONLY Heparin Sodium (Porcine) (Heparin -) 5,000 unit SQ BID [facility] Last Admin: 09/01/19 22:43 Dose: 5,000 unit Documented by: Metoprolol Tartrate (Lopressor -) 25 mg PO DAILY [facility] Last Admin: 09/01/19 11:11 Dose: 25 mg Documented by: Mirtazapine (Remeron -) 15 mg PO [facility] Last Admin: 09/01/19 22:42 Dose: 15 mg Documented by: Mupirocin (Bactroban 2% Ointment -) 1 applic TP BID [facility] Last Admin: 09/01/19 22:42 Dose: 1 applic Documented by: Potassium Phos/Sodium Phos (Phos-Nak Packet -) 1 packet GT BID [facility] Stop: 09/03/19 22:01 Last Admin: 09/01/19 22:43 Dose: 1 packet Documented by: Tamsulosin HCl (Flomax -) 0.4 mg PO DAILY@0830 [facility] Last Admin: 09/01/19 11:06 Dose: 0.4 mg Documented by: - Objective Vital Signs: Vital Signs Temperature 97.7 F 09/01/19 18:00 Pulse Rate 96 H 09/01/19 18:00 Respiratory Rate 20 09/01/19 18:00 Blood Pressure 105/63 09/01/19 18:00 O2 Sat by Pulse Oximetry (%) 97 09/01/19 09:00 Neck: Yes: WNL, Supple Cardiovascular: Yes: WNL, Regular Rate and Rhythm Respiratory: Yes: WNL, Regular, CTA Bilaterally Gastrointestinal: Yes: WNL, Normal Bowel Sounds, Soft Labs: CBC, BMP 08/26/19 09:45 09/01/19 09:39 INR, PTT INR 1.10 (0.83-1.09) H 07/20/19 15:50 Problem List - Problems (1) Bacteremia Assessment/Plan: BC (+) for MRSA Repeat BC remain negative Urine culture negatgive (+) sputum for MRSA Cont clinda DC planning in am Unable to draw any labs due to poor access Code(s): R78.81 - BACTEREMIA (2) Dementia Assessment/Plan: S/P PEG insertion DC IVF Pt cleared by surgery to use PEG Pt tolerating feedings DC planning Code(s): F03.90 - UNSPECIFIED DEMENTIA WITHOUT BEHAVIORAL DISTURBANCE (3) Anemia Assessment/Plan: S/P transfusion 2 units PRBC's DC asa/plavix No further testing Pt probable hospice Code(s): D64.9 - ANEMIA, UNSPECIFIED (4) HTN (hypertension) Assessment/Plan: BP stable Code(s): I10 - ESSENTIAL (PRIMARY) HYPERTENSION (5) Failure to thrive in adult Assessment/Plan: Encourage PO intake Started on IV clinimix Code(s): R62.7 - ADULT FAILURE TO THRIVE (6) HLD (hyperlipidemia) Assessment/Plan: Lipitor dc'ed due to elevated LFT's Code(s): E78.5 - HYPERLIPIDEMIA, UNSPECIFIED (7) Metabolic encephalopathy Code(s): G93.41 - METABOLIC ENCEPHALOPATHY (8) Elevated LFTs Assessment/Plan: DC lipitor Code(s): R94.5 - ABNORMAL RESULTS OF LIVER FUNCTION STUDIES (9) Rhabdomyolysis Assessment/Plan: Resolved Code(s): M62.82 - RHABDOMYOLYSIS
[2019-09-02] MEDS: CLINDAMYCIN HCL 150 MG CAPSULE (FP) GT SCH ×3 (06:34→21:56)
[2019-09-02 08:36] LABS: BASO % 1.3 % (0-2.0); EOS % 6.2 % (0-4.5); HEMATOCRIT 23.6 % (35.4-49); HEMOGLOBIN 7.8 GM/dL (11.7-16.9); LYMPH % 13.3 % (8-40); MCH 27.6 pg (25.7-33.7); MCHC 33.2 g/dl (32.0-35.9); MEAN CELL VOLUME 83.2 fl (80-96); MEAN PLT VOLUME 7.4 fl (7.5-11.1); MONO % 8.4 % (3.8-10.2); NEUT % 70.8 % (42.8-82.8); PLATELET COUNT 569 K/MM3 (134-434); RBC 2.83 M/mm3 (4.00-5.60); RDW 16.4 % (11.9-15.9); WHITE BLOOD COUNT 10.9 K/mm3 (4.0-10.0)
[2019-09-02 09:02] LABS: ALBUMIN 1.6 g/dl (3.4-5.0); BILIRUBIN,TOTAL 0.2 mg/dL (0.2-1); BLOOD UREA NITROGEN 26.5 mg/dL (7-18); CALCIUM 8.8 mg/dL (8.5-10.1); MAGNESIUM 1.6 mg/dL (1.8-2.4); PHOSPHOROUS 2.3 mg/dL (2.5-4.9); POTASSIUM 3.5 mmol/L (3.5-5.1); TOT PROT 5.8 g/dl (6.4-8.2)
[2019-09-02] MEDS: MUPIROCIN 2% TOPICAL OINTMENT 22 GM TUBE TP SCH ×2 (10:23→21:57)
[2019-09-02] MEDS: METOPROLOL TARTRATE 25 MG TABLET (FP) PO SCH (10:23)
[2019-09-02] MEDS: TAMSULOSIN HCL 0.4 MG CAP PO SCH (10:23)
[2019-09-02] MEDS: AMINO ACIDS/PROTEIN HYDROLYS 30 ML LIQUID.PKT PO SCH ×3 (10:23→18:11)
[2019-09-02] MEDS: NAPH,MB-DB/K PH,MBDB POWDER PACKET GT SCH ×2 (10:23→21:56)
[2019-09-02] MEDS ORDERED: POTASSIUM CHLORIDE ORAL LIQUID 20 MEQ/15 ML GT ONE (12:39)
[2019-09-02] MEDS ORDERED: MAGNESIUM SULF 50% (8.12 MEQ/2 ML-1 GM VIAL) IVPB ONE (12:39)
--- NOTE | 2019-09-02 12:39 | PN ---
Progress Note, Physician History of Present Illness: Pt seen and examined. He is tolerating feeds. - Current Medication List Current Medications: Active Medications Amino Acids (Prosource No Carb Liquid Pkt) 30 ml PO TIDCM [facility] Last Admin: 09/02/19 10:23 Dose: 30 ml Documented by: Clindamycin HCl (Cleocin -) 300 mg GT TID [facility] Last Admin: 09/02/19 06:34 Dose: 300 mg Documented by: Docusate Sodium (Colace Liquid -) 300 mg PO [facility] Last Admin: 09/01/19 22:42 Dose: 300 mg Documented by: Fentanyl (Sublimaze Injection -) 25 mcg IVPUSH [id number] PRN PRN Reason: PAIN-PACU ORDER X 4 DOSES ONLY Metoprolol Tartrate (Lopressor -) 25 mg PO DAILY [facility] Last Admin: 09/02/19 10:23 Dose: 25 mg Documented by: Mirtazapine (Remeron -) 15 mg PO [facility] Last Admin: 09/01/19 22:42 Dose: 15 mg Documented by: Mupirocin (Bactroban 2% Ointment -) 1 applic TP BID [facility] Last Admin: 09/02/19 10:23 Dose: 1 applic Documented by: Potassium Phos/Sodium Phos (Phos-Nak Packet -) 1 packet GT BID [facility] Stop: 09/03/19 22:01 Last Admin: 09/02/19 10:23 Dose: 1 packet Documented by: Tamsulosin HCl (Flomax -) 0.4 mg PO DAILY@0830 [facility] Last Admin: 09/02/19 10:23 Dose: 0.4 mg Documented by: - Objective Vital Signs: Vital Signs Temperature 97.6 F 09/02/19 10:00 Pulse Rate 103 H 09/02/19 10:00 Respiratory Rate 18 09/02/19 10:00 Blood Pressure 130/60 09/02/19 10:00 O2 Sat by Pulse Oximetry (%) 98 09/01/19 21:00 Constitutional: Yes: Calm Eyes: Yes: Conjunctiva Clear HENT: Yes: Atraumatic Neck: Yes: Supple Cardiovascular: Yes: S1, S2 Respiratory: Yes: CTA Bilaterally Gastrointestinal: Yes: Soft Genitourinary: Yes: Incontinence Edema: Yes Edema: LLE: Trace, RLE: Trace Neurological: Yes: Lethargy Labs: CBC, BMP 09/02/19 07:44 09/02/19 07:44 INR, PTT INR 1.10 (0.83-1.09) H 07/20/19 15:50 Problem List - Problems (1) Hyperkalemia Code(s): E87.5 - HYPERKALEMIA (2) Dehydration Code(s): E86.0 - DEHYDRATION (3) Failure to thrive in adult Code(s): R62.7 - ADULT FAILURE TO THRIVE (4) Acute kidney injury Code(s): N17.9 - ACUTE KIDNEY FAILURE, UNSPECIFIED Assessment/Plan Current Medications Generic Name Dose Route Start Last Admin Trade Name Freq PRN Reason Stop Dose Admin Amino Acids 30 ml 08/29/19 17:30 09/02/19 10:23 Prosource No Carb Liquid Pkt PO 30 ml TIDCM MELA Administration Clindamycin HCl 300 mg 08/28/19 22:00 09/02/19 06:34 Cleocin - GT 300 mg TID MELA Administration Docusate Sodium 300 mg 08/25/19 22:00 09/01/19 22:42 Colace Liquid - PO 300 mg HS MELA Administration Fentanyl 25 mcg 08/25/19 13:55 Sublimaze Injection - IVPUSH [id number] PRN PAIN-PACU ORDER X 4 DOSES ONLY Metoprolol Tartrate 25 mg 08/26/19 10:00 09/02/19 10:23 Lopressor - PO 25 mg DAILY MELA Administration Mirtazapine 15 mg 08/25/19 22:00 09/01/19 22:42 Remeron - PO 15 mg HS MELA Administration Mupirocin 1 applic 08/25/19 22:00 09/02/19 10:23 Bactroban 2% Ointment - TP 1 applic BID MELA Administration Potassium Phos/Sodium Phos 1 packet 09/01/19 14:15 09/02/19 10:23 Phos-Nak Packet - GT 09/03/19 22:01 1 packet BID MELA Administration Tamsulosin HCl 0.4 mg 08/26/19 08:30 09/02/19 10:23 Flomax - PO 0.4 mg DAILY@0830 MELA Administration Laboratory Tests 09/02/19 07:44 Potassium 3.5 Creatinine 1.0 Phosphorus 2.3 L Magnesium 1.6 L Impression 1. JESSE 2. hyperkalemia 3. htn 4. hld 5. brain lesion 6. right renal density 7. rhabdo 8. anemia 9. hypercalcemia 10. malnutrition Plan - pt tolerating current feeds - replace mag - replace phos - monitor lytes - check for residuals - monitor hg - avoid nsaids
--- NOTE | 2019-09-02 13:16 | PN ---
Progress Note, Physician History of Present Illness: no new issues - Current Medication List Current Medications: Active Medications Amino Acids (Prosource No Carb Liquid Pkt) 30 ml PO TIDCM [facility] Last Admin: 09/02/19 12:38 Dose: 30 ml Documented by: Clindamycin HCl (Cleocin -) 300 mg GT TID [facility] Last Admin: 09/02/19 06:34 Dose: 300 mg Documented by: Docusate Sodium (Colace Liquid -) 300 mg PO [facility] Last Admin: 09/01/19 22:42 Dose: 300 mg Documented by: Fentanyl (Sublimaze Injection -) 25 mcg IVPUSH [id number] PRN PRN Reason: PAIN-PACU ORDER X 4 DOSES ONLY Metoprolol Tartrate (Lopressor -) 25 mg PO DAILY [facility] Last Admin: 09/02/19 10:23 Dose: 25 mg Documented by: Mirtazapine (Remeron -) 15 mg PO [facility] Last Admin: 09/01/19 22:42 Dose: 15 mg Documented by: Mupirocin (Bactroban 2% Ointment -) 1 applic TP BID [facility] Last Admin: 09/02/19 10:23 Dose: 1 applic Documented by: Potassium Phos/Sodium Phos (Phos-Nak Packet -) 1 packet GT BID [facility] Stop: 09/03/19 22:01 Last Admin: 09/02/19 10:23 Dose: 1 packet Documented by: Tamsulosin HCl (Flomax -) 0.4 mg PO DAILY@0830 [facility] Last Admin: 09/02/19 10:23 Dose: 0.4 mg Documented by: - Objective Vital Signs: Vital Signs Temperature 97.6 F 09/02/19 10:00 Pulse Rate 103 H 09/02/19 10:00 Respiratory Rate 18 09/02/19 10:00 Blood Pressure 130/60 09/02/19 10:00 O2 Sat by Pulse Oximetry (%) 98 09/01/19 21:00 Constitutional: Yes: No Distress, Calm Cardiovascular: Yes: S1, S2 Respiratory: Yes: Regular, CTA Bilaterally Gastrointestinal: Yes: Normal Bowel Sounds, Soft, Other (peg) Genitourinary: Yes: WNL Musculoskeletal: Yes: Other Extremities: Yes: Other Wound/Incision: Yes: Dressing Dry and Intact Neurological: Yes: Other Labs: CBC, BMP 09/02/19 07:44 09/02/19 07:44 INR, PTT INR 1.10 (0.83-1.09) H 07/20/19 15:50 Assessment/Plan Problem List - Problems (1) Anemia Code(s): D64.9 - ANEMIA, UNSPECIFIED (2) Bacteremia Code(s): R78.81 - BACTEREMIA (3) Rhabdomyolysis Code(s): M62.82 - RHABDOMYOLYSIS (4) HTN (hypertension) Code(s): I10 - ESSENTIAL (PRIMARY) HYPERTENSION (5) Failure to thrive in adult Code(s): R62.7 - ADULT FAILURE TO THRIVE (6) Dementia Code(s): F03.90 - UNSPECIFIED DEMENTIA WITHOUT BEHAVIORAL DISTURBANCE (7) HLD (hyperlipidemia) Code(s): E78.5 - HYPERLIPIDEMIA, UNSPECIFIED (8) Metabolic encephalopathy Code(s): G93.41 - METABOLIC ENCEPHALOPATHY (9) Elevated LFTs Code(s): R94.5 - ABNORMAL RESULTS OF LIVER FUNCTION STUDIES plan continue current mgmt rest as per the team nutrition
[2019-09-02] MEDS: DOCUSATE NA 100 MG/10 ML UNIT-DOSE CUPS PO SCH (21:56)
[2019-09-02] MEDS: MIRTAZAPINE 15 MG TABLET (FP) PO SCH (21:56)
--- NOTE | 2019-09-02 23:05 | PN ---
Progress Note, Physician History of Present Illness: No new changes - Current Medication List Current Medications: Active Medications Amino Acids (Prosource No Carb Liquid Pkt) 30 ml PO [facility] Last Admin: 09/02/19 18:11 Dose: 30 ml Documented by: Clindamycin HCl (Cleocin -) 300 mg GT TID [facility] Last Admin: 09/02/19 21:56 Dose: 300 mg Documented by: Docusate Sodium (Colace Liquid -) 300 mg PO [facility] Last Admin: 09/02/19 21:56 Dose: 300 mg Documented by: Fentanyl (Sublimaze Injection -) 25 mcg IVPUSH [id number] PRN PRN Reason: PAIN-PACU ORDER X 4 DOSES ONLY Metoprolol Tartrate (Lopressor -) 25 mg PO DAILY [facility] Last Admin: 09/02/19 10:23 Dose: 25 mg Documented by: Mirtazapine (Remeron -) 15 mg PO [facility] Last Admin: 09/02/19 21:56 Dose: 15 mg Documented by: Mupirocin (Bactroban 2% Ointment -) 1 applic TP BID [facility] Last Admin: 09/02/19 21:57 Dose: Not Given Documented by: Potassium Phos/Sodium Phos (Phos-Nak Packet -) 1 packet GT BID [facility] Stop: 09/03/19 22:01 Last Admin: 09/02/19 21:56 Dose: 1 packet Documented by: Tamsulosin HCl (Flomax -) 0.4 mg PO DAILY@0830 [facility] Last Admin: 09/02/19 10:23 Dose: 0.4 mg Documented by: - Objective Vital Signs: Vital Signs Temperature 97.9 F 09/02/19 18:32 Pulse Rate 81 09/02/19 18:32 Respiratory Rate 20 09/02/19 18:32 Blood Pressure 110/54 L 09/02/19 18:32 O2 Sat by Pulse Oximetry (%) 98 09/02/19 09:00 HENT: Yes: WNL Neck: Yes: WNL, Supple Cardiovascular: Yes: WNL, Regular Rate and Rhythm Respiratory: Yes: WNL, Regular, CTA Bilaterally Gastrointestinal: Yes: WNL, Normal Bowel Sounds, Soft, Other ((+) PEG) Labs: CBC, BMP 09/02/19 07:44 09/02/19 07:44 INR, PTT INR 1.10 (0.83-1.09) H 07/20/19 15:50 Problem List - Problems (1) Bacteremia Assessment/Plan: BC (+) for MRSA Repeat BC remain negative Urine culture negatgive (+) sputum for MRSA Cont clinda DC planning in am Unable to draw any labs due to poor access Code(s): R78.81 - BACTEREMIA (2) Dementia Assessment/Plan: S/P PEG insertion DC IVF Pt cleared by surgery to use PEG Pt tolerating feedings DC planning Code(s): F03.90 - UNSPECIFIED DEMENTIA WITHOUT BEHAVIORAL DISTURBANCE (3) Anemia Assessment/Plan: S/P transfusion 2 units PRBC's DC asa/plavix No further testing Pt probable hospice Code(s): D64.9 - ANEMIA, UNSPECIFIED (4) HTN (hypertension) Assessment/Plan: BP stable Code(s): I10 - ESSENTIAL (PRIMARY) HYPERTENSION (5) Failure to thrive in adult Assessment/Plan: Encourage PO intake Started on IV clinimix Code(s): R62.7 - ADULT FAILURE TO THRIVE (6) HLD (hyperlipidemia) Assessment/Plan: Lipitor dc'ed due to elevated LFT's Code(s): E78.5 - HYPERLIPIDEMIA, UNSPECIFIED (7) Metabolic encephalopathy Code(s): G93.41 - METABOLIC ENCEPHALOPATHY (8) Elevated LFTs Assessment/Plan: DC lipitor Code(s): R94.5 - ABNORMAL RESULTS OF LIVER FUNCTION STUDIES (9) Rhabdomyolysis Assessment/Plan: Resolved Code(s): M62.82 - RHABDOMYOLYSIS
[2019-09-03] MEDS: CLINDAMYCIN HCL 150 MG CAPSULE (FP) GT SCH ×3 (05:57→21:11)
[2019-09-03 07:48] LABS: ALBUMIN 1.6 g/dl (3.4-5.0); BILIRUBIN,TOTAL 0.3 mg/dL (0.2-1); CALCIUM 8.4 mg/dL (8.5-10.1); CREATININE 0.9 mg/dL (0.55-1.3); PHOSPHOROUS 2.5 mg/dL (2.5-4.9); TOT PROT 5.7 g/dl (6.4-8.2)
[2019-09-03] MEDS: METOPROLOL TARTRATE 25 MG TABLET (FP) PO SCH (10:47)
[2019-09-03] MEDS: MUPIROCIN 2% TOPICAL OINTMENT 22 GM TUBE TP SCH ×2 (10:47→21:43)
[2019-09-03] MEDS: NAPH,MB-DB/K PH,MBDB POWDER PACKET GT SCH ×2 (10:47→21:11)
[2019-09-03] MEDS: AMINO ACIDS/PROTEIN HYDROLYS 30 ML LIQUID.PKT PO SCH ×3 (10:47→17:38)
[2019-09-03] MEDS: TAMSULOSIN HCL 0.4 MG CAP PO SCH (10:47)
--- NOTE | 2019-09-03 11:03 | PN ---
Progress Note, Physician History of Present Illness: no new issues - Current Medication List Current Medications: Active Medications Amino Acids (Prosource No Carb Liquid Pkt) 30 ml PO [facility] Last Admin: 09/03/19 10:47 Dose: 30 ml Documented by: Clindamycin HCl (Cleocin -) 300 mg GT TID [facility] Last Admin: 09/03/19 05:57 Dose: 300 mg Documented by: Docusate Sodium (Colace Liquid -) 300 mg PO [facility] Last Admin: 09/02/19 21:56 Dose: 300 mg Documented by: Fentanyl (Sublimaze Injection -) 25 mcg IVPUSH [id number] PRN PRN Reason: PAIN-PACU ORDER X 4 DOSES ONLY Metoprolol Tartrate (Lopressor -) 25 mg PO DAILY [facility] Last Admin: 09/03/19 10:47 Dose: 25 mg Documented by: Mirtazapine (Remeron -) 15 mg PO [facility] Last Admin: 09/02/19 21:56 Dose: 15 mg Documented by: Mupirocin (Bactroban 2% Ointment -) 1 applic TP BID [facility] Last Admin: 09/03/19 10:47 Dose: 1 applic Documented by: Potassium Phos/Sodium Phos (Phos-Nak Packet -) 1 packet GT BID [facility] Stop: 09/03/19 22:01 Last Admin: 09/03/19 10:47 Dose: 1 packet Documented by: Tamsulosin HCl (Flomax -) 0.4 mg PO DAILY@0830 [facility] Last Admin: 09/03/19 10:47 Dose: 0.4 mg Documented by: - Objective Vital Signs: Vital Signs Temperature 98.9 F 09/03/19 10:00 Pulse Rate 99 H 09/03/19 10:00 Respiratory Rate 20 09/03/19 10:00 Blood Pressure 120/55 L 09/03/19 10:00 O2 Sat by Pulse Oximetry (%) 100 09/02/19 21:00 Constitutional: Yes: No Distress, Calm Cardiovascular: Yes: S1, S2 Respiratory: Yes: Regular, Poor Air Entry Gastrointestinal: Yes: Soft, Other (peg tube in place) Musculoskeletal: Yes: WNL Extremities: Yes: WNL Neurological: Yes: Other Labs: CBC, BMP 09/02/19 07:44 09/03/19 06:45 INR, PTT INR 1.10 (0.83-1.09) H 07/20/19 15:50 Assessment/Plan Problem List - Problems (1) Anemia Code(s): D64.9 - ANEMIA, UNSPECIFIED (2) Bacteremia Code(s): R78.81 - BACTEREMIA (3) Rhabdomyolysis Code(s): M62.82 - RHABDOMYOLYSIS (4) HTN (hypertension) Code(s): I10 - ESSENTIAL (PRIMARY) HYPERTENSION (5) Failure to thrive in adult Code(s): R62.7 - ADULT FAILURE TO THRIVE (6) Dementia Code(s): F03.90 - UNSPECIFIED DEMENTIA WITHOUT BEHAVIORAL DISTURBANCE (7) HLD (hyperlipidemia) Code(s): E78.5 - HYPERLIPIDEMIA, UNSPECIFIED (8) Metabolic encephalopathy Code(s): G93.41 - METABOLIC ENCEPHALOPATHY (9) Elevated LFTs Code(s): R94.5 - ABNORMAL RESULTS OF LIVER FUNCTION STUDIES plan continue current mgmt rest as per the team
--- NOTE | 2019-09-03 14:28 | PN ---
Progress Note, Physician History of Present Illness: Pt tolerating feeds. Pt remains confused. - Current Medication List Current Medications: Active Medications Amino Acids (Prosource No Carb Liquid Pkt) 30 ml PO TIDCM [facility] Last Admin: 09/03/19 10:47 Dose: 30 ml Documented by: Clindamycin HCl (Cleocin -) 300 mg GT TID [facility] Last Admin: 09/03/19 05:57 Dose: 300 mg Documented by: Docusate Sodium (Colace Liquid -) 300 mg PO [facility] Last Admin: 09/02/19 21:56 Dose: 300 mg Documented by: Fentanyl (Sublimaze Injection -) 25 mcg IVPUSH [id number] PRN PRN Reason: PAIN-PACU ORDER X 4 DOSES ONLY Metoprolol Tartrate (Lopressor -) 25 mg PO DAILY [facility] Last Admin: 09/03/19 10:47 Dose: 25 mg Documented by: Mirtazapine (Remeron -) 15 mg PO [facility] Last Admin: 09/02/19 21:56 Dose: 15 mg Documented by: Mupirocin (Bactroban 2% Ointment -) 1 applic TP BID [facility] Last Admin: 09/03/19 10:47 Dose: 1 applic Documented by: Potassium Phos/Sodium Phos (Phos-Nak Packet -) 1 packet GT BID [facility] Stop: 09/03/19 22:01 Last Admin: 09/03/19 10:47 Dose: 1 packet Documented by: Tamsulosin HCl (Flomax -) 0.4 mg PO DAILY@0830 [facility] Last Admin: 09/03/19 10:47 Dose: 0.4 mg Documented by: - Objective Vital Signs: Vital Signs Temperature 98.7 F 09/03/19 14:05 Pulse Rate 79 09/03/19 14:05 Respiratory Rate 20 09/03/19 14:05 Blood Pressure 119/59 L 09/03/19 14:05 O2 Sat by Pulse Oximetry (%) 98 09/03/19 09:00 Constitutional: Yes: Calm Eyes: Yes: Conjunctiva Clear Cardiovascular: Yes: S1, S2 Respiratory: Yes: CTA Bilaterally Gastrointestinal: Yes: Soft, Other (g tube) Genitourinary: Yes: Incontinence Edema: Yes Edema: LLE: Trace, RLE: Trace Neurological: Yes: Confusion Labs: CBC, BMP 09/02/19 07:44 09/03/19 06:45 INR, PTT INR 1.10 (0.83-1.09) H 07/20/19 15:50 Problem List - Problems (1) Hyperkalemia Code(s): E87.5 - HYPERKALEMIA (2) Dehydration Code(s): E86.0 - DEHYDRATION (3) Failure to thrive in adult Code(s): R62.7 - ADULT FAILURE TO THRIVE (4) Acute kidney injury Code(s): N17.9 - ACUTE KIDNEY FAILURE, UNSPECIFIED Assessment/Plan Current Medications Generic Name Dose Route Start Last Admin Trade Name Freq PRN Reason Stop Dose Admin Amino Acids 30 ml 08/29/19 17:30 09/03/19 10:47 Prosource No Carb Liquid Pkt PO 30 ml TIDCM MELA Administration Clindamycin HCl 300 mg 08/28/19 22:00 09/03/19 05:57 Cleocin - GT 300 mg TID MELA Administration Docusate Sodium 300 mg 08/25/19 22:00 09/02/19 21:56 Colace Liquid - PO 300 mg HS MELA Administration Fentanyl 25 mcg 08/25/19 13:55 Sublimaze Injection - IVPUSH [id number] PRN PAIN-PACU ORDER X 4 DOSES ONLY Metoprolol Tartrate 25 mg 08/26/19 10:00 09/03/19 10:47 Lopressor - PO 25 mg DAILY MELA Administration Mirtazapine 15 mg 08/25/19 22:00 09/02/19 21:56 Remeron - PO 15 mg HS MELA Administration Mupirocin 1 applic 08/25/19 22:00 09/03/19 10:47 Bactroban 2% Ointment - TP 1 applic BID MELA Administration Potassium Phos/Sodium Phos 1 packet 09/01/19 14:15 09/03/19 10:47 Phos-Nak Packet - GT 09/03/19 22:01 1 packet BID MELA Administration Tamsulosin HCl 0.4 mg 08/26/19 08:30 09/03/19 10:47 Flomax - PO 0.4 mg DAILY@0830 MELA Administration Laboratory Tests 09/03/19 06:45 Sodium 142 Potassium 4.0 BUN 33.0 H Creatinine 0.9 Phosphorus 2.5 Magnesium 2.0 Impression 1. JESSE 2. hyperkalemia 3. htn 4. hld 5. brain lesion 6. right renal density 7. rhabdo 8. anemia 9. hypercalcemia 10. malnutrition Plan - cont feeds - lytes are clear - pt tolerating feeds - check for residuals - monitor hg - avoid nsaids - will follow PRN
--- NOTE | 2019-09-03 20:40 | PN ---
Progress Note, Physician History of Present Illness: No new changes - Current Medication List Current Medications: Active Medications Amino Acids (Prosource No Carb Liquid Pkt) 30 ml PO TIDCM [facility] Last Admin: 09/03/19 17:38 Dose: 30 ml Documented by: Clindamycin HCl (Cleocin -) 300 mg GT TID [facility] Last Admin: 09/03/19 14:53 Dose: 300 mg Documented by: Docusate Sodium (Colace Liquid -) 300 mg PO [facility] Last Admin: 09/02/19 21:56 Dose: 300 mg Documented by: Fentanyl (Sublimaze Injection -) 25 mcg IVPUSH [id number] PRN PRN Reason: PAIN-PACU ORDER X 4 DOSES ONLY Metoprolol Tartrate (Lopressor -) 25 mg PO DAILY [facility] Last Admin: 09/03/19 10:47 Dose: 25 mg Documented by: Mirtazapine (Remeron -) 15 mg PO [facility] Last Admin: 09/02/19 21:56 Dose: 15 mg Documented by: Mupirocin (Bactroban 2% Ointment -) 1 applic TP BID [facility] Last Admin: 09/03/19 10:47 Dose: 1 applic Documented by: Potassium Phos/Sodium Phos (Phos-Nak Packet -) 1 packet GT BID [facility] Stop: 09/03/19 22:01 Last Admin: 09/03/19 10:47 Dose: 1 packet Documented by: Tamsulosin HCl (Flomax -) 0.4 mg PO DAILY@0830 [facility] Last Admin: 09/03/19 10:47 Dose: 0.4 mg Documented by: - Objective Vital Signs: Vital Signs Temperature 98.7 F 09/03/19 18:00 Pulse Rate 86 09/03/19 18:00 Respiratory Rate 20 09/03/19 18:00 Blood Pressure 125/57 L 09/03/19 18:00 O2 Sat by Pulse Oximetry (%) 99 09/03/19 20:26 Cardiovascular: Yes: WNL, Regular Rate and Rhythm Respiratory: Yes: WNL, Regular, CTA Bilaterally Gastrointestinal: Yes: WNL, Normal Bowel Sounds, Soft, Rectal Bleeding ((+) PEG) Labs: CBC, BMP 09/02/19 07:44 09/03/19 06:45 INR, PTT INR 1.10 (0.83-1.09) H 07/20/19 15:50 Problem List - Problems (1) Bacteremia Assessment/Plan: BC (+) for MRSA Repeat BC remain negative Urine culture negatgive (+) sputum for MRSA Cont clinda DC planning Pt awaiting placement Code(s): R78.81 - BACTEREMIA (2) Dementia Assessment/Plan: S/P PEG insertion DC IVF Pt cleared by surgery to use PEG Pt tolerating feedings DC planning Code(s): F03.90 - UNSPECIFIED DEMENTIA WITHOUT BEHAVIORAL DISTURBANCE (3) Anemia Assessment/Plan: S/P transfusion 2 units PRBC's DC asa/plavix No further testing Pt probable hospice Code(s): D64.9 - ANEMIA, UNSPECIFIED (4) HTN (hypertension) Assessment/Plan: BP stable Code(s): I10 - ESSENTIAL (PRIMARY) HYPERTENSION (5) Failure to thrive in adult Assessment/Plan: Encourage PO intake Started on IV clinimix Code(s): R62.7 - ADULT FAILURE TO THRIVE (6) HLD (hyperlipidemia) Assessment/Plan: Lipitor dc'ed due to elevated LFT's Code(s): E78.5 - HYPERLIPIDEMIA, UNSPECIFIED (7) Metabolic encephalopathy Code(s): G93.41 - METABOLIC ENCEPHALOPATHY (8) Elevated LFTs Assessment/Plan: DC lipitor Code(s): R94.5 - ABNORMAL RESULTS OF LIVER FUNCTION STUDIES (9) Rhabdomyolysis Assessment/Plan: Resolved Code(s): M62.82 - RHABDOMYOLYSIS
[2019-09-03] MEDS: DOCUSATE NA 100 MG/10 ML UNIT-DOSE CUPS PO SCH (21:11)
[2019-09-03] MEDS: MIRTAZAPINE 15 MG TABLET (FP) PO SCH (21:11)
[2019-09-04] MEDS: CLINDAMYCIN HCL 150 MG CAPSULE (FP) GT SCH ×2 (05:22→14:43)
[2019-09-04] MEDS: TAMSULOSIN HCL 0.4 MG CAP PO SCH ×2 (09:17→09:33)
[2019-09-04] MEDS: AMINO ACIDS/PROTEIN HYDROLYS 30 ML LIQUID.PKT PO SCH ×3 (09:18→17:26)
[2019-09-04] MEDS: METOPROLOL TARTRATE 25 MG TABLET (FP) PO SCH (09:18)
[2019-09-04] MEDS: MUPIROCIN 2% TOPICAL OINTMENT 22 GM TUBE TP SCH ×2 (11:28→21:33)
--- NOTE | 2019-09-04 12:12 | PN ---
Progress Note, Physician History of Present Illness: seen and examined at bedside. Can not get history from the patient. Afebrile. Having loose stools per RN. - Current Medication List Current Medications: Active Medications Amino Acids (Prosource No Carb Liquid Pkt) 30 ml PO TIDCM [facility] Last Admin: 09/04/19 09:18 Dose: 30 ml Documented by: Clindamycin HCl (Cleocin -) 300 mg GT TID [facility] Last Admin: 09/04/19 05:22 Dose: 300 mg Documented by: Docusate Sodium (Colace Liquid -) 300 mg PO [facility] Last Admin: 09/03/19 21:11 Dose: 300 mg Documented by: Fentanyl (Sublimaze Injection -) 25 mcg IVPUSH [id number] PRN PRN Reason: PAIN-PACU ORDER X 4 DOSES ONLY Metoprolol Tartrate (Lopressor -) 25 mg PO DAILY [facility] Last Admin: 09/04/19 09:18 Dose: 25 mg Documented by: Mirtazapine (Remeron -) 15 mg PO [facility] Last Admin: 09/03/19 21:11 Dose: 15 mg Documented by: Mupirocin (Bactroban 2% Ointment -) 1 applic TP BID [facility] Last Admin: 09/04/19 11:28 Dose: 1 applic Documented by: Tamsulosin HCl (Flomax -) 0.4 mg PO DAILY@0830 [facility] Last Admin: 09/04/19 09:33 Dose: Not Given Documented by: - Objective Vital Signs: Vital Signs Temperature 99.4 F 09/04/19 05:24 Pulse Rate 100 H 09/04/19 10:00 Respiratory Rate 18 09/04/19 10:00 Blood Pressure 126/56 L 09/04/19 10:00 O2 Sat by Pulse Oximetry (%) 99 09/03/19 20:26 Constitutional: Yes: No Distress HENT: Yes: Atraumatic Cardiovascular: Yes: Tachycardia Respiratory: Yes: Tachypnea, Other (bibasilar crackles) Gastrointestinal: Yes: Other (PEG in place. Some skin breakdown around peg insertion site.). No: Distention, Tenderness Labs: CBC, BMP 09/02/19 07:44 09/03/19 06:45 INR, PTT INR 1.10 (0.83-1.09) H 02/04/20 15:50 Impression/Plan Impression/Plan: Bacteremia: MRSA positive repeat Cx negative Sputum also MRSA positive on clindamycin continue per ID Diarrhea: Has been on Abx and has had prolonged hospitalization will get C diff if has another loose foul smelling BM Dementia: s/p PEG o tube feeds tolerating well Anemia: repeat CBC i AmHTN: Controlled few episodes of hypotension occasionally possible from flomax monitor for now Failure to thrive HLD off lipitor due to elevated LFTs per PMD SCDs for DVT PPx Pending bed at [facility] Visit type - Emergency Visit Emergency Visit: Yes ED Registration Date: 07/20/19 Care time: The patient presented to the Emergency Department on the above date and was hospitalized for further evaluation of their emergent condition. - New Patient This patient is new to me today: Yes Date on this admission: 09/04/19 - Critical Care Critical Care patient: No
--- NOTE | 2019-09-04 14:48 | PN ---
Progress Note, Physician History of Present Illness: no new issues loose stools - Current Medication List Current Medications: Active Medications Amino Acids (Prosource No Carb Liquid Pkt) 30 ml PO TIDCM [facility] Last Admin: 09/04/19 12:33 Dose: 30 ml Documented by: Docusate Sodium (Colace Liquid -) 300 mg PO [facility] Last Admin: 09/03/19 21:11 Dose: 300 mg Documented by: Fentanyl (Sublimaze Injection -) 25 mcg IVPUSH [id number] PRN PRN Reason: PAIN-PACU ORDER X 4 DOSES ONLY Metoprolol Tartrate (Lopressor -) 25 mg PO DAILY [facility] Last Admin: 09/04/19 09:18 Dose: 25 mg Documented by: Mirtazapine (Remeron -) 15 mg PO [facility] Last Admin: 09/03/19 21:11 Dose: 15 mg Documented by: Mupirocin (Bactroban 2% Ointment -) 1 applic TP BID [facility] Last Admin: 09/04/19 11:28 Dose: 1 applic Documented by: Tamsulosin HCl (Flomax -) 0.4 mg PO DAILY@0830 [facility] Last Admin: 09/04/19 09:33 Dose: Not Given Documented by: - Objective Vital Signs: Vital Signs Temperature 98.0 F 09/04/19 14:35 Pulse Rate 87 09/04/19 14:35 Respiratory Rate 18 09/04/19 14:35 Blood Pressure 103/56 L 09/04/19 14:35 O2 Sat by Pulse Oximetry (%) 99 09/04/19 09:00 Constitutional: Yes: No Distress, Calm Respiratory: Yes: Regular, CTA Bilaterally Gastrointestinal: Yes: Normal Bowel Sounds, Soft, Other (peg in place) Musculoskeletal: Yes: WNL Extremities: Yes: WNL Neurological: Yes: Other Psychiatric: Yes: Other Labs: CBC, BMP 09/02/19 07:44 09/03/19 06:45 INR, PTT INR 1.10 (0.83-1.09) H 07/20/19 15:50 Assessment/Plan Problem List - Problems (1) Anemia Code(s): D64.9 - ANEMIA, UNSPECIFIED (2) Bacteremia Code(s): R78.81 - BACTEREMIA (3) Rhabdomyolysis Code(s): M62.82 - RHABDOMYOLYSIS (4) HTN (hypertension) Code(s): I10 - ESSENTIAL (PRIMARY) HYPERTENSION (5) Failure to thrive in adult Code(s): R62.7 - ADULT FAILURE TO THRIVE (6) Dementia Code(s): F03.90 - UNSPECIFIED DEMENTIA WITHOUT BEHAVIORAL DISTURBANCE (7) HLD (hyperlipidemia) Code(s): E78.5 - HYPERLIPIDEMIA, UNSPECIFIED (8) Metabolic encephalopathy Code(s): G93.41 - METABOLIC ENCEPHALOPATHY (9) Elevated LFTs Code(s): R94.5 - ABNORMAL RESULTS OF LIVER FUNCTION STUDIES plan continue current mgmt rest as per the team
[2019-09-04] MEDS: DOCUSATE NA 100 MG/10 ML UNIT-DOSE CUPS PO SCH (21:32)
[2019-09-04] MEDS: MIRTAZAPINE 15 MG TABLET (FP) PO SCH (21:34)
[2019-09-05 07:37] VITALS: TEMP 97.7
[2019-09-05] MEDS ORDERED: TAMSULOSIN HCL 0.4 MG CAP PO SCH (08:30)
[2019-09-05 09:13] LABS: HEMATOCRIT 21.5 % (35.4-49); HEMOGLOBIN 7.3 GM/dL (11.7-16.9); MCHC 33.9 g/dl (32.0-35.9); MEAN CELL VOLUME 82.8 fl (80-96); MEAN PLT VOLUME 7.3 fl (7.5-11.1); PLATELET COUNT 530 K/MM3 (134-434); RBC 2.59 M/mm3 (4.00-5.60); RDW 16.7 % (11.9-15.9); WHITE BLOOD COUNT 12.7 K/mm3 (4.0-10.0)
[2019-09-05] MEDS: METOPROLOL TARTRATE 25 MG TABLET (FP) PO SCH (09:31)
[2019-09-05] MEDS: AMINO ACIDS/PROTEIN HYDROLYS 30 ML LIQUID.PKT PO SCH ×2 (09:37→12:18)
[2019-09-05] MEDS: TAMSULOSIN HCL 0.4 MG CAP PO SCH (09:38)
[2019-09-05] MEDS: MUPIROCIN 2% TOPICAL OINTMENT 22 GM TUBE TP SCH (12:18)
--- NOTE | 2019-09-05 12:28 | PN ---
Progress Note, Physician History of Present Illness: no new issues l - Current Medication List Current Medications: Active Medications Amino Acids (Prosource No Carb Liquid Pkt) 30 ml PO TIDCM [facility] Last Admin: 09/05/19 12:18 Dose: 30 ml Documented by: Docusate Sodium (Colace Liquid -) 300 mg PO [facility] Last Admin: 09/04/19 21:32 Dose: Not Given Documented by: Fentanyl (Sublimaze Injection -) 25 mcg IVPUSH [id number] PRN PRN Reason: PAIN-PACU ORDER X 4 DOSES ONLY Metoprolol Tartrate (Lopressor -) 25 mg PO DAILY [facility] Last Admin: 09/05/19 09:31 Dose: 25 mg Documented by: Mirtazapine (Remeron -) 15 mg PO [facility] Last Admin: 09/04/19 21:34 Dose: 15 mg Documented by: Mupirocin (Bactroban 2% Ointment -) 1 applic TP BID [facility] Last Admin: 09/05/19 12:18 Dose: 1 applic Documented by: Tamsulosin HCl (Flomax -) 0.4 mg PO DAILY@0830 [facility] Last Admin: 09/05/19 09:38 Dose: Not Given Documented by: - Objective Vital Signs: Vital Signs Temperature 97.7 F 09/05/19 06:00 Pulse Rate 115 H 09/05/19 06:00 Respiratory Rate 18 09/05/19 06:00 Blood Pressure 122/59 L 09/05/19 06:00 O2 Sat by Pulse Oximetry (%) 100 09/04/19 21:00 Constitutional: Yes: No Distress, Calm Gastrointestinal: Yes: Soft Musculoskeletal: Yes: WNL Extremities: Yes: Other Labs: CBC, BMP 09/05/19 08:40 09/03/19 06:45 INR, PTT INR 1.10 (0.83-1.09) H 07/20/19 15:50 Assessment/Plan Problem List - Problems (1) Anemia Code(s): D64.9 - ANEMIA, UNSPECIFIED (2) Bacteremia Code(s): R78.81 - BACTEREMIA (3) Rhabdomyolysis Code(s): M62.82 - RHABDOMYOLYSIS (4) HTN (hypertension) Code(s): I10 - ESSENTIAL (PRIMARY) HYPERTENSION (5) Failure to thrive in adult Code(s): R62.7 - ADULT FAILURE TO THRIVE (6) Dementia Code(s): F03.90 - UNSPECIFIED DEMENTIA WITHOUT BEHAVIORAL DISTURBANCE (7) HLD (hyperlipidemia) Code(s): E78.5 - HYPERLIPIDEMIA, UNSPECIFIED (8) Metabolic encephalopathy Code(s): G93.41 - METABOLIC ENCEPHALOPATHY (9) Elevated LFTs Code(s): R94.5 - ABNORMAL RESULTS OF LIVER FUNCTION STUDIES plan continue current mgmt rest as per the team
[2019-09-05 16:17] VITALS: BP 114/54; PULSE 104
== END 2019-09-05 14:00 | disposition hospice, inpatient (51) | DRG 853 ==
LOC: JER 14:23 → JERBED 19:47 → J6S 07-21 02:59 → J5S 07-27 14:45
PROVIDERS: ADMIT Internal Medicine; ATTEND Internal Medicine
PROC: 02HV33Z Insertion of Infusion Device into Superior Vena Cava, Percutaneous Approach (ICD-10-PCS; 2019-07-27)
PROC: B548ZZA Ultrasonography of Superior Vena Cava, Guidance (ICD-10-PCS; 2019-07-27)
PROC: 30233N1 Transfusion of Nonautologous Red Blood Cells into Peripheral Vein, Percutaneous Approach (ICD-10-PCS; 2019-08-04)
PROC: 02H633Z Insertion of Infusion Device into Right Atrium, Percutaneous Approach (ICD-10-PCS; 2019-08-05)
PROC: B548ZZA Ultrasonography of Superior Vena Cava, Guidance (ICD-10-PCS; 2019-08-05)
PROC: 05PYX3Z Removal of Infusion Device from Upper Vein, External Approach (ICD-10-PCS; 2019-08-20)
PROC: 3E0G76Z Introduction of Nutritional Substance into Upper GI, Via Natural or Artificial Opening (ICD-10-PCS; 2019-08-25)
PROC: 0DH60UZ Insertion of Feeding Device into Stomach, Open Approach (ICD-10-PCS; principal; 2019-08-25 13:30)
DX: R78.81 Bacteremia (principal); G93.41 Metabolic encephalopathy; E46 Unspecified protein-calorie malnutrition; N17.9 Acute kidney failure, unspecified; M62.82 Rhabdomyolysis; R62.7 Adult failure to thrive; E87.5 Hyperkalemia; I25.2 Old myocardial infarction; E86.0 Dehydration; E83.39 Other disorders of phosphorus metabolism; R63.3 Feeding difficulties; E83.42 Hypomagnesemia; I25.10 Atherosclerotic heart disease of native coronary artery without angina pectoris; B95.62 Methicillin resistant Staphylococcus aureus infection as the cause of diseases classified elsewhere; I95.9 Hypotension, unspecified; F03.90 Unspecified dementia, unspecified severity, without behavioral disturbance, psychotic disturbance, mood disturbance, and anxiety; I12.9 Hypertensive chronic kidney disease with stage 1 through stage 4 chronic kidney disease, or unspecified chronic kidney disease; N18.9 Chronic kidney disease, unspecified; R94.5 Abnormal results of liver function studies; R19.7 Diarrhea, unspecified; G93.9 Disorder of brain, unspecified; D64.9 Anemia, unspecified; E78.5 Hyperlipidemia, unspecified; D69.6 Thrombocytopenia, unspecified; Z74.01 Bed confinement status; E83.52 Hypercalcemia; R00.0 Tachycardia, unspecified; Z87.891 Personal history of nicotine dependence; K43.9 Ventral hernia without obstruction or gangrene
CPT/HCPCS: 36415; 36430; 36511; 36569; 70450-TC; 71045-TC-FY; 74018-TC-FY; 74176-TC; 77001-TC-FY; 80048; 80053; 80061; 81003; 82272; 82550; 82553; 82607; 82728; 82747; 82784; 82803; 82962; 83010; 83540; 83550; 83605; 83615; 83721; 83735; 83883; 83970; 84100; 84155; 84156; 84165; 84166; 84439; 84443; 84484; 85014; 85025; 85027; 85044; 85610; 85730; 86850; 86880; 86900; 86901; 86922; 87040; 87070; 87086; 87186; 87205; 87324; 87449; 93005; 93010; 93306-TC; 94760; 97162-GP; 99285-25; C1751; G0480; J0131; J1644; J7030; P9038; P9058; Q9967